=== PATIENT | female | born 1940 | race Caucasian/White ===

== ENCOUNTER → 2016-03-16 | Outpatient (CLI) | payer MEDICARE, OTHER ==
[~2016-03-16] MED LIST: /AMIO20TA OR; /METO25TAB PO; /WARF5TA OR; ACET-654 PO; ASCO500T PO; ASPI325T PO; ASPI81TA4 PO; CENTTAB PO; CORE25TA PO; CYAN1000 PO; FOLI1TAB86 PO; FURO40TA2 PO; HUMUINJ3 SC; INSUNSD SC; LEVO10VL IV; LEVO75TA3 PO; LISI2.5T PO; LOSA25TA8 PO; LOVA40TA PO; METF1000 PO; NORCOBULK PO; VITA100041 PO; [UNRECOGNIZED DRUG - OTHER] PO
--- NOTE | 2016-03-16 16:31 | REP ---
Chest x-ray: Two views: History: Chronic diastolic heart failure. Paroxysmal atrial fibrillation. Comparison study: 09/04/2015. Findings: The lungs are well inflated and clear. Heart is moderately enlarged. Bipolar pacemaker is seen in place. Vascular calcification is seen in the aorta. Prior sternotomy wires and mediastinal clips are seen. Pulmonary vasculature is slightly cephalized. Impression: Cardiomegaly with cephalization and pacemaker. No pleural effusion or pulmonary edema is seen. Signed by Luis Lynn MD 03/16/2016 04:35 P
[2016-03-16 21:37] LABS: ALBUMIN 2.9 GM/DL (3.2-5.2); ALBUMIN/GLOBULIN RATIO 0.83 (1.00-1.93); BILIRUBIN,TOTAL 0.7 MG/DL (0.2-1.0); CALCIUM LEVEL 9.2 MG/DL (8.8-10.2); CREATININE FOR GFR 2.52 MG/DL (0.55-1.02); GLOMERULAR FILTRATION RATE 19.9 (>39); MAGNESIUM LEVEL 2.1 MG/DL (1.8-2.4); POTASSIUM SERUM 4.1 MEQ/L (3.5-5.1); TOTAL PROTEIN 6.4 GM/DL (6.4-8.2)
== END ==
LOC: M LRY 14:41
PROVIDERS: ATTEND Physician Assistant
DX: I48.0 Paroxysmal atrial fibrillation (principal); I50.32 Chronic diastolic (congestive) heart failure; E78.00 Pure hypercholesterolemia, unspecified

== ENCOUNTER → 2016-03-19 | Outpatient (CLI) | payer MEDICARE, OTHER ==
[2016-03-19 19:48] LABS: INR 1.76
== END ==
LOC: M LRY 09:59
PROVIDERS: ATTEND Nurse Practitioner Family
DX: I48.0 Paroxysmal atrial fibrillation (principal)

== ENCOUNTER → 2016-04-02 | Outpatient (REF) | payer MEDICARE, OTHER | LOC: M SFHCLERA 10:10 | PROVIDERS: ATTEND Family Medicine | DX: E11.21 Type 2 diabetes mellitus with diabetic nephropathy (principal) ==

== ENCOUNTER → 2016-04-02 | Outpatient (CLI) | payer MEDICARE, OTHER ==
[2016-04-02 18:07] LABS: INR 1.74
== END ==
LOC: M LRY 10:06
PROVIDERS: ATTEND Nurse Practitioner Family
DX: I48.0 Paroxysmal atrial fibrillation (principal); Z51.81 Encounter for therapeutic drug level monitoring; Z79.01 Long term (current) use of anticoagulants; E11.21 Type 2 diabetes mellitus with diabetic nephropathy

== ENCOUNTER → 2016-04-08 | Outpatient (CLI) | payer MEDICARE, OTHER ==
--- NOTE | 2016-04-08 15:44 | REPMRS ---
Patient History The patient states she has not had a clinical breast exam in over a year. Patient is postmenopausal. Family history of prostate cancer in son at age 50. Digital Woman Screen Mammo: April 08, 2016 - Exam #: [id number] Bilateral CC and MLO view(s) were taken. Technologist: Coni Llamas, Technologist Prior study comparison: April 06, 2014, digital woman screen mammo performed at [facility] to [facility]. December 09, 2011, digital woman screen mammo performed at [facility] to [facility]. January 08, 2009, bilateral bilat screen digital mammo performed at [facility] to [facility]. FINDINGS: There are scattered fibroglandular densities. There has been no change in the appearance of the mammogram from the prior studies. There is a pacemaker power plant projecting over the left axilla on the MLO view.There is a mild amount of scattered fibroglandular density which is fairly symmetric. There is no interval development of dominant mass, architectural distortion, or clustered microcalcification suggestive of malignancy. ASSESSMENT: BI-RADS/ACR category 2 mammogram. Benign finding(s). Recommendation Routine screening mammogram in 1 year (for women over age 40). This mammogram was interpreted with the aid of an FDA-approved computer-aided dectection system. Electronically Signed By: Augustus Lynn MD 04/08/16 [id number]
--- NOTE | 2016-04-10 08:57 | DEXA ---
AP SPINE L1 - L4 1.434 1.9 3.4 LT FEMUR TOTAL 0.837 -1.4 0.2 RT FEMUR TOTAL 0.879 -1.0 0.5 TOTAL BODY TOTAL OTHER DUAL FEMUR FRAX* ASSESSMENT Risk factors: Insulin-dependent diabetic. 10 year probability of fracture Major osteoporotic fracture 10.6 % Hip fracture 2.0 % COMMENTS: Normal bone densitometry of the spine. There is low bone density of the hips. The density of the spine has decreased 5.2% since the initial exam on 2002. The spine density has decreased 9.2% since the most recent exam on 12/09/2011. The density of the left hip has decreased 31.8% since the initial exam on 2002. The density of the left hip has decreased 14.8% since the most recent exam on . The density of the right hip has decreased 25.5% since the initial exam on 05/31. The density of the right hip has decreased 9.9% since the most recent exam on . FOLLOW-UP: Recommendation for the next bone density exam: 2 years. HORTENCIAD
== END ==
LOC: M WHC 13:27
PROVIDERS: ATTEND Family Medicine
DX: Z13.820 Encounter for screening for osteoporosis (principal); Z12.31 Encounter for screening mammogram for malignant neoplasm of breast; Z78.0 Asymptomatic menopausal state; R92.8 Other abnormal and inconclusive findings on diagnostic imaging of breast
CPT/HCPCS: 77080; G0202

== ENCOUNTER → 2016-04-16 | Outpatient (CLI) | payer MEDICARE, OTHER ==
[2016-04-16 19:13] LABS: INR 1.95
== END ==
LOC: M LRY 10:07
PROVIDERS: ATTEND Nurse Practitioner Family
DX: Z79.899 Other long term (current) drug therapy (principal); Z79.01 Long term (current) use of anticoagulants; I48.0 Paroxysmal atrial fibrillation

== ENCOUNTER → 2016-05-04 | Outpatient (CLI) | payer MEDICARE, OTHER ==
[2016-05-04 16:53] LABS: INR 1.42
== END ==
LOC: M LRY 10:15
PROVIDERS: ATTEND Physician Assistant
DX: I48.0 Paroxysmal atrial fibrillation (principal)

== ENCOUNTER → 2016-05-18 | Outpatient (CLI) | payer MEDICARE, OTHER ==
[2016-05-18 17:40] LABS: INR 2.21
== END ==
LOC: M LRY 14:48
PROVIDERS: ATTEND Physician Assistant
DX: I48.0 Paroxysmal atrial fibrillation (principal)

== ENCOUNTER → 2016-05-26 | Outpatient (REF) | payer MEDICARE, OTHER | LOC: M LAB REF 12:54 | PROVIDERS: ATTEND Internal Medicine Nephrology | DX: D50.9 Iron deficiency anemia, unspecified (principal) ==

== ENCOUNTER 2016-06-03 10:13 | Outpatient (CLI) | payer MEDICARE ==
[~2016-06-03] VITALS: Ht 152.4 cm; Wt 72.7 kg
[2016-06-03] MEDS ORDERED: IRON SUCROSE 25 MG in NS 50 ML IV ONE (10:30)
[2016-06-03] MEDS ORDERED: IRON SUCROSE 475 MG in NS 250 ML IV ONE (11:30)
== END 2016-06-03 15:40 | disposition home or self-care (01) ==
LOC: M INFU 10:13
PROVIDERS: ATTEND Internal Medicine Nephrology
DX: D50.9 Iron deficiency anemia, unspecified (principal); Z79.899 Other long term (current) drug therapy; Z79.82 Long term (current) use of aspirin; Z79.01 Long term (current) use of anticoagulants; Z79.4 Long term (current) use of insulin; Z91.041 Radiographic dye allergy status; Z88.8 Allergy status to other drugs, medicaments and biological substances
CPT/HCPCS: 96365; 96366; J1756

== ENCOUNTER → 2016-06-16 | Outpatient (CLI) | payer MEDICARE ==
[2016-06-16 12:01] LABS: INR 2.7
== END ==
LOC: M LRY 09:27
PROVIDERS: ATTEND Physician Assistant
DX: I48.0 Paroxysmal atrial fibrillation (principal)

== ENCOUNTER → 2016-06-29 | Outpatient (CLI) | payer MEDICARE ==
[2016-06-29 12:45] LABS: INR 1.56
== END ==
LOC: M LRY 09:42
PROVIDERS: ATTEND Physician Assistant
DX: I48.0 Paroxysmal atrial fibrillation (principal)

== ENCOUNTER → 2016-07-01 | Outpatient (REF) | payer MEDICARE ==
[2016-07-01 21:13] LABS: PERCENT SATURATION 20.9 % (13.2-37.4)
== END ==
LOC: M LAB REF 16:53
PROVIDERS: ATTEND Internal Medicine Nephrology
DX: D50.9 Iron deficiency anemia, unspecified (principal)

== ENCOUNTER → 2016-07-07 | Outpatient (CLI) | payer MEDICARE ==
[2016-07-07 17:38] LABS: INR 2.42
== END ==
LOC: M LRY 08:54
PROVIDERS: ATTEND Physician Assistant
DX: I48.0 Paroxysmal atrial fibrillation (principal)

== ENCOUNTER → 2016-07-24 | Outpatient (REF) | payer MEDICARE, OTHER | LOC: M SFHCLERA 15:19 | PROVIDERS: ATTEND Family Medicine | DX: E11.21 Type 2 diabetes mellitus with diabetic nephropathy (principal) ==

== ENCOUNTER → 2016-08-10 | Outpatient (CLI) | payer MEDICARE, OTHER ==
[2016-08-10 12:15] LABS: INR 1.97
== END ==
LOC: M LRY 10:03
PROVIDERS: ATTEND Physician Assistant
DX: I48.0 Paroxysmal atrial fibrillation (principal); Z79.899 Other long term (current) drug therapy; E11.21 Type 2 diabetes mellitus with diabetic nephropathy

== ENCOUNTER → 2016-08-10 | Outpatient (REF) | payer MEDICARE, OTHER | LOC: M SFHCLERA 09:57 | PROVIDERS: ATTEND Family Medicine | DX: E11.21 Type 2 diabetes mellitus with diabetic nephropathy (principal) ==

== ENCOUNTER → 2016-08-31 | Outpatient (CLI) | payer MEDICARE, OTHER ==
[2016-08-31 11:49] LABS: INR 2.72
== END ==
LOC: M LRY 10:08
PROVIDERS: ATTEND Physician Assistant
DX: I48.0 Paroxysmal atrial fibrillation (principal)

== ENCOUNTER 2016-09-11 14:53 | Inpatient (IN) | payer MEDICARE ==
[~2016-09-11] VITALS: Ht 152.4 cm; Wt 78.0 kg
[~2016-09-11 14:53] MED LIST changes: +VITA-182 PO; -VITA100041 PO
[2016-09-11] MEDS ORDERED: calcitrol (15:16)
[2016-09-11] MEDS ORDERED: FERR325T3 PO (15:16)
[2016-09-11 16:18] LABS: BASO # 0.1 K/mm3 (0.0-0.2); BASO % 0.8 % (0.0-1.0); EOS # 0.3 K/mm3 (0.0-0.50); EOS % 4.2 % (0.0-3.0); LARGE UNSTAINED CELL # 0.1 K/mm3 (0.0-0.4); LARGE UNSTAINED CELL % 1.5 % (0.0-4.0); LYMPH # 1.7 K/mm3 (1.5-4.5); LYMPH % 21.9 % (24.0-44.0); MEAN CORPUSCULAR HEMOGLOBIN 27.6 pg (27.0-33.0); MEAN CORPUSCULAR HGB CONC 29.9 g/dl (32.0-36.5); MEAN CORPUSCULAR VOLUME 92.4 fl (80.0-96.0); MONO # 0.3 K/mm3 (0.0-0.8); MONO % 4.7 % (0.0-5.0); PLATELET COUNT, AUTOMATED 236 k/mm3 (150-450); RED CELL DISTRIBUTION WIDTH 16.8 % (11.5-14.5); WHITE BLOOD COUNT 7.4 K/mm3 (4.0-10.0)
[2016-09-11 16:20] LABS: INR 2.8
[2016-09-11 16:32] LABS: ALBUMIN 2.7 GM/DL (3.2-5.2); ALBUMIN/GLOBULIN RATIO 0.75 (1.00-1.93); ALKALINE PHOSPHATASE 124 U/L (45-117); ALT/SGPT 48 U/L (12-78); ANION GAP 9 MEQ/L (8-16); AST/SGOT 38 U/L (15-37); BILIRUBIN,DIRECT 0.4 MG/DL (0.0-0.2); BILIRUBIN,TOTAL 0.9 MG/DL (0.2-1.0); BLOOD UREA NITROGEN 79 MG/DL (7-18); CALCIUM LEVEL 8.5 MG/DL (8.8-10.2); CARBON DIOXIDE LEVEL 26 MEQ/L (21-32); CHLORIDE LEVEL 105 MEQ/L (98-107); CREATININE FOR GFR 2.82 MG/DL (0.55-1.02); GLOMERULAR FILTRATION RATE 17.4 (>39); GLUCOSE, FASTING 89 MG/DL (83-110); SODIUM LEVEL 140 MEQ/L (136-145); TOTAL PROTEIN 6.3 GM/DL (6.4-8.2)
--- NOTE | 2016-09-11 17:12 | REP ---
Clinical: Pain and swelling . Technique: Sagastume scale and color Doppler evaluation using linear high frequency transducer. Findings: Ultrasound examination of the right and left lower extremity deep venous structures from the common femoral vein to the popliteal vein demonstrates normal compressibility flow and wave patterns in response to respiration and augmentation. There is no evidence for deep venous thrombosis. Marked subcutaneous edema noted bilaterally. Impression: Edema. No evidence for deep venous thrombosis. Signed by Immanuel Staton MD 09/11/2016 05:04 P
--- NOTE | 2016-09-11 17:12 | REP ---
Clinical: Chest pain . Comparison: 03/16/2016 . Findings: The mediastinum and cardiac silhouette are stable and within normal limits for portable technique. Evidence of prior pacemaker, sternotomy and CABG. The lung mckenna suggest mild chronic pulmonary vascular congestion without acute consolidation, effusion, or pneumothorax. Skeletal structures are intact. Impression: Cannot exclude mild pulmonary vascular congestion. Signed by Immanuel Staton MD 09/11/2016 05:03 P
[2016-09-11] MEDS ORDERED: FUROSEMIDE 40 MG/4 ML VIAL (J1940) IV ONE (17:30)
[2016-09-11] MEDS ORDERED: VITA500T88 PO (17:46)
[2016-09-11] MEDS ORDERED: AMIO200T PO (17:46)
[2016-09-11] MEDS ORDERED: FLAX10005 PO (18:23)
[2016-09-11] MEDS ORDERED: CALC1CAP31 PO (18:23)
[2016-09-11] MEDS ORDERED: VITMTA PO (18:23)
[2016-09-11] MEDS ORDERED: CARV25TA PO (18:23)
[2016-09-11] MEDS ORDERED: LEVO112T25 PO (18:23)
[2016-09-11] MEDS ORDERED: VITA10002 PO (18:23)
[2016-09-11] MEDS ORDERED: ASPI81TA24 PO (18:23)
[2016-09-11] MEDS ORDERED: VITA100066 PO (18:23)
[2016-09-11] MEDS ORDERED: FERR1TAB8 PO (18:23)
[2016-09-11] MEDS ORDERED: INSUNSD SC ×2 (18:23)
[2016-09-11] MEDS ORDERED: LOVA40TA PO (18:23)
[2016-09-11] MEDS ORDERED: TORS20TA2 PO (18:23)
[2016-09-11] MEDS ORDERED: WARF-18 PO ×2 (18:23)
[2016-09-11] MEDS ORDERED: POTASSIUM CHLORIDE 10 MEQ SR TABLET PO ONE (18:45)
[2016-09-11] MEDS ORDERED: GLUCOSE 4 GM CHEW TABLET PO PRN (20:00)
[2016-09-11] MEDS ORDERED: DEXTROSE 50% 50 ML SYRINGE IV PRN (20:00)
[2016-09-11] MEDS ORDERED: GLUCAGON FOR INJ 1 MG VIAL (J1610) SC PRN (20:00)
[2016-09-11] MEDS ORDERED: IPRATROPIUM 0.5MG/ALBUTEROL 2.5MG INH SOL UD 3ML (DUONEB)(J7620) NEB PRN (20:00)
--- NOTE | 2016-09-11 20:20 | REPUSA ---
Clinical statement: pleural effusion. Findings: The lower chest was image bilaterally. Minimal pleural effusions are seen bilaterally, sli ghtly greater on the right than the left. There is no significant evidence of ascites. Impression: Small bilateral pleural effusions.
--- NOTE | 2016-09-11 20:51 | HPE ---
DATE OF ADMISSION: 09/11/2016 CHIEF COMPLAINT: A 76-year-old female sent by Dr. Martin' nurse practitioner due to history of shortness of breath with exertion and lower extremity swelling. HISTORY OF PRESENT ILLNESS: This is a pleasant 76-year-old female with significant past medical history of coronary artery disease who takes amiodarone, has a pacemaker, is on anticoagulation Coumadin therapy due to history of bypass and porcine aortic valve replacement, along with comorbidities of diabetes, chronic kidney disease stage IV, who recently had a fistula placed in June of this year, with hypothyroidism comorbidity who presents complaining of shortness of breath two nights ago, along with lower extremity swelling. The patient states that two nights ago, she had developed shortness of breath with exertion. Is able to usually sleep lying in bed flatly. The patient recently had her medication changed to torsemide by Dr. Martin' group, but has not fully started yet, but unfortunately the patient developed shortness of breath two nights ago with exertion. Therefore, along with lower extremity swelling, the nurse practitioner at Dr. Martin' office sent the patient to the emergency room for further evaluation. In the emergency room, the patient was evaluated, had a chest x-ray which showed multiple pulmonary vascular congestion which could not be excluded, but without any acute consolidation, effusion, or pneumothorax. The patient also had vasculature of the lower extremities, which was negative for deep venous thrombosis (DVT). The patient did have chronic kidney disease along with elevated brain natriuretic peptide (BNP); therefore, is being admitted for further evaluation and treatment for congestive heart failure (CHF). The patient denies any prodromal illness such as fever, chills, cough, sputum production, abdominal pain, diarrhea, dysuria, although the patient recently had a fistula placement in June of this year with preparation for possible hemodialysis with Dr. Singh. The patient denies any precipitating factors such as chest pain associated with this. The has allergies to INTRAVENOUS (IV) DYE. Therefore, she was premedicated prior to CT evaluation for fistula creation. Otherwise, the patient denies any symptoms other than those mentioned above. REVIEW OF SYSTEMS: 10-point review of systems negative other than those described in history of present illness (HPI). PAST MEDICAL HISTORY: Significant for coronary artery disease, congestive heart failure, chronic kidney disease stage IV, history of bypass, porcine aortic valve replacement on Coumadin, diabetes, hypothyroidism. SOCIAL HISTORY: Patient denies smoking, drinking or drug abuse. PAST SURGICAL HISTORY: Includes pacemaker placement, left arm fistula, bypass and porcine valve replacement. ALLERGIES: IV DYE and also BENZOCAINE or any JUANA which causes to have more itching. HOME MEDICATIONS: - amiodarone 200 mg by mouth daily - ascorbic acid 500 mg by mouth daily - aspirin 81 mg by mouth daily - calcitriol 0.25 mcg daily - carvedilol 25 mg by mouth twice a day - colecalciferol (vitamin D) 1000 units by mouth daily - vitamin B12 1000 mcg by mouth daily - ferrous sulfate 325 mg by mouth twice a day - flaxseed oil one capsule once a day - NPH 35 units subcutaneous every morning - NPH 15 units subcutaneous at bedtime - levothyroxine 112 mcg by mouth daily - lovastatin 40 mg by mouth at bedtime - multivitamin one tablet once a day - torsemide 20 mg pill but total of 60 mg by mouth twice a day - warfarin 2.5 mg on Wednesday, Wednesday and - warfarin 1.25 mg four times a week on Wednesday, Wednesday, Wednesday, and Wednesday PHYSICAL EXAMINATION: VITAL SIGNS: Temperature last known is 97, currently heart rate last known is 60 , respiratory rate of 20, blood pressure is 149/70, saturating 97% on room air. HEENT: Normocephalic. No trauma noted. Inspection of the eyes, nose and throat within normal. Pupils equal, round, and reactive to light and accommodation. Mucus is moist. NECK: Supple. No tracheal deviation. CARDIAC: S1, S2. Regular rate and rhythm. Pulses present. LUNGS: Equal air entry. I did not hear any significant wheezes, rales, rhonchi or crackle. ABDOMEN: Soft, nontender. Bowel sounds present. EXTREMITIES: Lower extremity pitting edema all the way up to the mid abdomen. Lower extremities +2 to 3. NEUROLOGIC: The patient is currently awake, alert, and oriented times three. Cranial nerves grossly intact. Motor and sensory are intact. Normal mood and affect for current situation, and family at the bedside. DIAGNOSTIC STUDIES: The patient had WBC and platelets that were normal. Hemoglobin and hematocrit are 9.1 and 30.3. Complete metabolic profile is within normal except for potassium at 3.0, albumin at 79, creatinine of 2.82, GFR of 17.4, glucose 89, calcium 8.5, direct bilirubin is 0.4, AST is 38, alkaline phosphatase 124. Total protein is 6.3, albumin is 2.7. Otherwise, complete metabolic profile is within normal. Cardiac enzymes within normal. BNP is 769. Coagulation studies: INR is therapeutic at 2.8 and PT of 30.7. The patient had chest x-ray again, as per radiology which could not exclude pulmonary vascular congestion, and lower extremity Doppler that was negative for DVT bilaterally. EKG showed heart rate of 60 electrically paced. ASSESSMENT AND PLAN: This is a 76-year-old female with significant past medical history of coronary artery disease who has a history of bypass along with porcine aortic valve replacement, utilizing Coumadin and amiodarone and follows Dr. Martin as outpatient, recently had medication change torsemide, with comorbidities of diabetes, hypothyroidism, coronary artery disease, chronic kidney disease, congestive heart failure (CHF), who is being admitted for shortness of breath with exertion and lower extremity swelling. 1. Congestive heart failure exacerbation with chronic kidney disease stage IV. The patient will be placed on telemetry. We will obtain serial cardiac enzymes, utilize IV Lasix, monitor intake and output, daily weights, fluid restriction, low salt diet. Respiratory treatment and oxygen as needed. Last known echocardiogram done was 2012. Therefore, we will repeat echocardiogram for further evaluation of ejection fraction. I have spoken with Dr. Zhou, who requested the patient to be treated with IV Lasix and discharged home with torsemide 20 mg twice a day. It seems the patient is already on 60 mg twice a day, this will need to be clarified again with Cardiology as patient likely will need a higher dose. Will defer touching base with Dr. Zhou to the oncoming team for discharge torsemide dosing, as the patient may need to go back on 60 instead of the 20 mg recommended. 2. Hypokalemia. We will replace and obtain magnesium level. 3. Coronary artery disease with history of bypass and porcine aortic valve and pacemaker. Resume amiodarone, aspirin, carvedilol, statin, and Coumadin and monitor international normalized ratio (INR). 4. Diabetes. Fingerstick monitoring. Resume NPH. 5. Hypothyroidism. Resume levothyroxine. 6. Resume vitamin B12, iron, calcitriol and vitamin D. 7. Deep venous thrombosis (DVT) prophylaxis with Coumadin and INR monitoring. MTDD
[2016-09-11] MEDS: HumaLOG INSULIN (NovoLOG) PER UNIT SC SCH (21:00)
--- NOTE | 2016-09-11 21:03 | ECGEPIP ---
Stationary ECG Study [facility] - ED Test Date: 2016-09-11 Pat Name: EVELYN LABOY Department: Room: - Gender: F Chute Loader: tk : 1940 Requested By: Indra Landa Order Number: [id number] Reading MD: Fannie Livingston Measurements Intervals [place] Rate: 60 P: 235 VA: 229 QRS: 267 QRSD: 195 T: 86 QT: 529 QTc: 529 Interpretive Statements ELECTRONIC ATRIAL PACEMAKER ELECTRONIC VENTRICULAR PACEMAKER ABNORMAL RHYTHM ECG Electronically Signed On 09-11-2016 21:02:49 EDT by Fannie Livingston
[2016-09-11] MEDS: IPRATROPIUM 0.5MG/ALBUTEROL 2.5MG INH SOL UD 3ML (DUONEB)(J7620) NEB SCH (21:11)
[2016-09-11 21:18] VITALS: BP 118/46
[2016-09-11] MEDS: WARFARIN SOD 2.5 MG TAB PO SCH (22:20)
[2016-09-11] MEDS: SIMVASTATIN 40 MG TAB PO SCH (22:25)
[2016-09-11] MEDS: CARVedilol 12.5 MG TAB PO SCH (22:25)
[2016-09-11] MEDS: FERROUS SULFATE 325MG TAB PO SCH (22:25)
[2016-09-11] MEDS: HumuLIN N INSULIN (NovoLIN N) PER UNIT SC SCH (22:28)
[2016-09-11] MEDS: FUROSEMIDE 40 MG/4 ML VIAL (J1940) IV SCH (22:32)
[2016-09-12] VITALS (7 sets, daily range): BP systolic 108–142; BP diastolic 46–65
[2016-09-12] MEDS: FUROSEMIDE 40 MG/4 ML VIAL (J1940) IV SCH ×6 (01:10→20:24)
[2016-09-12] MEDS: IPRATROPIUM 0.5MG/ALBUTEROL 2.5MG INH SOL UD 3ML (DUONEB)(J7620) NEB SCH (02:00)
[2016-09-12 03:01] LABS: MEAN CORPUSCULAR HEMOGLOBIN 28.2 pg (27.0-33.0); MEAN CORPUSCULAR HGB CONC 30.5 g/dl (32.0-36.5); MEAN CORPUSCULAR VOLUME 92.5 fl (80.0-96.0); RED CELL DISTRIBUTION WIDTH 16.9 % (11.5-14.5); WHITE BLOOD COUNT 8.3 K/mm3 (4.0-10.0)
[2016-09-12 03:28] LABS: CALCIUM LEVEL 8.5 MG/DL (8.8-10.2); CREATININE FOR GFR 2.73 MG/DL (0.55-1.02); GLOMERULAR FILTRATION RATE 18.1 (>39); POTASSIUM SERUM 3.4 MEQ/L (3.5-5.1)
[2016-09-12] MEDS: LEVOTHYROXINE 112MCG TABLET (0.112MG) PO SCH (06:27)
[2016-09-12] MEDS: HumaLOG INSULIN (NovoLOG) PER UNIT SC SCH ×4 (07:30→20:24)
[2016-09-12] MEDS: VITAMIN D 1,000 INTERNATIONAL UNITS TABLET PO SCH (08:09)
[2016-09-12] MEDS: MULTIVITAMINS/MINERALS THERAP 1 TAB PO SCH (08:09)
[2016-09-12] MEDS: CYANOCOBALAMIN 500 MCG TAB PO SCH (08:10)
[2016-09-12] MEDS: CARVedilol 12.5 MG TAB PO SCH ×2 (08:10→20:23)
[2016-09-12] MEDS: FERROUS SULFATE 325MG TAB PO SCH ×2 (08:10→20:21)
[2016-09-12] MEDS: AMIODARONE 200 MG TAB (PACERONE) PO SCH (08:10)
[2016-09-12] MEDS: ASPIRIN 81 MG ENTERIC TAB PO SCH (08:10)
[2016-09-12] MEDS: HumuLIN N INSULIN (NovoLIN N) PER UNIT SC SCH ×2 (09:01→21:00)
--- NOTE | 2016-09-12 14:29 | IPN ---
DATE: 09/12/2016 SUBJECTIVE: Patient seen and examined in the room today. Patient stated she does not have any difficulty breathing; however, does notice that she has worsening lower extremity swelling and has been worsening for the past few weeks. No overnight events reported. OBJECTIVE: VITAL SIGNS: Temperature is 97.3, pulse is 60, respirations 18, blood pressure is 140/65, pulse oximetry 96% in room air. GENERAL: No sign of acute distress, alert and oriented times three. HEENT: Normocephalic, atraumatic. Extraocular motor grossly intact. VITAL SIGNS: Positive S1, S2, regular rate. LUNGS: Clear to auscultation bilaterally. No wheezes or rhonchi. ABDOMEN: Soft, nontender, nondistended. Bowel sounds present. No rebound. No guarding. EXTREMITIES: Bilateral pitting edema. No sign of cyanosis. LABORATORY DATA: WBC 8.3, hemoglobin 8.9, hematocrit 29.2, platelet count is 222. Sodium is 143, potassium 3.4, chloride 107, carbon dioxide 25, BUN 75, creatinine 2.73, GFR is 18.1, fasting glucose 100, calcium is 8.5. ASSESSMENT AND PLAN: 1. Congestive heart failure exacerbation. Patient is currently receiving intravenous (IV) Lasix with holding parameters. Will continue to monitor patient's input and output. Patient does not have any events observed on telemetry. Patient will be downgraded to medical/surgical. 2. Hypokalemia. Patient will receive a potassium supplement. Will follow with magnesium level. 3. Coronary artery disease with a history of bypass and porcine aortic valve and pacemaker. Patient is on aspirin, carvedilol, amiodarone, and a statin. Patient is on Coumadin with a therapeutic INR. 4. Diabetes. Sliding scale. 5. Hypothyroidism, on Synthroid. 6. Deep vein thrombosis (DVT) prophylaxis. Patient has therapeutic INR. Patient is on Coumadin.
[2016-09-12 14:53] LABS: MAGNESIUM LEVEL 2.3 MG/DL (1.8-2.4)
[2016-09-12] MEDS ORDERED: POTASSIUM CHLORIDE 10 MEQ SR TABLET PO ONE (15:00)
[2016-09-12] MEDS: SIMVASTATIN 40 MG TAB PO SCH (20:21)
[2016-09-12] MEDS: CALCITRIOL 0.25 MCG CAP (S0169) PO SCH (20:21)
[2016-09-12] MEDS: WARFARIN SOD 2.5 MG TAB PO SCH (20:24)
[2016-09-13] MEDS: FUROSEMIDE 40 MG/4 ML VIAL (J1940) IV SCH ×6 (00:24→20:23)
[2016-09-13] MEDS: LEVOTHYROXINE 112MCG TABLET (0.112MG) PO SCH (05:25)
[2016-09-13 06:00] VITALS: BP_SYST 112; BP_SYST 125; BP_DIAS 56; BP_DIAS 57
[2016-09-13 06:46] LABS: MEAN CORPUSCULAR HEMOGLOBIN 27.7 pg (27.0-33.0); MEAN CORPUSCULAR HGB CONC 29.8 g/dl (32.0-36.5); MEAN CORPUSCULAR VOLUME 92.9 fl (80.0-96.0); RED CELL DISTRIBUTION WIDTH 17.1 % (11.5-14.5); WHITE BLOOD COUNT 8.1 K/mm3 (4.0-10.0)
[2016-09-13 07:01] LABS: CALCIUM LEVEL 8.5 MG/DL (8.8-10.2); CREATININE FOR GFR 2.64 MG/DL (0.55-1.02); GLOMERULAR FILTRATION RATE 18.8 (>39)
[2016-09-13] MEDS: HumaLOG INSULIN (NovoLOG) PER UNIT SC SCH ×4 (07:30→17:39)
[2016-09-13] MEDS: MULTIVITAMINS/MINERALS THERAP 1 TAB PO SCH (08:11)
[2016-09-13] MEDS: VITAMIN D 1,000 INTERNATIONAL UNITS TABLET PO SCH (08:11)
[2016-09-13] MEDS: FERROUS SULFATE 325MG TAB PO SCH ×2 (08:11→20:22)
[2016-09-13] MEDS: CARVedilol 12.5 MG TAB PO SCH ×2 (08:12→20:21)
[2016-09-13] MEDS: AMIODARONE 200 MG TAB (PACERONE) PO SCH (08:13)
[2016-09-13] MEDS: CYANOCOBALAMIN 500 MCG TAB PO SCH (08:13)
[2016-09-13] MEDS: ASPIRIN 81 MG ENTERIC TAB PO SCH (08:13)
[2016-09-13] MEDS: HumuLIN N INSULIN (NovoLIN N) PER UNIT SC SCH ×2 (08:14→20:23)
[2016-09-13] MEDS ORDERED: PREVNAR 13 VACCINE SYRINGE (CPT CODE:90670) IM ONE (09:00)
[2016-09-13 14:00] VITALS: BP 116/58
--- NOTE | 2016-09-13 16:27 | IPN ---
DATE: 09/13/2016 SUBJECTIVE: Patient seen and examined in the room today. Patient stated that her lower extremity swelling has been improving. The patient feels less discomfort. No overnight events reported. No difficulty breathing. OBJECTIVE: VITAL SIGNS: Temperature is 97.3, pulse is 58, respirations 18, blood pressure is 125/57, pulse oximetry is 93% in room air. GENERAL: No sign of acute distress, alert and oriented times three. HEENT: Normocephalic, atraumatic. Extraocular motor grossly intact. VITAL SIGNS: Positive S1, S2, regular rate. LUNGS: Clear to auscultation bilaterally. No wheezes or rhonchi. ABDOMEN: Soft, nontender, nondistended. Bowel sounds present. No rebound. No guarding. EXTREMITIES: There is still bilateral pitting edema. No sign of cyanosis. LABORATORY DATA: WBC 8.1, hemoglobin 8.5, hematocrit 28.5, platelet count is 220. Sodium is 139, potassium 4.0, chloride 106, carbon dioxide 26, BUN 78, creatinine 2.64, GFR is 18.8, fasting glucose 79, calcium is 8.5. ASSESSMENT AND PLAN: 1. Acute exacerbation of congestive heart failure. Patient is on intravenous (IV) Lasix diuresis. 2. Acute on chronic renal injury. In March 2016, the patient had a creatinine of 2.52. Since admission, the patient's renal function is improving. Continue Lasix diuresis. 3. History of coronary artery disease with a history of bypass and porcine aortic valve and pacemaker. Patient is on aspirin, carvedilol, amiodarone, and a statin. Patient is on Coumadin with a therapeutic INR. 4. Diabetes. On sliding scale. 5. Hypothyroidism, on Synthroid. 6. Deep vein thrombosis (DVT) prophylaxis. Patient in on Coumadin with a therapeutic INR.
[2016-09-13] MEDS: WARFARIN SOD 2.5 MG TAB PO SCH (20:21)
[2016-09-13] MEDS: SIMVASTATIN 40 MG TAB PO SCH (20:21)
[2016-09-13 22:00] VITALS: BP 112/55
[2016-09-14] MEDS: FUROSEMIDE 40 MG/4 ML VIAL (J1940) IV SCH ×4 (00:06→13:00)
[2016-09-14] MEDS: LEVOTHYROXINE 112MCG TABLET (0.112MG) PO SCH (05:46)
[2016-09-14 06:00] VITALS: BP 100/56
[2016-09-14 06:27] LABS: MEAN CORPUSCULAR HEMOGLOBIN 28.6 pg (27.0-33.0); MEAN CORPUSCULAR HGB CONC 30.6 g/dl (32.0-36.5); MEAN CORPUSCULAR VOLUME 93.6 fl (80.0-96.0); RED CELL DISTRIBUTION WIDTH 17.3 % (11.5-14.5)
[2016-09-14 06:49] LABS: CALCIUM LEVEL 9.1 MG/DL (8.8-10.2); CREATININE FOR GFR 2.69 MG/DL (0.55-1.02); GLOMERULAR FILTRATION RATE 18.4 (>39); POTASSIUM SERUM 3.8 MEQ/L (3.5-5.1)
[2016-09-14] MEDS: HumaLOG INSULIN (NovoLOG) PER UNIT SC SCH ×4 (07:30→21:00)
[2016-09-14 07:46] LABS: INR 2.94
[2016-09-14] MEDS: FERROUS SULFATE 325MG TAB PO SCH ×2 (08:41→21:14)
[2016-09-14] MEDS: MULTIVITAMINS/MINERALS THERAP 1 TAB PO SCH (08:41)
[2016-09-14] MEDS: AMIODARONE 200 MG TAB (PACERONE) PO SCH (08:41)
[2016-09-14] MEDS: ASPIRIN 81 MG ENTERIC TAB PO SCH (08:41)
[2016-09-14] MEDS: CYANOCOBALAMIN 500 MCG TAB PO SCH (08:42)
[2016-09-14] MEDS: VITAMIN D 1,000 INTERNATIONAL UNITS TABLET PO SCH (08:42)
[2016-09-14] MEDS: HumuLIN N INSULIN (NovoLIN N) PER UNIT SC SCH ×3 (08:43→21:15)
[2016-09-14] MEDS: CARVedilol 12.5 MG TAB PO SCH ×2 (08:43→21:15)
[2016-09-14 14:00] VITALS: BP 108/54
--- NOTE | 2016-09-14 16:20 | IPN ---
DATE: 09/14/2016 SUBJECTIVE: Patient is seen and examined in the room today. Patient stated her lower extremity edema has been improving, however she still has significant residual swelling causing her discomfort and patient does not feel comfortable and patient is unable to resume her daily activity function with current swelling. No overnight events reported. OBJECTIVE: VITAL SIGNS: Temperature 97.8, pulse 60, respirations 18, blood pressure 100/56, pulse oximetry 95% in room air. GENERAL: No sign of acute distress, alert and oriented times three. HEENT: Normocephalic, atraumatic. Extraocular motors grossly intact. CARDIOVASCULAR: Positive S1, S2, regular rate. LUNGS: Clear to auscultation bilaterally. No wheezing or rhonchi. ABDOMEN: Soft, nontender, nondistended. Bowel sounds present. No rebound. No guarding. EXTREMITIES: 2+ pitting edema bilaterally. No sign of cyanosis. Some discomfort found on palpation. ASSESSMENT AND PLAN: 1. Acute exacerbation of congestive heart failure. Patient still has significant lower extremity swelling. Patient had aggressive IV diuresis today. I contacted patient's cardiology provider, Kalee in Dr. Martin' office. Previously, patient was on Lasix 120 by mouth daily, however with that dosage patient had worsening lower extremity swelling. Patient was switched to torsemide 60 mg by mouth twice a day right before admission. Patient actually only took one dose of the new regimen. Patient is not sure whether the new regimen works for her. Will restart patient on oral regimen. Will see if patient can maintain a good intake and output. 2. Acute on chronic renal injury. In February, patient had a creatinine of 2.52. Patient is continued on the diuresis. Will continue to follow patient's renal function. 3. History of coronary artery disease with history of bypass and porcine aortic valve and pacemaker. On aspirin, carvedilol, amiodarone, and statin. Patient is on Coumadin with a therapeutic INR. 4. Diabetes. On sliding scale and consistent carbohydrate diet. 5. Hypothyroidism, on Synthroid. 6. Deep venous thrombosis (DVT) prophylaxis. Patient is on Coumadin with a therapeutic INR.
[2016-09-14] MEDS: TORSEMIDE 20 MG TAB PO SCH (17:44)
[2016-09-14 20:00] VITALS: BP 106/57
[2016-09-14] MEDS: CALCITRIOL 0.25 MCG CAP (S0169) PO SCH (21:14)
[2016-09-14] MEDS: SIMVASTATIN 40 MG TAB PO SCH (21:14)
[2016-09-14] MEDS: WARFARIN SOD 2.5 MG TAB PO SCH (21:15)
[2016-09-14 22:00] VITALS: BP 106/57
[2016-09-15 06:00] VITALS: BP 127/57
[2016-09-15] MEDS: LEVOTHYROXINE 112MCG TABLET (0.112MG) PO SCH (06:26)
[2016-09-15 07:12] LABS: MEAN CORPUSCULAR HEMOGLOBIN 28.9 pg (27.0-33.0); MEAN CORPUSCULAR HGB CONC 30.6 g/dl (32.0-36.5); MEAN CORPUSCULAR VOLUME 94.3 fl (80.0-96.0); RED CELL DISTRIBUTION WIDTH 17.3 % (11.5-14.5); WHITE BLOOD COUNT 8.2 K/mm3 (4.0-10.0)
[2016-09-15 07:19] LABS: INR 2.99
[2016-09-15 07:31] LABS: CREATININE FOR GFR 2.71 MG/DL (0.55-1.02); GLOMERULAR FILTRATION RATE 18.2 (>39); POTASSIUM SERUM 3.9 MEQ/L (3.5-5.1)
[2016-09-15] MEDS: TORSEMIDE 20 MG TAB PO SCH ×2 (08:38→17:59)
[2016-09-15] MEDS: CYANOCOBALAMIN 500 MCG TAB PO SCH (08:38)
[2016-09-15] MEDS: HumaLOG INSULIN (NovoLOG) PER UNIT SC SCH ×4 (08:39→21:00)
[2016-09-15] MEDS: AMIODARONE 200 MG TAB (PACERONE) PO SCH (08:39)
[2016-09-15] MEDS: MULTIVITAMINS/MINERALS THERAP 1 TAB PO SCH (08:39)
[2016-09-15] MEDS: ASPIRIN 81 MG ENTERIC TAB PO SCH (08:39)
[2016-09-15] MEDS: VITAMIN D 1,000 INTERNATIONAL UNITS TABLET PO SCH (08:39)
[2016-09-15] MEDS: CARVedilol 12.5 MG TAB PO SCH ×2 (08:39→20:49)
[2016-09-15] MEDS: FERROUS SULFATE 325MG TAB PO SCH ×2 (08:39→20:49)
[2016-09-15] MEDS: HumuLIN N INSULIN (NovoLIN N) PER UNIT SC SCH ×2 (08:40→20:50)
[2016-09-15 14:00] VITALS: BP 127/58
--- NOTE | 2016-09-15 16:36 | IPNPDOC ---
Subjective Date Seen The patient was seen on 09/15/16. Subjective Chief Complaint/HPI The patient is a 76-year-old female admitted with a reason for visit of Acute Exacerbation Of Chf. General: Denies: Chills, Night Sweats Constitutional: Denies: Chills, Fever Eyes: Denies: Pain, Vision change ENT: Denies: Head Aches, Ear Pain Skin: Denies: Rash, Lesions Pulmonary: Denies: Dyspnea, Cough Cardiovascular: Denies: Chest Pain, Palpitations Gastrointestinal: Denies: Nausea, Vomiting Genitourinary: Denies: Dysuria, Frequency Hematologic: Denies: Bruising, Bleeding Excessively Objective Physical Examination General Exam: Positive: Alert, Cooperative, No Acute Distress ENT Exam: Positive: Atraumatic, Mucous membr. moist/pink Neck Exam: Negative: JVD Chest Exam: Positive: Clear to auscultation Heart Exam: Positive: Rate Normal, Normal S1, Normal S2 Abdomen Exam: Positive: Soft, Negative: Tenderness Extremity Exam: Positive: Other (2+ pitting edema in the lower extremities bilaterally), Negative: Tenderness Psych Exam: Positive: Oriented x 3 Assessment /Plan Plan/VTE VTE Prophylaxis Ordered?: Yes Plan Acute decompensation of congestive heart failure Patient's volume status improved, however she does still have some edema in the lower extremities, particularly in the feet bilaterally Cont torsemide 60 mg by mouth twice a day Cont to monitor I/O's Daily weights We will cont to optimize the patient's volume status Chronic Kidney Disease Stage IV Serum Creatinine at baseline Follows with Dr. Singh as an outpatient History of coronary artery disease with history of bypass and porcine aortic valve and pacemaker. Cont aspirin, carvedilol, amiodarone, and statin. On Coumadin with a therapeutic INR. Diabetes Cont sliding scale and consistent carbohydrate diet. Hypothyroidism Cont Synthroid. Deep venous thrombosis (DVT) prophylaxis. Already on Coumadin with a therapeutic INR. Dispo--Anticipate D/C in the next 24 hrs pending clinical improvement. VS, I&O, 24H, Fishbone Vital Signs/I&O Vital Signs Date Time Temp Pulse Resp B/P (MAP) Pulse Ox O2 Delivery O2 Flow Rate FiO2 09/15/16 08:39 64 142/63 09/15/16 08:05 Room Air 09/15/16 06:00 99.2 18 92 I&O- Last 24 Hours up to 6 AM 09/15/16 06:00 Intake Total 840 ml Output Total 825 ml Balance 15 ml Laboratory Data 24H LABS Laboratory Tests 2 09/14/16 16:38: Bedside Glucose (Misc Panel) 128H 09/14/16 20:50: Bedside Glucose (Misc Panel) 131H 09/15/16 06:54: Prothrombin Time 32.4H, Prothromb Time International Ratio 2.99, Anion Gap 8, Glomerular Filtration Rate 18.2L, Blood Urea Nitrogen 73H, Creatinine 2.71H, Sodium Level 138, Potassium Level 3.9, Chloride Level 104, Carbon Dioxide Level 26, Calcium Level 9.0 CBC/BMP Laboratory Tests 09/15/16 06:54 Red Blood Count 2.99 L, Mean Corpuscular Volume 94.3, Mean Corpuscular Hemoglobin 28.9, Mean Corpuscular Hemoglobin Concent 30.6 L, Red Cell Distribution Width 17.3 H, Calcium Level 9.0 Microbiology Microbiology 09/12/16 Urine Culture - Final, Complete Escherichia Coli MILLI RYAN MD Sep 15, 2016 16:36
[2016-09-15] MEDS: SIMVASTATIN 40 MG TAB PO SCH (20:49)
[2016-09-15] MEDS: WARFARIN SOD 2.5 MG TAB PO SCH (20:50)
[2016-09-15 22:00] VITALS: BP 133/60
[2016-09-16 06:00] VITALS: BP 132/58
[2016-09-16] MEDS: LEVOTHYROXINE 112MCG TABLET (0.112MG) PO SCH (06:02)
[2016-09-16 06:52] LABS: MEAN CORPUSCULAR HGB CONC 29.4 g/dl (32.0-36.5); MEAN CORPUSCULAR VOLUME 95.1 fl (80.0-96.0); RED CELL DISTRIBUTION WIDTH 17.4 % (11.5-14.5); WHITE BLOOD COUNT 9.8 K/mm3 (4.0-10.0)
[2016-09-16 06:55] LABS: CALCIUM LEVEL 9.3 MG/DL (8.8-10.2); CREATININE FOR GFR 2.92 MG/DL (0.55-1.02); GLOMERULAR FILTRATION RATE 16.7 (>39); POTASSIUM SERUM 4.3 MEQ/L (3.5-5.1)
[2016-09-16 06:58] LABS: INR 3.07
[2016-09-16 08:24] VITALS: BP 132/58
[2016-09-16] MEDS: MULTIVITAMINS/MINERALS THERAP 1 TAB PO SCH (08:24)
[2016-09-16] MEDS: HumaLOG INSULIN (NovoLOG) PER UNIT SC SCH ×2 (08:24→13:17)
[2016-09-16] MEDS: FERROUS SULFATE 325MG TAB PO SCH (08:24)
[2016-09-16] MEDS: VITAMIN D 1,000 INTERNATIONAL UNITS TABLET PO SCH (08:24)
[2016-09-16] MEDS: CARVedilol 12.5 MG TAB PO SCH (08:24)
[2016-09-16] MEDS: ASPIRIN 81 MG ENTERIC TAB PO SCH (08:24)
[2016-09-16] MEDS: HumuLIN N INSULIN (NovoLIN N) PER UNIT SC SCH (08:25)
[2016-09-16] MEDS: AMIODARONE 200 MG TAB (PACERONE) PO SCH (08:25)
[2016-09-16] MEDS: CYANOCOBALAMIN 500 MCG TAB PO SCH (08:25)
[2016-09-16] MEDS: TORSEMIDE 20 MG TAB PO SCH (08:25)
--- NOTE | 2016-09-16 12:31 | DS.PDOC ---
Discharge Summary General Date of Admission Sep 14, 2016 at 16:01 Date of Discharge 09/16/16 Discharge Summary PROCEDURES PERFORMED DURING STAY: None. ADMITTING DIAGNOSES: 1. . Decompensated congestive heart failure 2. . Stage IV chronic kidney disease DISCHARGE DIAGNOSES: 1. . Decompensated congestive heart failure 2. . Stage IV chronic kidney disease COMPLICATIONS/CHIEF COMPLAINT: Acute Exacerbation Of Chf. HISTORY OF PRESENT ILLNESS: . 76-year-old female with past medical history of CAD, congestive heart failure, chronic kidney disease stage IV, history of CABG, porcine aortic valve replacement on Coumadin, DM, and Hypothyroidism presented to the ER with a chief complaint of increasing shortness of breath and lower extremity edema. Patient follows with Dr. Martin's office of cardiology. She states that normally she is able to sleep lying flat in bed. However, prior to her presentation to the ER she notes that she developed increasing shortness of breath while laying flat and she also noticed that she developed increased swelling in her lower extremities. She was seen in the cardiology office and her diuretic medication was changed to torsemide 60 mg by mouth twice a day recently. However, upon going home the patient states that she continued to feel short of breath with lower extreme edema so she presented to the ER for further evaluation. In the ER, the patient was noted to be in the decompensated congestive heart failure. She was started on IV diuretics and the hospitalist service was called for admission. During hospitalization, the patient was continued on IV diuretics and subsequently transitioned to by mouth torsemide as previously prescribed. During this time, the patient's lower extremity edema and dyspnea on exertion significantly improved. She has diuresed a net negative fluid balance of ~2 L during this time. At this time, the patient states that she is back to her baseline. The patient's serum creatinine has remained within her baseline limits of 2.5-2.9. She notes that she has an appointment scheduled with Dr. Singh's office within the next week. At this time, the patient states that she feels much better and she is eager to return home. The patient was seen by physical therapy and cleared to return home. At this time, I have advised patient to follow-up with her primary care physician within one as well as her solids control technician and concrete inspector. In addition, I have asked the patient to monitor her fluid intake, and take daily weights to monitor her fluid balance levels. She has been advised to return to the ER if her symptoms return or persist. DISCHARGE MEDICATIONS: Please see below. ALLERGIES: Please see below. PHYSICAL EXAMINATION ON DISCHARGE: General Exam: Positive: Alert, Cooperative, No Acute Distress ENT Exam: Positive: Atraumatic, Mucous membr. moist/pink Neck Exam: Negative: JVD Chest Exam: Positive: Clear to auscultation Heart Exam: Positive: Rate Normal, Normal S1, Normal S2 Abdomen Exam: Positive: Soft, Negative: Tenderness Extremity Exam: Positive: Other (1+ pitting edema in the lower extremities bilaterally),--significantly improved Negative: Tenderness Psych Exam: Positive: Oriented x 3 LABORATORY DATA: Please see below. IMAGING: Clinical: Chest pain . Comparison: 03/16/2016 . Findings: The mediastinum and cardiac silhouette are stable and within normal limits for portable technique. Evidence of prior pacemaker, sternotomy and CABG. The lung mckenna suggest mild chronic pulmonary vascular congestion without acute consolidation, effusion, or pneumothorax. Skeletal structures are intact. Impression: Cannot exclude mild pulmonary vascular congestion. PROGNOSIS: Medically stable at this time ACTIVITY: As tolerated. DIET: .2gm low sodium, fluid restricted diet DISCHARGE PLAN: DISPOSITION: .Home DISCHARGE INSTRUCTIONS: 1. . Follow-up with PCP, nephrology, and cardiology within 1-2 weeks 2. . Return to the ER if symptoms return or persist DISCHARGE CONDITION: Stable. TIME SPENT ON DISCHARGE: Greater than 30 minutes. Vital Signs/I&Os Vital Signs Date Time Temp Pulse Resp B/P (MAP) Pulse Ox O2 Delivery O2 Flow Rate FiO2 09/16/16 08:24 62 132/58 09/16/16 07:43 Room Air 09/16/16 06:00 97.4 18 92 I&O- Last 24 Hours up to 6 AM 09/16/16 05:59 Intake Total 840 ml Output Total 1150 ml Balance -310 ml Laboratory Data Labs 24H Laboratory Tests 2 09/16/16 06:32: Prothrombin Time 33.1H, Prothromb Time International Ratio 3.07, Anion Gap 8, Glomerular Filtration Rate 16.7L, Blood Urea Nitrogen 76H, Creatinine 2.92H, Sodium Level 135L, Potassium Level 4.3, Chloride Level 103, Carbon Dioxide Level 24, Calcium Level 9.3 CBC/BMP Laboratory Tests 09/16/16 06:32 Red Blood Count 3.03 L, Mean Corpuscular Volume 95.1, Mean Corpuscular Hemoglobin 28.0, Mean Corpuscular Hemoglobin Concent 29.4 L, Red Cell Distribution Width 17.4 H, Calcium Level 9.3 Microbiology Microbiology 09/12/16 Urine Culture - Final, Complete Escherichia Coli Discharge Medications Scheduled (Flaxseed Oil 1000 mg) 1 Cap Cap, 1 CAP PO DAILY, (Reported) Amiodarone HCl (Amiodarone HCl) 200 Mg Tab, 200 MG PO DAILY, (Reported) Ascorbic Acid (Vitamin C) 500 Mg Tab, 500 MG PO DAILY, (Reported) Aspirin (Aspirin EC) 81 Mg Tab, 81 MG PO DAILY, (Reported) Calcitriol (Calcitriol) 0.25 Mcg Cap, 0.25 MCG PO Q2D, (Reported) TAKES AT HS Carvedilol (Carvedilol) 25 Mg Tab, 25 MG PO BID, (Reported) Cholecalciferol (Vitamin D) 1,000 Unit Tab, 1,000 UNIT PO DAILY, (Reported) Cyanocobalamin (Vitamin B-12) 1,000 Mcg Tab, 1,000 MCG PO DAILY, (Reported) Ferrous Sulfate (Ferrous Sulfate) 325 Mg Tab, 325 MG PO BID, (Reported) Insulin Human NPH (Humulin N) 1 Units/0.01 Ml Susp, 35 UNITS SC QAM, (Reported) Insulin Human NPH (Humulin N) 1 Units/0.01 Ml Susp, 15 UNITS SC QHS, (Reported) Levothyroxine Sodium (Levoxyl) 112 Mcg Tab, 112 MCG PO DAILY, (Reported) Lovastatin (Lovastatin) 40 Mg Tab, 40 MG PO QHS, (Reported) Multivitamins *[place] STOCKED* (Thera M Plus *[place] STOCKED*) 1 Tab Tab, 1 TAB PO DAILY, (Reported) Torsemide (Torsemide) 20 Mg Tab, 60 MG PO BID, (Reported) Warfarin Sod (Warfarin Sodium) 2.5 Mg Tab, 2.5 MG PO 3XW, (Reported) QHS: SUN, MON, THURS Warfarin Sod (Warfarin Sodium) 2.5 Mg Tab, 1.25 MG PO 4XWK, (Reported) QHS: TUES, WED, FRI, SAT Allergies Coded Allergies: Contrast Media (Unverified Allergy, Severe, ANAPHALAXIS-THROAT CLOSES, 09/11) Benzocaine (Unverified Allergy, Intermediate, RASH, 09/11/16) MILLI RYAN MD Sep 16, 2016 12:31
== END 2016-09-16 13:55 | disposition home or self-care (01) | DRG 292 ==
LOC: M ED 14:53 → M ED INP 19:20 → M PCU 21:06 → M MS5PR 09-12 18:45 → OBSVTOIN 09-14 16:01
PROVIDERS: ADMIT Internal Medicine; ATTEND Internal Medicine
DX: I13.0 Hypertensive heart and chronic kidney disease with heart failure and stage 1 through stage 4 chronic kidney disease, or unspecified chronic kidney disease (principal); N18.4 Chronic kidney disease, stage 4 (severe); I50.9 Heart failure, unspecified; Z95.3 Presence of xenogenic heart valve; Z95.1 Presence of aortocoronary bypass graft; E11.9 Type 2 diabetes mellitus without complications; E03.9 Hypothyroidism, unspecified; Z79.01 Long term (current) use of anticoagulants; B96.20 Unspecified Escherichia coli [E. coli] as the cause of diseases classified elsewhere; Z79.82 Long term (current) use of aspirin; Z79.4 Long term (current) use of insulin; Z79.899 Other long term (current) drug therapy; Z88.8 Allergy status to other drugs, medicaments and biological substances; Z91.041 Radiographic dye allergy status; Z95.0 Presence of cardiac pacemaker; E87.6 Hypokalemia

== ENCOUNTER → 2016-09-17 | Outpatient (REF) | payer MEDICARE, OTHER ==
[~2016-09-17] MED LIST changes: +ACET650T3 PO; +AMIL25TA PO; +AMIL5TA PO; +AMIO200T PO; +ASCO25TA PO; +ASPI81TA24 PO; +CALC1CAP31 PO; +CARV25TA PO; +FERR1TAB8 PO; +FERR325T16 PO; +FERR325T3 PO; +FLAX10005 PO; +LEVO112T25 PO; +NITR4TASL SL; +TORS20TA2 PO; +VITA10002 PO; +VITA100066 PO; +VITA100T20 PO; +VITA500T88 PO; +VITMTA PO; +WARF-18 PO; +WARF4TAB52 PO; +calcitrol
[2016-09-18 20:23] LABS: PERCENT SATURATION 22.3 % (13.2-37.4)
== END ==
LOC: M LAB REF 18:17
PROVIDERS: ATTEND Internal Medicine Nephrology
DX: D50.9 Iron deficiency anemia, unspecified (principal)

== ENCOUNTER → 2016-09-21 | Outpatient (CLI) | payer MEDICARE, OTHER ==
--- NOTE | 2016-09-21 15:58 | REP ---
Chest two views HISTORY: Drug therapy Comparison: 09/11/2016 The lungs are clear. The heart is normal in size. The pulmonary vasculature is normal in appearance. The bony structure is intact. A cardiac pacemaker is present. IMPRESSION: No acute disease. Signed by Raciel Selby MD 09/21/2016 03:48 P
[2016-09-22 09:17] LABS: ALBUMIN 2.8 GM/DL (3.2-5.2); ALBUMIN/GLOBULIN RATIO 0.85 (1.00-1.93); CALCIUM LEVEL 9.1 MG/DL (8.8-10.2); CREATININE FOR GFR 2.91 MG/DL (0.55-1.02); GLOMERULAR FILTRATION RATE 16.8 (>39); MAGNESIUM LEVEL 2.7 MG/DL (1.8-2.4); TOTAL PROTEIN 6.1 GM/DL (6.4-8.2)
== END ==
LOC: M LRY 14:56
PROVIDERS: ATTEND Physician Assistant
DX: I50.32 Chronic diastolic (congestive) heart failure (principal); I48.0 Paroxysmal atrial fibrillation

== ENCOUNTER → 2016-09-28 | Outpatient (CLI) | payer MEDICARE ==
[2016-09-28 11:48] LABS: INR 2.3
== END ==
LOC: M LRY 10:00
PROVIDERS: ATTEND Physician Assistant
DX: I48.0 Paroxysmal atrial fibrillation (principal)

== ENCOUNTER → 2016-10-14 | Outpatient (CLI) | payer MEDICARE ==
[2016-10-14 19:40] LABS: ALBUMIN 3.1 GM/DL (3.2-5.2); CALCIUM LEVEL 9.2 MG/DL (8.8-10.2); CREATININE FOR GFR 4.4 MG/DL (0.55-1.02); FREE T4 1.75 NG/DL (0.76-1.46); GLOMERULAR FILTRATION RATE 10.4 (>39); PHOSPHORUS LEVEL 4.5 MG/DL (2.5-4.9)
[2016-10-14 19:41] LABS: POTASSIUM SERUM 5.7 MEQ/L (3.5-5.1)
== END ==
LOC: M LRY 15:14
PROVIDERS: ATTEND Physician Assistant
DX: I50.33 Acute on chronic diastolic (congestive) heart failure (principal); E03.2 Hypothyroidism due to medicaments and other exogenous substances

== ENCOUNTER → 2016-10-20 | Outpatient (REF) | payer MEDICARE | LOC: M LAB REF 13:08 | PROVIDERS: ATTEND Internal Medicine Nephrology | DX: N39.0 Urinary tract infection, site not specified (principal) ==

== ENCOUNTER → 2016-10-26 | Outpatient (REF) | payer OTHER ==
[2016-10-28 10:59] LABS: HEPATITIS B SURFACE ANTIBODY NEGATIVE (POSITIVE)
== END ==
LOC: M LAB REF 13:50
PROVIDERS: ATTEND Internal Medicine Nephrology
DX: N18.6 End stage renal disease (principal)

== ENCOUNTER → 2016-10-26 | Outpatient (CLI) | payer MEDICARE ==
[2016-10-26 11:16] LABS: INR 2.27
== END ==
LOC: M LRY 09:30
PROVIDERS: ATTEND Physician Assistant
DX: I48.0 Paroxysmal atrial fibrillation (principal)

== ENCOUNTER 2016-10-28 09:54 | Outpatient (CLI) | payer MEDICARE, OTHER ==
[~2016-10-28] VITALS: Ht 154.9 cm; Wt 64.1 kg
[~2016-10-28 09:54] MED LIST changes: -ACET650T3 PO; -AMIL25TA PO; -AMIL5TA PO; -ASCO25TA PO; -FERR325T16 PO; -NITR4TASL SL; -VITA100T20 PO; -WARF4TAB52 PO
[2016-10-28 10:15] VITALS: BP 121/57
[2016-10-28] MEDS ORDERED: AMIL5TA PO (10:45)
[2016-10-28] MEDS ORDERED: FUROSEMIDE 20 MG/2 ML VIAL (J1940) IV ONE (12:00)
[2016-10-28 18:25] VITALS: BP 149/63
== END 2016-10-28 18:30 | disposition home or self-care (01) ==
LOC: M OPCLIPED 09:54 → M PED 09:58 → M OPCLIPED 18:30
PROVIDERS: ATTEND Internal Medicine Nephrology
DX: D50.0 Iron deficiency anemia secondary to blood loss (chronic) (principal); Z79.899 Other long term (current) drug therapy; Z79.82 Long term (current) use of aspirin; Z91.041 Radiographic dye allergy status; Z88.8 Allergy status to other drugs, medicaments and biological substances
CPT/HCPCS: 36415; 36430; 86850; 86900; 86901; 86920; J1940; P9016

== ENCOUNTER → 2016-11-24 | Outpatient (CLI) | payer MEDICARE, OTHER ==
[~2016-11-24] MED LIST changes: +ACET650T3 PO; +AMIL25TA PO; +AMIL5TA PO; +ASCO25TA PO; +FERR325T16 PO; +NITR4TASL SL; +VITA100T20 PO; +WARF4TAB52 PO
[2016-11-24 11:55] LABS: INR 2.71
== END ==
LOC: M LRY 09:26
PROVIDERS: ATTEND Physician Assistant
DX: I48.0 Paroxysmal atrial fibrillation (principal)

== ENCOUNTER → 2016-12-16 | Outpatient (REF) | payer MEDICARE, OTHER | LOC: M SFHCLERA 14:19 | PROVIDERS: ATTEND Family Medicine | DX: E03.9 Hypothyroidism, unspecified (principal) ==

== ENCOUNTER 2017-01-12 13:53 | Inpatient (IN) | payer MEDICARE, OTHER ==
[~2017-01-12] VITALS: Ht 152.4 cm; Wt 73.6 kg
[~2017-01-12 13:53] MED LIST changes: -ACET650T3 PO; -AMIL25TA PO; -ASCO25TA PO; -FERR325T16 PO; -NITR4TASL SL; -VITA100T20 PO; -WARF4TAB52 PO
[2017-01-12] MEDS ORDERED: CARV25TA PO (14:30)
[2017-01-12] MEDS ORDERED: ASCO25TA PO (14:30)
[2017-01-12] MEDS ORDERED: NITR4TASL SL (14:30)
[2017-01-12] MEDS ORDERED: FUROSEMIDE 100 MG/10 ML VIAL (J1940) IV ONE (14:30)
[2017-01-12] MEDS ORDERED: VITA100T20 PO (14:30)
[2017-01-12] MEDS ORDERED: WARF4TAB52 PO (14:30)
[2017-01-12] MEDS ORDERED: ACET650T3 PO (14:30)
[2017-01-12 14:50] LABS: BASO % 0.3 % (0.0-1.0); IMMATURE GRANULOCYTE % 0.6 % (0-0); LYMPH # 2.3 10^3/uL (1.5-4.5); LYMPH % 17.4 % (24.0-44.0); MEAN CORPUSCULAR HEMOGLOBIN 28.6 pg (27.0-33.0); MEAN CORPUSCULAR HGB CONC 29.9 g/dl (32.0-36.5); MEAN CORPUSCULAR VOLUME 95.5 fl (80.0-96.0); MONO # 0.8 10^3/uL (0.0-0.8); NEUTROPHILS # 9.9 10^3/uL (1.8-7.7); NEUTROPHILS % 75.7 % (36.0-66.0); PLATELET COUNT, AUTOMATED 220 10^3/uL (150-450); WHITE BLOOD COUNT 13.1 10^3/uL (4.0-10.0)
--- NOTE | 2017-01-12 15:12 | REP ---
Chest one-view HISTORY: Shortness of breath Comparison: 09/21/2016 The lungs are clear. The heart is normal in size. The pulmonary vasculature is normal in appearance. A cardiac pacemaker is present. Impression: No acute disease. Signed by Raciel Selby MD 01/12/2017 03:02 P
[2017-01-12 15:14] LABS: ANION GAP 8 MEQ/L (8-16); BLOOD UREA NITROGEN 76 MG/DL (7-18); CARBON DIOXIDE LEVEL 22 MEQ/L (21-32); CHLORIDE LEVEL 105 MEQ/L (98-107); CREATININE FOR GFR 3.42 MG/DL (0.55-1.02); FREE T4 1.61 NG/DL (0.76-1.46); GLOMERULAR FILTRATION RATE 13.9 (>39); GLUCOSE, FASTING 121 MG/DL (83-110); SODIUM LEVEL 135 MEQ/L (136-145)
[2017-01-12 15:21] LABS: POTASSIUM SERUM 5.6 MEQ/L (3.5-5.1)
[2017-01-12] MEDS ORDERED: FERR325T16 PO (15:30)
[2017-01-12] MEDS ORDERED: WARF-18 PO (15:30)
[2017-01-12] MEDS ORDERED: AMIL25TA PO (15:30)
[2017-01-12] MEDS ORDERED: GLUCOSE 4 GM CHEW TABLET PO PRN (18:15)
[2017-01-12] MEDS ORDERED: GLUCAGON FOR INJ 1 MG VIAL (J1610) SC PRN (18:15)
[2017-01-12] MEDS ORDERED: DEXTROSE 50% 50 ML SYRINGE IV PRN (18:15)
[2017-01-12 18:58] LABS: INR 3.28
[2017-01-12 19:11] VITALS: BP 115/49
[2017-01-12 20:34] VITALS: BP 96/46
[2017-01-12] MEDS: SIMVASTATIN 40 MG TAB PO SCH (20:37)
[2017-01-12] MEDS ORDERED: WARFARIN SOD 2.5 MG TAB PO SCH (21:00)
[2017-01-12] MEDS ORDERED: CARVedilol 12.5 MG TAB PO SCH (21:00)
[2017-01-12] MEDS: HumaLOG INSULIN (NovoLOG) PER UNIT SC SCH (21:00)
--- NOTE | 2017-01-12 21:24 | HPE ---
DATE OF ADMISSION: 01/12/2017 ASSEMBLER FOR PULLER OVER MACHINE: Dr. Singh PHARMACY BENEFIT MANAGER: Dr. Zhou PRIMARY CARE PROVIDER: Hilda Harper MD CHIEF COMPLAINT: "My legs are swollen." SUMMARY OF PRESENTATION: This is a 76-year-old female who has had leg swelling since 12/18. She has been wearing compression stockings since that time, as early as 01/08 when she takes them off her legs are just as swollen as they were before wearing the stockings and it hurts to take them off. She has had a weight gain from 146 pounds at the beginning of December to 157 pounds today. She has had increasing shortness of breath, dyspnea on exertion . She is unable to walk from one room to the next in her trailer before getting short of breath. She has no fever. Occasional cough. She does not have orthopnea. Does not describe paroxysmal nocturnal dyspnea. Does wake up at night to use the bathroom though. There is no change in her urinary habits. No medication changes. PAST MEDICAL HISTORY: 1. Insulin-dependent diabetes. 2. Coronary arterial disease, status post bypass in 2015 and 2012. 3. Hypothyroidism. 4. Hypertension. 5. Hyperlipidemia. 6. Anemia. 7. Vitamin D deficiency. 8. Aortic valve replacement. 9. Atrial fibrillation. 10. Complete heart block with a pacer. 11. Diverticulosis. 12. Congestive heart failure (CHF), diastolic dysfunction. SURGICAL HISTORY: Notable for removal of her gallbladder, cardiac pacemaker, cardiac bypass, cardiac stents, cardiac valve replacement, attempted removal of blood clot in her left eye times two in 2013, fistula 07/01/2016. ALLERGIES: Listed to CONTRAST MEDIA and BENZOCAINE. FAMILY HISTORY: Notable for her father at age 83 with lung cancer, former smoker. Mother at age 64 years from acute myocardial infarction. SOCIAL HISTORY: She is a former smoker. She quit in March of 1979. REVIEW OF SYSTEMS: Notable for no headache, no visual changes, no runny nose, no sore throat, no neck pain. No orthopnea. No paroxysmal nocturnal dyspnea. No abdominal pain. No change in bowel or bladder habits. Otherwise, unremarkable. PHYSICAL EXAMINATION: Temperature 97.2, pulse 60, respiratory rate 16, blood pressure 132/57, 100% on room air. She is awake, appropriately interactive, pleasantly conversant, somewhat flattened affect. Sinuses are nontender. Pupils are equal, round and reactive, anicteric. She is somewhat pale appearing. Mucous membranes are moist. NECK: Supple. Thick. LUNGS: Breathing is symmetrical. I:E ratio is 1:3. No wheezes, rales or rhonchi. There is sacral edema. HEART: Irregular rate and rhythm with a rate of 60. He appears to be paced on the monitor. Radial pulses are 2+. Capillary refill is less than 2 seconds. ABDOMEN: Soft, doughy, hypoactive bowel sounds. Nontender. EXTREMITIES: There is tense bilateral lower extremity edema, looks quite woody. Extremities are cool. White cell count 13.1, hemoglobin 7.6, and platelets of 220. The rest of her basic metabolic panel is pending. ASSESSMENT: This is a 76-year-old with what is likely end stage renal disease requiring dialysis in the near future with decompensated diastolic heart failure. PLAN: 1. Renal. Discussed this case in person with Dr. Singh. Plan is to pursue diuresis and attempt to avoid dialysis. Her fistula is not yet to be ripe for use. We will defer to Dr. Singh's management. 2. The patient has insulin-dependent diabetes and will be placed on insulin sliding scale. 3. The patient has hypothyroidism. We will check a TSH. 4. The patient has hypertension. This is being monitored clinically and we will defer management of that to Dr. Singh. 5. The patient has coronary artery disease, status post heart block with a pacemaker. She will be monitored on telemetry. She is likely to develop electrolyte abnormalities. She has known atrial fibrillation. She is noted to have been on Coumadin and we will add coags to her daily laboratories. 6. Deep vein thrombosis (DVT) prophylaxis. Coumadin. The patient has a healthcare proxy. Does not have a Medical Orders for Life Sustaining Treatment (MOLST) form completed.
[2017-01-12] MEDS: ACETAMINOPHEN 650MG ER TAB (TYLENOL ARTHRITIS) PO PRN (23:49)
[2017-01-12] MEDS: FUROSEMIDE 100 MG/10 ML VIAL (J1940) IV SCH (23:56)
[2017-01-13] VITALS (7 sets, daily range): BP systolic 85–111; BP diastolic 51–60
--- NOTE | 2017-01-13 04:13 | CR ---
DATE OF CONSULTATION: 01/12/2017 NEPHROLOGY CONSULTATION FOR: Harvinder Staley MD. REASON FOR CONSULTATION: Acute renal failure, shortness of breath and severe anemia in this lady with advanced chronic kidney disease. HISTORY OF PRESENT ILLNESS: Mrs. Sullivan is a 76-year-old female with multiple chronic medical problems including stage V of chronic kidney disease, diabetes, hypertension, congestive heart failure and anemia. She already has a left forearm arteriovenous (AV) fistula created in preparation for dialysis. However, her fistula has not been matured. She was seen in my office about a month ago and at that time she was reasonably well-compensated. We have been monitoring her kidney function closely and she has not required dialysis so far. She called our office and reported worsening dyspnea and weakness. She was seen in the office today and found to be decompensated with severe anemia and worsening congestive heart failure. She was sent to the emergency room. I have seen her in the emergency room this afternoon. The patient is certainly quite decompensated and markedly anemic. She is probably also uremic. I recommended hospitalization for optimization of her condition and possible starting dialysis. PAST MEDICAL AND SURGICAL HISTORY: Significant for: 1. Longstanding history of diabetes. 2. Hypertension. 3. Hypothyroidism. 4. Stage V of chronic kidney disease. 5. Anemia. 6. History of aortic valve replacement on chronic anticoagulation. 7. History of coronary artery disease. 8. History of congestive heart failure. PAST SURGICAL HISTORY: Significant for AV fistula creation, aortic valve replacement and pacemaker placement. MEDICATIONS: Her home medications include: - amiodarone 200 mg daily - aspirin 81 mg daily - calcitriol 0.25 mcg daily - carvedilol 25 mg twice a day - vitamin D 1000 units daily - ferrous sulfate 325 mg twice a day - NPH insulin 35 units every morning and 15 units at bedtime - levothyroxine 112 mcg daily - lovastatin 40 mg daily - multivitamin one tablet daily - torsemide 60 mg twice a day - Coumadin 2.5 mg 3 days a week and 1.25 mg 4 days a week PERSONAL AND SOCIAL HISTORY: The patient has no history of smoking or alcohol use. Family history is negative for end-stage renal disease. REVIEW OF SYSTEMS: The patient denies any fever or chills. She does have significant weight gain over the last couple of weeks. Ears, nose and throat are unremarkable. She denies any nosebleeds or sore throat. Cardiovascular system is significant for worsening leg edema and shortness of breath. Respiratory system is negative for cough or hemoptysis. Gastrointestinal (GI) system is significant for decreased appetite. She denies any vomiting or diarrhea. Neurological system is negative for seizures or stroke. Hematological system is significant for chronic anticoagulation and worsening anemia. Neurological system is negative for seizures or stroke. Psychosocial system is negative for depression or anxiety. Skin is negative for rash or ulcers. Endocrine system is significant for hypothyroidism, secondary hyperparathyroidism and type 2 diabetes. PHYSICAL EXAMINATION: The patient is quite pale and chronically ill looking, but not in any acute distress at the time of my visit in the emergency room. She is lying in the stretcher with head end elevated at about 75 degrees. Temperature 97.8 degrees Fahrenheit, heart rate 60 per minute and respiratory rate 20 per minute. Blood pressure 108/60 mmHg and oxygen saturation about 90% on 2 liters oxygen. Head is atraumatic. She is pale looking. Neck veins are markedly distended and thyroid is moderately enlarged. There is no oral thrush or ulcers. Pupils are equal and reactive to light and sclerae are anicteric. Ears, nose and throat are unremarkable. Heart exam reveals a systolic murmur grade 1/6 and no pericardial friction rub. Lungs have bilateral rales. Abdomen is soft and nontender and bowel sounds are normal. Extremities have no cyanosis or clubbing. She has marked edema of her lower extremities. Skin has no rash or ulcers. Neurologically, she is awake, alert and oriented times three. Labs show WBC count 13.1, hemoglobin 7.6 and hematocrit 25.4. Platelets 220. Sodium 135, potassium 5.6. Chloride 105, CO2 of 22, BUN 76, and creatinine 3.42. Glucose 121 and calcium 9.0. Troponin is less than 0.02. A TSH level 5.21 and free T4 1.61. INR 3.28. PROBLEMS: 1. Decompensated congestive heart failure, acute on chronic. The patient is known to have aortic valve replacement with almost normal left ventricular systolic function by prior echocardiogram. Most likely has some diastolic dysfunction. At present, she is significantly volume overloaded, which is probably partly related to advanced chronic kidney disease. We will diurese her with intravenous Lasix and start with 100 mg every 8 hours. After getting her stabilized medically, we will consider to start dialysis during this admission. She will be placed on 1500 mL fluid restriction per day and low-sodium diet. 2. Renal failure, acute on chronic. The patient is known to have stage V of chronic kidney disease. Her kidney function has deteriorated over last few weeks. She already has arteriovenous (AV) fistula created in her left forearm. Her AV fistula is not quite mature at this point. We will consider to start dialysis in next 24-48 hours after stabilizing her condition. Will try to use her fistula and if it does not work well, then will get a Perm-Cath placed. 3. Hyperkalemia related to worsening kidney function. The patient is going to be diuresed with intravenous Lasix and we will not give her Kayexalate at this point. We anticipate improvement in her potassium level with aggressive diuresis. 4. Anemia. Her anemia is significantly worsened from her baseline. The patient is likely to require transfusions. However, I would like to diurese her prior to transfusing her. We will correct her volume status and then give her a couple of units of blood. 5. Diabetes. The patient is at risk for hypoglycemia due to decreased oral intake. I suggest to not give her long-acting insulin and just continue with coverage with NovoLog insulin. I thank you for involving me in the care of Mrs. Sullivan. I will follow her along with you.
[2017-01-13] MEDS ORDERED: LEVOTHYROXINE 112MCG TABLET (0.112MG) PO SCH (06:00)
[2017-01-13 06:03] LABS: MEAN CORPUSCULAR HEMOGLOBIN 27.9 pg (27.0-33.0); MEAN CORPUSCULAR HGB CONC 29.5 g/dl (32.0-36.5); MEAN CORPUSCULAR VOLUME 94.4 fl (80.0-96.0); PLATELET COUNT, AUTOMATED 203 10^3/uL (150-450); RED CELL DISTRIBUTION WIDTH 14.9 % (11.5-14.5); WHITE BLOOD COUNT 8.8 10^3/uL (4.0-10.0)
[2017-01-13 06:13] LABS: INR 3.8
[2017-01-13 06:17] LABS: CALCIUM LEVEL 8.5 MG/DL (8.8-10.2); CREATININE FOR GFR 3.52 MG/DL (0.55-1.02); GLOMERULAR FILTRATION RATE 13.5 (>39); MAGNESIUM LEVEL 2.4 MG/DL (1.8-2.4); PHOSPHORUS LEVEL 3.8 MG/DL (2.5-4.9); POTASSIUM SERUM 4.8 MEQ/L (3.5-5.1)
[2017-01-13] MEDS: FUROSEMIDE 100 MG/10 ML VIAL (J1940) IV SCH ×3 (07:59→23:00)
[2017-01-13] MEDS: CARVedilol 6.25 MG TAB PO SCH ×2 (09:00→21:00)
[2017-01-13] MEDS: HumaLOG INSULIN (NovoLOG) PER UNIT SC SCH ×4 (10:00→21:00)
[2017-01-13] MEDS: AMIODARONE 200 MG TAB (PACERONE) PO SCH (10:00)
[2017-01-13] MEDS: ASPIRIN 81 MG ENTERIC TAB PO SCH (10:00)
--- NOTE | 2017-01-13 17:45 | IPN ---
DATE: 01/13/2017 SUBJECTIVE: The patient is seen and examined in the room today. The patient was found to have significant hypotension in the morning. This morning, the patient was also found to have a significant acute worsening anemia. Blood consent was obtained by the night team and the patient agreed for a blood transfusion. OBJECTIVE: VITAL SIGNS: Temperature is 97.4, pulse is 60, respiratory rate 18, blood pressure is 89/60, pulse oximetry is 100% in room air. GENERAL: No sign of acute distress, pale, alert and oriented times three. HEENT: Normocephalic, atraumatic. Extraocular motor grossly intact. CARDIOVASCULAR: Irregularly irregular, positive S1, S2. Heart rate is around 60s. Paced rhythm on the monitor. LUNGS: No wheezes or rhonchi. ABDOMEN: Soft, nontender, nondistended. EXTREMITIES: Positive bilateral lower extremity edema. LABORATORY DATA: WBC 8.8, hemoglobin 6.5, hematocrit 22, platelet count is 203. Sodium is 138, potassium 4.8, chloride is 106, carbon dioxide 22, BUN 78, creatinine 3.52, GFR 13.5, fasting glucose is 146, calcium 8.5, phosphorus 8.8, magnesium 2.4, albumin is 2. ASSESSMENT AND PLAN: 1. Acute on chronic renal failure. At the baseline, the patient has stage V chronic kidney disease. The patient has an arteriovenous (AV) fistula of the left upper extremity. The patient is considered for hemodialysis on 01/14/2017. Nephrology has been assisting on the patient's care. 2. Acute on chronic anemia. This morning, the patient started to have acute decrease of hemoglobin and hematocrit. Hemoglobin was 6.5. Blood consent was obtained from the patient. The patient became hypotensive. Blood pressure medication and diuretics are on hold. The two packed red blood cell transfusion was ordered. Repeat hemoglobin showed improvement to 9.1. Continue to trend the hemoglobin and hematocrit. Blood pressures became more stable after the transfusion. 3. Acute on chronic systolic and diastolic congestive heart failure. Unfortunately, the patient has a very soft blood pressure. The patient may not tolerate the IV diuretic. The patient will have hemodialysis on 01/14/2017. Currently, the patient is maintaining satisfactory oxygen saturation in room air. However, the patient continued to have significant sign of overload, especially in the lower extremities and increased weight gain. 4. Insulin-dependent diabetes, on sliding scale. 5. Hypothyroidism. The patient had an elevated T4. We will decrease the Synthroid dosage. 6. Hypertension. Currently, the patient is hypotensive. Blood pressure medication is being adjusted with assistance from Dr. Singh. 7. Coronary artery disease, status post heart block and pacemaker. The patient is monitored on telemetry. The patient has a history of atrial fibrillation. Previously, the patient was on Coumadin. 8. Supratherapeutic international normalized ratio (INR). The patient's warfarin will be on hold. 9. Deep vein thrombosis (DVT) prophylaxis. The patient currently has a supratherapeutic INR. Continue to monitor the patient. [facility]
[2017-01-13] MEDS: SIMVASTATIN 40 MG TAB PO SCH (21:05)
[2017-01-13 21:17] LABS: MEAN CORPUSCULAR HEMOGLOBIN 28.1 pg (27.0-33.0); MEAN CORPUSCULAR HGB CONC 30.6 g/dl (32.0-36.5); MEAN CORPUSCULAR VOLUME 91.8 fl (80.0-96.0); PLATELET COUNT, AUTOMATED 208 10^3/uL (150-450); RED CELL DISTRIBUTION WIDTH 16.5 % (11.5-14.5); WHITE BLOOD COUNT 10.5 10^3/uL (4.0-10.0)
[2017-01-14] VITALS (9 sets, daily range): BP systolic 94–134; BP diastolic 40–62
[2017-01-14 06:08] LABS: MEAN CORPUSCULAR HEMOGLOBIN 27.9 pg (27.0-33.0); MEAN CORPUSCULAR HGB CONC 30.5 g/dl (32.0-36.5); MEAN CORPUSCULAR VOLUME 91.5 fl (80.0-96.0); PLATELET COUNT, AUTOMATED 207 10^3/uL (150-450); RED CELL DISTRIBUTION WIDTH 16.1 % (11.5-14.5); WHITE BLOOD COUNT 11.1 10^3/uL (4.0-10.0)
[2017-01-14 06:18] LABS: INR 3.53
[2017-01-14 06:25] LABS: ALBUMIN 2.1 GM/DL (3.2-5.2); CALCIUM LEVEL 8.5 MG/DL (8.8-10.2); CREATININE FOR GFR 3.38 MG/DL (0.55-1.02); GLOMERULAR FILTRATION RATE 14.1 (>39); MAGNESIUM LEVEL 2.4 MG/DL (1.8-2.4); PHOSPHORUS LEVEL 2.8 MG/DL (2.5-4.9); POTASSIUM SERUM 5.1 MEQ/L (3.5-5.1)
--- NOTE | 2017-01-14 06:35 | ECHO ---
DATE OF PROCEDURE: 01/13/2017 DATE OF : 1940 AGE: 76 GENDER: Female HEIGHT: 60 inches WEIGHT: 152 pounds BODY SURFACE AREA: 1.66 meters squared INPATIENT: Progressive Care Unit - Room 3220 REFERRING PHYSICIAN: Dr. Singh INDICATION: Heart failure (unspecified). MEASUREMENTS: 2-D measurements: RV: 4.4 cm LV: 4.8 cm Septum: 1.1 cm Posterior wall: 1.1 cm Aortic root: 3.0 cm LA: 4.3 cm LVEF: 40% Doppler Measurements: AV: 1.6 m/s LVOT: 0.7 m/s LVOT diameter: 1.8 cm MV - E: 119 A: 49 EA ratio: 2.4 Early mitral deceleration time: 180 ms E prime: 4.8 A prime: 4 E/E prime ratio: 24.9 PV: 0.8 m/s Pulmonary artery acceleration time: 77 ms RVSP: 56 mmHg IVC: 2.2 cm COMMENTS: Consistent AV sequentially paced rhythm with QRS complexes having an LVEDP configuration. Technically challenging study in light of the patient's body habitus, but diagnostically useful information was still obtained. Mildly dilated left atrium, but normal left ventricular size. Right heart chambers were at least mildly dilated. LV wall thickness was upper limits of normal. On real-time imaging from the parasternal and apical projections, the apex of the left ventricle appeared to be akinetic as did the distal septum. The lateral and inferior inman appeared to move normally. The proximal septum was hypokinetic. Moderate thickening of the mitral annulus and slight thickening of the leaflet edges, but adequate leaflet excursion. Bioprosthetic aortic valve with some visible cusp separation. Normal aortic root size. Pacing leads could be visualized traversing right heart structures, but no separate intracardiac mass or pericardial effusion. Color flow Doppler study taken from the parasternal and apical projection showed trace prosthetic aortic insufficiency with moderate to moderately severe eccentric mitral insufficiency and severe tricuspid insufficiency. Guided continuous wave Doppler of her aortic valve and pulsed Doppler study of her LV outflow tract taken from the apical long axis and five chamber projection showed a normal peak systolic velocity with mean gradient of only 5 mmHg and dimensionless index of 0.41 in keeping with appropriate bioprosthetic function. Pulsed and continuous wave Doppler of her LV inflow tract taken from the apical four-chamber projection showed normal diastolic filling velocities against mitral stenosis. There was a "pseudo normalized" filling pattern with color tissue Doppler of her mitral annulus with markedly elevated mean left atrial pressure of 29.7 mmHg. Pulsed and continuous wave Doppler of her pulmonary trunk showed a normal peak systolic velocity against RV outflow tract obstruction. Her pulmonary artery acceleration time was markedly abbreviated consistent with an elevated pulmonary vascular resistance. Guided continuous wave Doppler of her tricuspid valve allowed our estimation of her right ventricular systolic pressure (at least moderate to moderately severely increased). Her inferior vena cava was upper limits of normal with absent respiratory collapse consistent with an elevated central venous pressure/heart failure. CONCLUSIONS: Normal left ventricular size and wall thickness with septal and apical wall motion abnormality related to RV pacing with at least moderate impairment of global resting systolic function. Mildly dilated left atrium with Doppler evidence of an impairment of LV diastolic function and significantly elevated mean left atrial pressure. At least mildly dilated right heart chambers with Doppler evidence of moderately severe-severe pulmonary hypertension. IVC size upper limits of normal to mildly increased with absent respiratory collapse consistent with a significantly elevated central venous pressure/heart failure. Appropriate function of a bioprosthetic aortic valve. Moderate degenerative changes of her mitral valve without inflow tract obstruction, but at least moderate to moderately severe eccentric insufficiency. Severe tricuspid insufficiency in an otherwise normal-appearing valve.
[2017-01-14] MEDS: LEVOTHYROXINE 100MCG TABLET (0.1MG) PO SCH (06:43)
[2017-01-14] MEDS: FUROSEMIDE 100 MG/10 ML VIAL (J1940) IV SCH ×3 (06:44→23:00)
--- NOTE | 2017-01-14 07:06 | ECGEPIP ---
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
[2017-01-14] MEDS: HumaLOG INSULIN (NovoLOG) PER UNIT SC SCH ×4 (08:00→20:35)
[2017-01-14] MEDS: AMIODARONE 200 MG TAB (PACERONE) PO SCH (08:01)
[2017-01-14] MEDS: CARVedilol 6.25 MG TAB PO SCH ×2 (08:01→20:34)
[2017-01-14] MEDS: ASPIRIN 81 MG ENTERIC TAB PO SCH (08:01)
[2017-01-14] MEDS ORDERED: CALCITRIOL 0.25 MCG CAP (S0169) PO SCH (09:00)
[2017-01-14] MEDS ORDERED: LIDOCAINE 1% SDV 5 ML VIAL SQ ONE (11:00)
--- NOTE | 2017-01-14 12:19 | REP ---
Doppler vascular arterial venous ultrasound left upper extremity: History: Left forearm AV fistula. Please shabnam the tract with a marker. Findings: Sonographic imaging of the arteriovenous anastomosis and basilic and cephalic veins was provided. The arteriovenous anastomosis and tract were marked on the skin as requested. Signed by Luis Lynn MD 01/14/2017 05:21 P
--- NOTE | 2017-01-14 15:23 | IPN ---
DATE: 01/13/2017 Mrs. Sullivan is seen this morning on her bedside. She was admitted last evening with acute on chronic renal failure and acute on chronic congestive heart failure. She was also found to have severe anemia. She has been hypotensive, and her Lasix dose was held. She has not diuresed very well with intravenous Lasix. She has no fever or chills. The patient denies any nosebleed, rectal bleeding, black-colored stools, or any other blood loss. She denies any nausea or vomiting at present. She does have significant edema and dyspnea on any mild exertion. PHYSICAL EXAMINATION: She is awake and alert and without any acute distress. She is edematous and pale looking. Temperature 97.4 degrees Fahrenheit, heart rate 60 per minute, respiratory rate 18 per minute, blood pressure 90/60 mm of mercury, and oxygen saturation 100% on room air. Facial edema is noticed. There is no oral thrush or ulcers, and mucous membranes are healthy. Pupils are equal and reactive to light. and sclerae are anicteric. Nose and throat are unremarkable. Neck veins are moderately distended. There is no thyroid enlargement and neck is supple. Heart sounds are regular with systolic murmur, grade 1/6. There is no pericardial friction rub. Lungs with slightly diminished breath sounds at bases and few basilar rales. Abdomen soft and nontender, and bowel sounds are normal. There is no palpable organomegaly. Extremities have no cyanosis or clubbing. Musculoskeletal system has significant lower extremity edema. Her left forearm arteriovenous (AV) fistula is patent. Skin has no rash or ulcers. Neurologically she is awake, alert, and oriented times three. I have reviewed her medications and noticed that her Lasix dose was held. Other medications are appropriate. She is not on any nephrotoxic medications at present. Today's labs show WBC count 8.8, hemoglobin 6.5, and hematocrit 22.0. Sodium 138, potassium 4.8, BUN 78, creatinine 3.52, glucose 146, calcium 8.5, phosphorus 3.8, and magnesium 2.4. Albumin is 2.0. PROBLEMS: 1. Acute renal failure superimposed on chronic kidney disease. The patient does have worsening kidney function, but she does not have any overt uremic symptoms. At present there is no emergent indication for dialysis, and we will try to manage her medically for at least next 24 hours until she is hemodynamically more stable for consideration of dialysis. 2. Hyperkalemia. This has corrected with diuretic use. No intervention is indicated. 3. Severe anemia. The patient denies any acute blood loss. We will transfuse her 2 units of packed RBCs today with caution and monitor her CBC. We will also check her iron studies in the morning. 4. Acute on chronic congestive heart failure. The patient is quite volume overloaded. She is also hypotensive. I will get an echocardiogram and continue our efforts to diurese her. We will put hold parameters on Lasix and try to get her in negative fluid balance as much as she can tolerate. We are using Lasix 100 mg intravenously every 8 hours, and it remains to be seen how she tolerates. Unfortunately, she is not likely to tolerate dialysis well due to low blood pressure. 5. Hypotension. Etiology remains uncertain. She is volume overloaded and is not expected to be hypotensive. She does not have any acute coronary event and is completely asymptomatic. Her troponin is negative. I am cutting down her carvedilol dose to 6.25 mg twice a day with hold parameters of less than 110 mm of mercury. I will also hold Lasix dose for systolic blood pressure less than 110 mm of mercury. 6. Diabetes. Her diabetes has been well controlled. She will continue with insulin coverage. 7. Hypothyroidism. Her thyroid function tests are within normal range. She will continue with current dose of levothyroxine.
[2017-01-14] MEDS: ACETAMINOPHEN 650MG ER TAB (TYLENOL ARTHRITIS) PO PRN (16:22)
--- NOTE | 2017-01-14 16:50 | IPNPDOC ---
Text Note Date of Service The patient was seen on 01/14/17. NOTE SUBJECTIVE: The patient is seen and examined before dialysis today. Patient states she is feeling better in the last 24 hours. OBJECTIVE: GENERAL: No sign of acute distress, pale, alert and oriented times three. HEENT: Normocephalic, atraumatic. Extraocular motor grossly intact. CARDIOVASCULAR: Irregularly irregular, positive S1, S2. . Paced rhythm on the monitor. LUNGS: No wheezes or rhonchi. ABDOMEN: Soft, nontender, nondistended. EXTREMITIES: AV fistula at left upper extremity is palpated and marked with marker. Positive bilateral lower extremity edema. LABORATORY DATA: Listed below ASSESSMENT AND PLAN: 1. Acute on chronic renal failure. At the baseline, the patient has stage V chronic kidney disease. The patient has an arteriovenous (AV) fistula of the left upper extremity. Trial of hemodialysis on 01/14/2017. Nephrology has been assisting on the patient's care. 2. Acute on chronic anemia. Previously hemoglobin was 6.5. Blood consent was obtained from the patient. The patient became hypotensive. Blood pressure medication and diuretics are on hold. The two packed red blood cell transfusion was ordered. Clinically patient states her symptoms are improving. Continue to trend the hemoglobin and hematocrit. Blood pressures became more stable after the transfusion. 3. Acute on chronic systolic and diastolic congestive heart failure. Unfortunately, the patient has a very soft blood pressure. The patient may not tolerate the IV diuretic. hemodialysis on 01/14/2017. Currently, the patient is maintaining satisfactory oxygen saturation in room air. However, the patient continued to have significant sign of overload, especially in the lower extremities and increased weight gain. 4. Insulin-dependent diabetes, on sliding scale. 5. Hypothyroidism. The patient had an elevated T4. We will decrease the Synthroid dosage. 6. Hypertension. Currently, the patient is hypotensive. Blood pressure medication is being adjusted with assistance from Dr. Singh. 7. Coronary artery disease, status post heart block and pacemaker. The patient is monitored on telemetry. 8. History of atrial fibrillation. Due to supratherapeutic INR, Coumadin is on hold. 9. Supratherapeutic international normalized ratio (INR). The patient's warfarin will be on hold. 10. Deep vein thrombosis (DVT) prophylaxis. The patient currently has a supratherapeutic INR. Continue to monitor the patient. VS,Raul, I+O VS, Fishbone, I+O Laboratory Tests 01/13/17 21:00 Red Blood Count 3.17 L, Mean Corpuscular Volume 91.8, Mean Corpuscular Hemoglobin 28.1, Mean Corpuscular Hemoglobin Concent 30.6 L, Red Cell Distribution Width 16.5 H 01/14/17 05:34 Red Blood Count 3.05 L, Mean Corpuscular Volume 91.5, Mean Corpuscular Hemoglobin 27.9, Mean Corpuscular Hemoglobin Concent 30.5 L, Red Cell Distribution Width 16.1 H, Anion Gap 7 L Vital Signs Date Time Temp Pulse Resp B/P (MAP) Pulse Ox O2 Delivery O2 Flow Rate FiO2 01/14/17 15:52 98.1 66 16 132/62 (85) 100 Room Air 01/14/17 10:00 2.0 I&O- Last 24 Hours up to 6 AM 01/15/17 06:00 Intake Total 510 ml Output Total 1600 ml Balance -1090 ml CHRISTINA BEARD DO Jan 14, 2017 16:50
[2017-01-14] MEDS: SIMVASTATIN 40 MG TAB PO SCH (20:34)
[2017-01-15] VITALS (7 sets, daily range): BP systolic 101–145; BP diastolic 54–76
--- NOTE | 2017-01-15 05:09 | IPN ---
DATE OF SERVICE: 01/14/2017 Mrs. Sullivan is seen this morning on her bedside. I have seen her earlier in the room and then in dialysis room. We had decided to dialyze her for the first time today due to advanced chronic kidney disease and congestive heart failure. She did receive 2 units of packed red blood cells (RBCs) yesterday due to severe anemia and has not responded very well to intravenous Lasix. She denies any nausea or vomiting. She continues to have dyspnea on exertion and significant peripheral edema. PHYSICAL EXAMINATION: Temperature 98 degrees Fahrenheit, heart rate 62 per minute and respiratory rate 18 per minute. Blood pressure 132/62 mmHg and oxygen saturation 100% on 2 liters of oxygen. Facial edema is unchanged and head is atraumatic. Neck veins are at least moderately distended. She has no oral thrush or ulcers. Ears, nose and throat are unremarkable. Heart sounds are irregular in rhythm. Lungs with diminished breath sounds and basilar rales. Abdomen soft and nontender and without palpable organomegaly. Bowel sounds are normal. Extremities without cyanosis or clubbing. Left forearm arteriovenous (AV) fistula is patent. Musculoskeletal system is significant for bilateral lower extremity edema which is at least 3+. Neurologically, she is awake, alert and oriented times three. Skin has no rash or ulcers. Today's labs show WBC count 11.1, hemoglobin 8.5 and hematocrit 27.9. Sodium 136 and potassium 5.1. BUN 75 and creatinine 3.38. PROBLEMS: 1. Congestive heart failure. The patient remains decompensated and did not respond very well to high-dose diuretic. She is being dialyzed today and we are going to try to remove at least 1 liter of fluid with first hemodialysis. We will also continue intravenous Lasix 100 mg every 8 hours for now and see how she does. 2. Advanced renal failure with generalized weakness. The patient most likely has some uremic symptoms and dialysis is being initiated today. She has end-stage renal disease for all practical purposes. We have been waiting for her AV fistula to mature. 3. Anemia. Her anemia did improve with transfusion. She has been given 2 units of packed red blood cells (RBCs). We will continue to monitor and transfuse her another unit of packed RBCs if needed. 4. Hyperparathyroidism. The patient continues with calcitriol 0.25 mcg every other day. 5. Atrial fibrillation. Her rate is well controlled and carvedilol dose has been cut down to 6.25 mg twice a day. She is also on amiodarone 200 mg daily which will be continued. International normalized ratio (INR) today is 3.53 and Coumadin dose has been cut down by hospitalist service.
[2017-01-15 05:50] LABS: MEAN CORPUSCULAR HEMOGLOBIN 28.6 pg (27.0-33.0); MEAN CORPUSCULAR HGB CONC 30.4 g/dl (32.0-36.5); MEAN CORPUSCULAR VOLUME 94.2 fl (80.0-96.0); PLATELET COUNT, AUTOMATED 177 10^3/uL (150-450); RED CELL DISTRIBUTION WIDTH 15.9 % (11.5-14.5); WHITE BLOOD COUNT 12.2 10^3/uL (4.0-10.0)
[2017-01-15] MEDS: LEVOTHYROXINE 100MCG TABLET (0.1MG) PO SCH (06:00)
[2017-01-15 06:02] LABS: INR 2.71
[2017-01-15 06:07] LABS: ALBUMIN 1.9 GM/DL (3.2-5.2); CALCIUM LEVEL 8.6 MG/DL (8.8-10.2); CREATININE FOR GFR 2.73 MG/DL (0.55-1.02); GLOMERULAR FILTRATION RATE 18.1 (>39); PHOSPHORUS LEVEL 2.2 MG/DL (2.5-4.9); POTASSIUM SERUM 4.3 MEQ/L (3.5-5.1)
[2017-01-15] MEDS: FUROSEMIDE 100 MG/10 ML VIAL (J1940) IV SCH ×3 (06:19→23:56)
[2017-01-15] MEDS: AMIODARONE 200 MG TAB (PACERONE) PO SCH (08:18)
[2017-01-15] MEDS: ASPIRIN 81 MG ENTERIC TAB PO SCH (08:18)
[2017-01-15] MEDS: CARVedilol 6.25 MG TAB PO SCH ×2 (08:18→20:43)
[2017-01-15] MEDS: HumaLOG INSULIN (NovoLOG) PER UNIT SC SCH ×4 (08:19→20:43)
[2017-01-15 10:53] LABS: HEPATITIS B SURFACE ANTIBODY NEGATIVE (POSITIVE)
--- NOTE | 2017-01-15 15:42 | IPNPDOC ---
Text Note Date of Service The patient was seen on 01/15/17. NOTE SUBJECTIVE: The patient is seen and examined before dialysis today. Patient states she is feeling fine but she does experience fatigue. She tolerate her first dialysis well. OBJECTIVE: GENERAL: No sign of acute distress, pale, alert and oriented times three. HEENT: Normocephalic, atraumatic. Extraocular motor grossly intact. CARDIOVASCULAR: Irregularly irregular, positive S1, S2. . Paced rhythm on the monitor. LUNGS: No wheezes or rhonchi. ABDOMEN: Soft, nontender, nondistended. EXTREMITIES: AV fistula at left upper extremity. Positive bilateral lower extremity edema. LABORATORY DATA: Listed below ASSESSMENT AND PLAN: 1. Acute on chronic renal failure. At the baseline, the patient has stage V chronic kidney disease. The patient has an arteriovenous (AV) fistula of the left upper extremity. Trial of hemodialysis on 01/14/2017. Next dialysis is on 01/16. Nephrology has been assisting on the patient's care. 2. Acute on chronic anemia. Previously hemoglobin was 6.5. Blood consent was obtained from the patient. Patient had 2 PRBC transfusion. H/H is followed closely. Will order another PRBC transfusion today. 3. Acute on chronic systolic and diastolic congestive heart failure. On diuretic. Next hemodialysis on 01/16/2017. Currently, the patient is maintaining satisfactory oxygen saturation in room air. However, the patient continued to have significant sign of overload, especially in the lower extremities and increased weight gain. 4. Insulin-dependent diabetes, on sliding scale. 5. Hypothyroidism. The patient had an elevated T4. We will decrease the Synthroid dosage. 6. Hypertension. Currently, the patient is hypotensive. Blood pressure medication is being adjusted with assistance from Dr. Singh. 7. Coronary artery disease, status post heart block and pacemaker. The patient is monitored on telemetry. 8. History of atrial fibrillation. INR is therapeutic, Coumadin restarted. 9. Deep vein thrombosis (DVT) prophylaxis. therapeutic INR. Warfarin restarted. VS,Fishbone, I+O VS, Fishbone, I+O Laboratory Tests 01/15/17 05:18 Red Blood Count 2.76 L, Mean Corpuscular Volume 94.2, Mean Corpuscular Hemoglobin 28.6, Mean Corpuscular Hemoglobin Concent 30.4 L, Red Cell Distribution Width 15.9 H, Anion Gap 7 L Vital Signs Date Time Temp Pulse Resp B/P (MAP) Pulse Ox O2 Delivery O2 Flow Rate FiO2 01/15/17 12:00 97.7 60 18 145/63 (90) 98 Room Air 01/14/17 10:00 2.0 I&O- Last 24 Hours up to 6 AM 01/16/17 06:00 Intake Total 360 ml Output Total 250 ml Balance 110 ml CHRISTINA BEARD DO Jan 15, 2017 15:42
[2017-01-15] MEDS ORDERED: WARFARIN SOD 1 MG TAB PO SCH (17:00)
--- NOTE | 2017-01-15 18:17 | ECGEPIP ---
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
--- NOTE | 2017-01-15 20:12 | REP ---
BILATERAL LOWER EXTREMITY DUPLEX VEINS: HISTORY: Rule out DVT, right lower extremity. There are no filling defects in the deep venous system. The deep venous system is patent. IMPRESSION: There is no deep venous thrombosis. LEFT LOWER EXTREMITY: There are no filling defects in the deep venous system. The deep venous system is patent. IMPRESSION:There is no deep venous thrombosis. Signed by Raciel Selby MD 01/16/2017 07:48 A
[2017-01-15] MEDS: SIMVASTATIN 40 MG TAB PO SCH (20:42)
--- NOTE | 2017-01-16 00:52 | IPN ---
DATE OF SERVICE: 01/15/2017 Mrs. Sullivan is seen this morning on her bedside. Her dyspnea has improved. She has a complaint of pain in her right calf where she also has significant ecchymosis. She denies any nausea or vomiting. She underwent first hemodialysis yesterday which she tolerated well. PHYSICAL EXAMINATION: Temperature 98.2 degrees Fahrenheit, heart rate 60 per minute and respiratory rate 18 per minute. Blood pressure 121/57 mmHg and oxygen saturation 98% on room air. Head is atraumatic. Neck is supple and jugular venous distention (JVD) has improved significantly. She still looks pale, but not in any acute distress. Ears, nose and throat are unremarkable. Heart sounds are regular with systolic murmur grade 2/6. There is no pericardial friction rub. Lungs with few basilar rales and no wheezing. Abdomen: Soft and nontender and bowel sounds are normal. There is no palpable organomegaly. Extremities have no cyanosis or clubbing. She has ecchymosis on her right calf. The lower extremity edema has improved significantly. Neurologically, she is awake, alert and oriented times three. Today's labs show WBC count 12.2, hemoglobin 7.9 and hematocrit 26. Sodium 139 and potassium 4.3. BUN is down to 43 and creatinine 2.73. Calcium 8.6 and phosphorus 2.2. PROBLEMS: 1. End-stage renal disease. The patient underwent first hemodialysis yesterday which she tolerated well. We plan to dialyze her again tomorrow. Her left forearm arteriovenous (AV) fistula worked reasonably well. 2. Congestive heart failure. Volume status has improved significantly. She still remains on intravenous Lasix in view of transfusion and persistent hypervolemia. She will be dialyzed again tomorrow and then we will consider to stop her diuretic. 3. Anemia. Most likely she has some blood loss. Stool for occult blood is needed. The patient will be transfused at least one more unit of packed red blood cells (RBCs) today. We will consider to transfuse further during dialysis tomorrow. 4. Hypertension. Blood pressure is reasonably well controlled and she is currently not on any antihypertensive medications.
[2017-01-16 04:45] VITALS: BP 110/56
[2017-01-16 05:35] LABS: MEAN CORPUSCULAR HEMOGLOBIN 28.4 pg (27.0-33.0); MEAN CORPUSCULAR HGB CONC 30.4 g/dl (32.0-36.5); MEAN CORPUSCULAR VOLUME 93.5 fl (80.0-96.0); PLATELET COUNT, AUTOMATED 175 10^3/uL (150-450); RED CELL DISTRIBUTION WIDTH 15.7 % (11.5-14.5); WHITE BLOOD COUNT 13.4 10^3/uL (4.0-10.0)
[2017-01-16 05:49] LABS: INR 2.14
[2017-01-16 05:53] LABS: CALCIUM LEVEL 8.4 MG/DL (8.8-10.2); CREATININE FOR GFR 2.96 MG/DL (0.55-1.02); GLOMERULAR FILTRATION RATE 16.4 (>39); MAGNESIUM LEVEL 2.1 MG/DL (1.8-2.4); PHOSPHORUS LEVEL 2.1 MG/DL (2.5-4.9); POTASSIUM SERUM 4.1 MEQ/L (3.5-5.1)
[2017-01-16] MEDS: FUROSEMIDE 100 MG/10 ML VIAL (J1940) IV SCH (06:33)
[2017-01-16] MEDS: LEVOTHYROXINE 100MCG TABLET (0.1MG) PO SCH (06:33)
[2017-01-16 08:00] VITALS: BP 110/59
[2017-01-16] MEDS: AMIODARONE 200 MG TAB (PACERONE) PO SCH (08:10)
[2017-01-16] MEDS: ASPIRIN 81 MG ENTERIC TAB PO SCH (08:10)
[2017-01-16] MEDS: CARVedilol 6.25 MG TAB PO SCH ×2 (08:11→20:35)
[2017-01-16] MEDS: HumaLOG INSULIN (NovoLOG) PER UNIT SC SCH ×4 (08:11→20:34)
[2017-01-16 13:30] VITALS: BP 106/57
--- NOTE | 2017-01-16 13:44 | IPNPDOC ---
Text Note Date of Service The patient was seen on 01/16/17. NOTE SUBJECTIVE: The patient is seen and examined today. Patient has large bruise at right calf. She does not remember how or when she got it. She states it is tender to palpation. She has dark black stool. She had colonoscopy done in 2015. OBJECTIVE: GENERAL: No sign of acute distress, pale, alert and oriented times three. HEENT: Normocephalic, atraumatic. Extraocular motor grossly intact. CARDIOVASCULAR: Irregularly irregular, positive S1, S2. . Paced rhythm on the monitor. LUNGS: No wheezes or rhonchi. ABDOMEN: Soft, nontender, nondistended. EXTREMITIES: AV fistula at left upper extremity. Positive bilateral lower extremity edema. LABORATORY DATA: Listed below ASSESSMENT AND PLAN: 1. Acute on chronic renal failure. At the baseline, the patient has stage V chronic kidney disease. The patient has an arteriovenous (AV) fistula of the left upper extremity. Trial of hemodialysis on 01/14/2017. Next dialysis is on 01/16. Nephrology has been assisting on the patient's care. 2. Acute on chronic anemia. Previously hemoglobin was 6.5. Blood consent was obtained from the patient. Patient had 3 PRBC transfusion so far. H/H is followed closely. Colonoscopy was done in July 2015. Positive for internal hemorrhoid and diverticulosis. Stool occult is positive. ASA and warfarin on hold. Surgery service consulted. 3. Acute on chronic systolic and diastolic congestive heart failure. On diuretic. Next hemodialysis on 01/16/2017. Currently, the patient is maintaining satisfactory oxygen saturation in room air. However, the patient continued to have significant sign of overload, especially in the lower extremities and increased weight gain. 4. Insulin-dependent diabetes, on sliding scale. 5. Hypothyroidism. The patient had an elevated T4. We will decrease the Synthroid dosage. 6. Hypertension. Currently, the patient is hypotensive. Blood pressure medication is being adjusted with assistance from Dr. Singh. 7. Coronary artery disease, status post heart block and pacemaker. The patient is monitored on telemetry. 8. History of atrial fibrillation. Occult positive. warfarin will be on hold 9. Deep vein thrombosis (DVT) prophylaxis. therapeutic INR. Warfarin will be on hold due to GI bleed. VS,Fishbone, I+O VS, Fishbone, I+O Laboratory Tests 01/16/17 05:26 Red Blood Count 3.24 L, Mean Corpuscular Volume 93.5, Mean Corpuscular Hemoglobin 28.4, Mean Corpuscular Hemoglobin Concent 30.4 L, Red Cell Distribution Width 15.7 H, Anion Gap 7 L Vital Signs Date Time Temp Pulse Resp B/P (MAP) Pulse Ox O2 Delivery O2 Flow Rate FiO2 01/16/17 08:11 60 110/59 01/16/17 08:00 97.7 18 98 Room Air 01/14/17 10:00 2.0 CHRISTINA BEARD DO Jan 16, 2017 13:44
[2017-01-16 16:00] VITALS: BP 101/56
--- NOTE | 2017-01-16 17:42 | CR ---
DATE OF CONSULTATION: 01/16/2017 HISTORY OF PRESENT ILLNESS: The patient is a 76-year-old female with severe renal insufficiency, congestive heart failure who presents to the hospital with this progression of disease and was anemic on hospitalization. The patient had an abnormal CT scan, showing some inflammatory changes of the colon and possibly a mass effect in the rectum last year and was seen by Dr. Brambila, who proceeded with a colonoscopy and revealed no significant abnormality except for some diverticulosis. Since that time she has not had an upper endoscopy or an upper gastrointestinal (GI). Her major issues have been associated with her renal insufficiency. She is currently admitted for this renal insufficiency requiring dialysis. Has been started on dialysis and is becoming less short of breath over time. She does not complain of any bright red blood per rectum, although notices that she does have some hemorrhoids. The patient has not been on any proton pump inhibitors or H2 blockers or Carafate during this admission. Does not complain of any gastroesophageal (GE) reflux symptoms or epigastric pain. PAST MEDICAL HISTORY: Significant for: 1. History of renal insufficiency/acute renal failure. 2. History of congestive heart failure. 3. Diabetes mellitus. 4. Hypertension. 5. Hypothyroidism. 6. Anemia. 7. Aortic valve replacement, on chronic anticoagulation. 8. Coronary artery disease. 9. History of arteriovenous (AV) fistula creation. 10. Aortic valve replacement and pacemaker implant. PHYSICAL EXAMINATION: Reveals a frail-appearing elderly female who looks older than stated age. HEENT: Unremarkable. LUNGS: Diminished bilaterally. HEART: Regular with multiple irregular beats. ABDOMEN: Soft, nondistended, nontender. IMPRESSION AND PLAN: The patient has anemia, which is probably related to her renal insufficiency, probably related to her anticoagulation and medical comorbidities; however, she had a heme-positive stool without evidence of melena, without evidence of gastrointestinal (GI) bleeding, per se. I anticipate her most likely source of GI bleeding, given a negative colonoscopy last year, is an upper GI source, most likely gastritis and most likely associated with either a chemical gastritis or possibly even arterial venous (AV) malformations etc., but overwhelming likelihood is a gastritis, which would be appropriately treated with some proton pump inhibitors, possibly even some additional Carafate. Do not feel that this is an emergent intervention needed, i.e., endoscopy; however, if she is still here later on this week, we can add her to my schedule for endoscopy; however, if you would prefer to have this done earlier in the week, we can check to see if Dr. Brambila is doing endoscopies earlier on the week.
[2017-01-16] MEDS: SUCRALFATE SUSP 1GM/10ML UD PO SCH ×2 (17:51→20:34)
[2017-01-16 19:47] VITALS: BP 109/54
[2017-01-16] MEDS: SIMVASTATIN 40 MG TAB PO SCH (20:34)
[2017-01-16] MEDS: OMEPRAZOLE 20 MG CAP PO SCH (20:34)
[2017-01-16 23:48] VITALS: BP 104/51
[2017-01-17 04:40] VITALS: BP 94/52
[2017-01-17 05:10] LABS: MEAN CORPUSCULAR HEMOGLOBIN 28.5 pg (27.0-33.0); MEAN CORPUSCULAR HGB CONC 30.4 g/dl (32.0-36.5); MEAN CORPUSCULAR VOLUME 93.8 fl (80.0-96.0); PLATELET COUNT, AUTOMATED 155 10^3/uL (150-450); RED CELL DISTRIBUTION WIDTH 15.5 % (11.5-14.5)
[2017-01-17] MEDS: LEVOTHYROXINE 100MCG TABLET (0.1MG) PO SCH (05:23)
[2017-01-17 05:25] LABS: INR 1.9
[2017-01-17 05:26] LABS: ALBUMIN 1.9 GM/DL (3.2-5.2); CALCIUM LEVEL 8.6 MG/DL (8.8-10.2); CREATININE FOR GFR 2.28 MG/DL (0.55-1.02); GLOMERULAR FILTRATION RATE 22.2 (>39); MAGNESIUM LEVEL 1.8 MG/DL (1.8-2.4); PHOSPHORUS LEVEL 1.3 MG/DL (2.5-4.9); POTASSIUM SERUM 3.8 MEQ/L (3.5-5.1)
[2017-01-17] MEDS: CARVedilol 6.25 MG TAB PO SCH ×2 (07:55→20:34)
[2017-01-17] MEDS: AMIODARONE 200 MG TAB (PACERONE) PO SCH (07:55)
[2017-01-17] MEDS: SUCRALFATE SUSP 1GM/10ML UD PO SCH ×4 (07:55→20:34)
[2017-01-17] MEDS: OMEPRAZOLE 20 MG CAP PO SCH ×2 (07:55→20:34)
[2017-01-17] MEDS: HumaLOG INSULIN (NovoLOG) PER UNIT SC SCH ×4 (07:56→20:34)
[2017-01-17 08:00] VITALS: BP 134/63
[2017-01-17 12:00] VITALS: BP 115/55
[2017-01-17] MEDS ORDERED: DARBEPOETIN 100 MCG/0.5 ML *DIALYSIS* SYRINGE (J0882) IV SCH (14:15)
--- NOTE | 2017-01-17 14:31 | IPNPDOC ---
Text Note Date of Service The patient was seen on 01/17/17. NOTE SUBJECTIVE: The patient is seen and examined today. Patient has large bruise at right calf and it is benzol still operator. Patient continues having dark brown stool. OBJECTIVE: GENERAL: No sign of acute distress, pale, alert and oriented times three. HEENT: Normocephalic, atraumatic. Extraocular motor grossly intact. CARDIOVASCULAR: Irregularly irregular, positive S1, S2. . Paced rhythm on the monitor. LUNGS: No wheezes or rhonchi. ABDOMEN: Soft, nontender, nondistended. EXTREMITIES: AV fistula at left upper extremity. Positive bilateral lower extremity edema. LABORATORY DATA: Listed below ASSESSMENT AND PLAN: 1. Acute on chronic anemia. Previously hemoglobin was 6.5. Blood consent was obtained from the patient. Patient had 3 PRBC transfusion so far. H/H is followed closely. Colonoscopy was done in July 2015. Positive for internal hemorrhoid and diverticulosis. Stool occult is positive. ASA and warfarin on hold. Surgery service consulted. Started trial of PPI and Carafate. Continue to monitor HH. If patient continues having decrease of HH, she may benefit colonoscopy. 2. . Acute on chronic renal failure. At the baseline, the patient has stage V chronic kidney disease. The patient has an arteriovenous (AV) fistula of the left upper extremity. Trial of hemodialysis started on 01/14/2017. Last dialysis was on 01/16/17. Nephrology has been assisting on the patient's care. 3. Acute on chronic systolic and diastolic congestive heart failure. On diuretic. Next hemodialysis on 01/16/2017. Currently, the patient is maintaining satisfactory oxygen saturation in room air. However, the patient continued to have significant sign of overload, especially in the lower extremities and increased weight gain. 4. Insulin-dependent diabetes, on sliding scale. 5. Hypothyroidism. The patient had an elevated T4. We will decrease the Synthroid dosage. 6. Hypertension. Currently, the patient is hypotensive. Blood pressure medication is being adjusted with assistance from Dr. Singh. 7. Coronary artery disease, status post heart block and pacemaker. The patient is monitored on telemetry. 8. History of atrial fibrillation. Occult positive. warfarin will be on hold 9. Deep vein thrombosis (DVT) prophylaxis. therapeutic INR. Warfarin will be on hold due to GI bleed. VS,Fishbone, I+O VS, Fishbone, I+O Laboratory Tests 01/17/17 05:03 Red Blood Count 3.05 L, Mean Corpuscular Volume 93.8, Mean Corpuscular Hemoglobin 28.5, Mean Corpuscular Hemoglobin Concent 30.4 L, Red Cell Distribution Width 15.5 H, Anion Gap 6 L Vital Signs Date Time Temp Pulse Resp B/P (MAP) Pulse Ox O2 Delivery O2 Flow Rate FiO2 01/17/17 12:00 98.5 60 18 115/55 (75) 100 Room Air 01/14/17 10:00 2.0 I&O- Last 24 Hours up to 6 AM 01/18/17 06:00 Intake Total 840 ml Output Total 100 ml Balance 740 ml CHRISTINA BEARD DO Jan 17, 2017 14:31
--- NOTE | 2017-01-17 15:47 | IPN ---
DATE: 01/16/2017 SUBJECTIVE: The patient is seen this morning in hemodialysis. She is tolerating her treatment well with no acute issues. She complains of ongoing dark stool. Her stool for occult blood came back positive and her aspirin is held along with her Coumadin. She denies any shortness of breath at rest. VITAL SIGNS: Temperature 97.7, pulse 60, respiratory rate 18, blood pressure 110/59, saturating 98% on room air. INTAKE AND OUTPUT: Hemodialysis today removed 1 kg ultrafiltration and there are four recorded bowel movements. The patient is seen in hemodialysis tolerating her treatment with no issues, awake, alert, oriented times four. HEAD AND NECK: Extraocular muscles are intact. Conjunctivae are pale. Mucous membranes are moist. Neck is supple. CARDIOVASCULAR: Irregularly irregular, S1, S2, 2+ radial pulse. Pitting edema present in the lower extremities bilaterally to the hip. LUNGS: Bilateral symmetric air entry. Comfortable on room air and saturating well. EXTREMITIES: Left upper extremity fistula with thrill and bruit and accessed through two needles. Lower extremities positive for pitting edema. ABDOMEN: Soft, obese, nontender. Bowel sounds are present. NEUROLOGIC: No focal deficits. PSYCHIATRIC: Appropriate mood and affect. SKIN: Noticeable for pallor. LABORATORY DATA: White count 13.4, hemoglobin 9.2, platelets 175. Sodium 137, potassium 4.1, bicarbonate 26, BUN 54, phosphorus 2.1, magnesium 2.1. MICROBIOLOGY: Stool occult blood positive. INPATIENT MEDICATIONS: Reviewed by myself. The patient's aspirin and Coumadin were both discontinued. I have stopped her IV Lasix. She is started on omeprazole 40 mg by mouth twice a day and Carafate. Remainder of medications are unchanged from prior. ASSESSMENT AND PLAN: 1. End-stage renal disease, recently initiated hemodialysis. The patient had hemodialysis treatment today with ultrafiltration. Her next treatment is likely to be on Wednesday01/18/2017. I have stopped her IV Lasix at this time and we will continue with volume management via hemodialysis. 2. Anemia. The patient received three units packed red blood cells (PRBC) on this admission. Her stool occult blood was positive. She had a colonoscopy earlier this year, per the patient, which showed hemorrhoids and diverticulosis. Her stool occult is positive. Her aspirin and warfarin are on hold and the surgery service has been consulted. She should have an esophagogastroduodenoscopy (EGD) done and we will pursue that as an outpatient. 3. Diastolic congestive heart failure with decompensated volume status. Continue ultrafiltration via hemodialysis. Her IV Lasix is now discontinued. 4. Hypertension. The patient was having episodes of hypotension on this admission. She is currently on carvedilol with holding parameters and tolerating the same. 5. History of atrial fibrillation. Coumadin is on hold due to anemia and stool for occult blood positivity. She continues on carvedilol and amiodarone.
[2017-01-17 16:00] VITALS: BP 138/60
[2017-01-17 19:55] VITALS: BP 96/46
--- NOTE | 2017-01-17 19:59 | IPN ---
DATE: 01/17/2017 SUBJECTIVE: The patient is seen this morning at the bedside. She reports she feels well. No acute issues overnight. Tolerated hemodialysis well yesterday with 1000 mL ultrafiltration. She has a bruise at her right calf. She cannot recall exactly when she got it. Despite fluid removal on dialysis yesterday, her hemoglobin again down trended to 8.7. She was seen by Dr. Haynes yesterday, and I discussed with the patient regarding need for endoscopy. REVIEW OF SYSTEMS: Positive for improved edema and shortness of breath. Negative for chest pain, palpitations, nausea, vomiting, diarrhea, fevers, chills. Remainder of review of systems is negative. OBJECTIVE: VITAL SIGNS: Temperature 98.4, pulse 62, respiratory rate 18, blood pressure 134/63, saturating 100% on room air. INTAKE AND OUTPUT: Hemodialysis yesterday removed 1000 mL ultrafiltration. She had four recorded bowel movements. Weight in the bed scale today is 70.9 kg. PHYSICAL EXAMINATION: The patient appears pale. She is lying flat in bed in no acute distress. Extraocular muscles are intact. Oral mucosa is moist. Neck is supple. No significant jugular venous distention. CARDIOVASCULAR: Irregularly irregular. S1, S2. Two plus radial pulse. Peripheral edema is improved as compared to prior. LUNGS: Clear to auscultation bilaterally. ABDOMEN: Soft, nontender. EXTREMITIES: There is a fistula with thrill and bruit in the left upper extremity. SKIN: She has scattered ecchymoses present on the upper extremities and a large bruise on her right calf. NEUROLOGIC: No focal deficits. PSYCHIATRIC: Appropriate mood and affect. LABORATORY DATA: White count is 10, hemoglobin is 8.7, platelets 155. Sodium 138, potassium 3.8, bicarbonate 29, magnesium 1.8. INPATIENT MEDICATIONS: Her aspirin and her Coumadin are both on hold. She is on omeprazole and Carafate and I am starting her on Aranesp. ASSESSMENT AND PLAN: A 76-year-old female with: 1. End-stage renal disease status post two treatments of hemodialysis. The patient's fistula was cannulized well without issue. She is pending outpatient hemodialysis set up for chair and time. 2. Decompensated volume status, systolic CHF. Her edema has improved with two hemodialysis treatments. She will likely receive another hemodialysis session tomorrow, . I have discontinued her intravenous (IV) Lasix. 3. Anemia with fecal occult blood test (FOBT) positivity. The patient needs an esophagogastroduodenoscopy (EGD). Her aspirin and Coumadin are both held. She is on Protonix and Carafate. I have also started her on Aranesp. 4. History of atrial fibrillation. Coumadin is on hold. She continues on amiodarone and carvedilol. MTDD
[2017-01-17] MEDS: SIMVASTATIN 40 MG TAB PO SCH (20:34)
[2017-01-17 23:50] VITALS: BP 102/46
[2017-01-18 04:26] VITALS: BP 97/46
[2017-01-18] MEDS: LEVOTHYROXINE 100MCG TABLET (0.1MG) PO SCH (05:03)
[2017-01-18 05:28] LABS: MEAN CORPUSCULAR HGB CONC 29.6 g/dl (32.0-36.5); MEAN CORPUSCULAR VOLUME 94.5 fl (80.0-96.0); PLATELET COUNT, AUTOMATED 173 10^3/uL (150-450); RED CELL DISTRIBUTION WIDTH 15.2 % (11.5-14.5); WHITE BLOOD COUNT 10.1 10^3/uL (4.0-10.0)
[2017-01-18 05:37] LABS: INR 1.66
[2017-01-18 05:42] LABS: CALCIUM LEVEL 8.4 MG/DL (8.8-10.2); CREATININE FOR GFR 3.32 MG/DL (0.55-1.02); GLOMERULAR FILTRATION RATE 14.4 (>39); PHOSPHORUS LEVEL 1.1 MG/DL (2.5-4.9); POTASSIUM SERUM 3.8 MEQ/L (3.5-5.1)
[2017-01-18 08:00] VITALS: BP 118/56
[2017-01-18] MEDS: SUCRALFATE SUSP 1GM/10ML UD PO SCH ×4 (08:08→20:53)
[2017-01-18] MEDS: HumaLOG INSULIN (NovoLOG) PER UNIT SC SCH ×4 (08:09→20:12)
[2017-01-18] MEDS: OMEPRAZOLE 20 MG CAP PO SCH ×2 (08:09→20:53)
[2017-01-18] MEDS: AMIODARONE 200 MG TAB (PACERONE) PO SCH (08:09)
[2017-01-18] MEDS: CARVedilol 6.25 MG TAB PO SCH ×2 (08:10→20:53)
[2017-01-18 12:00] VITALS: BP 123/58
--- NOTE | 2017-01-18 13:54 | IPNPDOC ---
Text Note Date of Service The patient was seen on 01/18/17. NOTE SUBJECTIVE: The patient is seen and examined today. Patient states she is feeling better. Still has swelling of lower extremities but she feels the swelling has been going down. Denies chest pain or shortness of breath. OBJECTIVE: GENERAL: No sign of acute distress, pale, alert and oriented times three. HEENT: Normocephalic, atraumatic. Extraocular motor grossly intact. CARDIOVASCULAR: Irregularly irregular, positive S1, S2. . Paced rhythm on the monitor. LUNGS: No wheezes or rhonchi. ABDOMEN: Soft, nontender, nondistended. EXTREMITIES: AV fistula at left upper extremity. Positive bilateral lower extremity edema. LABORATORY DATA: Listed below ASSESSMENT AND PLAN: 1. Acute on chronic anemia. Previously hemoglobin was 6.5. Blood consent was obtained from the patient. Patient had 3 PRBC transfusion so far. H/H is followed closely. Colonoscopy was done in July 2015. Positive for internal hemorrhoid and diverticulosis. Stool occult is positive. ASA and warfarin on hold. Surgery service consulted. Started trial of PPI and Carafate. Continue to monitor HH. GI specialist consulted on 01/18/17. 2. . Acute on chronic renal failure. At the baseline, the patient has stage V chronic kidney disease. The patient has an arteriovenous (AV) fistula of the left upper extremity. Trial of hemodialysis started on 01/14/2017. Last dialysis was on 01/16/17. Nephrology has been assisting on the patient's care. 3. Acute on chronic systolic and diastolic congestive heart failure. On diuretic. Next hemodialysis on 01/16/2017. Currently, the patient is maintaining satisfactory oxygen saturation in room air. However, the patient continued to have significant sign of overload, especially in the lower extremities and increased weight gain. 4. Insulin-dependent diabetes, on sliding scale. 5. Hypothyroidism. The patient had an elevated T4. We will decrease the Synthroid dosage. 6. Hypertension. Currently, the patient is hypotensive. Blood pressure medication is being adjusted with assistance from Dr. Singh. 7. Coronary artery disease, status post heart block and pacemaker. The patient is monitored on telemetry. 8. History of atrial fibrillation. Occult positive. warfarin will be on hold 9. Deep vein thrombosis (DVT) prophylaxis. therapeutic INR. Warfarin will be on hold due to GI bleed. VS,Fishbone, I+O VS, Fishbone, I+O Laboratory Tests 01/18/17 05:08 Red Blood Count 3.11 L, Mean Corpuscular Volume 94.5, Mean Corpuscular Hemoglobin 28.0, Mean Corpuscular Hemoglobin Concent 29.6 L, Red Cell Distribution Width 15.2 H, Anion Gap 6 L Vital Signs Date Time Temp Pulse Resp B/P (MAP) Pulse Ox O2 Delivery O2 Flow Rate FiO2 01/18/17 12:10 Room Air 01/18/17 08:10 60 118/56 01/18/17 08:00 98.0 20 99 2.0 I&O- Last 24 Hours up to 6 AM 01/19/17 06:00 Intake Total 240 ml Output Total 25 ml Balance 215 ml CHRISTINA BEARD DO Jan 18, 2017 13:54
--- NOTE | 2017-01-18 15:32 | IPN ---
DATE: 01/18/2017 SUBJECTIVE: The patient is seen this morning at the bedside. She reports she is feeling well. No issues. Tolerating oral intake, has been ambulating to the bathroom, and has noticed that her breathing has gotten easier over the past several days. She denies any tarry black bowel movements. Her hemoglobin has been stable the past 24 hours. REVIEW OF SYSTEMS: Positive for improvement in shortness of breath and lower extremity edema and ongoing dark bowel movements. Review of systems is negative for chest pain, palpitations, nausea, vomiting, diarrhea, fevers, chills, headaches. Remainder of review of systems is negative. VITAL SIGNS: Temperature 98.0, pulse 60, respiratory rate 20, blood pressure 118/57, saturating 99% on two liters nasal cannula. INTAKE AND OUTPUT: Oral intake yesterday was 1080 mL. Urine output yesterday was 200 mL. Weight in the bed scale today is 71.7 kg. PHYSICAL EXAMINATION: The patient is seen lying down in bed, comfortable, in no acute distress. She appears pale. Extraocular muscles are intact. The mucous membranes are moist. The neck is supple. There is no significant jugular venous distention. CARDIOVASCULAR: Irregularly irregular, S1, S2, 2+ radial pulse. Peripheral edema present in the lower extremities but improving nicely. LUNGS: Clear to auscultation bilaterally. She is seen off of nasal cannula. ABDOMEN: Soft, nontender. There are bowel sounds present. EXTREMITIES: There is a fistula with thrill and bruit in the left upper extremity. SKIN: She has scattered ecchymoses present on the bilateral upper extremities and also a large bruise on the right calf. NEUROLOGIC: No focal deficits. PSYCHIATRIC: Appropriate mood and affect. LABORATORY DATA: White count 10.1, hemoglobin 8.7, platelets 173. Sodium 135, potassium 3.8, bicarbonate 29, BUN 50, creatinine 3.3, corrected calcium 10, phosphorus 1.1, magnesium 2. INPATIENT MEDICATIONS: Reviewed by myself and there are no significant changes in the last 24 hours. ASSESSMENT AND PLAN: 1. End-stage renal disease, status post two treatments of hemodialysis via left upper extremity fistula. The patient is pending outpatient hemodialysis set up for chair and time. Her volume status has improved with two treatment. She is off of IV diuretics. Her oxygen requirements are being weaned. She has a mild hyponatremia today with a sodium of 135 which will improve with dialysis tomorrow 01/19/2017. 2. Anemia with fecal occult blood test (FOBT) positivity. The patient's aspirin and Coumadin are both held. Her hemoglobin has been stable the past 24 hours. She has received three units of packed red blood cells (PRBCs) thus far on this admission. She is started on Aranesp with dialysis. She is pending esophagogastroduodenoscopy (EGD) and continue on Protonix and Carafate. 3. History of atrial fibrillation. The patient continues on amiodarone and carvedilol. Her anticoagulation is on hold. 4. Hypophosphatemia. Phosphorus is very low at 1.1 and decreased since admission. Encourage oral intake of high phosphorous foods, Hypophosphatemia is likely due to carafate use, MTDD
[2017-01-18 16:00] VITALS: BP 116/73
[2017-01-18] MEDS ORDERED: SLF 3 ML SYR IV PRN (17:45)
[2017-01-18 20:00] VITALS: BP 124/59
[2017-01-18] MEDS: SIMVASTATIN 40 MG TAB PO SCH (20:53)
[2017-01-18] MEDS: SLF 3 ML SYR IV SCH (22:00)
[2017-01-18 23:59] VITALS: BP 101/56
[2017-01-19 04:00] VITALS: BP 119/58
[2017-01-19 05:36] LABS: MEAN CORPUSCULAR HGB CONC 29.8 g/dl (32.0-36.5); PLATELET COUNT, AUTOMATED 181 10^3/uL (150-450); RED CELL DISTRIBUTION WIDTH 14.7 % (11.5-14.5); WHITE BLOOD COUNT 10.2 10^3/uL (4.0-10.0)
[2017-01-19 05:37] LABS: RETIC HEMOGLOBIN EQUIVALENT 29.4 pg (24-36); RETICULOCYTE % 4.4 % (0.5-1.5)
[2017-01-19 05:39] LABS: REASON FOR REVIEW COMPREHENSIVE REVIEW
[2017-01-19 05:47] LABS: INR 1.62
[2017-01-19] MEDS: SUCRALFATE SUSP 1GM/10ML UD PO SCH ×4 (05:48→20:53)
[2017-01-19] MEDS: AMIODARONE 200 MG TAB (PACERONE) PO SCH (05:48)
[2017-01-19] MEDS: CARVedilol 6.25 MG TAB PO SCH ×2 (05:48→20:54)
[2017-01-19] MEDS: OMEPRAZOLE 20 MG CAP PO SCH ×2 (05:48→20:53)
[2017-01-19] MEDS: LEVOTHYROXINE 100MCG TABLET (0.1MG) PO SCH (05:48)
[2017-01-19] MEDS: SLF 3 ML SYR IV SCH ×3 (05:51→20:54)
[2017-01-19 06:16] LABS: CALCIUM LEVEL 8.1 MG/DL (8.8-10.2); CREATININE FOR GFR 3.66 MG/DL (0.55-1.02); GLOMERULAR FILTRATION RATE 12.9 (>39); MAGNESIUM LEVEL 1.9 MG/DL (1.8-2.4); PERCENT SATURATION 22.6 % (13.2-45.0); PHOSPHORUS LEVEL 1.1 MG/DL (2.5-4.9); POTASSIUM SERUM 4.1 MEQ/L (3.5-5.1)
[2017-01-19] MEDS: HumaLOG INSULIN (NovoLOG) PER UNIT SC SCH ×4 (07:10→20:36)
[2017-01-19 08:00] VITALS: BP 145/65
[2017-01-19] MEDS ORDERED: IRON SUCROSE 100MG 5ML VIAL (J1756 PER 1MG) IV SCH (09:00)
[2017-01-19 09:13] LABS: FOLATE 11.2 NG/ML (>5.4)
--- NOTE | 2017-01-19 11:17 | IPNPDOC ---
Text Note Date of Service The patient was seen on 01/19/17. NOTE SUBJECTIVE: The patient is seen and examined today. Patient states she is feeling better. Still has swelling of lower extremities but she feels the swelling has been going down. Denies chest pain or shortness of breath. There is a bruising on the back of right leg since admission which she thiks she may have scraped her legs in the sons car and got the bruising. OBJECTIVE: GENERAL: No sign of acute distress, pale, alert and oriented times three. HEENT: Normocephalic, atraumatic. Extraocular motor grossly intact. CARDIOVASCULAR: Irregularly irregular, positive S1, S2. . Paced rhythm on the monitor. LUNGS: No wheezes or rhonchi. ABDOMEN: Soft, nontender, nondistended. EXTREMITIES: AV fistula at left upper extremity. Positive bilateral lower extremity edema. LABORATORY DATA: Listed below ASSESSMENT AND PLAN: 1. Acute on chronic anemia. Seems like anemia of chronic disease. However may have some upper GIB also. Patient was not getting any epogen as outpatient. Patient had 3 PRBC transfusion. Colonoscopy was done in July 2015. Positive for internal hemorrhoid and diverticulosis. Stool occult is positive. ASA and warfarin on hold. Started trial of PPI and Carafate. Continue to monitor HH. GI specialist consulted on 01/18/17. Possible EGD on 01/20/17 2.ESRD: Newly started on hemodialysis . will need outpatient HD slot set up prior to discharge. 3. Acute on chronic systolic and diastolic congestive heart failure: EF of 40% . started on hemodialysis this admission. Fluid status improving. 4. Diabetes, on sliding scale of insulin 5. Hypothyroidism. The patient had an elevated T4. decreased synthroid dosage. 6. Hypertension. Blood pressure normal now not needing any antihypertensive at this point. 7. Coronary artery disease, status post heart block and pacemaker. Telemetry no events since admission. will transfer to med surg. 8. History of atrial fibrillation. continue amiodarone and coreg. Occult positive so warfarin will be on hold 9. Severe pulmonary hypertension with right heart failure. Started on hemodialysis. 10. Deep vein thrombosis (DVT) prophylaxis. therapeutic INR. Warfarin will be on hold due to GI bleed. VS,Fishbone, I+O VS, Fishbone, I+O Laboratory Tests 01/19/17 05:22 Red Blood Count 3.00 L, Mean Corpuscular Volume 94.0, Mean Corpuscular Hemoglobin 28.0, Mean Corpuscular Hemoglobin Concent 29.8 L, Red Cell Distribution Width 14.7 H, Anion Gap 7 L Vital Signs Date Time Temp Pulse Resp B/P (MAP) Pulse Ox O2 Delivery O2 Flow Rate FiO2 01/19/17 08:00 96.6 60 18 145/65 (91) 98 Room Air 01/19/17 00:00 2.0 I&O- Last 24 Hours up to 6 AM 01/20/17 06:00 Intake Total 240 ml Balance 240 ml DARCI WILSON MD Jan 19, 2017 11:16
[2017-01-19 12:00] VITALS: BP 139/60
[2017-01-19] MEDS ORDERED: LIDOCAINE 1% SDV 5 ML VIAL SC ONE (12:15)
[2017-01-19] MEDS ORDERED: SODIUM PHOSPHATE INJ 30 MMOL in D5W 500 ML IV ONE (14:00)
[2017-01-19 16:45] VITALS: BP 111/52
--- NOTE | 2017-01-19 18:56 | IPN ---
DATE: 01/19/2017 SUBJECTIVE: The patient is seen this morning at the bedside. She reports that she is feeling well. She continues to ambulate. Her dyspnea on exertion has been improving. She does complain of ongoing lower extremity edema. She is for dialysis later this afternoon, and she is pending endoscopy tomorrow. VITAL SIGNS: Temperature 97.3, pulse 60, respiratory rate 18, blood pressure 139/60, saturating 100% on room air. INTAKE AND OUTPUT: Hemodialysis today removed 2000 mL ultrafiltration. PHYSICAL EXAMINATION: The patient is seen lying flat in bed, pale, comfortable, in no acute distress. Extraocular muscles are intact. Oral mucosa is moist. The neck is supple. There is no significant jugular venous distention (JVD). Cardiac: S1, S2. 2+ radial pulse. Pitting edema present in the bilateral lower extremities to the thigh. Abdomen: Soft, obese, nontender. Positive bowel sounds. Lungs: Bilateral air entry. Comfortable on room air. No wheeze or rhonchi. Extremities: There is a fistula with thrill and bruit at the left upper extremity and bilateral lower extremities have edema. Neurologic: No focal deficits. Psychiatric: Appropriate mood and affect. LABORATORY: White count 10.2, hemoglobin 8.4, platelets 181. Sodium 133, potassium 4.1. T. saturation 22%, iron 38, vitamin B12 1500, folate 11. INPATIENT MEDICATIONS: The patient continues on Aranesp and she received sodium phosphate 30 millimoles IV times one. PROBLEMS: 1. End-stage renal disease, on hemodialysis. The patient is pending outpatient hemodialysis setup. She is dialyzing well via her left upper extremity fistula. She continues with ultrafiltration for correction of her hypervolemia. 2. Congestive heart failure with volume overload. Fluid status is improving with hemodialysis. Continue with fluid restriction. 3. Hypophosphatemia, likely secondary to Carafate use, which is a phosphate (phos) binder. Okay to give phosphate supplement. The patient can alternatively also drink dark diet martínez, which have high amounts of phosphorous. 4. Anemia. The patient has been requiring packed red blood cell transfusions for correction. She was not receiving Procrit as an outpatient due to financial issues, and she has been requiring several units of packed red blood cell transfusions over the summer. Fecal occult blood test was positive. Recommend endoscopy to evaluate for any upper gastrointestinal (GI) bleed and continue with Aranesp and Venofer at this time. 5. History of atrial fibrillation. Continues on amiodarone and Coreg. Coumadin is on hold. If her esophagogastroduodenoscopy (EGD) is negative, we will resume her anticoagulant. MTDD
[2017-01-19 20:00] VITALS: BP 118/53
[2017-01-19] MEDS: SIMVASTATIN 40 MG TAB PO SCH (20:53)
[2017-01-19] MEDS: ACETAMINOPHEN 650MG ER TAB (TYLENOL ARTHRITIS) PO PRN (21:02)
[2017-01-20 04:00] VITALS: BP 103/51
[2017-01-20] MEDS: SLF 3 ML SYR IV SCH ×3 (05:16→21:05)
[2017-01-20] MEDS: LEVOTHYROXINE 100MCG TABLET (0.1MG) PO SCH (05:16)
[2017-01-20 06:00] LABS: MEAN CORPUSCULAR HEMOGLOBIN 28.2 pg (27.0-33.0); MEAN CORPUSCULAR HGB CONC 29.9 g/dl (32.0-36.5); MEAN CORPUSCULAR VOLUME 94.2 fl (80.0-96.0); PLATELET COUNT, AUTOMATED 190 10^3/uL (150-450); RED CELL DISTRIBUTION WIDTH 14.6 % (11.5-14.5); WHITE BLOOD COUNT 11.8 10^3/uL (4.0-10.0)
[2017-01-20 06:20] LABS: CALCIUM LEVEL 8.8 MG/DL (8.8-10.2); CREATININE FOR GFR 2.74 MG/DL (0.55-1.02); POTASSIUM SERUM 3.8 MEQ/L (3.5-5.1)
[2017-01-20 07:30] VITALS: BP 124/60
[2017-01-20] MEDS: HumaLOG INSULIN (NovoLOG) PER UNIT SC SCH ×4 (07:30→20:25)
[2017-01-20] MEDS: SUCRALFATE SUSP 1GM/10ML UD PO SCH ×4 (08:36→21:03)
[2017-01-20] MEDS: AMIODARONE 200 MG TAB (PACERONE) PO SCH (08:36)
[2017-01-20] MEDS: OMEPRAZOLE 20 MG CAP PO SCH ×2 (08:36→21:03)
[2017-01-20] MEDS: CARVedilol 6.25 MG TAB PO SCH ×2 (08:39→21:00)
--- NOTE | 2017-01-20 10:29 | IPNPDOC ---
Text Note Date of Service The patient was seen on 01/20/17. NOTE SUBJECTIVE: The patient is seen and examined today. Patient states she is feeling better. Still has swelling of lower extremities but she feels the swelling has been going down. Denies chest pain or shortness of breath. There is a bruising on the back of right leg since admission which she thiks she may have scraped her legs in the sons car and got the bruising. OBJECTIVE: GENERAL: No sign of acute distress, pale, alert and oriented times three. HEENT: Normocephalic, atraumatic. Extraocular motor grossly intact. CARDIOVASCULAR: Irregularly irregular, positive S1, S2. . Paced rhythm on the monitor. LUNGS: No wheezes or rhonchi. ABDOMEN: Soft, nontender, nondistended. EXTREMITIES: AV fistula at left upper extremity. Positive bilateral lower extremity edema. LABORATORY DATA: Listed below ASSESSMENT AND PLAN: 1. Acute on chronic anemia. Seems like anemia of chronic disease. However may have some upper GIB also. Patient was not getting any epogen as outpatient. Patient had 3 PRBC transfusion. Colonoscopy was done in July 2015. Positive for internal hemorrhoid and diverticulosis. Stool occult is positive. ASA and warfarin on hold. Started trial of PPI and Carafate. Continue to monitor HH. EGD on 01/20/17 2.ESRD: Newly started on hemodialysis . will need outpatient HD slot set up prior to discharge. 3. Acute on chronic systolic and diastolic congestive heart failure: EF of 40% . started on hemodialysis this admission. Fluid status improving. 4. Diabetes, on sliding scale of insulin 5. Hypothyroidism. The patient had an elevated T4. decreased synthroid dosage. 6. Hypertension. Blood pressure normal now not needing any antihypertensive at this point. 7. Coronary artery disease, status post heart block and pacemaker. 8. History of atrial fibrillation. continue amiodarone and coreg. Occult positive so warfarin will be on hold 9. Severe pulmonary hypertension with right heart failure. Started on hemodialysis. 10. Deep vein thrombosis (DVT) prophylaxis. therapeutic INR. Warfarin will be on hold due to GI bleed. VS,Fishbone, I+O VS, Fishbone, I+O Laboratory Tests 01/20/17 05:39 Red Blood Count 2.91 L, Mean Corpuscular Volume 94.2, Mean Corpuscular Hemoglobin 28.2, Mean Corpuscular Hemoglobin Concent 29.9 L, Red Cell Distribution Width 14.6 H, Calcium Level 8.8 Vital Signs Date Time Temp Pulse Resp B/P (MAP) Pulse Ox O2 Delivery O2 Flow Rate FiO2 01/20/17 08:39 60 105/58 01/20/17 07:30 98.2 16 95 Room Air 01/19/17 00:00 2.0 DARCI WILSON MD Jan 20, 2017 10:29
[2017-01-20] MEDS ORDERED: CARV6.25 PO (11:20)
[2017-01-20] MEDS ORDERED: SUCR10SS PO (11:20)
[2017-01-20] MEDS ORDERED: LEVO100T5 PO (11:20)
[2017-01-20] MEDS ORDERED: OMEP20CA3 PO (11:20)
[2017-01-20] MEDS ORDERED: HumaLOG INSULIN (NovoLOG) PER UNIT SC ONE (13:00)
[2017-01-20] MEDS ORDERED: D5W 1,000 ML IV SCH (15:30)
--- NOTE | 2017-01-20 16:20 | ROOR ---
Patient Name: Alejandra Sullivan Procedure Date: 01/20/2017 4:04 PM Date of : 1940 Age: 76 Room: [facility] Gender: Female Note Status: Finalized Procedure: Upper GI endoscopy Indications: Unexplained iron deficiency anemia Providers: Roberto Brambila MD Referring MD: 2. Inpatient 2. Inpatient Requesting Provider: Medicines: Monitored Anesthesia Care Complications: No immediate complications. Procedure: Pre-Anesthesia Assessment: - The heart rate, respiratory rate, oxygen saturations, blood pressure, adequacy of pulmonary ventilation, and response to care were monitored throughout the procedure. The Endoscope was introduced through the mouth, and advanced to the second part of duodenum. The upper GI endoscopy was accomplished without difficulty. The patient tolerated the procedure well. Findings: The Z-line was regular and was found 35 cm from the incisors. A small hiatal hernia was present. No other significant abnormalities were identified in a careful examination of the stomach. The exam of the duodenum was otherwise normal. Impression: - Z-line regular, 35 cm from the incisors. - Small hiatal hernia. - No specimens collected. - The examination was otherwise normal. Recommendation: - Patient has a contact number available for emergencies. The signs and symptoms of potential delayed complications were discussed with the patient. Return to normal activities tomorrow. Written discharge instructions were provided to the patient. - High fiber diet. - Continue present medications. - Return to referring physician. - Return patient to [facility] for ongoing care. - The findings and recommendations were discussed with the referring physician. Roberto Brambila MD Roberto Brambila MD 01/20/2017 4:19:55 PM This report has been signed electronically. Number of Addenda: 0 Note Initiated On: 01/20/2017 4:04 PM Estimated Blood Loss: Estimated blood loss: none.
--- NOTE | 2017-01-20 17:03 | IPN ---
DATE: 01/20/2017 SUBJECTIVE: The patient is seen this morning at the bedside. She is comfortable. Has no acute complaints. Is currently nothing by mouth for esophagogastroduodenoscopy (EGD) later today. She tolerated dialysis well yesterday without issue with 2000 mL ultrafiltration. Her was present at the bedside today. She is set up for hemodialysis as an outpatient on Wednesday, , Wednesday schedule. VITAL SIGNS: Temperature 98.2, pulse 60, respirations 16, blood pressure 124/60, saturating 94% on room air. Intake and output: Net negative 1.6 liters yesterday with a dialysis output of 2000 mL ultrafiltration. PHYSICAL EXAMINATION: The patient is out of bed to the chair, comfortable. Her is present at the bedside. The extraocular muscles are intact. Her oral mucosa is moist. There is no conjunctival pallor. The neck is supple. There is no significant jugular venous distention (JVD). CARDIAC: S1, S2. There is 2+ radial pulse present in the upper extremities. There is pitting edema present in the lower extremities to the hip and dependent area, but it is improved from prior. LUNGS: There is bilateral fair air entry. She is comfortable on room air. No wheeze or rhonchi. ABDOMEN: Soft, obese, nontender. There are positive bowel sounds. EXTREMITIES: There is a fistula with thrill and bruit at the left upper extremity, and bilateral lower extremities have edema, which is improving on exam. SKIN: There are scattered ecchymosis present on both of her arms and also a large bruise on her calf. NEUROLOGIC: There are no focal deficits. PSYCHIATRIC: Appropriate mood and affect. LABORATORY DATA: White count 11.8, hemoglobin 8.2, platelets 190. Sodium 136, potassium 3.8, bicarbonate 29, calcium 8.8. INPATIENT MEDICATIONS: The patient continues on Aranesp and Venofer with dialysis. Remainder of medications are unchanged from prior. PROBLEMS: 1. End-stage renal disease, on hemodialysis. The patient is set up for outpatient hemodialysis on a Wednesday, , Wednesday schedule. She is dialyzing well via her left upper extremity fistula. Her volume status is slowly improving. 2. Congestive heart failure with volume overload. Fluid status is improving with hemodialysis and ultrafiltration. Continue with fluid restriction and no need for further diuretics. 3. Hypophosphatemia, likely secondary to Carafate use, which is a phosphate binder. While the patient is on Carafate she can drink dark diet martínez, which have high amounts of phosphorous. Alternatively, she be given a phosphate supplement. 4. Anemia, likely secondary to advanced chronic kidney disease; however, possibility of upper gastrointestinal (GI) bleed as well. The patient is nothing by mouth for endoscopy this afternoon, and she continues on Venofer and Aranesp at this time. Hemoglobin is slowly drifting downward again. 5. History of atrial fibrillation. The patient continues on amiodarone and Coreg. Her Coumadin is on hold. If her endoscopy is negative, she will be resumed on her anticoagulant. 6. Deconditioning. Physical therapy evaluation is pending.
[2017-01-20 17:15] VITALS: BP 114/52
[2017-01-20] MEDS: NEUTRA-PHOS 1.25 GM PACKET PO SCH (21:00)
[2017-01-20] MEDS: SIMVASTATIN 40 MG TAB PO SCH (21:03)
[2017-01-20 22:00] VITALS: BP 113/52
[2017-01-21] MEDS: LEVOTHYROXINE 100MCG TABLET (0.1MG) PO SCH (05:30)
[2017-01-21] MEDS: OMEPRAZOLE 20 MG CAP PO SCH (05:30)
[2017-01-21] MEDS: NEUTRA-PHOS 1.25 GM PACKET PO SCH ×2 (05:30→22:07)
[2017-01-21] MEDS: SLF 3 ML SYR IV SCH ×3 (05:30→22:00)
[2017-01-21 06:00] VITALS: BP 112/50
[2017-01-21 06:35] LABS: MEAN CORPUSCULAR HEMOGLOBIN 28.1 pg (27.0-33.0); MEAN CORPUSCULAR HGB CONC 29.8 g/dl (32.0-36.5); MEAN CORPUSCULAR VOLUME 94.4 fl (80.0-96.0); PLATELET COUNT, AUTOMATED 204 10^3/uL (150-450); RED CELL DISTRIBUTION WIDTH 14.9 % (11.5-14.5); WHITE BLOOD COUNT 10.5 10^3/uL (4.0-10.0)
--- NOTE | 2017-01-21 06:55 | IPNPDOC ---
Text Note Date of Service The patient was seen on 01/21/17. NOTE SUBJECTIVE: Patient had egd yesterday , no issues overnight . She was to be discharged yesterday however could not be cleared by PT for safe discharge . She was found to have severe muscle deconditioning and difficulty in mobilization. Does not have any complaints . swelling of the legs improving . no chest pain or sob , no abdominal pain , nausea or vomiting or diarrhea. brouising on the calf of the right leg very prominent now and the calf is extremely painful more during weight bearing. She also complained of bilateral heel pain which is causing her trouble with walking. OBJECTIVE: GENERAL: No sign of acute distress, pale, alert and oriented times three. HEENT: Normocephalic, atraumatic. Extraocular motor grossly intact. CARDIOVASCULAR: Irregularly irregular, positive S1, S2. . Paced rhythm on the monitor. LUNGS: No wheezes or rhonchi. ABDOMEN: Soft, nontender, nondistended. EXTREMITIES: AV fistula at left upper extremity. Positive bilateral lower extremity edema. LABORATORY DATA: Listed below ASSESSMENT AND PLAN: 1. Acute on chronic anemia. Seems like anemia of chronic disease. However may have some upper GIB also. Patient was not getting any epogen as outpatient. Patient had 3 PRBC transfusion. Colonoscopy was done in July 2015. Positive for internal hemorrhoid and diverticulosis. Stool occult is positive. EGD on 01/20 showed small hiatal hernia otherwise normal , no etiology of GIB. Will dc omeprazole and sucralfate. could have been silent diverticular bleeding. will continue to hold coumadin for 2 weeks. will restart asa. 2.ESRD: Newly started on hemodialysis . will need outpatient HD slot set up prior to discharge. 3. Acute on chronic systolic and diastolic congestive heart failure: EF of 40% . started on hemodialysis this admission. Fluid status improving. 4. Diabetes, on sliding scale of insulin 5. Hypothyroidism. The patient had an elevated T4. decreased synthroid dosage. 6. Hypertension. Blood pressure normal now not needing any antihypertensive at this point. 7. Coronary artery disease, status post heart block and pacemaker. 8. History of atrial fibrillation. continue amiodarone and coreg. will continue to hold coumadin. 9. Severe pulmonary hypertension with right heart failure. Started on hemodialysis. 10. Deep vein thrombosis (DVT) prophylaxis. therapeutic INR. Warfarin will be on hold due to GI bleed. VS,Fishbone, I+O VS, Fishbone, I+O Laboratory Tests 01/21/17 06:24 Red Blood Count 3.02 L, Mean Corpuscular Volume 94.4, Mean Corpuscular Hemoglobin 28.1, Mean Corpuscular Hemoglobin Concent 29.8 L, Red Cell Distribution Width 14.9 H Vital Signs Date Time Temp Pulse Resp B/P (MAP) Pulse Ox O2 Delivery O2 Flow Rate FiO2 01/21/17 06:00 97.5 61 14 112/50 (70) 97 Room Air 01/19/17 00:00 2.0 DARCI WILSON MD Jan 21, 2017 06:55
[2017-01-21 06:56] LABS: CALCIUM LEVEL 8.5 MG/DL (8.8-10.2); CREATININE FOR GFR 3.35 MG/DL (0.55-1.02); GLOMERULAR FILTRATION RATE 14.3 (>39); POTASSIUM SERUM 4.2 MEQ/L (3.5-5.1)
[2017-01-21] MEDS: ACETAMINOPHEN 650MG ER TAB (TYLENOL ARTHRITIS) PO PRN (08:06)
[2017-01-21] MEDS: HumaLOG INSULIN (NovoLOG) PER UNIT SC SCH ×4 (08:06→21:00)
[2017-01-21] MEDS: CARVedilol 6.25 MG TAB PO SCH ×2 (08:07→22:07)
[2017-01-21] MEDS: AMIODARONE 200 MG TAB (PACERONE) PO SCH (08:07)
[2017-01-21 08:10] VITALS: BP 114/55
[2017-01-21] MEDS ORDERED: LIDOCAINE 1% SDV 5 ML VIAL SC ONE (12:00)
[2017-01-21] MEDS ORDERED: ACETAMINOPHEN 500 MG TAB PO PRN (12:15)
[2017-01-21] MEDS: traMADol 50 MG TAB PO SCH ×2 (15:19→22:08)
--- NOTE | 2017-01-21 21:35 | IPN ---
DATE: 01/21/2017 The patient is seen this morning at the bedside and also later in the afternoon on hemodialysis. She is comfortable, in no acute distress. Had an EGD done yesterday which showed hiatal hernia. She failed physical therapy evaluation and is pending placement for rehabilitation. She was dialyzed today with 1500 mL ultrafiltration removed. She complains of difficulty with ambulation. REVIEW OF SYSTEMS: Positive for improving peripheral edema. Positive for difficulty with ambulation and positive for improvement in dyspnea. Remainder of review of systems is negative for fevers, chills, chest pains, palpitations, nausea, vomiting, diarrhea. VITAL SIGNS: Temperature 97.5, pulse 61, respiratory rate 14, blood pressure 112/50, saturating 97% on room air. Intake and output: Hemodialysis today removed 1.5 liters. PHYSICAL EXAMINATION: The patient is seen on hemodialysis, comfortable, alert, in no acute distress, dialysis nurse at bedside. Extraocular muscles are intact. Oral mucosa is moist. There is no conjunctival pallor. The neck is supple, there is no significant jugular venous distention (JVD). CARDIAC: S1, S2. There is a 2+ radial pulse present in the upper extremities. There is pitting edema present in the lower extremities to the hip in dependent area. LUNGS: There is bilateral fair symmetric air entry. She is comfortable on room air. No accessory muscle use. The abdomen is soft, obese, nontender. There are positive bowel sounds. EXTREMITIES: There is a fistula with thrill and bruit in the left upper extremity. The bilateral lower extremities have edema. SKIN: There are scattered ecchymoses present on both of her arms and a large bruise on her calf. NEUROLOGIC: There are no focal deficits. PSYCHIATRIC: Appropriate mood and affect. LABORATORY DATA: White count 10.5, hemoglobin 8.5, platelets 204. Sodium 132, potassium 4.2, bicarbonate 26, calcium 8.5. INPATIENT MEDICATIONS: I started the patient yesterday on Neutra-Phos one packet by mouth twice a day. Her omeprazole and Carafate are both discontinued. Remainder of medications are unchanged from prior. PROBLEMS: 1. End-stage renal disease on hemodialysis. The patient is set up for outpatient hemodialysis on a Wednesday, , Wednesday schedule. She is dialyzed today for her third treatment as an inpatient via the left upper extremity fistula. She is tolerating dialysis well without issue and her volume status is slowly improving. 2. Congestive heart failure (CHF) with volume overload. The patient does remain with peripheral edema. Continue with dialysis with ultrafiltration for volume correction. Continue fluid restriction and 2 gram sodium diet. 3. Hypophosphatemia, likely secondary to Carafate use. Carafate has been discontinued. I expect her phosphorous should improve. At present, she is on a Neutra-Phos supplement which can likely be discontinued in 1-2 days. At this time, I will continue on phosphorous supplement as she is significantly hypophosphatemic and deconditioned. 4. Anemia secondary to chronic kidney disease. Continue with erythropoietin stimulating agent and Venofer at this time. EGD showed hiatal hernia. Carafate and proton pump inhibitor are discontinued. 5. Deconditioning. The patient is pending placement for rehabilitation. 6. History of atrial fibrillation. The patient continues on amiodarone and Coreg. Her Coumadin is going to be held for 2 weeks in total. 7. Mild hyponatremia. Will improve with dialysis and ultrafiltration.
[2017-01-21 22:00] VITALS: BP 114/56
[2017-01-21] MEDS: SIMVASTATIN 40 MG TAB PO SCH (22:07)
[2017-01-22] MEDS: SLF 3 ML SYR IV SCH ×3 (05:52→21:36)
[2017-01-22] MEDS: LEVOTHYROXINE 100MCG TABLET (0.1MG) PO SCH (05:52)
[2017-01-22 06:00] VITALS: BP 101/54
[2017-01-22 06:25] LABS: MEAN CORPUSCULAR HEMOGLOBIN 28.7 pg (27.0-33.0); MEAN CORPUSCULAR HGB CONC 30.1 g/dl (32.0-36.5); MEAN CORPUSCULAR VOLUME 95.2 fl (80.0-96.0); PLATELET COUNT, AUTOMATED 218 10^3/uL (150-450); RED CELL DISTRIBUTION WIDTH 15.1 % (11.5-14.5); WHITE BLOOD COUNT 9.8 10^3/uL (4.0-10.0)
[2017-01-22 06:46] LABS: CALCIUM LEVEL 8.5 MG/DL (8.8-10.2); CREATININE FOR GFR 2.76 MG/DL (0.55-1.02); GLOMERULAR FILTRATION RATE 17.8 (>39); POTASSIUM SERUM 4.1 MEQ/L (3.5-5.1)
[2017-01-22] MEDS: CARVedilol 6.25 MG TAB PO SCH ×2 (08:49→08:50)
[2017-01-22] MEDS: NEUTRA-PHOS 1.25 GM PACKET PO SCH ×2 (08:49→21:35)
[2017-01-22] MEDS: HumaLOG INSULIN (NovoLOG) PER UNIT SC SCH ×4 (08:49→21:00)
[2017-01-22] MEDS: traMADol 50 MG TAB PO SCH (08:50)
[2017-01-22] MEDS: AMIODARONE 200 MG TAB (PACERONE) PO SCH (08:50)
--- NOTE | 2017-01-22 10:31 | IPNPDOC ---
Text Note Date of Service The patient was seen on 01/22/17. NOTE SUBJECTIVE: no new issues overnight . She has severe muscle deconditioning and difficulty in mobilization. bruising on the calf of the right leg very prominent now and the calf is extremely painful more during weight bearing. She also complained of bilateral heel pain which is causing her trouble with walking. She is noted to be limping on the right . Is walking better with a walker. was started on tramadol which she says is not controlling the pain. OBJECTIVE: GENERAL: No sign of acute distress, pale, alert and oriented times three. HEENT: Normocephalic, atraumatic. Extraocular motor grossly intact. CARDIOVASCULAR: Irregularly irregular, positive S1, S2. . Paced rhythm on the monitor. LUNGS: No wheezes or rhonchi. ABDOMEN: Soft, nontender, nondistended. EXTREMITIES: AV fistula at left upper extremity. Positive bilateral lower extremity edema. LABORATORY DATA: Listed below ASSESSMENT AND PLAN: 1. Acute on chronic anemia. Seems like anemia of chronic disease. However may have some upper GIB also. Patient was not getting any epogen as outpatient. Patient had 3 PRBC transfusion. Colonoscopy was done in July 2015. Positive for internal hemorrhoid and diverticulosis. Stool occult is positive. EGD on 01/20 showed small hiatal hernia otherwise normal , no etiology of GIB. Will dc omeprazole and sucralfate. could have been silent diverticular bleeding. will continue to hold coumadin for 2 weeks after discharge. will restart asa. 2.ESRD: Newly started on hemodialysis . will need outpatient HD slot set up prior to discharge. 3. Acute on chronic systolic and diastolic congestive heart failure: EF of 40% . started on hemodialysis this admission. Fluid status improving. 4. Diabetes, on sliding scale of insulin 5. Hypothyroidism. The patient had an elevated T4. decreased synthroid dosage. 6. Hypertension. Blood pressure normal now not needing any antihypertensive at this point. 7. Coronary artery disease, status post heart block and pacemaker. 8. History of atrial fibrillation. continue amiodarone and coreg. will continue to hold coumadin. 9. Severe pulmonary hypertension with right heart failure. Started on hemodialysis. 10. Deep vein thrombosis (DVT) prophylaxis. therapeutic INR. Warfarin will be on hold due to GI bleed. 11. Right calf hematoma: this happened when she sustained a trauma when getting into her sons car more than a week ago . It remains extremely tender and tense causing her to limp during walking. will give her oxycodone and tylenol. Continue with Pt. VS,Raul, I+O VS, Raul, I+O Laboratory Tests 01/22/17 06:07 Red Blood Count 2.93 L, Mean Corpuscular Volume 95.2, Mean Corpuscular Hemoglobin 28.7, Mean Corpuscular Hemoglobin Concent 30.1 L, Red Cell Distribution Width 15.1 H 01/22/17 06:08 Calcium Level 8.5 L Vital Signs Date Time Temp Pulse Resp B/P (MAP) Pulse Ox O2 Delivery O2 Flow Rate FiO2 01/22/17 08:50 18 01/22/17 08:50 60 101/54 01/22/17 06:00 97.6 99 Nasal Cannula 2.0 DARCI WILSON MD Jan 22, 2017 10:31
[2017-01-22] MEDS: oxyCODONE 5MG TAB PO PRN ×2 (10:41→21:35)
[2017-01-22 14:00] VITALS: BP 112/57
--- NOTE | 2017-01-22 15:24 | IPN ---
DATE: 01/22/2017 SUBJECTIVE: The patient is seen this morning at the bedside. She was discharge pending and cleared by physical therapy. However, she states she does not feel ready to go home, thinks she will have difficulty navigating the four steps at her house and complains of pain in the right calf where she has a significant bruise. Tramadol is not helping the pain. VITAL SIGNS: Temperature 97.6, pulse 60, respiratory rate 18, blood pressure 101/54, saturating 99% on 2 liters nasal cannula. Intake and output: Hemodialysis yesterday removed 1500 mL. There is no weight recorded in the bed scale today. PHYSICAL EXAMINATION: The patient is seen sitting out of bed to the chair, comfortable, in no acute distress. HEAD and NECK: Extraocular muscles are intact. Oral mucosa is moist. Neck is supple, no significant jugular venous distention (JVD). CARDIAC: S1, S2, irregularly irregular. 2+ radial pulse. Pitting edema is present in the bilateral lower extremities up to the thigh and hip. LUNGS: Have symmetric air entry that is diminished at the bases. ABDOMEN: Soft, nontender. Positive bowel sounds. EXTREMITIES: There is a fistula in the left upper extremity with thrill and bruit. SKIN: There is scattered ecchymoses on both of her upper extremities and a prominent bruise on her right posterior calf. PSYCHIATRIC: Appropriate mood and affect. NEUROLOGIC: No focal deficits. LABORATORY DATA: White count 9.8, hemoglobin 8.4, platelets 218, sodium 135, potassium 4.1, bicarbonate 30, BUN 31, calcium 8.5. INPATIENT MEDICATIONS: Reviewed by myself. The patient continues on Aranesp and Venofer. She is started on oxycodone per the primary team and her tramadol is discontinued. There are no other significant changes. PROBLEMS: 1. End-stage renal disease. Recently started on hemodialysis. The patient is set up for Wednesday, , Wednesday schedule as an outpatient with a chair time of 2:15 p.m. If she remains inpatient, she will be dialyzed tomorrow, 01/23/2017. Continue volume management with ultrafiltration on hemodialysis. The patient continues on fluid restriction. Her edema remains present but is improving on serial exam. 2. Congestive heart failure (CHF) with volume overload. Continue volume regulation through dialysis. Goal ultrafiltration (UF) tomorrow 2 kg as tolerated by hemodynamics. 3. Acute on chronic anemia. The patient now continues on Aranesp and Venofer. Appreciate EGD done on this admission by Dr. Brambila. The patient is off Carafate and omeprazole. Will resume coumadin. 4. History of atrial fibrillation. The patient continues on amiodarone and Coreg; will resume coumadin. Her heart rate is mostly in the low 60s and systolic has ranged from 100-110. She continues on Coreg 6.25 mg by mouth twice a day. 5. Hypophosphatemia, likely secondary to Carafate use. At present, patient continues on a phosphorous supplement due to being deconditioned and hypophosphatemic. Will repeat phosphorous now that she is off Carafate and discontinue supplement if level greater than 3. MTDD
[2017-01-22] MEDS ORDERED: WARFARIN 1.25 MG PER 1/2 TABLET PO SCH (17:00)
[2017-01-22] MEDS: SIMVASTATIN 40 MG TAB PO SCH (21:35)
[2017-01-22] MEDS: CARVedilol 3.125 MG TAB PO SCH (21:35)
[2017-01-22 22:00] VITALS: BP 107/53
[2017-01-23] MEDS: LEVOTHYROXINE 100MCG TABLET (0.1MG) PO SCH (05:55)
[2017-01-23] MEDS: AMIODARONE 200 MG TAB (PACERONE) PO SCH (05:59)
[2017-01-23 06:00] VITALS: BP 109/53
[2017-01-23] MEDS: CARVedilol 3.125 MG TAB PO SCH ×2 (06:00→20:45)
[2017-01-23] MEDS: NEUTRA-PHOS 1.25 GM PACKET PO SCH ×2 (06:00→20:46)
[2017-01-23] MEDS: SLF 3 ML SYR IV SCH ×3 (06:02→20:46)
[2017-01-23 06:10] LABS: MEAN CORPUSCULAR HEMOGLOBIN 28.6 pg (27.0-33.0); MEAN CORPUSCULAR HGB CONC 29.7 g/dl (32.0-36.5); MEAN CORPUSCULAR VOLUME 96.5 fl (80.0-96.0); PLATELET COUNT, AUTOMATED 241 10^3/uL (150-450); RED CELL DISTRIBUTION WIDTH 15.3 % (11.5-14.5); WHITE BLOOD COUNT 11.7 10^3/uL (4.0-10.0)
[2017-01-23 06:37] LABS: CALCIUM LEVEL 8.6 MG/DL (8.8-10.2); CREATININE FOR GFR 3.32 MG/DL (0.55-1.02); GLOMERULAR FILTRATION RATE 14.4 (>39); POTASSIUM SERUM 4.3 MEQ/L (3.5-5.1)
[2017-01-23] MEDS: HumaLOG INSULIN (NovoLOG) PER UNIT SC SCH ×4 (08:06→20:46)
[2017-01-23] MEDS: ASPIRIN 81 MG ENTERIC TAB PO SCH (08:10)
[2017-01-23 08:37] LABS: INR 1.37
[2017-01-23] MEDS ORDERED: LIDOCAINE 1% SDV 5 ML VIAL SQ ONE (10:15)
--- NOTE | 2017-01-23 10:50 | IPNPDOC ---
Text Note Date of Service The patient was seen on 01/23/17. NOTE SUBJECTIVE: no new issues overnight . She has severe muscle deconditioning and difficulty in mobilization. bruising on the calf of the right leg very prominent now and the calf is extremely painful more during weight bearing. She also complained of bilateral heel pain which is causing her trouble with walking. She is noted to be limping on the right . Is walking better with a walker.oxycodone seems to be helping. OBJECTIVE: GENERAL: No sign of acute distress, pale, alert and oriented times three. HEENT: Normocephalic, atraumatic. Extraocular motor grossly intact. CARDIOVASCULAR: Irregularly irregular, positive S1, S2. . Paced rhythm on the monitor. LUNGS: No wheezes or rhonchi. ABDOMEN: Soft, nontender, nondistended. EXTREMITIES: AV fistula at left upper extremity. Positive bilateral lower extremity edema. LABORATORY DATA: Listed below ASSESSMENT AND PLAN: 1. Acute on chronic anemia. Seems like anemia of chronic disease. However may have some upper GIB also. Patient was not getting any epogen as outpatient. Patient had 3 PRBC transfusion. Colonoscopy was done in July 2015. Positive for internal hemorrhoid and diverticulosis. Stool occult is positive. EGD on 01/20 showed small hiatal hernia otherwise normal , no etiology of GIB. Will dc omeprazole and sucralfate. could have been silent diverticular bleeding. will continue to hold coumadin for 1 weeks after discharge. will restart asa. 2.ESRD: Newly started on hemodialysis . will need outpatient HD slot set up prior to discharge. 3. Acute on chronic systolic and diastolic congestive heart failure: EF of 40% . started on hemodialysis this admission. Fluid status improving. 4. Diabetes, on sliding scale of insulin 5. Hypothyroidism. The patient had an elevated T4. decreased synthroid dosage. 6. Hypertension. Blood pressure normal now not needing any antihypertensive at this point. 7. Coronary artery disease, status post heart block and pacemaker. 8. History of atrial fibrillation. continue amiodarone and coreg. will continue to hold coumadin. Has pacemaker in place. 9. Severe pulmonary hypertension with right heart failure. Started on hemodialysis. 10. Deep vein thrombosis (DVT) prophylaxis. therapeutic INR. Warfarin will be on hold due to GI bleed. 11. Right calf hematoma: this happened when she sustained a trauma when getting into her sons car more than a week ago . It remains extremely tender and tense causing her to limp during walking. will give her oxycodone and Tylenol. Continue with Pt. 12. S/p AVR with bioprosthetic aortic valve in 2012. no issues at this time. VS,Fishbone, I+O VS, Fishbone, I+O Laboratory Tests 01/23/17 05:46 Red Blood Count 2.83 L, Mean Corpuscular Volume 96.5 H, Mean Corpuscular Hemoglobin 28.6, Mean Corpuscular Hemoglobin Concent 29.7 L, Red Cell Distribution Width 15.3 H, Calcium Level 8.6 L Vital Signs Date Time Temp Pulse Resp B/P (MAP) Pulse Ox O2 Delivery O2 Flow Rate FiO2 01/23/17 08:16 Room Air 01/23/17 06:00 97.5 61 18 109/53 (71) 97 01/22/17 06:00 2.0 DARCI WILSON MD Jan 23, 2017 10:50
[2017-01-23] MEDS: oxyCODONE 5MG TAB PO PRN ×2 (13:16→21:34)
[2017-01-23 14:00] VITALS: BP 147/77
--- NOTE | 2017-01-23 15:26 | IPN ---
DATE: 01/23/2017 SUBJECTIVE: The patient was seen and examined at the bedside today morning during hemodialysis procedure. The patient was tolerating the hemodialysis procedure well. REVIEW OF SYSTEMS: The patient denies any fevers, chills, rigors, headaches, nausea, vomiting, chest pain, shortness of breath, pain abdomen, constipation. Rest of review of systems is negative. OBJECTIVE: VITAL SIGNS: Temperature is 97.5 degrees Fahrenheit, blood pressure is 109/53, pulse is 61, respiratory rate of 18, saturating 97% on room air. INTAKE AND OUTPUT: Urine output recorded as only 250 mL yesterday. Weight in the bed scale recorded at 73.8 kg. PHYSICAL EXAMINATION: GENERAL: The patient is awake, alert, and oriented times three lying in bed getting hemodialysis done. No apparent distress. HEAD/NECK: Extraocular muscles intact. Pupils equal, round, and reactive to light. Mucous membranes are moist. Neck is supple. There is no jugular venous distention (JVD). CARDIOVASCULAR: S1, S2. Irregularly irregular heart rate. No murmur, rub, or gallop. RESPIRATORY: Chest is clear to auscultation bilaterally. Bilateral equal air entry. No rales or rhonchi. ABDOMEN: Soft, obese. Positive bowel sounds. Nontender. No ascites. No organomegaly. MUSCULOSKELETAL: The patient has 2+ edema of the bilateral lower extremities. No clubbing or cyanosis. Pulses are 2+. ARTERIOVENOUS (AV) ACCESS: The patient has a left forearm AV fistula which is being used for hemodialysis at this time. CENTRAL NERVOUS SYSTEM (MAINTENANCE OF WAY SUPERINTENDENT): No focal neurological deficit. Power is 5/5 in all extremities. PLAN: Normal mood and affect. LABORATORY DATA: CBC showed a WBC 11.7, hemoglobin 8.1, platelets 241. INR 1.3. BMP showed sodium 131, potassium 4.3, chloride 95, bicarbonate 27, BUN 40, creatinine 3.3, calcium 8.6, magnesium two. CURRENT INPATIENT MEDICATIONS: The patient's medications were all reviewed by me. Her Coreg dose has been decreased to 3.125 mg by mouth twice a day because of borderline low blood pressures and further removal with hemodialysis. I have increased her Aranesp to 200 mcg intravenous (IV) with hemodialysis. There is no other change in the medications today as compared with yesterday. ASSESSMENT: A 76-year-old female with end-stage renal disease, congestive heart failure, and anemia secondary to end-stage renal disease. PLAN: 1. End-stage renal disease: The patient was started on hemodialysis during this admission. She is currently on Wednesday, , Wednesday schedule. She is being dialyzed according to her regular schedule. We shall try to do an ultrafiltration of about 2.5 liters as tolerated by her blood pressure. 2. Decompensated congestive heart failure with fluid overload: Continue ultrafiltration with hemodialysis. The patient makes a minimum amount of urine. Volume status is being optimized slowly with hemodialysis. The patient still has lower extremity edema. 3. Anemia secondary to end-stage renal disease: The patient's hemoglobin is still 8.1 which is suboptimal. Continue Venofer 100 mcg IV with hemodialysis sessions. I have increased the Aranesp dose to 200 mcg. No need of blood transfusion at this time. 4. History of atrial fibrillation: Continue current dose of amiodarone. Coreg was decreased because of low blood pressures. Coumadin has been restarted. INR is subtherapeutic at this time. 5. Hypophosphatemia. Phosphorus level is still low. Continue current dose of Nutra Phos one packet by mouth twice a day.
[2017-01-23] MEDS: SIMVASTATIN 40 MG TAB PO SCH (20:46)
[2017-01-23 22:00] VITALS: BP 117/56
--- NOTE | 2017-01-23 23:02 | CR ---
DATE OF CONSULTATION: 01/19/2017 REASON FOR CONSULTATION: This is a 76-year-old white female who has seen in consultation for evaluation of anemia. The patient was admitted to the hospital on 01/12/2017. She has multiple medical problems including diabetes, coronary artery disease, hypothyroidism, hypertension and hyperlipidemia, chronic anemia, vitamin D deficiency, aortic valve replacement, atrial fibrillation, complete heart block with a pacer, diverticulosis and diastolic disfunction, congestive heart failure (CHF). The patient is being seen by gastroenterology (GI) for further evaluation of her anemia. She was admitted for fluid overload. Past surgical history is positive for cholecystectomy, pacemaker cardiac bypass and stents, cardiac valve replacement, fistula created on 07/01/2016 for dialysis. ALLERGIES: The patient is allergic to CONTRAST MEDIA and BENZOCAINE. FAMILY HISTORY: Noncontributory to the above problem. SOCIAL HISTORY : The patient is a former smoker. REVIEW OF SYSTEMS: Noncontributory to the indication that we are seeing the patient for. PHYSICAL EXAMINATION: GENERAL: This is a white female who appears older than stated age. CHEST: Clear. CARDIOVASCULAR: Exam showed an irregular rhythm. A 2/6 systolic ejection murmur at left lower sternal border. ABDOMEN: Soft, nontender. No masses, guarding, rebound or hepatosplenomegaly. Bowel sounds positive. EXTREMITIES: No cyanosis, clubbing or edema. LABORATORY DATA: On admission showed a hemoglobin of 6.5, hematocrit 22, platelets of 200,000. During the hospital course, the patient has been given three units of packed cells. The patient has had a previous evaluation by GI and has had a colonoscopy which revealed some diverticulosis but no other major pathology. She has had the chronic iron-deficiency anemia for many years. On July 2015, she had her colonoscopy which was performed due to questionable abnormality on the CT in the rectum. She had internal hemorrhoids and diverticulosis of the rectosigmoid colon and descending colon, but the exam was otherwise normal and no obvious major abnormalities were seen. To ANALYSIS: 1. Anemia of unknown etiology at this time. Plan will be to do an upper endoscopy to evaluate for any possible source for her anemia but the most likely possibility is that the patient has arteriovenous malformations (AVMs) throughout the gastrointestinal (GI) tract which are chronically bleeding. The plan will be set the patient up for upper endoscopy.
[2017-01-24] MEDS: LEVOTHYROXINE 100MCG TABLET (0.1MG) PO SCH (05:41)
[2017-01-24] MEDS: oxyCODONE 5MG TAB PO PRN (05:42)
[2017-01-24] MEDS: SLF 3 ML SYR IV SCH (05:56)
[2017-01-24 06:00] VITALS: BP 105/52
[2017-01-24] MEDS: HumaLOG INSULIN (NovoLOG) PER UNIT SC SCH (07:30)
[2017-01-24 09:00] VITALS: BP 105/52
[2017-01-24] MEDS: AMIODARONE 200 MG TAB (PACERONE) PO SCH (09:00)
[2017-01-24] MEDS: NEUTRA-PHOS 1.25 GM PACKET PO SCH (09:00)
[2017-01-24] MEDS: CARVedilol 3.125 MG TAB PO SCH (09:00)
[2017-01-24] MEDS: ASPIRIN 81 MG ENTERIC TAB PO SCH (09:00)
[2017-01-24] MEDS ORDERED: OXYC-517 PO (12:51)
--- NOTE | 2017-01-24 20:46 | IPN ---
DATE: 01/24/2017 SUBJECTIVE: Patient was seen and examined at the bedside today morning. Patient reports that she is getting ready to be discharged today. She tolerated the hemodialysis procedure well. REVIEW OF SYSTEMS: Patient denies any fever, chills, rigors, headache, nausea, vomiting, chest pain, shortness of breath. She does report lower extremity edema is getting better. Rest of review of systems is negative. OBJECTIVE: VITAL SIGNS: Temperature is 97.6 degrees Fahrenheit, blood pressure is 105/72, pulse is 60, respiratory rate of 16, saturating 100% on room air. INTAKE AND OUTPUT: Urine output recorded is 325 mL overnight. Ultrafiltration with hemodialysis was 2 liters yesterday. Weight in the bed scale is 73.6 kg. PHYSICAL EXAMINATION: GENERAL: The patient is awake, alert, and oriented times three, sitting in the sofa in no apparent distress. HEAD and NECK EXAM: Extraocular muscles intact. Pupils equally round and reactive to light. Mucous membranes are moist. Neck is supple, there is no jugular venous distention (JVD). CARDIOVASCULAR: S1, S2. Irregular heart rate. No murmur, rub, or gallop. RESPIRATORY: Chest is clear to auscultation bilaterally. Bilateral equal air entry. No rales or rhonchi. ABDOMEN: Soft, obese. Positive bowel sounds. Nontender. No ascites. No organomegaly. MUSCULOSKELETAL: The patient has 1+ edema of the bilateral lower extremities. No clubbing or cyanosis. ARTERIOVENOUS (AV) ACCESS: The patient has a left forearm AV fistula. CENTRAL NERVOUS SYSTEM (HISTOLOGY TECHNICIAN): No focal neurological deficit. Power is 5/5 in all extremities. PLAN: Normal mood and affect. LABORATORY DATA: CBC showed a WBC 11.7, hemoglobin 8.1, platelets 241. BMP showed sodium 131, potassium 4.3, chloride 95, bicarbonate 27, BUN 40, creatinine 3.3, phosphorous is 2. CURRENT INPATIENT MEDICATIONS: The patient's medications were all reviewed by me. There is no change in the medications today as compared with yesterday. ASSESSMENT: 76-year-old female with end-stage renal disease, congestive heart failure, and anemia secondary to end-stage renal disease. She was started on hemodialysis during this admission. PLAN: 1. End-stage renal disease. Patient was dialyzed yesterday. Her regular schedule is Wednesday, , Wednesday. Patient will be dialyzed as outpatient after discharge. 2. Congestive heart failure with volume overload. Patient got back to back hemodialysis and ultrafiltration sessions. Volume status is optimized at this time. Further volume management will be done as outpatient during hemodialysis. 3. Anemia secondary to end-stage renal disease. Patient was getting IV Venofer and Aranesp injections. Hemoglobin is still suboptimal. Rest of the anemia management will be done as outpatient according to anemia protocol. 4. History of atrial fibrillation. Continue current dose of amiodarone and Coreg. Coumadin was restarted. 5. Hypophosphatemia. Continue current dose of Nutra Phos. DISPOSITION: It is okay to discharge the patient from a nephrology standpoint.
[2017-01-25] MEDS ORDERED: DARBEPOETIN 100 MCG/0.5 ML *DIALYSIS* SYRINGE (J0882) IV SCH (08:00)
--- NOTE | 2017-01-25 12:22 | DSES ---
DATE OF ADMISSION: 01/12/2017 DATE OF DISCHARGE: 01/24/2017 DISCHARGE DIAGNOSES: 1. Acute on chronic systolic and diastolic congestive heart failure (CHF), with ejection fraction of 40%. 2. Chronic kidney disease, stage V, progressed to end stage renal disease and newly started on hemodialysis this admission. 3. Acute on chronic anemia thought to be due to anemia of chronic disease. Status post 2 units of transfusion. Colonoscopy done before showed diverticulosis and internal hemorrhoids. EGD done this admission showed small hiatal hernia, otherwise normal. 4. Diabetes. 5. Hypothyroid. 6. Hypertension. 7. Atrial fibrillation, rate controlled. Coumadin is on hold. 8. History of tachybrady syndrome, has a pacemaker in place. 9. Severe pulmonary hypertension with right heart failure. 10. Aortic valve replacement with bioprosthetic valve in 2012. 11. Right calf hematoma following trauma, improving. DISCHARGE MEDICATIONS: - Coreg 6.25 mg by mouth twice a day - Synthroid 100 mcg by mouth daily - oxycodone 5 mg by mouth every 8 hours as needed for pain - Tylenol 650 mg by mouth every 8 hours as needed for pain - amiodarone 200 mg by mouth daily - aspirin 81 mg by mouth daily - calcitriol 0.25 mcg by mouth every 2 days - colecalciferol 1000 units by mouth daily - cyanocobalamin 1000 mcg by mouth daily - flaxseed oil one capsule by mouth daily - NPH insulin 35 units in the morning and 15 units at bedtime - lovastatin 40 mg at bedtime - multivitamin one tablet by mouth daily - nitroglycerin 0.4 mg sublingual as needed chest pain HOSPITAL COURSE: This is a 76-year-old female who presented to the hospital with hugely swollen bilateral lower extremities going on for about a month, also about 11 pounds weight gain over the past month with increasing shortness of breath and dyspnea on exertion. Patient was found to have acute on chronic systolic and diastolic congestive heart failure (CHF) exacerbation with fluid overload in the background of chronic kidney disease stage V. Patient was initiated on hemodialysis during this admission with fluid removal with improvement in her fluid status as well as her respiratory status. The patient had sustained a trauma on the calf of her right leg while getting into her son's car, and she was noted to have a big hematoma in that area. The pain from that hematoma was significant causing her difficulty in ambulation, said initially she was limping on the right leg. The patient's pain medications were increased and was changed from tramadol to oxycodone and also with decreasing swelling of the leg there was significant improvement in the leg pain. Patient initially failed to past physical therapy because of her pain and limping; however, with better pain control the patient was cleared by physical therapy for discharge home. On admission, patient was also noted to have acute on chronic anemia and there was a concern whether she was having a gastrointestinal (GI) bleed or not as her stool occult blood was positive, so patient underwent EGD which did not show any acute signs of bleeding. The patient prior in this year had already had a colonoscopy done which showed diverticulosis and internal hemorrhoids. The reason for her acute on chronic anemia was felt to be due to chronic kidney disease and the patient was not on Aranesp or iron at home. Patient received 3 units of PRBCs during this admission, after which the patient's hemoglobin and hematocrit remained stable. The patient's Coumadin was held since admission because of her acute anemia, concern for GI bleed and right leg hematoma. At this point, her Coumadin has been hold for 10 days and would recommend holding Coumadin for another week before restarting. On the day of discharge, the patient's pain was reasonably well controlled. Vitals were stable. She was functioning close to her baseline. She did not have any complaints and is going to be discharged home. PHYSICAL EXAMINATION: VITAL SIGNS: Temperature 97.6, pulse 60, respiratory rate 16, blood pressure 105/52, pulse oximetry 100% in room air. GENERAL: Patient awake, alert and oriented times three, sitting up in bed in no acute distress. HEENT: Normocephalic, atraumatic. Moist mucous membranes. Anicteric eyes. CHEST: Clear to auscultation. CARDIOVASCULAR: S1 and S2, irregular. No rub, murmur or gallop. ABDOMEN: Obese, soft, nontender. Bowel sounds present. EXTREMITIES: 2+ pedal edema, but with wrinkling of skin and signs of improvement. There is also a resolving right calf hematoma. LABORATORY DATA: WBC 11.7, hemoglobin 8.1, platelets 241, sodium 131, potassium 4.3, chloride 95, bicarb 27, BUN 40, creatinine 3.3, calcium 8.6, phosphorous 2. DISPOSITION: Patient is discharged home in a stable condition. DISCHARGE INSTRUCTIONS: 1. Patient to followup with her outpatient hemodialysis appointment, which has been set up for Wednesday, Wednesday, and Wednesday from 01/25/2017. 2. Diet carbohydrate consistent diet. 3. Activity as tolerated.
[2017-01-25] MEDS ORDERED: CARV6.25 PO (13:08)
[2017-01-25] MEDS ORDERED: SYNT100T PO (15:28)
[2017-01-25] MEDS ORDERED: OXYC-517 PO (15:28)
[2017-01-25] MEDS ORDERED: SUCR1SS PO (15:29)
[2017-01-25] MEDS ORDERED: OMEP40CA2 PO (15:29)
== END 2017-01-24 14:16 | disposition home health service (06) | DRG 291 ==
LOC: M ED 13:53 → M ED INP 14:35 → M PCU 18:30 → M MS5PR 01-20 17:01
PROVIDERS: ADMIT Internal Medicine; ATTEND Internal Medicine Nephrology
PROC: 30233N1 Transfusion of Nonautologous Red Blood Cells into Peripheral Vein, Percutaneous Approach (ICD-10-PCS; principal; 2017-01-13)
PROC: 5A1D70Z Performance of Urinary Filtration, Intermittent, Less than 6 Hours Per Day (ICD-10-PCS; 2017-01-14)
PROC: 0DJ08ZZ Inspection of Upper Intestinal Tract, Via Natural or Artificial Opening Endoscopic (ICD-10-PCS; 2017-01-20)
DX: I13.2 Hypertensive heart and chronic kidney disease with heart failure and with stage 5 chronic kidney disease, or end stage renal disease (principal); I50.43 Acute on chronic combined systolic (congestive) and diastolic (congestive) heart failure; N18.6 End stage renal disease; N17.9 Acute kidney failure, unspecified; N25.81 Secondary hyperparathyroidism of renal origin; E11.9 Type 2 diabetes mellitus without complications; E03.9 Hypothyroidism, unspecified; Z95.2 Presence of prosthetic heart valve; I48.91 Unspecified atrial fibrillation; Z79.01 Long term (current) use of anticoagulants; K57.30 Diverticulosis of large intestine without perforation or abscess without bleeding; K44.9 Diaphragmatic hernia without obstruction or gangrene; D63.1 Anemia in chronic kidney disease; Z95.0 Presence of cardiac pacemaker; Z79.899 Other long term (current) drug therapy; Z79.82 Long term (current) use of aspirin; I27.20 Pulmonary hypertension, unspecified; S80.11XA Contusion of right lower leg, initial encounter; K64.8 Other hemorrhoids; E55.9 Vitamin D deficiency, unspecified; Z88.8 Allergy status to other drugs, medicaments and biological substances; Z91.041 Radiographic dye allergy status; E87.5 Hyperkalemia; E83.39 Other disorders of phosphorus metabolism; Z87.891 Personal history of nicotine dependence; W22.09XA Striking against other stationary object, initial encounter; Y92.009 Unspecified place in unspecified non-institutional (private) residence as the place of occurrence of the external cause

== ENCOUNTER 2017-01-25 11:39 | Inpatient (IN) | payer MEDICARE ==
[~2017-01-25] VITALS: Ht 152.4 cm; Wt 64.3 kg
[~2017-01-25 11:39] MED LIST changes: +ACET650T3 PO; +AMIL25TA PO; +ASCO25TA PO; +CARV6.25 PO; +FERR325T16 PO; +LEVO100T5 PO; +NITR4TASL SL; +OMEP20CA3 PO; +OXYC-517 PO; +SUCR10SS PO; +VITA100T20 PO; +WARF4TAB52 PO
[2017-01-25] MEDS ORDERED: CARV6.25 PO (13:08)
[2017-01-25 13:33] LABS: BASO # 0.1 10^3/uL (0.0-0.2); BASO % 0.4 % (0.0-1.0); IMMATURE GRANULOCYTE % 2.6 % (0-0); LYMPH # 2.1 10^3/uL (1.5-4.5); LYMPH % 15.6 % (24.0-44.0); MEAN CORPUSCULAR HEMOGLOBIN 28.9 pg (27.0-33.0); MEAN CORPUSCULAR HGB CONC 29.7 g/dl (32.0-36.5); MEAN CORPUSCULAR VOLUME 97.3 fl (80.0-96.0); MONO # 0.7 10^3/uL (0.0-0.8); NEUTROPHILS # 10.2 10^3/uL (1.8-7.7); NEUTROPHILS % 76.4 % (36.0-66.0); PLATELET COUNT, AUTOMATED 274 10^3/uL (150-450); RED CELL DISTRIBUTION WIDTH 15.9 % (11.5-14.5); WHITE BLOOD COUNT 13.3 10^3/uL (4.0-10.0)
[2017-01-25 13:51] LABS: CALCIUM LEVEL 8.6 MG/DL (8.8-10.2); CREATININE FOR GFR 3.65 MG/DL (0.55-1.02); GLOMERULAR FILTRATION RATE 12.9 (>39)
[2017-01-25 13:53] LABS: POTASSIUM SERUM 5.2 MEQ/L (3.5-5.1)
[2017-01-25] MEDS ORDERED: LIDOCAINE 1% SDV 5 ML VIAL SQ SCH (14:15)
--- NOTE | 2017-01-25 14:57 | HPEPDOC ---
General Date of Admission 01/25/2017 Primary Care Physician: JAZMÍN NEAL MD Chief Complaint The patient is a 76-year-old female admitted with a reason for visit of Leg Swelling. Source: Patient Timing/Duration: Day(s) (past day) Associated Symptoms: Weakness History of Present Illness Ms. Sullivan is a 76-year-old female with past medical history of aortic valve replacement in 2012, coronary artery disease status post bypass in 2012 and 2015 , hypertension, hyperlipidemia, systolic and diastolic heart failure with last echocardiogram noting ejection fraction of 40%, chronic kidney disease stage V progress to end-stage renal disease status post hemodialysis for the past 2 weeks, acute on chronic anemia secondary to chronic kidney disease, diabetes type 2 insulin-dependent, hypothyroidism, paroxysmal atrial fibrillation currently off of her Coumadin, tachybradycardia syndrome status post pacemaker placement, pulmonary hypertension with right heart failure who presents with b/ l leg swelling, weakness and fatigue. The patient was recently admitted to our facility from 01/12/2017 to 01/24/2017 for shortness of breath and fatigue secondary to heart failure and end-stage renal disease, she began receiving hemodialysis while she was inpatient with improvement in symptoms. The patient was discharged one day ago with instructions to follow up with nephrology today for dialysis, the patient states that last night she was going up the stairs to her trailer when she acutely became weak and fatigued in the legs, the patient states her daughter and son-in-law holding her on both sides and she collapsed into the arms due to the weakness. Patient denies preceding chest pain, heart palpitations, shortness of breath, diaphoresis, nausea or vomiting, dizziness, change in vision, headache. Since discharge one day ago she has not traveled and has not had any recent sick contacts, she denies any fevers, muscle aches, chills. She does make scan urine and denies any pain with urination, blood in urine or increased frequency, denies any change in bowel movements, or blood in stool nor pain with defecation. On last admission the patient's Coumadin was held for suspicion of GI bleed since patient's Hemoccult was positive however she did receive an EGD that did not reveal source of bleeding, she has now been off of her Coumadin for about 20 days. Her son is at bedside and states that the main reason that they came to the hospital was because his mother is not able to climb the stairs at her trailer and they need some sort of home health services/assistance to be granted. Apparently she cannot make her doctor's appointments because of this. She states currently her legs feel so weak that she cannot lift them out of the bed and certainly cannot ambulate on them, she also mentions her abdomen seems more distended than usual, noted over the past few hours. Home Medications Scheduled (Flaxseed Oil 1000 mg) 1 Cap Cap, 1 CAP PO DAILY, (Reported) Amiodarone HCl (Amiodarone HCl) 200 Mg Tab, 200 MG PO DAILY, (Reported) Aspirin (Aspirin EC) 81 Mg Tab, 81 MG PO DAILY, (Reported) Calcitriol (Calcitriol) 0.25 Mcg Cap, 0.25 MCG PO Q2D, (Reported) TAKES AT HS Carvedilol (Carvedilol) 6.25 Mg Tab, 6.25 MG PO BID, (Reported) Cholecalciferol (Vitamin D) 1,000 Unit Tab, 1,000 UNIT PO DAILY, (Reported) Cyanocobalamin (Vitamin B-12) 1,000 Mcg Tab, 1,000 MCG PO DAILY, (Reported) Insulin Human NPH (Humulin N) 1 Units/0.01 Ml Susp, 35 UNITS SC QAM, (Reported) Insulin Human NPH (Humulin N) 1 Units/0.01 Ml Susp, 15 UNITS SC QHS, (Reported) Levothyroxine Sodium (Synthroid) 100 Mcg Tab, 100 MCG PO DAILY, (Reported) Lovastatin (Lovastatin) 40 Mg Tab, 40 MG PO QHS, (Reported) Multivitamins *[facility] STOCKED* (Thera M Plus *[facility] STOCKED*) 1 Tab Tab, 1 TAB PO DAILY, (Reported) Omeprazole (Omeprazole) 40 Mg Cap, 40 MG PO BID, (Reported) Sucralfate (Carafate) 1 Gm/10 Ml Kika, 10 ML PO ACHS, (Reported) 4 times per day on an empty stomach 1 hour before meals and at bedtime Warfarin Sod (Warfarin Sodium) 2.5 Mg Tab, 1.25 MG PO QHS, (Reported) ON HOLD FOR 5 MORE DAYS STARTING 01/24 Scheduled PRN Acetaminophen (Acetaminophen ER) 650 Mg Tab, 650 MG PO for PAIN OR FEVER, ( Reported) Nitroglycerin (Nitrostat) 0.4 Mg Subl, 0.4 MG SL NITRO PRN for CHEST PAIN, ( Reported) Oxycodone HCl (Oxycodone HCl) 5 Mg Tab, 5 MG PO Q8H PRN for PAIN, (Reported) Allergies Coded Allergies: Contrast Media (Unverified Allergy, Severe, ANAPHALAXIS-THROAT CLOSES, 09/11) Benzocaine (Unverified Allergy, Intermediate, RASH, 09/11/16) Past Medical History Medical History as per hpi Surgical History cholecystectomy, cardiac pacemaker, cardiac bypass, cardiac stent placement, cardiac valve replacement, attempt to remove a blood clot in her left eye 2 in 2013 and fistula June 2016 Family History mother from [place] father passed from lung cancer, was a smoker Social History * Smoker: former Smoker (quit in 1979) Alcohol: Denies Drugs: denies Recent Travel/Sick Contacts: Denies: Recent travel Psychosocial History: No pertinent psych hx lives in a trailer with stairs to her front door, by herself, has family nearby which includes a daughter and son Review of Symptoms Constitutional: Reports: Malaise, Weakness, Fatigue, Denies: Chills, Fever, Night Sweats, Weight Loss Eyes: Denies: Pain ENT: Denies: Head Aches Skin: Reports: Bruising (b/l UE from coumidin therapy), Denies: Rash Pulmonary: Denies: Dyspnea, Cough Cardiovascular: Reports: Edema (b/l LE), Denies: Chest Pain, Palpitations, Orthopnea, Paroxysmal Noc. Dyspnea, Lt Headedness Gastrointestinal: Denies: Nausea, Vomiting, Abdominal Pain, Diarrhea, Constipation Genitourinary: Denies: Dysuria, Frequency Hematologic: Reports: Bruising Neurological: Reports: Weakness, Denies: Numbness, Incoordination, Change in speech, Confusion Psych: Reports: Mood Normal Physical Examination General Exam: Positive: Alert, Cooperative, No Acute Distress Eye Exam: Positive: Conjunctiva & lids normal, EOMI, Negative: Sclera icteric, Ptosis ENT Exam: Positive: Atraumatic, Mucous membr. moist/pink, Pharynx Normal, Tongue Midline, Nares Patent, Negative: Pharyngeal Edema Heart Exam: Positive: Rate Normal, Normal S1, Normal S2, Murmurs (systolic), Negative: Gallops, Rubs Telemetry: Positive: No significant arrhythmia Abdomen Exam: Positive: Normal bowel sounds, Soft, Negative: Tenderness, Hepatospenomegaly, Mass, Hernia Extremity Exam: Positive: Edema (+2 b/l LE), Tenderness (right calf, red, not hot to the touch), Swelling (b/l LE), Negative: Clubbing, Cyanosis Skin Exam: Negative: Rash, Breakdown, Lesion Neuro Exam: Positive: Normal Speech, Sensation Intact Psych Exam: Positive: Mental status NL Vital Signs Vital Signs Date Time Temp Pulse Resp B/P (MAP) Pulse Ox O2 Delivery O2 Flow Rate FiO2 01/25/17 12:35 01/25/17 11:52 97.0 56 18 98 Room Air Laboratory Data Labs 24H Laboratory Tests 2 01/25/17 12:59: Bedside Glucose (Misc Panel) 239H 01/25/17 13:00: Immature Granulocyte % (Auto) 2.6H, White Blood Count 13.3H, Red Blood Count 2.91L, Hemoglobin 8.4L, Hematocrit 28.3L, Mean Corpuscular Volume 97.3H, Mean Corpuscular Hemoglobin 28.9, Mean Corpuscular Hemoglobin Concent 29.7L, Red Cell Distribution Width 15.9H, Platelet Count 274, Neutrophils (%) (Auto) 76.4H , Lymphocytes (%) (Auto) 15.6L, Monocytes (%) (Auto) 5.0, Eosinophils (%) (Auto ) 0.0, Basophils (%) (Auto) 0.4, Neutrophils # (Auto) 10.2H, Lymphocytes # (Auto ) 2.1, Monocytes # (Auto) 0.7, Eosinophils # (Auto) 0.0, Basophils # (Auto) 0.1 , Immature Granulocyte # (Auto) 0.4H, Nucleated Red Blood Cells % (auto) 0.2H, Anion Gap 7L, Glomerular Filtration Rate 12.9L, Blood Urea Nitrogen 41H, Creatinine 3.65H, Sodium Level 130L, Potassium Level 5.2H, Chloride Level 94L, Carbon Dioxide Level 29, Calcium Level 8.6L CBC/BMP Laboratory Tests 01/25/17 13:00 Red Blood Count 2.91 L, Mean Corpuscular Volume 97.3 H, Mean Corpuscular Hemoglobin 28.9, Mean Corpuscular Hemoglobin Concent 29.7 L, Red Cell Distribution Width 15.9 H, Neutrophils (%) (Auto) 76.4 H, Lymphocytes (%) (Auto ) 15.6 L, Monocytes (%) (Auto) 5.0, Eosinophils (%) (Auto) 0.0, Basophils (%) ( Auto) 0.4, Neutrophils # (Auto) 10.2 H, Lymphocytes # (Auto) 2.1, Monocytes # ( Auto) 0.7, Eosinophils # (Auto) 0.0, Basophils # (Auto) 0.1, Calcium Level 8.6 L Assessment/Plan This is a 76-year-old female with multiple comorbidities presenting for bilateral leg weakness and fatigue with associated swelling. 1. Leg weakness and fatigue This is likely secondary to fluid overload from component of heart failure and end-stage renal disease Nephrology is on consult, appreciate their recommendations, patient will be dialyzed inpatient as per her normal schedule. PT/OT will be consult did for conditioning PFS also be consult did to inquire about possible placement or home with health services 2. Diabetes patient takes NPH insulin 35 in the morning and 40 at night, will change to 20 5 in the morning and 10 at night. Constant carb diet and sliding scale coverage 3. Coronary artery disease, Stable Patient will continue aspirin daily 4. Hypothyroidism Continue with home medications 5. Paroxysmal atrial fibrillation, we'll continue to hold patient's Coumadin at this time . Lipidemia Will continue patient's home lovastatin 6. Hypertension Stable currently 114/59, will continue patient's home Coreg 7. Chronic bilateral leg pain, will continue patient on home oxycodone 8. Heart failure Suspect that this will improve after patient is dialyzed 9. Hyperkalemia Again suspect this will improve after patient is dialyzed, potassium and emergency room 5.2 Plan / VTE VTE Prophylaxis Ordered?: Yes GME ATTESTATION GME ATTESTATION My faculty preceptor for this patient encounter was physically present during the encounter and was fully available. All aspects of the patient interview, examination, medical decision making process, and medical care plan development were reviewed and approved by the faculty preceptor. The faculty preceptor is aware and concurs with the plan as stated in the body of this note and will attest to such by his/her cosignature. ATTENDING NOTE I, Carol Saldivar, have both independently examined this patient as well as reviewed the documentation. I have discussed in detail with the resident the findings and plan of treatment as documented in the residents documentation. I will continue to follow the patient and offer further guidance to the patients care as necessary during this hospital stay. SUNDAY LEE DO Jan 25, 2017 14:57 CAROL SALDIVAR MD Jan 29, 2017 15:45
[2017-01-25] MEDS ORDERED: DEXTROSE 50% 50 ML SYRINGE IV PRN (15:15)
[2017-01-25] MEDS ORDERED: GLUCOSE 4 GM CHEW TABLET PO PRN (15:15)
[2017-01-25] MEDS ORDERED: GLUCAGON FOR INJ 1 MG VIAL (J1610) SC PRN (15:15)
[2017-01-25] MEDS ORDERED: SYNT100T PO (15:28)
[2017-01-25] MEDS ORDERED: OXYC-517 PO (15:28)
[2017-01-25] MEDS ORDERED: OMEP40CA2 PO (15:29)
[2017-01-25] MEDS ORDERED: SUCR1SS PO (15:29)
[2017-01-25] MEDS: HumaLOG INSULIN (NovoLOG) PER UNIT SC SCH ×2 (17:30→21:00)
[2017-01-25] MEDS ORDERED: SUCRALFATE SUSP 1GM/10ML UD PO SCH (17:30)
[2017-01-25 20:23] VITALS: BP 78/48
[2017-01-25] MEDS ORDERED: IRON SUCROSE 100MG 5ML VIAL (J1756 PER 1MG) IV SCH (20:30)
[2017-01-25] MEDS ORDERED: SLF 3 ML SYR IV PRN (20:30)
[2017-01-25 20:40] VITALS: BP 80/30
[2017-01-25] MEDS ORDERED: CARVedilol 6.25 MG TAB PO SCH (21:00)
[2017-01-25] MEDS ORDERED: OMEPRAZOLE 20 MG CAP PO SCH (21:00)
[2017-01-25 21:46] VITALS: BP 88/44
--- NOTE | 2017-01-25 22:17 | CR ---
DATE OF CONSULTATION: 01/25/2017 REQUESTING PHYSICIAN: Dr. Carol Saldivar CONSULTING PHYSICIAN: Dr. Torres REASON FOR CONSULTATION: Management of end-stage renal disease, hemodialysis and fluid overload. CHIEF COMPLAINT: The patient presented to the emergency room today with weakness, inability to walk because of leg swelling, and she was unable to go for hemodialysis today as an outpatient. HISTORY OF THE PRESENT ILLNESS: Alejandra Sullivan is a 76-year-old female who recently progressed to end-stage renal disease. She was started on hemodialysis during a recent hospitalization this month at this hospital. She has multiple other comorbidities as mentioned below. She was discharged from the hospital yesterday , and she was supposed to get her outpatient hemodialysis today. However, the patient reports that when she went home yesterday from the hospital, she was so weak she was unable to climb stairs to her trailer home. She was being helped by two family members. Finally, when she was at her home, she was unable to ambulate and today the patient was unable to come down stairs to go for hemodialysis, so 911 was called. The patient was brought to the emergency room. She otherwise denies any fever or chills, rigors. She does report lower extremity edema and weakness of the legs. The patient and family members are requesting home health services and assistance. PAST MEDICAL HISTORY: Patient has a past medical history of end-stage renal disease, on hemodialysis. Chronic systolic and diastolic congestive heart failure. Anemia in end-stage renal disease. Coronary artery disease. Hypertension. Hyperlipidemia. History of paroxysmal atrial fibrillation. Insulin-dependent diabetes mellitus. Hypothyroidism. Lower extremity edema. PAST SURGICAL HISTORY: Patient is status post cholecystectomy. Status post cardiac pacemaker. Status post coronary artery bypass grafting. Status post aortic valve replacement in 2012. Status post arteriovenous (AV) fistula placement in the left forearm in June 2016. ALLERGIES: The patient is allergic to BENZOCAINE and IV CONTRAST MEDIA. FAMILY HISTORY: No significant family history of end-stage renal disease requiring hemodialysis. Her mother of myocardial infarction ([place]) and father had lung cancer secondary to smoking. SOCIAL HISTORY: Patient denies any smoking at this time; she quit in . She denies any illicit drug abuse or alcohol abuse. The patient lives in a trailer home, which has about 3-4 stairs on the front. REVIEW OF SYSTEMS: CONSTITUTIONAL: The patient reports feeling weak and tired and inability to walk. EYES: She denies any blurry vision or double vision. ENT: She denies any dysphagia, odynophagia or ear discharge. CARDIOVASCULAR: She denies any chest pain or palpitations. She does report lower extremity edema. RESPIRATORY: She denies any cough, wheezing or shortness of breath. GASTROINTESTINAL: She denies any nausea, vomiting or abdominal pain. GENITOURINARY: She denies any dysuria, hematuria. MUSCULOSKELETAL: She reports extreme weakness of the lower extremities. CENTRAL NERVOUS SYSTEM: She denies any strokes or seizures. PSYCHIATRIC: She denies any depression or anxiety. ENDOCRINE: The patient is known diabetic. HEMATOLOGICAL/ONCOLOGICAL: The patient has anemia secondary to end-stage renal disease. All other review of systems is negative. PHYSICAL EXAMINATION: GENERAL: The patient is awake, alert, oriented times three, laying in bed, no apparent distress. VITAL SIGNS: Temperature is 97 degrees Fahrenheit, blood pressure is 114/59, pulse is 56, respiratory rate of 18, saturating 98% on room air. HEAD AND NECK EXAM: Extraocular muscles intact. Pupils equally round and reactive to light. Mucous membranes are moist. Neck is supple. There is no jugular venous distention (JVD). CARDIOVASCULAR: S1, S2, mechanical aortic valve sounds with grade 2/6 systolic murmur. RESPIRATORY: Chest is clear to auscultation bilaterally. Bilateral equal air entry. No rales or rhonchi. ABDOMEN: Soft. Positive bowel sounds. Nontender, no ascites, no organomegaly. MUSCULOSKELETAL: No clubbing or cyanosis. Pulses are 2+. She has 2+ edema of the bilateral lower extremities up to thighs. The patient has a resolving hematoma on the right calf. CENTRAL NERVOUS SYSTEM: No focal neurological deficit at this time, but she does have weakness of the bilateral lower extremities. Power is 4/5 in the bilateral lower extremities. PSYCHIATRIC: Normal mood and affect. LYMPH NODES: No significant cervical, axillary or inguinal lymphadenopathy. LAB REVIEW: CBC showed a WBC of 13.3, hemoglobin 8.4, platelets are 274. BMP showed 130, potassium 5.2, chloride 94, bicarbonate 29, BUN is 41, creatinine is 3.6. CURRENT INPATIENT MEDICATIONS: Patient's medications were all reviewed by me. She is on Tylenol, amiodarone 200 mg daily, aspirin 81 mg daily, calcitriol 0.25 mcg by mouth daily, Coreg 6.25 mg by mouth twice a day, insulin sliding scale, insulin NPH 25 units in the morning, 10 units in the evening, levothyroxine 100 mcg by mouth daily, by mouth daily multivitamin, omeprazole 40 mg by mouth twice a day, oxycodone 5 mg every 8 hours as needed for pain, simvastatin 40 mg nightly, Carafate 1 gram by mouth with meals, vitamin D 1000 units by mouth daily. ASSESSMENT: A 76-year-old female with end-stage renal disease, on hemodialysis, diabetes mellitus type 2, hypertension, chronic systolic and diastolic congestive heart failure, admitted at this time because of lower extremity edema, weakness and inability to walk. PLAN: 1. End-stage renal disease, on hemodialysis. Today is the patient's regular dialysis day. She was supposed to go to outpatient hemodialysis center. She has missed her dialysis. Inpatient dialysis will be arranged today. The patient will be dialyzed today in the evening. 2. Lower extremity edema and leg weakness. The patient is getting hemodialysis and ultrafiltration to help with lower extremity edema. During previous hospitalization, she also got [id number] hemodialysis sessions for improvement of the edema. The patient also needs physical therapy, and she also needs social science professor for placement because she lives in a trailer home and she is unable to go up stairs. 3. Insulin-dependent diabetes. Continue current dose of insulin NPH and insulin sliding scale. The rest of the management is as per the primary team. 4. Paroxysmal atrial fibrillation. Continue current dose of amiodarone. Patient' s Coumadin was held during previous hospitalization because of possibility of gastrointestinal (GI) bleed. However, GI bleed was ruled out, Coumadin is still on hold. 5. Hypertension. Blood pressure is acceptable at this time. Continue current dose of Coreg 6.25 mg by mouth twice a day. 6. Secondary hyperparathyroidism. Continue current dose of calcitriol 0.25 mg by mouth every other day. 7. Anemia secondary to end-stage renal disease. I am going to start the patient on intravenous (IV) Venofer and Aranesp with hemodialysis session. Thank you for involving us in the care of this patient. We shall be happy to follow the patient along with you tomorrow morning. [facility]
[2017-01-25] MEDS: SIMVASTATIN 40 MG TAB PO SCH (22:34)
[2017-01-25] MEDS: SLF 3 ML SYR IV SCH (22:35)
[2017-01-25] MEDS: HumuLIN N INSULIN (NovoLIN N) PER UNIT SC SCH (22:35)
[2017-01-25 23:59] VITALS: BP 110/54
[2017-01-26 04:45] VITALS: BP 92/48
[2017-01-26] MEDS: LEVOTHYROXINE 100MCG TABLET (0.1MG) PO SCH (05:18)
[2017-01-26] MEDS: SLF 3 ML SYR IV SCH ×3 (05:18→21:32)
--- NOTE | 2017-01-26 05:44 | ECGEPIP ---
Stationary ECG Study [facility] - ED Test Date: 2017-01-25 Pat Name: EVELYN LABOY Department: Room: - Gender: F Metrology Engineer: [email or web address] : [id number] Requested By: Indra Landa Order Number: [id number] Reading MD: Indra Paris Measurements Intervals [place] Rate: 60 P: 202 TX: 200 QRS: -78 QRSD: 212 T: 63 QT: 573 QTc: 573 Interpretive Statements ELECTRONIC ATRIAL PACEMAKER ELECTRONIC VENTRICULAR PACEMAKER SIMILAR TO 01/13/17 Electronically Signed On 01-26-2017 5:44:05 EST by Indra Paris
[2017-01-26 06:16] LABS: BASO % 0.3 % (0.0-1.0); IMMATURE GRANULOCYTE % 1.8 % (0-0); LYMPH % 16.4 % (24.0-44.0); MEAN CORPUSCULAR HEMOGLOBIN 28.7 pg (27.0-33.0); MEAN CORPUSCULAR VOLUME 95.6 fl (80.0-96.0); MONO # 0.8 10^3/uL (0.0-0.8); MONO % 6.5 % (0.0-5.0); NEUTROPHILS # 9.3 10^3/uL (1.8-7.7); PLATELET COUNT, AUTOMATED 247 10^3/uL (150-450); RED CELL DISTRIBUTION WIDTH 16.1 % (11.5-14.5); WHITE BLOOD COUNT 12.4 10^3/uL (4.0-10.0)
[2017-01-26 06:23] LABS: ALBUMIN 1.8 GM/DL (3.2-5.2); CALCIUM LEVEL 8.3 MG/DL (8.8-10.2); CREATININE FOR GFR 2.78 MG/DL (0.55-1.02); GLOMERULAR FILTRATION RATE 17.7 (>39); MAGNESIUM LEVEL 1.8 MG/DL (1.8-2.4)
[2017-01-26] MEDS: HumaLOG INSULIN (NovoLOG) PER UNIT SC SCH ×4 (09:38→21:00)
[2017-01-26] MEDS: ASPIRIN 81 MG ENTERIC TAB PO SCH (09:39)
[2017-01-26] MEDS: CARVedilol 3.125 MG TAB PO SCH ×2 (09:39→21:00)
[2017-01-26] MEDS: AMIODARONE 200 MG TAB (PACERONE) PO SCH (09:39)
[2017-01-26] MEDS: OMEPRAZOLE 20 MG CAP PO SCH (09:39)
[2017-01-26] MEDS: MULTIVITAMINS/MINERALS THERAP 1 TAB PO SCH (09:39)
[2017-01-26] MEDS: VITAMIN D 1,000 INTERNATIONAL UNITS TABLET PO SCH (09:39)
[2017-01-26] MEDS: CYANOCOBALAMIN 500 MCG TAB PO SCH (09:39)
[2017-01-26] MEDS: HumuLIN N INSULIN (NovoLIN N) PER UNIT SC SCH ×2 (09:46→21:31)
[2017-01-26] MEDS: ACETAMINOPHEN 650MG ER TAB (TYLENOL ARTHRITIS) PO PRN (11:15)
[2017-01-26 11:29] VITALS: BP 90/40
--- NOTE | 2017-01-26 13:33 | IPNPDOC ---
Text Note Date of Service The patient was seen on 01/26/17. NOTE Subjective: Patient is a 76 year old female with a PMHx of AVR (2012), CAD s/p CABG (2012, 2015), HTN, DLP, Systolic / Diastolic CHF (EF: 40%), Paroxysmal atrial fibrillation (on ASA), Tachybrady syndrome s/p PM, IDDM2, Anemia, Pulmonary HTN, Hypothyroidism, ESRD on recently started HD who presented to the ER after she missed her scheduled HD for today because of fatigue. She was found to have lower extremity swelling and fatigue. Patient was recently admitted from 01/12 to 01/24 for heart failure and ESRD and recently started on HD with outpatient followup. Patient received urgent HD on 01/25 for fluid overload. Patient was seen and examined at the bedside. She denies any dizziness, light- headedness of palpitations. She does report fatigue and muscle soreness of her upper extremities. Objective: Vitals (See below) General: Lying in bed, no acute distress, comfortable, AAOx3 HEENT: NC, AT CVS: RRR, +S1S2 Lungs: Fair air entry b/l, -w/r/r Abdomen: Soft, ND, NT Extremities: 2+ Pitting edema b/l, - Calf tenderness Assessment and plan: Leg weakness and fatigue - likely 2/2 decompensated state with worsening lower extremity edema 2/2 missed hemodialysis - Clinically has mild improvement in her lower extremity edema - Physical with 2+ pitting edema bilaterally - Continue with physical therapy; will likely need placement ESRD on recently started HD - Receives hemodialysis Wednesday, Wednesday and Wednesday - s/p urgent hemodialysis on Wednesday, 01/25 - Dr. Torres (Nephrology) has been consulted; appreciate their input Acute on chronic anemia - likely 2/2 renal disease and iron deficiency anemia - Hemoglobin this morning appears to be 1 g lower than baseline - Will transfuse 1 unit PRBC - Will check post transfusion CBC - c/w iron supplementation Leukocytosis - likely 2/2 reactive etiology, less likely secondary to infected etiology - Review of systems negative for infection - Remains afebrile - Will order chest x-ray - Continue to hold off on antibiotics HTN - Hypotensive this morning and after hemodialysis yesterday - However, remains completely asymptomatic - Continue with carvedilol at a reduced dose Paroxysmal atrial fibrillation - Continue with amiodarone and carvedilol for rate control; dose has been reduced given low blood pressure post dialysis - c/w ASA s/p hyperkalemia AVR (2012) CAD s/p CABG (2012, 2015) Systolic / Diastolic CHF (EF: 40%) Tachybrady syndrome s/p PM DLP - c/w simvastatin IDDM2 - c/w insulin sliding scale Pulmonary HTN Hypothyroidism - c/w levothyroxine GERD - c/w omeprazole DVT prophylaxis - Continue with sleeve compression devices Disposition: - Continue with physical therapy. Disposition depending on their recommendations. Will likely need placement to subacute rehabilitation center. VS,Fishbone, I+O VS, Fishbone, I+O Laboratory Tests 01/26/17 05:36 Red Blood Count 2.72 L, Mean Corpuscular Volume 95.6, Mean Corpuscular Hemoglobin 28.7, Mean Corpuscular Hemoglobin Concent 30.0 L, Red Cell Distribution Width 16.1 H, Neutrophils (%) (Auto) 75.0 H, Lymphocytes (%) (Auto ) 16.4 L, Monocytes (%) (Auto) 6.5 H, Eosinophils (%) (Auto) 0.0, Basophils (%) (Auto) 0.3, Neutrophils # (Auto) 9.3 H, Lymphocytes # (Auto) 2.0, Monocytes # ( Auto) 0.8, Eosinophils # (Auto) 0.0, Basophils # (Auto) 0.0, Anion Gap 9 Vital Signs Date Time Temp Pulse Resp B/P (MAP) Pulse Ox O2 Delivery O2 Flow Rate FiO2 01/26/17 11:29 64 90/40 (57) 01/26/17 08:00 97.7 16 97 01/26/17 08:00 Room Air TEJAL DORADO MD Jan 26, 2017 13:33
[2017-01-26 16:43] LABS: MEAN CORPUSCULAR HEMOGLOBIN 28.1 pg (27.0-33.0); MEAN CORPUSCULAR HGB CONC 29.5 g/dl (32.0-36.5); MEAN CORPUSCULAR VOLUME 95.5 fl (80.0-96.0); PLATELET COUNT, AUTOMATED 238 10^3/uL (150-450); WHITE BLOOD COUNT 14.3 10^3/uL (4.0-10.0)
[2017-01-26 17:00] VITALS: BP 82/35
--- NOTE | 2017-01-26 19:39 | REP ---
Portable chest x-ray: Single view. History: Evaluate for fluid overload or infiltrate. Comparison chest x-ray January 12, 2017. Findings: EKG monitoring electrodes overlie the chest. A bipolar pacemaker is seen in the right heart via the left side. Mild cardiomegaly is again observed unchanged. The lungs are symmetrically aerated and free of infiltrate. Pleural angles are sharp. There is no evidence of pleural effusion or pulmonary edema. Median sternotomy wires are noted. Impression: Cardiomegaly with pacemaker again noted. Otherwise no acute disease. Signed by Luis Lynn MD 01/26/2017 07:49 P
[2017-01-26 20:00] VITALS: BP 68/38
[2017-01-26] MEDS ORDERED: SODIUM CHLORIDE 0.9% 1000 ML IV ONE (21:15)
[2017-01-26] MEDS: SIMVASTATIN 40 MG TAB PO SCH (21:32)
[2017-01-26] MEDS: CALCITRIOL 0.25 MCG CAP (S0169) PO SCH (21:32)
[2017-01-27] VITALS (8 sets, daily range): BP systolic 82–112; BP diastolic 32–42
[2017-01-27 05:57] LABS: BASO # 0.1 10^3/uL (0.0-0.2); BASO % 0.4 % (0.0-1.0); IMMATURE GRANULOCYTE % 1.5 % (0-0); LYMPH # 2.8 10^3/uL (1.5-4.5); LYMPH % 20.5 % (24.0-44.0); MEAN CORPUSCULAR HEMOGLOBIN 28.3 pg (27.0-33.0); MEAN CORPUSCULAR HGB CONC 29.7 g/dl (32.0-36.5); MEAN CORPUSCULAR VOLUME 95.3 fl (80.0-96.0); MONO # 1.1 10^3/uL (0.0-0.8); MONO % 7.8 % (0.0-5.0); NEUTROPHILS # 9.7 10^3/uL (1.8-7.7); NEUTROPHILS % 69.8 % (36.0-66.0); PLATELET COUNT, AUTOMATED 231 10^3/uL (150-450); RED CELL DISTRIBUTION WIDTH 17.1 % (11.5-14.5); WHITE BLOOD COUNT 13.9 10^3/uL (4.0-10.0)
[2017-01-27 06:09] LABS: CALCIUM LEVEL 8.6 MG/DL (8.8-10.2); CREATININE FOR GFR 3.54 MG/DL (0.55-1.02); GLOMERULAR FILTRATION RATE 13.4 (>39); POTASSIUM SERUM 4.2 MEQ/L (3.5-5.1)
[2017-01-27] MEDS: LEVOTHYROXINE 100MCG TABLET (0.1MG) PO SCH (06:39)
[2017-01-27] MEDS: SLF 3 ML SYR IV SCH ×3 (06:40→22:03)
--- NOTE | 2017-01-27 07:35 | IPN ---
DATE: 01/26/2017 SUBJECTIVE: The patient was seen and examined at the bedside this morning. The patient reports that she is still feeling weak and tired. She was dialyzed yesterday. She tolerated the hemodialysis procedure well. REVIEW OF SYSTEMS: The patient denies any fevers, chills or rigors. She reports weakness, inability to walk. She denies any chest pain, palpitations or shortness of breath. She does report lower extremity edema, swelling of the legs. The rest of the review of system is negative. OBJECTIVE: VITAL SIGNS: Temperature this morning was 97.7 degrees Fahrenheit, blood pressure 92/48, pulse 60, respiratory rate of 16, saturating 97% on room air. Intake and output: Ultrafiltration with hemodialysis yesterday was 2.5 liters. Weight on the bed scale was 73.6 kg. GENERAL: The patient is awake, alert, oriented times three laying in bed. No apparent distress. HEAD/NECK: Extraocular muscles intact. Pupils equal, round, and reactive to light. Mucous membranes are moist. Neck is supple. There is no jugular venous distention. CARDIOVASCULAR: S1, S2, mechanical aortic valve sounds with grade 2/6 systolic murmur. The patient has a 2+ edema of the bilateral lower extremities. RESPIRATORY: Chest is clear to auscultation bilaterally. Bilaterally, clear air entry. No rales or rhonchi. ABDOMEN: Soft, positive bowel sounds. Nontender. No ascites. No organomegaly. MUSCULOSKELETAL: No clubbing or cyanosis. Pulses are 2+. 2+ edema of the bilateral lower extremities up to the thighs. There is a resolving hematoma in the right calf. PROJECT ASST: No focal neurological deficit at this time. The patient stated that she is not able to walk. Power is 4/5 in the bilateral lower extremities. PSYCH: Normal mood and affect. LAB REVIEW: CBC showed a WBC of 14.3, hemoglobin 9.4, platelets are 238. BMP showed sodium 135, potassium 4, chloride 99, bicarbonate 27, BUN 24, creatinine 2.7, calcium 8.3, phosphorus 2, magnesium 1.8, albumin is 1.8. CURRENT INPATIENT MEDICATIONS: The patient's medications are all reviewed by me. Because of hypotension, her Coreg dose has been decreased to 3.125 mg by mouth twice a day. There are no other changes in the medications today as compared with yesterday. ASSESSMENT: 76-year-old female with history of endstage renal disease and hemodialysis, diabetes mellitus type 2, hypertension, chronic systolic and diastolic congestive heart failure admitted this time because of lower extremity edema, weakness and inability to walk. PLAN: 1. Endstage renal disease on hemodialysis: The patient was dialyzed yesterday. She has significant edema. She will be taken to dialysis again for ultrafiltration as tolerated by her blood pressure. 2. Weakness and lower extremity edema: Continue the fluid restriction. Continue hemodialysis and ultrafiltration as tolerated by her blood pressure. Low salt diet. Continue physical therapy. 3. Anemia secondary to endstage renal disease. The patient will be given two units of packed red blood cells (PRBC) transfusion during hemodialysis today. 4. Paroxysmal atrial fibrillation: Continue the amiodarone. Coreg dose was decreased to 3.125 by mouth twice a day anticoagulation was stopped during a previous hospitalization.
[2017-01-27] MEDS: HumaLOG INSULIN (NovoLOG) PER UNIT SC SCH ×4 (08:34→21:00)
[2017-01-27] MEDS: CARVedilol 3.125 MG TAB PO SCH (08:39)
[2017-01-27 09:44] LABS: PHOSPHORUS LEVEL 1.7 MG/DL (2.5-4.9)
[2017-01-27] MEDS: MULTIVITAMINS/MINERALS THERAP 1 TAB PO SCH (11:33)
[2017-01-27] MEDS: AMIODARONE 200 MG TAB (PACERONE) PO SCH (11:33)
[2017-01-27] MEDS: OMEPRAZOLE 20 MG CAP PO SCH (11:33)
[2017-01-27] MEDS: CYANOCOBALAMIN 500 MCG TAB PO SCH (11:33)
[2017-01-27] MEDS: ASPIRIN 81 MG ENTERIC TAB PO SCH (11:33)
[2017-01-27] MEDS: VITAMIN D 1,000 INTERNATIONAL UNITS TABLET PO SCH (11:33)
[2017-01-27] MEDS: ACETAMINOPHEN 650MG ER TAB (TYLENOL ARTHRITIS) PO PRN (11:34)
[2017-01-27] MEDS: HumuLIN N INSULIN (NovoLIN N) PER UNIT SC SCH ×2 (11:47→21:00)
[2017-01-27 12:01] LABS: MEAN CORPUSCULAR HEMOGLOBIN 28.8 pg (27.0-33.0); MEAN CORPUSCULAR HGB CONC 29.6 g/dl (32.0-36.5); MEAN CORPUSCULAR VOLUME 97.3 fl (80.0-96.0); PLATELET COUNT, AUTOMATED 217 10^3/uL (150-450); RED CELL DISTRIBUTION WIDTH 17.3 % (11.5-14.5)
[2017-01-27 12:06] LABS: ADD MANUAL DIFFER YES; DIFF SLIDE NUMBER 139; LEFT SHIFT POS FLAG; POSITIVE MORPH POS FLAG
[2017-01-27 12:17] LABS: ANISOCYTOSIS 1+; BANDS 4 % (< 11); EOSINOPHILS 2 % (0-5); POLYCHROMASIA 1+
[2017-01-27 12:18] LABS: OVALOCYTES 1+
[2017-01-27 12:19] LABS: DOHLE BODIES 1+
[2017-01-27] MEDS ORDERED: NS 250 ML IV ONE (12:30)
--- NOTE | 2017-01-27 14:44 | IPNPDOC ---
Text Note Date of Service The patient was seen on 01/27/17. NOTE Subjective: Patient is a 76 year old female with a PMHx of AVR (2012), CAD s/p CABG (2012, 2015), HTN, DLP, Systolic / Diastolic CHF (EF: 40%), Paroxysmal atrial fibrillation (on ASA), Tachybrady syndrome s/p PM, IDDM2, Anemia, Pulmonary HTN, Hypothyroidism, ESRD on recently started HD who presented to the ER after she missed her scheduled HD for today because of fatigue. She was found to have lower extremity swelling and fatigue. Patient was recently admitted from 01/12 to 01/24 for heart failure and ESRD and recently started on HD with outpatient followup. Patient received urgent HD on 01/25 for fluid overload. Patient was seen and examined at the bedside. Patient notes that she feels extremely fatigued and complains of upper shoulder achiness. She denies any lightheadedness, shortness of breath, palpitations or chest pain. Patient denies any cough or any discomfort with urination. She does however appear to have odors of urinary incontinence. Objective: Vitals (See below) General: Lying in bed, no acute distress, comfortable, AAOx3 HEENT: NC, AT CVS: RRR, +S1S2 Lungs: Fair air entry b/l, -w/r/r Abdomen: Soft, ND, NT Extremities: 2+ Pitting edema b/l, - Calf tenderness Assessment and plan: Leg weakness and fatigue - likely 2/2 decompensated state with worsening lower extremity edema 2/2 missed hemodialysis, possibly 2/2 infection - possibly 2/2 UTI -Patient notes that her lower extremity edema persists - Physical with 2+ pitting edema bilaterally - c/w physical therapy; will likely need placement - See below Hypotension / Leukocytosis - possibly 2/2 infection - Review of systems has been negative - Patient remains afebrile - Physical is unrevealing; however, patient remains hypotensive but asymptomatic - CXR 01/26: Cardiomegaly with pacemaker again noted, otherwise no acute disease - Urine analysis has been ordered - Blood cultures and urine cultures have been ordered - Will start the patient on ceftriaxone - S/p 250 mL normal saline bolus 01/26, evening - Will give additional 250 mL normal saline bolus today and continue with albumin infusion ESRD on recently started HD - Receives hemodialysis Wednesday, Wednesday and Wednesday - s/p urgent hemodialysis on Wednesday, 01/25 - Dr. Torres (Nephrology) has been consulted; appreciate their input Acute on chronic anemia - likely 2/2 renal disease and iron deficiency anemia - Hemoglobin this morning appears to be 1 g lower than baseline - Will transfuse 1 unit PRBC - Will check post transfusion CBC - c/w iron supplementation Leukocytosis - likely 2/2 reactive etiology, less likely secondary to infected etiology - Review of systems negative for infection - Remains afebrile - Will order chest x-ray - Continue to hold off on antibiotics HTN - Hypotensive since HD - However, remains completely asymptomatic - Carvedilol dose has been reduced Paroxysmal atrial fibrillation - Continue with amiodarone and carvedilol for rate control; dose has been reduced given low blood pressure post dialysis - c/w ASA s/p hyperkalemia AVR (2012) CAD s/p CABG (2012, 2015) Systolic / Diastolic CHF (EF: 40%) Tachybrady syndrome s/p PM DLP - c/w simvastatin IDDM2 - c/w insulin sliding scale Pulmonary HTN Hypothyroidism - c/w levothyroxine GERD - c/w omeprazole DVT prophylaxis - Continue with sleeve compression devices Disposition: - We will evaluate for any signs of infection, likely urinary tract in etiology - If no clear infectious source is delineated, patient may require Midodrine - c/w PT; awaiting disposition recommendations VS,Fishbone, I+O VS, Fishbone, I+O Laboratory Tests 01/26/17 16:36 Red Blood Count 3.34 L, Mean Corpuscular Volume 95.5, Mean Corpuscular Hemoglobin 28.1, Mean Corpuscular Hemoglobin Concent 29.5 L, Red Cell Distribution Width 17.0 H 01/27/17 05:40 Red Blood Count 3.00 L, Mean Corpuscular Volume 95.3, Mean Corpuscular Hemoglobin 28.3, Mean Corpuscular Hemoglobin Concent 29.7 L, Red Cell Distribution Width 17.1 H, Neutrophils (%) (Auto) 69.8 H, Lymphocytes (%) (Auto ) 20.5 L, Monocytes (%) (Auto) 7.8 H, Eosinophils (%) (Auto) 0.0, Basophils (%) (Auto) 0.4, Neutrophils # (Auto) 9.7 H, Lymphocytes # (Auto) 2.8, Monocytes # ( Auto) 1.1 H, Eosinophils # (Auto) 0.0, Basophils # (Auto) 0.1, Calcium Level 8.6 L 01/27/17 11:52 Red Blood Count 2.99 L, Mean Corpuscular Volume 97.3 H, Mean Corpuscular Hemoglobin 28.8, Mean Corpuscular Hemoglobin Concent 29.6 L, Red Cell Distribution Width 17.3 H Vital Signs Date Time Temp Pulse Resp B/P (MAP) Pulse Ox O2 Delivery O2 Flow Rate FiO2 01/27/17 12:25 97.8 60 16 90/38 (55) 96 Room Air 01/27/17 08:23 2.0 TEJAL DORADO MD Jan 27, 2017 14:44
[2017-01-27] MEDS: CEFTRIAXONE SOD 1 GM in APPROPRIATE DILUENT 1 EA IV SCH (15:27)
[2017-01-27 20:02] LABS: MICROSCOPIC INDICATED? MAN YES (NO)
[2017-01-27 20:14] LABS: BACTERIA, URINE LARGE AMOUNT; WBC, URINE TNTC /hpf (0-3)
[2017-01-27 20:16] LABS: HYALINE CAST, URINE NONE SEEN /lpf (0-1); SQUAMOUS EPITHELIAL CELL URINE NONE SEEN /hpf (SMALL AMT)
[2017-01-27 20:18] LABS: MICROSCOPIC EXAM PERFORMED
[2017-01-27] MEDS: SIMVASTATIN 40 MG TAB PO SCH (22:02)
[2017-01-28] VITALS: BP_SYST 90
[2017-01-28] MEDS ORDERED: SODIUM PHOSPHATE INJ 20 MMOL in D5W 250 ML IV ONE (01:00)
[2017-01-28 04:00] VITALS: BP_SYST 88; BP_SYST 90; BP_DIAS 30; BP_DIAS 53
[2017-01-28 06:11] LABS: MEAN CORPUSCULAR HEMOGLOBIN 28.7 pg (27.0-33.0); MEAN CORPUSCULAR HGB CONC 29.5 g/dl (32.0-36.5); MEAN CORPUSCULAR VOLUME 97.1 fl (80.0-96.0); PLATELET COUNT, AUTOMATED 193 10^3/uL (150-450); RED CELL DISTRIBUTION WIDTH 17.1 % (11.5-14.5)
[2017-01-28 06:24] LABS: CALCIUM LEVEL 8.5 MG/DL (8.8-10.2); CREATININE FOR GFR 4.11 MG/DL (0.55-1.02); GLOMERULAR FILTRATION RATE 11.3 (>39); POTASSIUM SERUM 4.5 MEQ/L (3.5-5.1)
[2017-01-28 06:26] LABS: ADD MANUAL DIFFER YES; DIFF SLIDE NUMBER 30; LEFT SHIFT POS FLAG; POSITIVE MORPH POS FLAG
[2017-01-28] MEDS: LEVOTHYROXINE 100MCG TABLET (0.1MG) PO SCH (06:40)
[2017-01-28] MEDS: SLF 3 ML SYR IV SCH ×3 (06:40→21:19)
[2017-01-28 07:08] LABS: BASOPHILS 1 % (0-4); EOSINOPHILS 1 % (0-5)
[2017-01-28 07:09] LABS: ANISOCYTOSIS 1+; HYPOCHROMASIA 2+; POLYCHROMASIA 2+
[2017-01-28 08:00] VITALS: BP 102/34
[2017-01-28] MEDS: HumuLIN N INSULIN (NovoLIN N) PER UNIT SC SCH ×2 (09:46→21:00)
[2017-01-28] MEDS: ACETAMINOPHEN 650MG ER TAB (TYLENOL ARTHRITIS) PO PRN (09:46)
[2017-01-28] MEDS: HumaLOG INSULIN (NovoLOG) PER UNIT SC SCH ×4 (09:46→21:00)
[2017-01-28] MEDS: MULTIVITAMINS/MINERALS THERAP 1 TAB PO SCH (09:46)
[2017-01-28] MEDS: VITAMIN D 1,000 INTERNATIONAL UNITS TABLET PO SCH (09:47)
[2017-01-28] MEDS: AMIODARONE 200 MG TAB (PACERONE) PO SCH (09:47)
[2017-01-28] MEDS: OMEPRAZOLE 20 MG CAP PO SCH (09:47)
[2017-01-28] MEDS: ASPIRIN 81 MG ENTERIC TAB PO SCH (09:47)
[2017-01-28] MEDS: CYANOCOBALAMIN 500 MCG TAB PO SCH (09:47)
[2017-01-28] MEDS: MIDODRINE 5 MG TAB PO SCH ×2 (11:34→16:06)
[2017-01-28 12:00] VITALS: BP 96/42
[2017-01-28] MEDS: CEFTRIAXONE SOD 1 GM in APPROPRIATE DILUENT 1 EA IV SCH (12:23)
--- NOTE | 2017-01-28 14:11 | IPN ---
DATE: 01/27/2017 SUBJECTIVE: The patient was seen and examined at the bedside today, morning. The patient reports that she is not feeling well. She is still feeling very weak and tired. She was dialyzed yesterday, 1.5 liters of fluid was removed but after dialysis, she was very hypotensive. She required IV albumin infusion. The patient has leukocytosis as well. REVIEW OF SYSTEMS: The patient reports feeling very weak, tired, fatigued, unable to walk with lack of energy. She denies any chest pain, shortness of breath. She does report lower extremity edema. She denies any pain in the abdomen or constipation. She does report decreased appetite. The rest of the review of systems is negative. OBJECTIVE: VITAL SIGNS: Temperature is 97.8 degrees Fahrenheit, blood pressure is 90/38, pulse is 60, respiratory rate of 16, saturating 96% on room air. INTAKE/OUTPUT: Ultrafiltration with hemodialysis was 1.5 liters yesterday. Weight on the bed scale is 67.9 kg. PHYSICAL EXAMINATION: GENERAL: The patient is awake, alert, oriented times three, laying in bed but there is a foul urinary smell coming from the patient. She is not in any apparent distress at this time. HEAD AND NECK EXAM: Extraocular muscles intact. The patient has pallor. Mucous membranes are moist. Neck is supple. There is no jugular venous distention (JVD). CARDIOVASCULAR: S1, S2, regular rate. Mechanical aortic valve sounds. Grade 2/6 systolic murmur and patient has 1+ edema of the bilateral lower extremities. RESPIRATORY: Chest is clear to auscultation bilaterally. Bilateral equal air entry. No rales or rhonchi. ABDOMEN: Abdomen is soft. Positive bowel sounds. Nontender. No ascites. No organomegaly. MUSCULOSKELETAL: No clubbing or cyanosis. Pulses are 2+, 1+ pitting edema of the bilateral lower extremities up to thighs. Resolving right calf hematoma. CENTRAL NERVOUS SYSTEM: No focal deficit. At this time, the patient follows commands, but she is very weak. Power is 5/5 in bilateral lower extremities. PSYCHIATRIC: The patient has a depressed mood. LAB REVIEW: CBC showed a WBC of 14, hemoglobin is 8.6, platelets are 217. Urinalysis done today showed it was turbid with 3+ protein, positive blood. Leukocyte esterase was positive. Too numerous to count WBCs. Large amount of bacteria. BMP showed sodium 136, potassium 4.2, chloride 100, bicarbonate 28, BUN 34, creatinine is 3.5, lactic acid was 2.3, calcium 8.6, phosphorus was 1.7. Microbiology: Stool occult blood is negative. Blood cultures are urine cultures are pending. CURRENT INPATIENT MEDICATIONS: The patient's medications were all reviewed by me. She has been started on empiric Rocephin 1 gram IV every 24 hours. She was also given normal saline 250 mL bolus today, morning. I am also going to hold her Coreg at this time. There is no other change in the medications today as compared with yesterday. ASSESSMENT: A 76-year-old female with a past medical history of end-stage renal disease, on hemodialysis, diabetes mellitus, type 2, hypertension, chronic systolic and diastolic congestive heart failure, admitted at this time because of lower extremity edema, weakness and inability to walk. PLAN: 1. End-stage renal disease, on hemodialysis. The patient was dialyzed yesterday; 1.5 liters of fluid was removed for edema, but the patient became hypotensive after the procedure. The patient required albumin infusion. No need of hemodialysis at this time. The patient will be evaluated tomorrow morning for any need to do hemodialysis. 2. Leukocytosis and possible urinary tract infection (UTI). The patient has a large amount of bacteria and leukocyte esterase on urinalysis. She has leukocytosis as well. Lactate was high. The patient was given intravenous fluid bolus. She has been empirically started on IV Rocephin. Follow the blood cultures and urine cultures and taper antibiotics as needed. 3. Anemia secondary to end-stage renal disease. The patients hemoglobin was 8.5 yesterday. She was given one unit of packed red blood cell transfusion yesterday during hemodialysis procedure. 4. Paroxysmal atrial fibrillation. The patient continues to be on amiodarone. She was also on Coreg; dose was initially decreased but now I have stopped the Coreg dose because of persistent hypotension and weakness. 5. Hypophosphatemia. It is secondary to decreased oral intake and hemodialysis session yesterday. I am going to give the patient one dose of sodium phosphate 20 mmol IV.
--- NOTE | 2017-01-28 15:49 | IPNPDOC ---
Text Note Date of Service The patient was seen on 01/28/17. NOTE Subjective: Patient is a 76 year old female with a PMHx of AVR (2012), CAD s/p CABG (2012, 2015), HTN, DLP, Systolic / Diastolic CHF (EF: 40%), Paroxysmal atrial fibrillation (on ASA), Tachybrady syndrome s/p PM, IDDM2, Anemia, Pulmonary HTN, Hypothyroidism, ESRD on recently started HD who presented to the ER after she missed her scheduled HD for today because of fatigue. She was found to have lower extremity swelling and fatigue. Patient was recently admitted from 01/12 to 01/24 for heart failure and ESRD and recently started on HD with outpatient followup. Patient received urgent HD on 01/25 for fluid overload. Patient was seen and examined at the bedside. Patient denies any new symptoms or events overnight. Denies any chest pain, cough, dysuria, or diarrhea. Patient 's blood pressure still noted to be low. However, she denies any lightheadedness , dizziness or episodes of loss of consciousness. Objective: Vitals (See below) General: Lying in bed, no acute distress, comfortable, AAOx3 HEENT: NC, AT CVS: RRR, +S1S2 Lungs: Fair air entry b/l, -w/r/r Abdomen: Soft, ND, NT Extremities: 2+ Pitting edema b/l, - Calf tenderness Assessment and plan: Leg weakness and fatigue - likely 2/2 decompensated state with worsening lower extremity edema 2/2 missed hemodialysis, possibly 2/2 infection - possibly 2/2 UTI - Patient notes that her lower extremity edema persists - Lower extremity still have persistent pitting edema bilaterally - Nephrology has ordered 100 mg IV furosemide - Will evaluate urine output - c/w physical therapy; will look into placement options if patient does not improve with physical therapy - See below Hypotension / Leukocytosis - possibly 2/2 infection - Review of systems has been negative - Patient remains afebrile - Physical is unrevealing; however, patient remains hypotensive but asymptomatic - CXR 01/26: Cardiomegaly with pacemaker again noted, otherwise no acute disease - Urinalysis shows signs of infection - Blood cultures 01/27: no growth at 24 hours; Urine cultures 01/27: Remain pending - c/w ceftriaxone (Day #2) - Will continue with albumin infusion q8h, the patient has been started on Midodrine 5mg TID by nephrology ESRD on recently started HD - Receives hemodialysis Wednesday, Wednesday and Wednesday - s/p urgent hemodialysis on Wednesday, 01/25 - Dr. Torres (Nephrology) has been consulted; appreciate their input Acute on chronic anemia - likely 2/2 renal disease and iron deficiency anemia - Hemoglobin this morning appears to be 1 g lower than baseline - s/p 1 unit PRBC - Hemoglobin appears to be slightly below baseline; will continue to monitor - c/w iron supplementation HTN - Hypotensive since HD - However, remains completely asymptomatic - Carvedilol dose has been reduced Paroxysmal atrial fibrillation - Continue with amiodarone and reduced dose of carvedilol for rate control - c/w ASA s/p hyperkalemia AVR (2012) CAD s/p CABG (2012, 2015) Systolic / Diastolic CHF (EF: 40%) Tachybrady syndrome s/p PM DLP - c/w simvastatin IDDM2 - c/w insulin sliding scale Pulmonary HTN Hypothyroidism - c/w levothyroxine GERD - c/w omeprazole DVT prophylaxis - Continue with sleeve compression devices Disposition: - Awaiting results of urine culture - Awaiting patient's volume status to become euvolemic - Continue with Midodrine and antibiotics - c/w PT; awaiting disposition recommendations VSRaul, I+O VSRaul, I+O Laboratory Tests 01/28/17 05:53 Red Blood Count 2.79 L, Mean Corpuscular Volume 97.1 H, Mean Corpuscular Hemoglobin 28.7, Mean Corpuscular Hemoglobin Concent 29.5 L, Red Cell Distribution Width 17.1 H, Calcium Level 8.5 L Vital Signs Date Time Temp Pulse Resp B/P (MAP) Pulse Ox O2 Delivery O2 Flow Rate FiO2 01/28/17 12:00 97.7 60 18 96/42 (60) 94 Room Air 01/28/17 04:00 2.0 I&O- Last 24 Hours up to 6 AM 01/29/17 06:00 Intake Total 240 ml Balance 240 ml TEJAL DORADO MD Jan 28, 2017 15:49
[2017-01-28 16:00] VITALS: BP 118/48
[2017-01-28] MEDS ORDERED: FUROSEMIDE 100 MG/10 ML VIAL (J1940) IV ONE (18:00)
[2017-01-28 20:30] VITALS: BP_SYST 120
[2017-01-28] MEDS: CALCITRIOL 0.25 MCG CAP (S0169) PO SCH (21:17)
[2017-01-28] MEDS: SIMVASTATIN 40 MG TAB PO SCH (21:18)
[2017-01-29] VITALS (8 sets, daily range): BP systolic 90–143; BP diastolic 40–65
[2017-01-29] MEDS: LEVOTHYROXINE 100MCG TABLET (0.1MG) PO SCH (05:16)
[2017-01-29] MEDS: SLF 3 ML SYR IV SCH ×3 (05:16→20:51)
[2017-01-29 05:25] LABS: BASO # 0.1 10^3/uL (0.0-0.2); BASO % 0.4 % (0.0-1.0); IMMATURE GRANULOCYTE % 1.4 % (0-0); LYMPH # 2.5 10^3/uL (1.5-4.5); LYMPH % 18.8 % (24.0-44.0); MEAN CORPUSCULAR HEMOGLOBIN 28.2 pg (27.0-33.0); MEAN CORPUSCULAR HGB CONC 29.5 g/dl (32.0-36.5); MEAN CORPUSCULAR VOLUME 95.3 fl (80.0-96.0); MONO % 7.4 % (0.0-5.0); NEUTROPHILS # 9.5 10^3/uL (1.8-7.7); PLATELET COUNT, AUTOMATED 197 10^3/uL (150-450); RED CELL DISTRIBUTION WIDTH 17.2 % (11.5-14.5); WHITE BLOOD COUNT 13.2 10^3/uL (4.0-10.0)
[2017-01-29 05:38] LABS: CALCIUM LEVEL 8.7 MG/DL (8.8-10.2); CREATININE FOR GFR 4.68 MG/DL (0.55-1.02); GLOMERULAR FILTRATION RATE 9.7 (>39); POTASSIUM SERUM 4.6 MEQ/L (3.5-5.1)
[2017-01-29] MEDS: AMIODARONE 200 MG TAB (PACERONE) PO SCH (06:00)
[2017-01-29] MEDS: CYANOCOBALAMIN 500 MCG TAB PO SCH (06:00)
[2017-01-29] MEDS: VITAMIN D 1,000 INTERNATIONAL UNITS TABLET PO SCH (06:00)
[2017-01-29] MEDS: MIDODRINE 5 MG TAB PO SCH ×3 (06:00→17:08)
[2017-01-29] MEDS: ASPIRIN 81 MG ENTERIC TAB PO SCH (06:00)
[2017-01-29] MEDS: MULTIVITAMINS/MINERALS THERAP 1 TAB PO SCH (06:00)
[2017-01-29] MEDS: OMEPRAZOLE 20 MG CAP PO SCH (06:01)
[2017-01-29] MEDS: HumaLOG INSULIN (NovoLOG) PER UNIT SC SCH ×4 (07:30→20:51)
[2017-01-29] MEDS: HumuLIN N INSULIN (NovoLIN N) PER UNIT SC SCH ×2 (08:11→20:48)
--- NOTE | 2017-01-29 09:10 | IPN ---
DATE: 01/28/2017 Mrs. Sullivan is seen this morning on her bedside. She is sitting at the edge of her bed and just finished eating her breakfast. She remains very weak and has difficulty even getting up from the bed. She denies any nausea or vomiting. She does have shortness of breath, particularly when she exerts. She denies any chest pain, palpitation, fever or chills. PHYSICAL EXAMINATION Temperature 97.4 degrees Fahrenheit, heart rate 60 per minute and respiratory rate 18 per minute. Blood pressure 102/34 mmHg and oxygen saturation 96%. Intake and output records from yesterday showed total intake 1520 mL and output only 75 mL. She weighed 71.3 kg today. Her head is atraumatic. Neck is supple and jugular venous distention (JVD) is elevated at about 9-10 cm above sternal angle. Pupils are equal and reactive to light and sclera is anicteric. Ears, nose and throat are unremarkable. Heart exam reveals irregular rhythm with prosthetic valve sounds. Lungs have diminished breath sounds at bases with bibasilar rales. There is no wheezing. Abdomen is soft and nontender and without palpable organomegaly. Bowel sounds are normal. Extremities have no cyanosis or clubbing. She has 1+ edema on lower legs. Her AV fistula is patent. Skin has no rash or ulcers. Neurologically, she is awake, alert and oriented times three. She has generalized weakness but strength in her upper and lower extremities is 5/5. Medications are reviewed and noticed that she has been on Aranesp 200 mcg once a week, ceftriaxone 1 gram every 24 hours, calcitriol 0.25 mcg every 2 days, Humulin insulin 25 units in the morning, amiodarone 200 mg daily, aspirin 81 mg daily, vitamin D 1000 units daily, vitamin B12 1000 mcg daily, multivitamin 1 tablet daily, Prilosec 40 mg daily, levothyroxine 100 mcg daily and Humulin insulin per sliding scale. She is also getting Zocor 40 mg daily and Venofer 100 mg with each dialysis. For pain, she is receiving oxycodone 5 mg every 8 hours as needed. Today's labs show WBC count 14.0, hemoglobin 8.0 and hematocrit 27.1. Sodium 134 and potassium 4.5. BUN 43 and creatinine 4.11. Glucose 132 and calcium 8.5. Urinalysis done last evening showed too numerous to count WBCs and large amount of bacteria. A urine culture is still pending. PROBLEMS: 1. Shortness of breath with diastolic congestive heart failure. The patient remains decompensated and has been unable to tolerate aggressive fluid removal with dialysis. Today there is no dialysis due to and we will plan to dialyze her tomorrow morning. I will give her Lasix 100 mg intravenously and see how she responds. 2. End-stage renal disease. The patient has been dialysis dependent and recently initiated dialysis. We will plan to dialyze her tomorrow morning. Today there is no emergent indication for dialysis as she is oxygenating well and electrolytes are within normal range. 3. Anemia. This is a chronic issue and she is currently receiving intravenous iron and Aranesp during dialysis. She has received multiple transfusions during her recent hospitalization. We will continue to monitor closely and transfuse her as needed. 4. Urinary tract infection. This is newly diagnosed by urinalysis. A urine culture is still pending. The patient has been started on ceftriaxone empirically and we will adjust the antibiotics depending upon her urine culture results. 5. Hypothyroidism. She has been on a levothyroxine with well-controlled hypothyroidism and we will continue with the same dose. 6. Hypotension. This is a chronic issue and may be somewhat worse now due to urinary tract infections and congestive heart failure. I am starting her on midodrine 5 mg every 6 hours. We will monitor her blood pressure closely. She is currently not on any antihypertensive medications. 7. Atrial fibrillation. The patient remains on amiodarone 200 mg daily. Her anticoagulation has been stopped due to ongoing GI bleed. 8. Diabetes. Diabetes has been very well controlled on insulin therapy and we will continue with the same. 9. Protein calorie malnutrition. This is again a chronic issue and related to her multiple medical problems. The patient is being encouraged to increase her protein intake. We will also added Nepro one can daily to improve her nutritional status.
--- NOTE | 2017-01-29 11:14 | IPNPDOC ---
Text Note Date of Service The patient was seen on 01/29/17. NOTE Subjective: Patient is a 76 year old female with a PMHx of AVR (2012), CAD s/p CABG (2012, 2015), HTN, DLP, Systolic / Diastolic CHF (EF: 40%), Paroxysmal atrial fibrillation (on ASA), Tachybrady syndrome s/p PM, IDDM2, Anemia, Pulmonary HTN, Hypothyroidism, ESRD on recently started HD who presented to the ER after she missed her scheduled HD for today because of fatigue. She was found to have lower extremity swelling and fatigue. Patient was recently admitted from 01/12 to 01/24 for heart failure and ESRD and recently started on HD with outpatient followup. Patient received urgent HD on 01/25 for fluid overload. Patient was seen and examined at the bedside. Patient reports that she is feeling well. Denies any dizziness, lightheadedness, chest pain or palpitations. Objective: Vitals (See below) General: Lying in bed, no acute distress, comfortable, AAOx3 HEENT: NC, AT CVS: RRR, +S1S2 Lungs: Fair air entry b/l, -w/r/r Abdomen: Soft, ND, NT Extremities: 2+ Pitting edema b/l persists, - Calf tenderness Assessment and plan: Leg weakness and fatigue - likely 2/2 decompensated state with worsening lower extremity edema 2/2 missed hemodialysis, possibly 2/2 infection - possibly 2/2 UTI - Still has signs of fluid overload - Despite furosemide IV 100 mg patient's has not made much urine - c/w physical therapy; will look into placement options if patient does not improve with physical therapy - See below Hypotension / Leukocytosis - possibly 2/2 infection 2/2 UTI - Remains afebrile - CXR 01/26: Cardiomegaly with pacemaker again noted, otherwise no acute disease - Blood cultures 01/27: no growth at 24 hours; Urine cultures 01/27: Escherichia coli - c/w ceftriaxone (Day #3) - c/w Midodrine 5mg TID by nephrology ESRD on recently started HD - Receives hemodialysis Wednesday, Wednesday and Wednesday - s/p urgent hemodialysis on Wednesday, 01/25 - Dialysis has been held over the last few days because of hypotension - Plan for dialysis today, 01/29 - Dr. Torres (Nephrology) has been consulted; appreciate their input Acute on chronic anemia - likely 2/2 renal disease and iron deficiency anemia - s/p 1 unit PRBC - Hemoglobin has been trending down again; we will transfused 2 units PRBC with dialysis - c/w iron supplementation HTN - Hypotensive since HD - However, remains completely asymptomatic - Carvedilol dose has been reduced Paroxysmal atrial fibrillation - Continue with amiodarone and reduced dose of carvedilol for rate control - c/w ASA s/p hyperkalemia AVR (2012) CAD s/p CABG (2012, 2015) Systolic / Diastolic CHF (EF: 40%) Tachybrady syndrome s/p PM DLP - c/w simvastatin IDDM2 - c/w insulin sliding scale Pulmonary HTN Hypothyroidism - c/w levothyroxine GERD - c/w omeprazole DVT prophylaxis - Continue with sleeve compression devices Disposition: - Continue with Ceftriaxone and Midodrine - Will restart dialysis today with 2 units PRBC transfusion - c/w PT; awaiting disposition recommendations VS,Viviane, I+O VS, Fishbone, I+O Laboratory Tests 01/28/17 16:12 01/29/17 04:30 Red Blood Count 2.77 L, Mean Corpuscular Volume 95.3, Mean Corpuscular Hemoglobin 28.2, Mean Corpuscular Hemoglobin Concent 29.5 L, Red Cell Distribution Width 17.2 H, Neutrophils (%) (Auto) 72.0 H, Lymphocytes (%) (Auto ) 18.8 L, Monocytes (%) (Auto) 7.4 H, Eosinophils (%) (Auto) 0.0, Basophils (%) (Auto) 0.4, Neutrophils # (Auto) 9.5 H, Lymphocytes # (Auto) 2.5, Monocytes # ( Auto) 1.0 H, Eosinophils # (Auto) 0.0, Basophils # (Auto) 0.1, Calcium Level 8.7 L Vital Signs Date Time Temp Pulse Resp B/P (MAP) Pulse Ox O2 Delivery O2 Flow Rate FiO2 01/29/17 08:33 98.0 01/29/17 08:08 61 20 117/58 (77) 99 Room Air 01/28/17 04:00 2.0 TEJAL DORADO MD Jan 29, 2017 11:14
[2017-01-29] MEDS ORDERED: LIDOCAINE 1% SDV 5 ML VIAL SQ ONE (11:30)
[2017-01-29] MEDS: CEFTRIAXONE SOD 1 GM in APPROPRIATE DILUENT 1 EA IV SCH (13:22)
[2017-01-29] MEDS: SIMVASTATIN 40 MG TAB PO SCH (20:48)
[2017-01-30] VITALS (7 sets, daily range): BP systolic 98–148; BP diastolic 40–64
[2017-01-30 05:25] LABS: MEAN CORPUSCULAR HEMOGLOBIN 28.9 pg (27.0-33.0); MEAN CORPUSCULAR HGB CONC 30.7 g/dl (32.0-36.5); PLATELET COUNT, AUTOMATED 200 10^3/uL (150-450); RED CELL DISTRIBUTION WIDTH 18.1 % (11.5-14.5); WHITE BLOOD COUNT 15.6 10^3/uL (4.0-10.0)
[2017-01-30 05:34] LABS: LEFT SHIFT POS FLAG; POSITIVE MORPH POS FLAG
[2017-01-30 05:35] LABS: ADD MANUAL DIFFER YES; DIFF SLIDE NUMBER 18
[2017-01-30 05:41] LABS: CALCIUM LEVEL 8.9 MG/DL (8.8-10.2); CREATININE FOR GFR 3.12 MG/DL (0.55-1.02); GLOMERULAR FILTRATION RATE 15.5 (>39); POTASSIUM SERUM 3.6 MEQ/L (3.5-5.1)
[2017-01-30] MEDS: LEVOTHYROXINE 100MCG TABLET (0.1MG) PO SCH (05:50)
[2017-01-30] MEDS: SLF 3 ML SYR IV SCH ×3 (05:50→21:42)
[2017-01-30 06:11] LABS: ANISOCYTOSIS 2+; BASOPHILS 1 % (0-4); EOSINOPHILS 1 % (0-5); PLATELET CLUMPS SMALL AMT
[2017-01-30 06:12] LABS: POIKILOCYTOSIS 2+
[2017-01-30] MEDS ORDERED: DARBEPOETIN 100 MCG/0.5 ML *DIALYSIS* SYRINGE (J0882) IV SCH (08:00)
[2017-01-30] MEDS: MULTIVITAMINS/MINERALS THERAP 1 TAB PO SCH (08:32)
[2017-01-30] MEDS: MIDODRINE 2.5 MG TAB PO SCH ×3 (08:32→17:49)
[2017-01-30] MEDS: OMEPRAZOLE 20 MG CAP PO SCH (08:32)
[2017-01-30] MEDS: VITAMIN D 1,000 INTERNATIONAL UNITS TABLET PO SCH (08:32)
[2017-01-30] MEDS: CYANOCOBALAMIN 500 MCG TAB PO SCH (08:32)
[2017-01-30] MEDS: AMIODARONE 200 MG TAB (PACERONE) PO SCH (08:32)
[2017-01-30] MEDS: ASPIRIN 81 MG ENTERIC TAB PO SCH (08:32)
[2017-01-30] MEDS: HumaLOG INSULIN (NovoLOG) PER UNIT SC SCH ×4 (08:33→20:36)
[2017-01-30] MEDS: HumuLIN N INSULIN (NovoLIN N) PER UNIT SC SCH ×2 (08:33→20:36)
--- NOTE | 2017-01-30 10:13 | IPNPDOC ---
Text Note Date of Service The patient was seen on 01/30/17. NOTE Subjective: Patient is a 76 year old female with a PMHx of AVR (2012), CAD s/p CABG (2012, 2015), HTN, DLP, Systolic / Diastolic CHF (EF: 40%), Paroxysmal atrial fibrillation (on ASA), Tachybrady syndrome s/p PM, IDDM2, Anemia, Pulmonary HTN, Hypothyroidism, ESRD on recently started HD who presented to the ER after she missed her scheduled HD for today because of fatigue. She was found to have lower extremity swelling and fatigue. Patient was recently admitted from 01/12 to 01/24 for heart failure and ESRD and recently started on HD with outpatient followup. Patient received urgent HD on 01/25 for fluid overload. Patient was seen and examined at the bedside. She notes that she is feeling better than yesterday. Denies any lightheadedness, palpitations, chest pain or dizziness. Gent. Denies any dysuria or frequency. Objective: Vitals (See below) General: Lying in bed, no acute distress, comfortable, AAOx3 HEENT: NC, AT CVS: RRR, +S1S2 Lungs: Fair air entry b/l, -w/r/r Abdomen: Soft, ND, NT Extremities: 2+ Pitting edema b/l persists, - Calf tenderness Assessment and plan: Leg weakness and fatigue - likely 2/2 decompensated state with worsening lower extremity edema 2/2 missed hemodialysis, possibly 2/2 infection - possibly 2/2 UTI -Physical still reveal signs of fluid overload, however, has shown improvement compared to yesterday - s/p Furosemide 100 mg IV - c/w physical therapy; will look into placement options if patient does not improve with physical therapy - See below Hypotension / Leukocytosis - possibly 2/2 infection 2/2 UTI - Remains afebrile - CXR 01/26: Cardiomegaly with pacemaker again noted, otherwise no acute disease - Blood cultures 01/27: no growth at 24 hours; Urine cultures 01/27: Escherichia coli - c/w Ceftriaxone (Day #4) - c/w Midodrine 5mg TID by nephrology; will reduce dose to 2.5 mg TID has blood pressure has been hypertensive ESRD on recently started HD - Receives hemodialysis Wednesday, Wednesday and Wednesday - Restarted Dialysis after patient's blood pressure has normalized - Dr. Torres / Dr. Singh (Nephrology) has been consulted; appreciate their input Acute on chronic anemia - likely 2/2 renal disease and iron deficiency anemia - s/p 3 unit PRBC - Stool for occult blood: Remains pending - c/w iron supplementation HTN - s/p Hypotension - Carvedilol dose has been reduced; Midodrine dose has been adjusted Paroxysmal atrial fibrillation - Continue with amiodarone and reduced dose of carvedilol for rate control - c/w ASA s/p hyperkalemia AVR (2012) CAD s/p CABG (2012, 2015) Systolic / Diastolic CHF (EF: 40%) Tachybrady syndrome s/p PM DLP - c/w simvastatin IDDM2 - c/w insulin sliding scale Pulmonary HTN Hypothyroidism - c/w levothyroxine GERD - c/w omeprazole DVT prophylaxis - Continue with sleeve compression devices Disposition: - Continue with Ceftriaxone and Midodrine - c/w PT; awaiting disposition recommendations VS,Raul, I+O VS, Viviane, I+O Laboratory Tests 01/30/17 04:30 Red Blood Count 3.50 L, Mean Corpuscular Volume 94.0, Mean Corpuscular Hemoglobin 28.9, Mean Corpuscular Hemoglobin Concent 30.7 L, Red Cell Distribution Width 18.1 H, Calcium Level 8.9 Vital Signs Date Time Temp Pulse Resp B/P (MAP) Pulse Ox O2 Delivery O2 Flow Rate FiO2 01/30/17 08:00 96.7 60 18 103/53 (70) 94 Room Air 01/30/17 04:00 2.0 I&O- Last 24 Hours up to 6 AM 01/31/17 06:00 Intake Total 300 ml Output Total 200 ml Balance 100 ml TEJAL DORADO MD Jan 30, 2017 10:13
[2017-01-30] MEDS ORDERED: SODIUM CHLORIDE 0.9% 1000 ML IV ONE (10:15)
[2017-01-30] MEDS: CEFTRIAXONE SOD 1 GM in APPROPRIATE DILUENT 1 EA IV SCH (12:35)
--- NOTE | 2017-01-30 15:31 | IPN ---
DATE: 01/29/2017 Mrs. Sullivan is seen this morning during hemodialysis on her bedside. She remains weak and short of breath. She denies any nausea or vomiting. She has no fever or chills. She still unable to get up from the bed by herself and needs assistance. PHYSICAL EXAMINATION: Temperature 98 degrees Fahrenheit, heart rate 60 per minute, respiratory rate 20 per minute, blood pressure 117/58 mm of mercury, and oxygen saturation 99% on room air. Head is atraumatic. Pupils are equal and reactive to light, and sclerae are anicteric. Neck is supple, and jugular venous distention (JVD) is elevated about 8-9 cm above sternal angle. She has no oral thrush or ulcers. Heart sounds are regular and lungs with diminished breath sounds bilaterally at lower one-third. With bibasilar rales. Abdomen is soft and nontender and without a palpable organomegaly. Bowel sounds are normal. Extremities have no cyanosis or clubbing. Neurologically she is awake, alert, and oriented times three. Skin has no rash or ulcers. Today's labs show WBC count 13.2, hemoglobin 7.8, and hematocrit 26.4. Sodium 133, potassium 4.6, BUN is 54, and creatinine 4.68. PROBLEMS: 1. Congestive heart failure, acute on chronic. The patient remains decompensated. We will try to remove about 2.5 liters today with hemodialysis and see how she tolerates. 2. Anemia. Her anemia has worsened once again. She has required multiple transfusions and did have a positive stool for occult blood. We will transfuse two more units of packed red blood cells (RBC) today and continue to monitor her complete blood count (CBC) on a daily basis. 3. Hypotension. This is a chronic issue, and currently she is not on any antihypertensive medications other than amiodarone. We have already started midodrine 5 mg three times a day, and we will continue with the same. 4. Urinary tract infection (UTI). The patient currently remains on ceftriaxone 1 gram every 24 hours. 5. Hyponatremia. It is mild and stable and likely to improve with hemodialysis. No intervention is indicated at this point.
--- NOTE | 2017-01-30 19:04 | IPN ---
DATE: 01/30/2017 SUBJECTIVE: Ms. Sullivan is seen this morning on her bedside. She underwent hemodialysis yesterday and also received two units of packed red blood cells (RBCs). We removed about 2.5 liters of fluid. She feels better today and reports that she is slightly stronger and able to get up by herself. She is still not able to walk. She remains short of breath on any exertion but denies any chest pain. She has no fever or chills. She denies any nausea or vomiting and has been eating well. PHYSICAL EXAMINATION: Temperature 96.7 degrees Fahrenheit, heart rate 60 per minute and respiratory rate 18 per minute. Blood pressure 104/48 mmHg and oxygen saturation 97% on room air. Head is atraumatic. Pupils equal and reactive to light and sclerae are anicteric. Neck is supple and jugular venous distention (JVD) is elevated at least about 10 cm above sternal angle. Lungs have diminished breath sounds and bilateral rales. Heart sounds are regular and without a pericardial friction rub. Abdomen is soft and nontender and bowel sounds are normal. There is no palpable organomegaly. Extremities have no cyanosis or clubbing. Musculoskeletal system shows leg edema which is about 2+ bilaterally. Skin has no rash or ulcers. Neurologically she is awake, alert and oriented times three. LABORATORY DATA: Today's labs show WBC count 15.6, hemoglobin 10.1 and hematocrit 32.9. Sodium 136 and potassium 3.6. BUN is 38 and creatinine 3.12. PROBLEMS: 1. Congestive heart failure, acute on chronic diastolic. She remains decompensated with significant volume overload. We plan to perform an extra ultrafiltration today and will try to remove about 2.5 to three liters of fluid with hemodialysis. She does not respond well to diuretics due to end-stage renal disease. 2. Anemia. Her anemia has improved following transfusion of two units of packed RBCs. No further transfusion is indicated today. 3. End-stage renal disease. The patient was dialyzed yesterday and her next dialysis will be scheduled for Wednesday. Her electrolytes are stable. Her volume status remains decompensated; however, it is likely to improve with ultrafiltration today. 4. Hyponatremia. Sodium level has corrected with hemodialysis yesterday. We will try to maintain her volume status with aggressive fluid removal. 5. Generalized weakness and deconditioning. She remains quite weak and will require physical rehabilitation. We will continue to optimize her medical condition so that her weakness can improve.
[2017-01-30] MEDS: SIMVASTATIN 40 MG TAB PO SCH (20:36)
[2017-01-30] MEDS: CALCITRIOL 0.25 MCG CAP (S0169) PO SCH (20:36)
[2017-01-31 05:01] VITALS: BP 104/44
[2017-01-31] MEDS: SLF 3 ML SYR IV SCH ×3 (05:26→20:56)
[2017-01-31] MEDS: LEVOTHYROXINE 100MCG TABLET (0.1MG) PO SCH (05:26)
[2017-01-31 05:42] LABS: BASO # 0.1 10^3/uL (0.0-0.2); BASO % 0.5 % (0.0-1.0); IMMATURE GRANULOCYTE % 2.2 % (0-0); LYMPH # 3.1 10^3/uL (1.5-4.5); LYMPH % 19.1 % (24.0-44.0); MEAN CORPUSCULAR HEMOGLOBIN 28.6 pg (27.0-33.0); MEAN CORPUSCULAR HGB CONC 30.7 g/dl (32.0-36.5); MEAN CORPUSCULAR VOLUME 93.2 fl (80.0-96.0); MONO # 1.2 10^3/uL (0.0-0.8); MONO % 7.6 % (0.0-5.0); NEUTROPHILS # 11.4 10^3/uL (1.8-7.7); NEUTROPHILS % 70.6 % (36.0-66.0); PLATELET COUNT, AUTOMATED 209 10^3/uL (150-450); RED CELL DISTRIBUTION WIDTH 17.6 % (11.5-14.5); WHITE BLOOD COUNT 16.1 10^3/uL (4.0-10.0)
[2017-01-31 05:56] LABS: CALCIUM LEVEL 8.9 MG/DL (8.8-10.2); CREATININE FOR GFR 3.98 MG/DL (0.55-1.02); GLOMERULAR FILTRATION RATE 11.7 (>39); POTASSIUM SERUM 3.6 MEQ/L (3.5-5.1)
[2017-01-31] MEDS: ASPIRIN 81 MG ENTERIC TAB PO SCH (07:47)
[2017-01-31] MEDS: OMEPRAZOLE 20 MG CAP PO SCH (07:47)
[2017-01-31] MEDS: CYANOCOBALAMIN 500 MCG TAB PO SCH (07:47)
[2017-01-31] MEDS: AMIODARONE 200 MG TAB (PACERONE) PO SCH (07:48)
[2017-01-31] MEDS: MIDODRINE 2.5 MG TAB PO SCH ×2 (07:48→12:12)
[2017-01-31] MEDS: VITAMIN D 1,000 INTERNATIONAL UNITS TABLET PO SCH (07:48)
[2017-01-31] MEDS: MULTIVITAMINS/MINERALS THERAP 1 TAB PO SCH (07:48)
[2017-01-31] MEDS: HumuLIN N INSULIN (NovoLIN N) PER UNIT SC SCH ×2 (07:48→20:50)
[2017-01-31] MEDS: HumaLOG INSULIN (NovoLOG) PER UNIT SC SCH ×4 (07:49→20:48)
[2017-01-31 08:00] VITALS: BP 110/46
[2017-01-31 12:00] VITALS: BP 102/44
[2017-01-31] MEDS: CEFTRIAXONE SOD 1 GM in APPROPRIATE DILUENT 1 EA IV SCH (12:12)
--- NOTE | 2017-01-31 15:34 | IPN ---
DATE: 01/31/2017 Ms. Sullivan is seen this morning on her bedside. She is feeling much better and reports slightly improved strength and inability to get up by herself. Her dyspnea on exertion still persists. She denies any chest pain. She has no nausea or vomiting. The patient has no fever or chills and review of system is otherwise unremarkable. PHYSICAL EXAMINATION: On physical examination, temperature 97 degrees Fahrenheit, heart rate 60 per minute and respiratory rate 18 per minute. Blood pressure 110/46 mmHg and oxygen saturation 100% on room air. Head is atraumatic. Pupils are equal and reactive to light and sclera is anicteric. Ears, nose and throat are unremarkable. Neck is supple and jugular venous distention (JVD) is elevated at least about 9-10 cm above the sternal angle. Heart sounds are regular and without a pericardial friction rub. Lungs with diminished breath sounds and bibasilar rales. Abdomen is soft and nontender and without a palpable organomegaly. Bowel sounds are normal. Extremities have no cyanosis or clubbing. Musculoskeletal system showed 2+ leg edema bilaterally. Skin has no rash or ulcers. Neurologically, she is awake, alert and oriented times three. LABORATORY DATA: Today's laboratories show WBC count 16.1, hemoglobin 10.1 and hematocrit 32.9. Sodium 135 and potassium 3.6. BUN is 50 and creatinine 3.98. PROBLEMS: 1. Acute on chronic diastolic congestive heart failure. Her volume status remains decompensated though slightly improved. The patient underwent ultrafiltration yesterday and three liters of fluid was removed. We plan to dialyze her again tomorrow with further 2-3 liters of fluid removal as tolerated. 2. End-stage renal disease. The patient has been dialysis-dependent and will be dialyzed again tomorrow. Electrolytes are stable and she has no uremic symptoms. 3. Hypotension. This has been a chronic issue. She has been on midodrine and dose has been cut down by the hospitalist service. I will increase her dose back to 5 mg three times a day as she becomes frequently hypotensive during dialysis whenever we try to remove fluid. 4. Anemia. She has received transfusions and anemia is stable at present. She also receives Aranesp 200 mcg once a week. 5. Urinary tract infection (UTI). She remains on ceftriaxone 1 gram every 24 hours. She has developed mild leukocytosis without any fever and we will continue to watch it. 6. Diabetes. Her diabetes has been reasonably well-controlled and we will continue with current management. 7. Hypothyroidism. The patient remains on levothyroxine 100 mcg daily.
--- NOTE | 2017-01-31 15:58 | IPNPDOC ---
Text Note Date of Service The patient was seen on 01/31/17. NOTE Subjective: Patient is a 76 year old female with a PMHx of AVR (2012), CAD s/p CABG (2012, 2015), HTN, DLP, Systolic / Diastolic CHF (EF: 40%), Paroxysmal atrial fibrillation (on ASA), Tachybrady syndrome s/p PM, IDDM2, Anemia, Pulmonary HTN, Hypothyroidism, ESRD on recently started HD who presented to the ER after she missed her scheduled HD for today because of fatigue. She was found to have lower extremity swelling and fatigue. Patient was recently admitted from 01/12 to 01/24 for heart failure and ESRD and recently started on HD with outpatient followup. Patient received urgent HD on 01/25 for fluid overload. Patient was seen and examined at the bedside. Denies any events overnight. Notes that she is feeling better and more energetic today. Objective: Vitals (See below) General: Lying in bed, no acute distress, comfortable, AAOx3 HEENT: NC, AT CVS: RRR, +S1S2 Lungs: Fair air entry b/l, -w/r/r Abdomen: Soft, ND, NT Extremities: 2+ Pitting edema b/l persists, - Calf tenderness Assessment and plan: Leg weakness and fatigue - likely 2/2 decompensated state with worsening lower extremity edema 2/2 missed hemodialysis, possibly 2/2 infection - possibly 2/2 UTI - Physical reveals LE edema still - s/p Furosemide 100 mg IV - c/w physical therapy; will look into placement options if patient does not improve with physical therapy - See below Hypotension / Leukocytosis - possibly 2/2 infection 2/2 UTI - Leukocytosis has increased - Remains afebrile - CXR 01/26: Cardiomegaly with pacemaker again noted, otherwise no acute disease - Blood cultures 01/27: no growth at 24 hours; Urine cultures 01/27: Escherichia coli - c/w Ceftriaxone (Day #5) - c/w Midodrine ESRD on recently started HD (MWF) - Restarted Dialysis after patient's blood pressure has normalized - Will continue dialysis to optimize volume status - Dr. Torres / Dr. Singh (Nephrology) has been consulted; appreciate their input Acute on chronic anemia - likely 2/2 renal disease and iron deficiency anemia - s/p 3 unit PRBC - Stool for occult blood: Remains pending - c/w iron supplementation HTN - s/p Hypotension - c/w Midodrine (for dialysis associated hypotension) and adjusted dose of carvedilol Paroxysmal atrial fibrillation - Continue with amiodarone and reduced dose of carvedilol for rate control - c/w ASA s/p hyperkalemia AVR (2012) CAD s/p CABG (2012, 2015) Systolic / Diastolic CHF (EF: 40%) Tachybrady syndrome s/p PM DLP - c/w simvastatin IDDM2 - c/w insulin sliding scale Pulmonary HTN Hypothyroidism - c/w levothyroxine GERD - c/w omeprazole DVT prophylaxis - Continue with sleeve compression devices Disposition: - Continue with Ceftriaxone and Midodrine - c/w PT; awaiting disposition recommendations Raul MCGRAW, I+O VSRaul I+O Laboratory Tests 01/31/17 04:38 Red Blood Count 3.53 L, Mean Corpuscular Volume 93.2, Mean Corpuscular Hemoglobin 28.6, Mean Corpuscular Hemoglobin Concent 30.7 L, Red Cell Distribution Width 17.6 H, Neutrophils (%) (Auto) 70.6 H, Lymphocytes (%) (Auto ) 19.1 L, Monocytes (%) (Auto) 7.6 H, Eosinophils (%) (Auto) 0.0, Basophils (%) (Auto) 0.5, Neutrophils # (Auto) 11.4 H, Lymphocytes # (Auto) 3.1, Monocytes # ( Auto) 1.2 H, Eosinophils # (Auto) 0.0, Basophils # (Auto) 0.1, Calcium Level 8.9 Vital Signs Date Time Temp Pulse Resp B/P (MAP) Pulse Ox O2 Delivery O2 Flow Rate FiO2 01/31/17 12:00 97.8 64 18 102/44 (63) 100 Room Air 01/31/17 05:01 2.0 I&O- Last 24 Hours up to 6 AM 02/01/17 06:00 Intake Total 720 ml Balance 720 ml TEJAL DORADO MD Jan 31, 2017 15:58
[2017-01-31 16:00] VITALS: BP 98/42
[2017-01-31] MEDS: MIDODRINE 5 MG TAB PO SCH (16:57)
[2017-01-31 20:00] VITALS: BP 144/63
[2017-01-31] MEDS: SIMVASTATIN 40 MG TAB PO SCH (20:50)
[2017-01-31 23:59] VITALS: BP 151/66
[2017-02-01 04:00] VITALS: BP 143/62
[2017-02-01 05:33] LABS: BASO # 0.1 10^3/uL (0.0-0.2); BASO % 0.4 % (0.0-1.0); LYMPH # 3.6 10^3/uL (1.5-4.5); LYMPH % 25.1 % (24.0-44.0); MEAN CORPUSCULAR HEMOGLOBIN 28.2 pg (27.0-33.0); MEAN CORPUSCULAR HGB CONC 30.2 g/dl (32.0-36.5); MEAN CORPUSCULAR VOLUME 93.7 fl (80.0-96.0); MONO # 1.1 10^3/uL (0.0-0.8); MONO % 7.6 % (0.0-5.0); NEUTROPHILS # 9.3 10^3/uL (1.8-7.7); NEUTROPHILS % 64.9 % (36.0-66.0); PLATELET COUNT, AUTOMATED 218 10^3/uL (150-450); RED CELL DISTRIBUTION WIDTH 17.7 % (11.5-14.5); WHITE BLOOD COUNT 14.4 10^3/uL (4.0-10.0)
[2017-02-01 05:56] LABS: CALCIUM LEVEL 8.8 MG/DL (8.8-10.2); CREATININE FOR GFR 4.46 MG/DL (0.55-1.02); GLOMERULAR FILTRATION RATE 10.2 (>39)
[2017-02-01] MEDS: SLF 3 ML SYR IV SCH ×3 (06:00→21:11)
[2017-02-01] MEDS: MIDODRINE 5 MG TAB PO SCH ×3 (06:10→17:27)
[2017-02-01] MEDS: LEVOTHYROXINE 100MCG TABLET (0.1MG) PO SCH (06:10)
[2017-02-01] MEDS: AMIODARONE 200 MG TAB (PACERONE) PO SCH (06:11)
[2017-02-01] MEDS: ASPIRIN 81 MG ENTERIC TAB PO SCH (06:11)
[2017-02-01] MEDS: OMEPRAZOLE 20 MG CAP PO SCH (06:11)
[2017-02-01] MEDS: MULTIVITAMINS/MINERALS THERAP 1 TAB PO SCH (06:11)
[2017-02-01] MEDS: VITAMIN D 1,000 INTERNATIONAL UNITS TABLET PO SCH (06:12)
[2017-02-01] MEDS: CYANOCOBALAMIN 500 MCG TAB PO SCH (06:12)
[2017-02-01] MEDS: HumaLOG INSULIN (NovoLOG) PER UNIT SC SCH ×4 (07:30→21:00)
[2017-02-01 08:00] VITALS: BP 122/58
[2017-02-01] MEDS: HumuLIN N INSULIN (NovoLIN N) PER UNIT SC SCH ×2 (08:27→21:11)
[2017-02-01] MEDS ORDERED: LIDOCAINE 1% SDV 5 ML VIAL SQ ONE (11:15)
[2017-02-01 13:56] VITALS: BP 122/60
[2017-02-01] MEDS: CEFTRIAXONE SOD 1 GM in APPROPRIATE DILUENT 1 EA IV SCH (13:56)
--- NOTE | 2017-02-01 15:58 | IPNPDOC ---
Text Note Date of Service The patient was seen on 02/01/17. NOTE Subjective: Patient is a 76 year old female with a PMHx of AVR (2012), CAD s/p CABG (2012, 2015), HTN, DLP, Systolic / Diastolic CHF (EF: 40%), Paroxysmal atrial fibrillation (on ASA), Tachybrady syndrome s/p PM, IDDM2, Anemia, Pulmonary HTN, Hypothyroidism, ESRD on recently started HD who presented to the ER after she missed her scheduled HD for today because of fatigue. She was found to have lower extremity swelling and fatigue. Patient was recently admitted from 01/12 to 01/24 for heart failure and ESRD and recently started on HD with outpatient followup. Patient received urgent HD on 01/25 for fluid overload. Patient was seen and examined at the bedside. She notes that there is improvement in the way that she feels. Denies any lightheadedness, dizziness, chest pain or palpitations. Has been able to ambulate around the medical yung. Objective: Vitals (See below) General: Lying in bed, no acute distress, comfortable, AAOx3 HEENT: NC, AT CVS: RRR, +S1S2 Lungs: Fair air entry b/l, -w/r/r Abdomen: Soft, ND, NT Extremities: 2+ Pitting edema b/l persists, - Calf tenderness Assessment and plan: Leg weakness and fatigue - likely 2/2 decompensated state with worsening lower extremity edema 2/2 missed hemodialysis, possibly 2/2 infection - possibly 2/2 UTI - Physical with some lower extremity pitting edema still noted - s/p Furosemide 100 mg IV - Will continue with physical therapy, is able to make progress - See below Hypotension / Leukocytosis - possibly 2/2 infection 2/2 UTI - Leukocytosis has begun to decrease today - Remains afebrile - CXR 01/26: Cardiomegaly with pacemaker again noted, otherwise no acute disease - Blood cultures 01/27: no growth at 24 hours; Urine cultures 01/27: Escherichia coli - c/w Ceftriaxone (Day #6 of 7) - c/w Midodrine ESRD on recently started HD (MWF) - c/w Dialysis until patient is euvolemic - Dr. Torres / Dr. Singh (Nephrology) has been consulted; appreciate their input Acute on chronic anemia - likely 2/2 renal disease and iron deficiency anemia - s/p 3 unit PRBC - Stool for occult blood: Remains pending - c/w iron supplementation HTN - s/p Hypotension - c/w Midodrine (for dialysis associated hypotension) and adjusted dose of carvedilol Paroxysmal atrial fibrillation - Continue with amiodarone and reduced dose of carvedilol for rate control - c/w ASA s/p hyperkalemia AVR (2012) CAD s/p CABG (2012, 2015) Systolic / Diastolic CHF (EF: 40%) Tachybrady syndrome s/p PM DLP - c/w simvastatin IDDM2 - c/w insulin sliding scale Pulmonary HTN Hypothyroidism - c/w levothyroxine GERD - c/w omeprazole DVT prophylaxis - Continue with sleeve compression devices Disposition: - Continue with Ceftriaxone (Day 6 of 7) and Midodrine - c/w PT; awaiting disposition recommendations VS,Fishbone, I+O VS, Fishbone, I+O Laboratory Tests 02/01/17 04:46 Red Blood Count 3.47 L, Mean Corpuscular Volume 93.7, Mean Corpuscular Hemoglobin 28.2, Mean Corpuscular Hemoglobin Concent 30.2 L, Red Cell Distribution Width 17.7 H, Neutrophils (%) (Auto) 64.9, Lymphocytes (%) (Auto) 25.1, Monocytes (%) (Auto) 7.6 H, Eosinophils (%) (Auto) 0.0, Basophils (%) ( Auto) 0.4, Neutrophils # (Auto) 9.3 H, Lymphocytes # (Auto) 3.6, Monocytes # ( Auto) 1.1 H, Eosinophils # (Auto) 0.0, Basophils # (Auto) 0.1, Calcium Level 8.8 Vital Signs Date Time Temp Pulse Resp B/P (MAP) Pulse Ox O2 Delivery O2 Flow Rate FiO2 02/01/17 13:56 97.0 61 17 122/60 (80) 98 Room Air 01/31/17 05:01 2.0 I&O- Last 24 Hours up to 6 AM 02/02/17 06:00 Intake Total 480 ml Output Total 3000 ml Balance -2520 ml TEJAL DORADO MD Feb 01, 2017 15:58
[2017-02-01] MEDS: ACETAMINOPHEN 650MG ER TAB (TYLENOL ARTHRITIS) PO PRN (17:52)
--- NOTE | 2017-02-01 19:25 | IPN ---
DATE: 02/01/2017 Ms. Sullivan is seen during hemodialysis this morning on her bedside. She is feeling better since her last dialysis and ultrafiltration on Wednesday. She denies any nausea or vomiting. She does have some dyspnea on exertion. Her leg weakness and swelling has improved since we removed fluid with dialysis treatments. PHYSICAL EXAMINATION: On physical examination, temperature 96.8 degrees Fahrenheit, heart rate 60 per minute and respiratory rate 18 per minute. Blood pressure 122/58 mmHg and oxygen saturation 98% on room air. Head is atraumatic. Neck is supple and jugular venous distention (JVD) is about 7 cm above the sternal angle. She has no oral thrush or ulcers. Pupils are equal and reactive to light and sclera is anicteric. Heart sounds regular with systolic murmur grade 2/6. There is no pericardial rub. Lungs with diminished breath sounds at the bases and few basilar rales. Abdomen is soft and nontender. Bowel sounds are normal. Extremities have no cyanosis or clubbing. She has a significant area of skin tear on her left forearm just next to her arteriovenous (AV) fistula. There is no active bleeding but she has a raw area without any signs of infection. Lower extremity edema has improved and it is now about 1+ bilaterally. Neurologically, she is awake, alert and oriented times three. LABORATORY DATA: Today's laboratories show WBC count 14.4, hemoglobin 9.8 and hematocrit 32.5. Sodium 134 and potassium 4.0. BUN 64 and creatinine 4.46. PROBLEMS: 1. Acute on chronic diastolic congestive heart failure. Volume status is improving with aggressive fluid removal with dialysis. We plan to remove three liters of fluid today with hemodialysis. She is tolerating it well so far. 2. End-stage renal disease. The patient remains dialysis dependent and is being dialyzed today for her regular dialysis treatment. 3. Hyponatremia. Sodium level is mildly low and stable. It is likely to improve with dialysis and correction of volume status. No other intervention is indicated. 4. Anemia. Her anemia has been stable since she was transfused a few days ago. No active bleeding noticed and we will continue to monitor closely. 5. Generalized weakness and deconditioning. The patient is improving as her volume status and congestive heart failure are improving. She will continue with physical therapy and rehabilitation.
[2017-02-01] MEDS: CALCITRIOL 0.25 MCG CAP (S0169) PO SCH (21:10)
[2017-02-01] MEDS: SIMVASTATIN 40 MG TAB PO SCH (21:10)
[2017-02-01 23:59] VITALS: BP 109/53
[2017-02-02 04:00] VITALS: BP 124/59
[2017-02-02] MEDS: LEVOTHYROXINE 100MCG TABLET (0.1MG) PO SCH (06:15)
[2017-02-02] MEDS: SLF 3 ML SYR IV SCH ×3 (06:15→21:29)
[2017-02-02] MEDS: HumaLOG INSULIN (NovoLOG) PER UNIT SC SCH ×4 (07:30→21:00)
[2017-02-02 07:49] VITALS: BP 124/57
[2017-02-02 08:08] LABS: MEAN CORPUSCULAR HEMOGLOBIN 28.7 pg (27.0-33.0); MEAN CORPUSCULAR HGB CONC 29.4 g/dl (32.0-36.5); MEAN CORPUSCULAR VOLUME 97.4 fl (80.0-96.0); PLATELET COUNT, AUTOMATED 217 10^3/uL (150-450); RED CELL DISTRIBUTION WIDTH 18.9 % (11.5-14.5); WHITE BLOOD COUNT 14.6 10^3/uL (4.0-10.0)
[2017-02-02 08:30] LABS: CREATININE FOR GFR 3.11 MG/DL (0.55-1.02); GLOMERULAR FILTRATION RATE 15.5 (>39); POTASSIUM SERUM 4.2 MEQ/L (3.5-5.1)
[2017-02-02] MEDS: CYANOCOBALAMIN 500 MCG TAB PO SCH (08:52)
[2017-02-02] MEDS: MULTIVITAMINS/MINERALS THERAP 1 TAB PO SCH (08:52)
[2017-02-02] MEDS: OMEPRAZOLE 20 MG CAP PO SCH (08:52)
[2017-02-02] MEDS: MIDODRINE 5 MG TAB PO SCH ×3 (08:53→17:24)
[2017-02-02] MEDS: VITAMIN D 1,000 INTERNATIONAL UNITS TABLET PO SCH (08:53)
[2017-02-02] MEDS: HumuLIN N INSULIN (NovoLIN N) PER UNIT SC SCH ×2 (08:53→21:28)
[2017-02-02] MEDS: ASPIRIN 81 MG ENTERIC TAB PO SCH (08:53)
[2017-02-02] MEDS: AMIODARONE 200 MG TAB (PACERONE) PO SCH (08:53)
--- NOTE | 2017-02-02 11:32 | IPN ---
DATE: 02/02/2017 Mrs. Sullivan is seen this morning on her bedside. She is sitting at the edge of bed eating her breakfast. She reports feeling better and stronger. She is now able to get up from the bed by herself. She reports that she was able to walk to the bathroom with the help of walker. Her dyspnea and leg edema has improved significantly though has not completely resolved. She is still weak and is working with physical therapy. She reports walking 80 feet yesterday. She has no fever or chills. She denies any nausea or vomiting. She does not feel dizzy or lightheaded when she stands up. Her blood pressure has been reasonable with midodrine 5 mg three times a day. PHYSICAL EXAMINATION Temperature 96.2 degrees Fahrenheit, heart rate 60 per minute and respiratory rate 18 per minute. Blood pressure 124/57 mmHg and oxygen saturation 96% on room air. Head is atraumatic. Pupils equal and reactive to light and sclera is anicteric. Ears, nose and throat are unremarkable. Neck is supple and jugular venous distention (JVD) is only minimally elevated now sitting upright. Lungs with diminished breath sounds and few basilar rales. Heart sounds are regular with systolic murmur grade 2/6. There is no pericardial friction rub. Abdomen is soft and nontender and without a palpable organomegaly. Bowel sounds are normal. Extremities have no cyanosis or clubbing. Left forearm skin laceration area is dry and she is keeping it uncovered. There is no bleeding at present. She has about 1+ leg edema bilaterally. Neurologically, she is awake, alert and oriented times three. Today's labs show WBC count 14.6, hemoglobin 10.0 and hematocrit 34.0. Platelets 217. Sodium 140 and potassium 4.2. BUN 36 and creatinine 3.11. PROBLEMS: 1. Shortness of breath with decompensated congestive heart failure. Her volume status continues to improve with ongoing hemodialysis. Unfortunately today we will not be able to dialyze her due to too many patients on the schedule. Her regular dialysis will be performed tomorrow and we will try to remove another 3 liters of fluid. 2. End-stage renal disease. The patient has been dialysis dependent and tolerating her dialysis well. Next dialysis will be tomorrow. 3. Hyponatremia. Sodium level has corrected, and she will remain on 1500 mL fluid restriction. 4. Anemia. Her anemia has been stable since she was transfused earlier. No changes are indicated at this point. She receives Aranesp 200 mcg once a week during dialysis. 5. Hypotension. Blood pressure improved with midodrine 5 mg three times a day, and we will continue with the same. 6. Urinary tract infection (UTI). She has been on ceftriaxone 1 gram every 24 hours. 7. Diabetes. Her diabetes has been well controlled with insulin. Continue with current regimen. 8. History of paroxysmal atrial fibrillation. She is currently on amiodarone 200 mg daily and rate is very well controlled. She is not suitable for a beta marie due to persistent hypotension. 9. Hyperparathyroidism. The patient remains on calcitriol 0.25 mcg three times a week.
[2017-02-02 12:00] VITALS: BP 125/60
[2017-02-02] MEDS: ACETAMINOPHEN 650MG ER TAB (TYLENOL ARTHRITIS) PO PRN (12:13)
[2017-02-02] MEDS: CEFTRIAXONE SOD 1 GM in APPROPRIATE DILUENT 1 EA IV SCH (13:28)
[2017-02-02 16:00] VITALS: BP 135/61
--- NOTE | 2017-02-02 16:54 | IPN ---
DATE: 02/02/2017 SUBJECTIVE: The patient tells me that she is feeling quite well today. She tells me that she was able to get up and walk almost 80 feet. She denies fevers or chills. She tells me that her shortness of breath is improving. She denies nausea, vomiting, or diarrhea. OBJECTIVE: VITAL SIGNS: Temperature 96.2, pulse 60, respiratory rate 17, blood pressure 124/57, oxygen saturation 96% on room air. GENERAL: She is morbidly obese, elderly, female sitting on the edge of her bed. She does not appear to be in any acute distress. NEUROLOGIC: Cranial nerves II-XII are grossly intact. NECK: She does have some elevation in her central venous pressure. She has scattered bibasilar rales. CARDIOVASCULAR EXAMINATION: S1, S2, regular. ABDOMINAL EXAMINATION: Grossly obese. EXTREMITIES: There is 1 to 2+ edema bilaterally. LABORATORY STUDIES: WBC 14.6, hemoglobin 10.0, platelet count 217. Chemistry panel: Sodium 140, potassium 4.2, chloride 102, bicarbonate 30, BUN 36, creatinine 3.1. MICROBIOLOGY: She had a urine culture which is positive for Escherichia coli on 01/27/2017. No new imaging. ASSESSMENT AND PLAN: This is a 76-year-old female with decompensated congestive heart failure. PROBLEMS: 1. Decompensated congestive heart failure, likely related to renal disease. She is on hemodialysis. She does not have an emergent need for hemodialysis today. She does appear to be significantly improved but still has significant fluid remaining. Dr. Singh has informed me that the plan is for hemodialysis tomorrow with an additional three liters of fluid removal which seems appropriate. His help is greatly appreciated. 2. Secondary hyperparathyroidism. She is on calcitriol. 3. Anemia, likely related end-stage renal disease. She is on Aranesp. Nephrology's help is appreciated. 4. Hypotension. Her blood pressure has improved with midodrine 5 mg three times a day. We will continue with this regimen as she is tolerating dialysis better and we can more adequately remove fluid. 5. Urinary tract infection. She is on ceftriaxone. Today is day six. I suspect she could likely complete a seven-day course tomorrow and have her antibiotics discontinued. 6. Weakness, likely related to her fluid overload status. She is to continue to work with physical therapy. She needs to climb four steps safely before she can return home. 7. Diabetes. She is continued on insulin and her fingersticks are controlled. 8. Paroxysmal atrial fibrillation. She is rate controlled with amiodarone 200 mg daily. She has persistent hypotension and cannot tolerate a beta marie. She is on a baby aspirin but curiously no anticoagulation for reasons unknown to me. 9. Vitamin D deficiency and vitamin B12 deficiency. Continue with supplementation with multivitamin. 10. Gastroesophageal reflux disease. Continue with omeprazole. 11. Hypothyroidism. Continue with Synthroid. 12. Dyslipidemia. Continue with statin. 13. Deep vein thrombosis (DVT) prophylaxis. Continue with sequentials and thromboembolic-deterrent stockings (TEDS).
[2017-02-02 20:23] VITALS: BP 122/77
[2017-02-02] MEDS: SIMVASTATIN 40 MG TAB PO SCH (21:29)
[2017-02-03 00:31] VITALS: BP 123/57
[2017-02-03 04:55] VITALS: BP 117/57
[2017-02-03] MEDS: LEVOTHYROXINE 100MCG TABLET (0.1MG) PO SCH (06:13)
[2017-02-03] MEDS: SLF 3 ML SYR IV SCH ×3 (06:13→21:07)
[2017-02-03 06:56] LABS: CREATININE FOR GFR 3.51 MG/DL (0.55-1.02); GLOMERULAR FILTRATION RATE 13.5 (>39); POTASSIUM SERUM 4.7 MEQ/L (3.5-5.1)
[2017-02-03 07:18] LABS: MEAN CORPUSCULAR HEMOGLOBIN 28.7 pg (27.0-33.0); MEAN CORPUSCULAR HGB CONC 29.6 g/dl (32.0-36.5); MEAN CORPUSCULAR VOLUME 96.8 fl (80.0-96.0); PLATELET COUNT, AUTOMATED 243 10^3/uL (150-450); RED CELL DISTRIBUTION WIDTH 18.9 % (11.5-14.5); WHITE BLOOD COUNT 16.7 10^3/uL (4.0-10.0)
[2017-02-03] MEDS: HumaLOG INSULIN (NovoLOG) PER UNIT SC SCH ×4 (07:29→20:34)
[2017-02-03] MEDS: VITAMIN D 1,000 INTERNATIONAL UNITS TABLET PO SCH (07:30)
[2017-02-03] MEDS: OMEPRAZOLE 20 MG CAP PO SCH (07:30)
[2017-02-03] MEDS: MIDODRINE 5 MG TAB PO SCH ×3 (07:30→17:44)
[2017-02-03] MEDS: CYANOCOBALAMIN 500 MCG TAB PO SCH (07:30)
[2017-02-03] MEDS: AMIODARONE 200 MG TAB (PACERONE) PO SCH (07:30)
[2017-02-03] MEDS: MULTIVITAMINS/MINERALS THERAP 1 TAB PO SCH (07:30)
[2017-02-03] MEDS: ASPIRIN 81 MG ENTERIC TAB PO SCH (07:30)
[2017-02-03] MEDS: ACETAMINOPHEN 650MG ER TAB (TYLENOL ARTHRITIS) PO PRN (07:32)
[2017-02-03 08:00] VITALS: BP 145/64
[2017-02-03] MEDS: HumuLIN N INSULIN (NovoLIN N) PER UNIT SC SCH ×2 (08:47→20:34)
[2017-02-03] MEDS ORDERED: HumuLIN N INSULIN (NovoLIN N) PER UNIT SC ONE (09:00)
[2017-02-03] MEDS ORDERED: LIDOCAINE 1% SDV 5 ML VIAL SQ ONE (11:00)
[2017-02-03 13:59] VITALS: BP 124/58
[2017-02-03] MEDS: CEFTRIAXONE SOD 1 GM in APPROPRIATE DILUENT 1 EA IV SCH (14:24)
--- NOTE | 2017-02-03 15:55 | IPN ---
DATE: 02/03/2017 SUBJECTIVE: The patient tells me that she is feeling quite well. She has no complaints of shortness of breath. She tells me that she tolerated dialysis today quite well and feels good. OBJECTIVE: VITAL SIGNS: Temperature 96.7, pulse 64, respiratory rate 17, blood pressure 145/64, oxygen saturation 97% on room air. GENERAL: She is a pleasant, elderly, morbidly obese, female sitting up in a chair. She is watching television. She does not appear to be in any acute distress. HEENT: Cranial nerves II-XII are grossly intact. She has moist mucous membranes. There is elevation in her central venous pressure. CARDIOVASCULAR EXAM: S1, S2, regular. RESPIRATORY EXAM: She has bibasilar rales. ABDOMINAL EXAM: Grossly obese. EXTREMITIES: There is 2+ edema bilaterally. LABORATORY STUDIES: WBC 16.7, hemoglobin 9.8, platelet 243. Chemistry panel: Sodium 134, potassium 4.7, chloride 98, bicarbonate 29, BUN 50, creatinine 3.5. No new microbiology or imaging. ASSESSMENT AND PLAN: This is a 76-year-old female with shortness of breath secondary to decompensated congestive heart failure. 1. Decompensated congestive heart failure. She did undergo hemodialysis today with fluid removal and still has a significant amount of fluid remaining. She appears to be tolerating dialysis well with midodrine. Her fluid status is optimized via hemodialysis. 2. End-stage renal disease. Dr. Singh's help, once again, is greatly appreciated. 3. Secondary hyperparathyroidism. She is on calcitriol. 4. Anemia, related to end-stage renal disease. She was transfused earlier in her stay. She is currently receiving Aranesp. 5. Urinary tract infection. Today is day #7. We can discontinue this tomorrow morning if she is asymptomatic. She does not appear to be septic whatsoever. 6. Weakness and deconditioning. She is unable to clear physical therapy at this time and is not able to complete stairs. I suspect that with continued fluid removal and weight loss, her mobility will improve as well. 7. Diabetes. She is on sliding scale insulin and her fingersticks are controlled. 8. Paroxysmal atrial fibrillation. She is on amiodarone 200 mg daily. She is intolerant to a beta marie, but she is adequately rate controlled. She is on baby aspirin, but no further anticoagulation. 9. Vitamin D deficiency. She is on supplementation. 10. Gastroesophageal reflux disease. She is on omeprazole. 11. Hypothyroidism. She is on Synthroid. 12. Dyslipidemia. She is on a statin. 13. Deep vein thrombosis (DVT) prophylaxis. Sequentials and thromboembolic deterrents (TEDs). DISPOSITION: Pending improvement in her volume status and clearance by physical therapy.
[2017-02-03 16:00] VITALS: BP 159/63
[2017-02-03] MEDS: oxyCODONE 5MG TAB PO PRN (17:45)
--- NOTE | 2017-02-03 19:45 | IPN ---
DATE: 02/03/2017 Mrs. Sullivan seen during hemodialysis this morning on her bedside. She is feeling better and has improved dyspnea and weakness. She denies any nausea or vomiting and reports a good appetite. She has no fever or chills. She reports that she started to ambulate with the assistance of walker and physical therapist. PHYSICAL EXAMINATION: Temperature 96.7 degrees Fahrenheit, heart rate 64 per minute and respiratory rate 18 per minute. Blood pressure 124/58 mmHg and oxygen saturation 99% on room air. Head: Is atraumatic. Pupils equal and reactive to light and sclera is anicteric. Nose and throat are unremarkable. Neck is supple and JVD is now about 5 cm above sternal angle. Heart: Sounds are regular and lungs with slightly diminished breath sounds and few basilar rales. Abdomen: Soft and nontender. Bowel sounds are normal. Extremities have no cyanosis or clubbing. Left forearm skin laceration is healing nicely without any infection. Lower extremity edema has improved significantly. Neurologically she is awake, alert and oriented times three. Today's labs show WBC count 16.7, hemoglobin 9.8 and hematocrit 33.1. Platelets 243. Sodium 134 and potassium 4.7. BUN 50 and creatinine 3.51. PROBLEMS: 1. End-stage renal disease. The patient is being dialyzed today and she is tolerating dialysis treatment well. 2. Congestive heart failure. Volume status has improved significantly. We are trying to remove about 3 liters of fluid today as tolerated. 3. Anemia. Her anemia is stable at present and no intervention is indicated. She did have transfusions earlier shortly after admission. Over last 5 days, there is no change in her hematocrit. 4. UTI. She remains on ceftriaxone 1 gram every 24 hours. I would recommend to consider stopping the antibiotics now. 5. Hypotension. Blood pressure remains improved with midodrine 5 mg three times a day. 6. Atrial fibrillation, ventricular rate is very well controlled on amiodarone 200 mg daily. 7. Generalized weakness and deconditioning. The patient is improving as her congestive heart failure and other medical conditions are being optimized. DISPOSITION: From a renal standpoint, the patient can be transferred out of progressive care unit to regular medical floor. She is likely to be ready for discharge over next couple of days. We will wait for physical therapist to give a clearance.
[2017-02-03] MEDS: CALCITRIOL 0.25 MCG CAP (S0169) PO SCH (20:34)
[2017-02-03] MEDS: SIMVASTATIN 40 MG TAB PO SCH (20:34)
[2017-02-03 20:50] VITALS: BP 139/63
[2017-02-04] MEDS: SLF 3 ML SYR IV SCH ×3 (05:51→20:43)
[2017-02-04] MEDS: LEVOTHYROXINE 100MCG TABLET (0.1MG) PO SCH (05:51)
[2017-02-04 06:00] VITALS: BP 126/60
[2017-02-04 06:57] LABS: MEAN CORPUSCULAR HEMOGLOBIN 28.4 pg (27.0-33.0); MEAN CORPUSCULAR VOLUME 97.9 fl (80.0-96.0); PLATELET COUNT, AUTOMATED 222 10^3/uL (150-450); RED CELL DISTRIBUTION WIDTH 19.2 % (11.5-14.5); WHITE BLOOD COUNT 14.8 10^3/uL (4.0-10.0)
[2017-02-04 07:14] LABS: CALCIUM LEVEL 8.8 MG/DL (8.8-10.2); CREATININE FOR GFR 2.86 MG/DL (0.55-1.02); GLOMERULAR FILTRATION RATE 17.1 (>39); POTASSIUM SERUM 3.9 MEQ/L (3.5-5.1)
[2017-02-04] MEDS: HumaLOG INSULIN (NovoLOG) PER UNIT SC SCH ×4 (07:23→20:39)
[2017-02-04 08:45] VITALS: BP 126/58
[2017-02-04] MEDS: MIDODRINE 5 MG TAB PO SCH ×3 (09:58→17:09)
[2017-02-04] MEDS: VITAMIN D 1,000 INTERNATIONAL UNITS TABLET PO SCH (09:58)
[2017-02-04] MEDS: OMEPRAZOLE 20 MG CAP PO SCH (09:58)
[2017-02-04] MEDS: ASPIRIN 81 MG ENTERIC TAB PO SCH (09:59)
[2017-02-04] MEDS: AMIODARONE 200 MG TAB (PACERONE) PO SCH (09:59)
[2017-02-04] MEDS: MULTIVITAMINS/MINERALS THERAP 1 TAB PO SCH (09:59)
[2017-02-04] MEDS: CYANOCOBALAMIN 500 MCG TAB PO SCH (09:59)
[2017-02-04] MEDS: HumuLIN N INSULIN (NovoLIN N) PER UNIT SC SCH ×2 (10:10→20:42)
[2017-02-04] MEDS ORDERED: FUROSEMIDE 100 MG/10 ML VIAL (J1940) IV ONE (10:30)
--- NOTE | 2017-02-04 10:40 | IPN ---
DATE: 02/04/2017 Mrs. Sullivan is seen this morning on her bedside. She has a complaint of difficulty walking due to swollen feet. Her dyspnea has improved. She denies any nausea or vomiting. She has no fever or chills. She underwent hemodialysis yesterday and 3 liters of fluid was removed which she tolerated well. On physical examination, temperature 97.4 degrees Fahrenheit, heart rate 60 per minute and respiratory rate 20 per minute. Blood pressure 126/58 mmHg and oxygen saturation 97% on room air. Head is atraumatic. Pupils equal and reactive to light and sclera is anicteric. Ears, nose and throat are unremarkable. Neck is supple and jugular venous distention (JVD) is still elevated at least about 7-8 cm above sternal angle. Heart sounds are regular with a systolic murmur which is unchanged. Lungs have only a few basilar rales. Abdomen: Soft and nontender and without a palpable organomegaly. Bowel sounds are normal. Extremities have no cyanosis or clubbing. Left forearm AV fistula is patent. Musculoskeletal system shows edema on the lower extremities which is about 2+. Skin has an ulcer on the left forearm from a skin tear which is now healing nicely. She also has mild ecchymosis on her upper extremities. Neurologically, she is awake, alert and oriented times three. Today's labs show WBC count 14.8, hemoglobin 9.3 and hematocrit 32. Platelets 222. Sodium 136 and potassium 3.9. BUN 37 and creatinine 2.86. PROBLEMS: 1. Acute on chronic diastolic congestive heart failure. She has improved significantly since admission; however, she still has some leg edema. We will try to remove fluid more aggressively as she has been tolerating at least 3 liters of fluid removal with each dialysis. She did not respond well to diuretics. I will give her another trial of Lasix 100 mg today and see how she responds. 2. End-stage renal disease. The patient is dialysis dependent. She was dialyzed yesterday and next dialysis will be scheduled for tomorrow. We will try to get an extra ultrafiltration on Wednesday if we could to improve her volume status. 3. Hypotension. Blood pressure has not improved with midodrine. We will continue with 5 mg three times a day. 4. Anemia. Her anemia is slightly worse than yesterday. She has no active bleeding. We have already started her on Aranesp 200 mcg once a week. CBC will be checked again tomorrow morning. 5. Atrial fibrillation. Her ventricular rate has been well controlled with amiodarone. She is not currently on any anticoagulation. 6. Diabetes. Her diabetes has been well controlled and will continue with current insulin regimen. 7. Secondary hyperparathyroidism. The patient is doing very well on calcitriol 0.25 mcg every 2 days. 8. Generalized weakness and deconditioning. Continue with physical therapy as the patient has started to ambulate.
[2017-02-04] MEDS: ACETAMINOPHEN 650MG ER TAB (TYLENOL ARTHRITIS) PO PRN (11:32)
[2017-02-04 13:53] VITALS: BP 142/64
--- NOTE | 2017-02-04 14:30 | IPN ---
DATE: 02/04/2017 SUBJECTIVE: The patient tells me that she is feeling well. She tells me that she has a little bit of knee pain when she is up and moving and otherwise she is feeling better every day. She feels better with fluid removal after dialysis. She denies lightheadedness, dizziness, chest pain, shortness of breath, fever, chills, nausea, vomiting, or diarrhea. OBJECTIVE: VITAL SIGNS: Temperature 97.4, pulse 60, respiratory rate 20, blood pressure 126/58, oxygen saturation 97% on room air. GENERAL: She is a morbidly obese, elderly, female laying in bed at a 45 degree angle. She does not appear to be in any acute distress whatsoever. HEENT: Cranial nerves II-XII are grossly intact. She does have mild persistent elevation in her central venous pressure. CARDIOVASCULAR EXAM: S1, S2, regular. RESPIRATORY EXAM: Clear. ABDOMINAL EXAM: Grossly obese. Bowel sounds present. Abdomen is soft. EXTREMITIES: There is still 1-2+ edema bilaterally. LABORATORY STUDIES: WBC 14.8 down from 16.7, hemoglobin 9.3 and platelet count 222. Chemistry panel with sodium 136, potassium 3.9, chloride 98, bicarbonate 32, BUN 37, creatinine 2.8. No new microbiology or imaging. ASSESSMENT AND PLAN: This is a 76-year-old female with decompensated congestive heart failure. PROBLEMS: 1. Decompensated congestive heart failure. I did speak with Dr. Singh. He plans for further hemodialysis tomorrow and potentially in addition with ultrafiltration treatment on Wednesday. She is tolerating dialysis quite well and management of her fluid status has been optimized via hemodialysis. 2. End stage renal disease on hemodialysis. Dr. Singh's help is greatly appreciated. She is on calcitriol. 3. Anemia of end stage renal disease. Her hemoglobin appears to be relatively stable. Will continue to monitor daily. She is receiving Aranesp. 4. Urinary tract infection. She completed a course of antibiotics and is asymptomatic. 5. Weakness and deconditioning likely related to fluid overload status. I suspect her mobility will improve with continued weight loss with fluid removal. She will continue to work with physical therapy and needs to clear stairs prior to any disposition. 6. Type 2 diabetes. She is on sliding scale insulin. Her finger sticks are controlled. 7. Paroxysmal atrial fibrillation. She is rate controlled with amiodarone. She is intolerant of beta marie. She is on a baby aspirin, but no further anticoagulation. 8. Vitamin D deficiency. She is on supplementation. 9. Gastroesophageal reflux disease. She is on omeprazole. 10. Hypothyroidism. She is on Synthroid. 11. Dyslipidemia. She is on statin. 12. Deep vein thrombosis (DVT) prophylaxis. She is on sequentials and thromboembolic deterrent stockings (TEDS). DISPOSITION: Pending physical therapy (PT) clearance.
[2017-02-04] MEDS: oxyCODONE 5MG TAB PO PRN (14:38)
[2017-02-04] MEDS: SIMVASTATIN 40 MG TAB PO SCH (20:42)
[2017-02-04 22:00] VITALS: BP 148/65
[2017-02-05 05:57] LABS: MEAN CORPUSCULAR HEMOGLOBIN 29.1 pg (27.0-33.0); MEAN CORPUSCULAR HGB CONC 29.8 g/dl (32.0-36.5); MEAN CORPUSCULAR VOLUME 97.4 fl (80.0-96.0); PLATELET COUNT, AUTOMATED 226 10^3/uL (150-450); WHITE BLOOD COUNT 12.3 10^3/uL (4.0-10.0)
[2017-02-05 06:00] VITALS: BP 136/60
[2017-02-05] MEDS: AMIODARONE 200 MG TAB (PACERONE) PO SCH (06:19)
[2017-02-05] MEDS: LEVOTHYROXINE 100MCG TABLET (0.1MG) PO SCH (06:19)
[2017-02-05] MEDS: ASPIRIN 81 MG ENTERIC TAB PO SCH (06:19)
[2017-02-05] MEDS: MULTIVITAMINS/MINERALS THERAP 1 TAB PO SCH (06:19)
[2017-02-05] MEDS: VITAMIN D 1,000 INTERNATIONAL UNITS TABLET PO SCH (06:19)
[2017-02-05] MEDS: CYANOCOBALAMIN 500 MCG TAB PO SCH (06:20)
[2017-02-05] MEDS: OMEPRAZOLE 20 MG CAP PO SCH (06:20)
[2017-02-05] MEDS: SLF 3 ML SYR IV SCH ×3 (06:21→22:00)
[2017-02-05 06:27] LABS: CALCIUM LEVEL 8.8 MG/DL (8.8-10.2); CREATININE FOR GFR 3.2 MG/DL (0.55-1.02); POTASSIUM SERUM 4.4 MEQ/L (3.5-5.1)
[2017-02-05] MEDS: HumaLOG INSULIN (NovoLOG) PER UNIT SC SCH ×4 (07:30→21:32)
[2017-02-05] MEDS: MIDODRINE 5 MG TAB PO SCH ×3 (07:50→19:02)
[2017-02-05] MEDS: HumuLIN N INSULIN (NovoLIN N) PER UNIT SC SCH ×2 (07:50→21:32)
[2017-02-05] MEDS ORDERED: LIDOCAINE 1% SDV 5 ML VIAL SQ ONE (09:45)
--- NOTE | 2017-02-05 12:05 | IPN ---
DATE: 02/05/2017 Mrs. Sullivan is seen this morning on her bedside. She is currently being dialyzed. The patient still feels weak, however, has been walking up to 250 feet with the help of a physical therapist. Her legs and feet are still swollen, but dyspnea has improved significantly. She denies any fever or chills. She has no nausea or vomiting and reports a good appetite. On physical examination, temperature 97 degrees Fahrenheit, heart rate 60 per minute and respiratory rate 18 per minute. Blood pressure 136/60 mmHg and oxygen saturation 98% on room air. Head is atraumatic. Pupils equal and reactive to light and sclera is anicteric. Ears, nose and throat are unremarkable. Neck is supple and jugular venous distention (JVD) is still moderately elevated. Heart: Sounds are regular with a systolic murmur grade 2/6. Lungs with a few basilar rales bilaterally. Abdomen: Soft and nontender. Extremities: Without cyanosis or clubbing. Left forearm AV fistula is patent. Skin has a small area of laceration on left forearm which is healing nicely without any signs of infection. Mild ecchymosis on her upper extremities is unchanged. Lower extremity edema is about 2+. Neurologically, she is awake, alert and oriented times three. Today's labs show a WBC count 12.3, hemoglobin 9.1 and hematocrit 30.5. Sodium 136 and potassium 4.4. BUN 53 and creatinine 3.2. Calcium level is 8.8. PROBLEMS: 1. End-stage renal disease. The patient is being dialyzed today and she is tolerating her dialysis treatment very well. Her AV fistula is working. 2. Acute on chronic congestive heart failure. Her volume status has improved significantly since admission, but still not optimal. We are trying to remove about 3.5 liters of fluid today. She is tolerating it well so far. 3. Anemia. Her anemia is stable and she receives Aranesp 200 mcg once a week. 4. Hypotension. Blood pressure has remained stable since she is on midodrine. 5. Generalized weakness and deconditioning. The patient is receiving physical therapy. She needs to climb four stairs to get in the house where she failed after last discharge. I have advised the nursing staff to get the physical therapist to work with her on her stairs today. If she gets cleared by the physical therapist, she can probably be discharged to home tomorrow and go to the outpatient dialysis clinic for her next dialysis. 6. Diabetes. Her diabetes has been well controlled and she will continue with current insulin regimen as long as she is here in the hospital. She will be discharged on her home medications. 7. Secondary hyperparathyroidism. The patient continues with calcitriol and no changes are being made today.
[2017-02-05] MEDS: oxyCODONE 5MG TAB PO PRN ×2 (12:45→21:33)
--- NOTE | 2017-02-05 13:29 | IPN ---
DATE: 02/05/2017 SUBJECTIVE: The patient tells me she feels all right. She tells me that her knee is hurting her from locking it straight during dialysis, but otherwise has no specific complaints. OBJECTIVE: VITAL SIGNS: Temperature 97.1, pulse 60, respiratory rate 17, blood pressure 136/60, oxygen saturation 98% on room air. GENERAL: She is an obese elderly female laying in bed at a 45 degree angle. She does not appear to be in any acute distress. HEENT: Cranial nerves II-XII are grossly intact. She has moist mucous membranes. Possibly some elevation in her central venous pressure. CARDIOVASCULAR EXAM: S1, S2, regular. RESPIRATORY EXAM: Clear with diminished breath sounds at the bases. ABDOMINAL EXAM: Grossly obese. EXTREMITIES: There is still 1-2+ edema bilaterally. LABORATORY STUDIES: WBC 12.3, hemoglobin 9.1 and platelet count 226. Chemistry panel sodium 136, potassium 4.4, chloride 100, bicarbonate 33, BUN 3.2. No new microbiology or imaging. ASSESSMENT AND PLAN: This is a 76-year-old female with acute on chronic congestive heart failure. PROBLEMS: 1. Acute on chronic congestive heart failure. Fluid status is being optimized via hemodialysis. Dr. Singh's help is greatly appreciated. She still has significant fluid for removal. She is tolerating dialysis. Now on midodrine. She is maintained on calcitriol. 2. Anemia of end stage renal disease. Her hemoglobin remains stable. Monitor daily. She is on Aranesp. 3. Urinary tract infection. She completed a course of antibiotics and is asymptomatic. 4. Weakness and deconditioning related to fluid overload. Will continue to work with physical therapy, awaiting there clearance, prior to any dispositioning. 5. Type 2 diabetes. She is on sliding scale insulin. 6. Paroxysmal atrial fibrillation. She is rate controlled with amiodarone. She is intolerant of beta marie. She is on a baby aspirin. 7. Vitamin D deficiency. She is on supplementation. 8. Gastroesophageal reflux disease. She is on omeprazole. 9. Hypothyroidism. She is on Synthroid. 10. Dyslipidemia. She is on statin. 11. Deep vein thrombosis (DVT) prophylaxis. She is on sequentials and thromboembolic deterrent stockings (TEDS). Pending PT clearance. DISPOSITION: Pending physical therapy (PT) clearance. [facility]
[2017-02-05 14:00] VITALS: BP 141/61
[2017-02-05] MEDS: SIMVASTATIN 40 MG TAB PO SCH (21:31)
[2017-02-05] MEDS: CALCITRIOL 0.25 MCG CAP (S0169) PO SCH (21:31)
[2017-02-05 22:00] VITALS: BP 153/69
[2017-02-06 05:53] LABS: MEAN CORPUSCULAR HEMOGLOBIN 29.1 pg (27.0-33.0); MEAN CORPUSCULAR HGB CONC 29.1 g/dl (32.0-36.5); PLATELET COUNT, AUTOMATED 235 10^3/uL (150-450); RED CELL DISTRIBUTION WIDTH 19.3 % (11.5-14.5); WHITE BLOOD COUNT 15.2 10^3/uL (4.0-10.0)
[2017-02-06 06:00] VITALS: BP 110/55
[2017-02-06] MEDS: ASPIRIN 81 MG ENTERIC TAB PO SCH (06:03)
[2017-02-06] MEDS: LEVOTHYROXINE 100MCG TABLET (0.1MG) PO SCH (06:03)
[2017-02-06] MEDS: OMEPRAZOLE 20 MG CAP PO SCH (06:03)
[2017-02-06] MEDS: MULTIVITAMINS/MINERALS THERAP 1 TAB PO SCH (06:04)
[2017-02-06] MEDS: VITAMIN D 1,000 INTERNATIONAL UNITS TABLET PO SCH (06:04)
[2017-02-06] MEDS: CYANOCOBALAMIN 500 MCG TAB PO SCH (06:04)
[2017-02-06] MEDS: MIDODRINE 5 MG TAB PO SCH ×3 (06:05→16:17)
[2017-02-06] MEDS: AMIODARONE 200 MG TAB (PACERONE) PO SCH (06:05)
[2017-02-06 06:07] LABS: CALCIUM LEVEL 8.8 MG/DL (8.8-10.2); CREATININE FOR GFR 2.87 MG/DL (0.55-1.02); POTASSIUM SERUM 4.3 MEQ/L (3.5-5.1)
[2017-02-06] MEDS: SLF 3 ML SYR IV SCH ×3 (06:09→22:00)
[2017-02-06] MEDS: HumaLOG INSULIN (NovoLOG) PER UNIT SC SCH ×4 (07:30→21:00)
[2017-02-06] MEDS: HumuLIN N INSULIN (NovoLIN N) PER UNIT SC SCH ×2 (09:00→21:55)
[2017-02-06] MEDS: ACETAMINOPHEN 650MG ER TAB (TYLENOL ARTHRITIS) PO PRN ×2 (09:05→21:55)
[2017-02-06 14:00] VITALS: BP 112/56
--- NOTE | 2017-02-06 14:41 | IPN ---
DATE OF EXAMINATION: 02/06/2017 SUBJECTIVE: The patient tells me that she is feeling well today. There is no complaints. She tells me that she was unable to even walk up a single step yesterday with physical therapy and is slightly discouraged, but is otherwise is feeling well. OBJECTIVE: VITAL SIGNS: Temperature 97.7. Pulse 60. Respiratory rate 18. Blood pressure 110/55. Oxygen saturation 96% on room air. GENERAL: She is very pleasant, elderly female, sitting in a recliner. She does not appear to be in acute distress. HEENT: Cranial nerves II-XII are grossly intact. She has moist mucous membranes. CARDIOVASCULAR EXAM: S1, S2, regular. RESPIRATORY EXAM: Diminished breath sounds at the bases. ABDOMINAL EXAM: Is obese. EXTREMITIES: There is 1-2+ edema bilaterally. LABORATORY STUDIES: WBC 15.2, hemoglobin 8.8, platelet count 235. Chemistry panel: Sodium 137, potassium 4.3, chloride 101, bicarbonate 30, BUN 32, creatinine 2.8. No new microbiology or imaging. ASSESSMENT AND PLAN: This is a 76-year-old female with acute on chronic congestive heart failure. PROBLEMS: 1. Acute on chest congestive heart failure. Fluid status is being optimized via hemodialysis. Nephrology's help is greatly appreciated. She still has significant fluid. Will continue with hemodialysis while she is in hospital. She is currently on midodrine, tolerating dialysis well. She is also on calcitriol. 2. Anemia. her hemoglobin remains stable. We will continue to monitor daily. She is on Aranesp. 3. Urinary tract infection. She has completed a course of antibiotics and is asymptomatic. 4. Weakness. Continue related to fluid overload and acute medical illness. She continues to work with physical therapy. I suspect as more fluid is removed and she has less leg edema, she will be more mobile. Otherwise , she is currently awaiting physical therapy (PT) clearance. 5. Type 2 diabetes. She is on sliding scale insulin. 6. Paroxysmal atrial fibrillation. Rate controlled with amiodarone. She has been tolerating the beta-blockers. She is on a baby aspirin. 7. Vitamin D deficiency. She is on supplementation. 8. Gastroesophageal reflux disease. She is on omeprazole. 9. Hypothyroidism. She is on Synthroid. 10. Dyslipidemia. She is on a statin. 11. Deep vein thrombosis (DVT) prophylaxis. She is on sequential and thromboembolic deterrents (TEDS). DISPOSITION: Pending PT placement. [facility] [place] [facility]
[2017-02-06] MEDS: FERROUS SULFATE 325MG TAB PO SCH (14:45)
--- NOTE | 2017-02-06 15:43 | IPN ---
DATE: 02/06/2017 SUBJECTIVE: The patient is seen this morning at the bedside. She failed physical therapy and remains inpatient at present. She feels well. Reports she is ambulating. Denies any shortness of breath. REVIEW OF SYSTEMS: Negative for headache, dizziness, chest pain, palpitations, shortness of breath at rest, dyspnea on exertion, nausea, vomiting, diarrhea. Review of systems positive for difficulty climbing stairs and lower extremity edema. OBJECTIVE: VITAL SIGNS: Temperature 97.7, pulse 60, respiratory rate 18, blood pressure 110/55, saturating 96% on room air. INTAKE AND OUTPUT: Dialysis yesterday removed 3500 mL. She is in net-negative fluid balance. Weight in the bed scale today was 68.9 kg. PHYSICAL EXAMINATION: GENERAL: The patient is seen in bed, comfortable in no acute distress. Awake, alert, and oriented times four. HEAD/NECK: Extraocular muscles are intact. The neck is supple. Jugular veins are prominent. CARDIAC: S1, S2, systolic murmur. 2+ radial pulse. Peripheral edema present in the extremities. LUNGS: Comfortable on room air. Symmetric air entry bilaterally. ABDOMEN: Soft, obese, nontender. Positive bowel sounds. EXTREMITIES: Left upper extremity fistula with thrill and bruit. Lower extremities with pitting edema. SKIN: Scattered ecchymoses on bilateral upper extremities. NEUROLOGIC: Awake, alert, and oriented times three. No focal deficits. LABORATORY DATA: White count 15.2, hemoglobin 8.8, platelets 235. Sodium 137, potassium 4.3, bicarbonate 30, BUN 32, glucose 131, calcium 8.8. INPATIENT MEDICATIONS: Reviewed by myself. There is no significant change from prior. ASSESSMENT AND PLAN: 1. End-stage renal disease on hemodialysis. The patient's next treatment will be either Wednesday or Wednesday, 02/08 or 02/09. She continues via dialysis from left upper extremity arteriovenous (AV) fistula. Her volume status has serially improved over the course of her admission. 2. Congestive heart failure (CHF). Volume is regulated through hemodialysis. The patient's continues on fluid restriction. Since starting midodrine, she has tolerated ultrafiltration on hemodialysis better. 3. Anemia. The patient's hemoglobin remains suboptimal, and she continues on Aranesp once weekly. 4. Hypotension. Blood pressures are improved with midodrine 5 mg three times a day.
[2017-02-06] MEDS: SIMVASTATIN 40 MG TAB PO SCH (21:54)
[2017-02-06 22:00] VITALS: BP 148/70
[2017-02-07] MEDS: SLF 3 ML SYR IV SCH (05:38)
[2017-02-07] MEDS: LEVOTHYROXINE 100MCG TABLET (0.1MG) PO SCH (05:38)
[2017-02-07 06:00] VITALS: BP 139/63
[2017-02-07 06:14] LABS: MEAN CORPUSCULAR HEMOGLOBIN 28.5 pg (27.0-33.0); MEAN CORPUSCULAR HGB CONC 28.9 g/dl (32.0-36.5); MEAN CORPUSCULAR VOLUME 98.7 fl (80.0-96.0); PLATELET COUNT, AUTOMATED 255 10^3/uL (150-450); WHITE BLOOD COUNT 15.3 10^3/uL (4.0-10.0)
[2017-02-07 06:26] LABS: CALCIUM LEVEL 8.6 MG/DL (8.8-10.2); CREATININE FOR GFR 3.51 MG/DL (0.55-1.02); GLOMERULAR FILTRATION RATE 13.5 (>39); PHOSPHORUS LEVEL 2.5 MG/DL (2.5-4.9); POTASSIUM SERUM 4.8 MEQ/L (3.5-5.1)
[2017-02-07] MEDS: HumaLOG INSULIN (NovoLOG) PER UNIT SC SCH ×4 (07:12→21:00)
[2017-02-07] MEDS: HumuLIN N INSULIN (NovoLIN N) PER UNIT SC SCH ×2 (08:03→21:06)
[2017-02-07] MEDS: ASPIRIN 81 MG ENTERIC TAB PO SCH (08:19)
[2017-02-07] MEDS: VITAMIN D 1,000 INTERNATIONAL UNITS TABLET PO SCH (08:19)
[2017-02-07] MEDS: MULTIVITAMINS/MINERALS THERAP 1 TAB PO SCH (08:19)
[2017-02-07] MEDS: OMEPRAZOLE 20 MG CAP PO SCH (08:19)
[2017-02-07] MEDS: CYANOCOBALAMIN 500 MCG TAB PO SCH (08:19)
[2017-02-07] MEDS: FERROUS SULFATE 325MG TAB PO SCH (08:19)
[2017-02-07] MEDS: AMIODARONE 200 MG TAB (PACERONE) PO SCH (08:20)
[2017-02-07] MEDS: MIDODRINE 5 MG TAB PO SCH ×3 (08:20→15:48)
[2017-02-07] MEDS ORDERED: HumuLIN N INSULIN (NovoLIN N) PER UNIT SC ONE (09:00)
[2017-02-07] MEDS: oxyCODONE 5MG TAB PO PRN (10:25)
[2017-02-07 14:00] VITALS: BP 127/60
[2017-02-07] MEDS: HEPARIN SOD (PORCINE) 5000 UNITS/ML VIAL SQ SCH (17:17)
[2017-02-07] MEDS: ACETAMINOPHEN 650MG ER TAB (TYLENOL ARTHRITIS) PO PRN (18:02)
--- NOTE | 2017-02-07 19:58 | IPN ---
DATE: 02/07/2017 SUBJECTIVE: The patient is seen this morning at the bedside. She reports she feels well. She continues to ambulate around the unit without any issues. No shortness of breath or dyspnea on exertion is reported. Her oral intake is good. OBJECTIVE: VITAL SIGNS: Temperature 97.5, pulse 60, respiratory rate 17, blood pressure 139/63, saturating 99% on room air. INTAKE AND OUTPUT: Intake yesterday 1300 mL oral intake. Weight in the bed scale today is 70.3 kg. PHYSICAL EXAMINATION: GENERAL: The patient is seen in bed comfortable in no acute distress. HEENT: Extraocular muscles are intact. Ears, nose and throat are unremarkable. The oral mucosa is moist. CARDIOVASCULAR: S1, S2. Regular. 2+ radial pulse. There is peripheral edema present in the lower extremities, pitting about 2+. LUNGS: Clear to auscultation superiorly with diminish breath sounds at the bases. ABDOMEN: Soft, obese, nontender. There are positive bowel sounds. EXTREMITIES: She has a left upper extremity fistula with thrill and bruit, and the lower extremities are significant for pitting edema. SKIN: There is some scattered ecchymosis on her bilateral upper extremities. NEUROLOGIC: There are no focal deficits. She is oriented times four and at baseline mentation. PSYCHIATRIC: Appropriate mood and affect. LABORATORY DATA: White count 15.3, hemoglobin 8.7, platelets 255. Sodium 135, potassium 4.8, bicarbonate 29, glucose 83, phosphorus 2.5. INPATIENT MEDICATIONS: Reviewed by myself. She was started on heparin 5000 units subcutaneous every 12 per the primary team, and I started her on an iron supplement. Her insulin was also adjusted per the primary team. There are no other significant changes in her medication. PROBLEMS: 1. End-stage renal disease on hemodialysis: Depending on the patient's discharge plans, her next treatment with either on Wednesday or Wednesday, 02/08 or 02/09. She continues on dialysis via left upper extremity arteriovenous (AV) fistula. She remains hypervolemic although her volume status has improved over the course of her admission with dialysis. She continues on fluid restriction. 2. Acute on chronic congestive heart failure: Volume management is via dialysis. She continues on midodrine and is tolerating ultrafiltration well. 3. Anemia of chronic kidney disease: The patient continues on Aranesp and oral iron supplement. 4. Type two diabetes: The patient is on insulin and adjusted per the primary team. 5. Paroxysmal atrial fibrillation: The patient continues on amiodarone. Her prior beta marie Coreg was discontinued due to hypotension. Her anticoagulation was stopped during her last hospitalization, but as there is no active bleed, I do believe that her anticoagulation can be resumed at this point. 6. Weakness, debilitation: The patient continues to work with physical therapy. She has four steps that she climbs at home and states she is having difficulty with stair climbing at present. She is awaiting physical therapy (PT) clearance prior to discharge.
[2017-02-07] MEDS: CALCITRIOL 0.25 MCG CAP (S0169) PO SCH (21:05)
[2017-02-07] MEDS: SIMVASTATIN 40 MG TAB PO SCH (21:05)
[2017-02-07 22:00] VITALS: BP 131/57
[2017-02-08 05:51] LABS: MEAN CORPUSCULAR HGB CONC 29.2 g/dl (32.0-36.5); MEAN CORPUSCULAR VOLUME 99.3 fl (80.0-96.0); PLATELET COUNT, AUTOMATED 263 10^3/uL (150-450); WHITE BLOOD COUNT 13.2 10^3/uL (4.0-10.0)
[2017-02-08 06:00] VITALS: BP 139/63
[2017-02-08 06:13] LABS: CALCIUM LEVEL 9.1 MG/DL (8.8-10.2); CREATININE FOR GFR 4.01 MG/DL (0.55-1.02); GLOMERULAR FILTRATION RATE 11.6 (>39)
[2017-02-08] MEDS: LEVOTHYROXINE 100MCG TABLET (0.1MG) PO SCH (06:24)
[2017-02-08] MEDS: FERROUS SULFATE 325MG TAB PO SCH (06:24)
[2017-02-08] MEDS: CYANOCOBALAMIN 500 MCG TAB PO SCH (06:25)
[2017-02-08] MEDS: ASPIRIN 81 MG ENTERIC TAB PO SCH (06:25)
[2017-02-08] MEDS: VITAMIN D 1,000 INTERNATIONAL UNITS TABLET PO SCH (06:25)
[2017-02-08] MEDS: HEPARIN SOD (PORCINE) 5000 UNITS/ML VIAL SQ SCH (06:25)
[2017-02-08] MEDS: MULTIVITAMINS/MINERALS THERAP 1 TAB PO SCH (06:25)
[2017-02-08] MEDS: OMEPRAZOLE 20 MG CAP PO SCH (06:26)
[2017-02-08] MEDS: MIDODRINE 5 MG TAB PO SCH ×3 (06:26→16:42)
[2017-02-08] MEDS: AMIODARONE 200 MG TAB (PACERONE) PO SCH (06:26)
[2017-02-08] MEDS: HumaLOG INSULIN (NovoLOG) PER UNIT SC SCH ×4 (06:41→22:06)
[2017-02-08] MEDS: HumuLIN N INSULIN (NovoLIN N) PER UNIT SC SCH ×2 (08:18→22:05)
--- NOTE | 2017-02-08 12:03 | IPN ---
DATE OF SERVICE: 02/08/2017 SUBJECTIVE: The patient is seen this morning on hemodialysis. Tolerating her treatment well without any acute issues. She reports she had physical therapy and is ambulating. VITAL SIGNS: Temperature 97.1, pulse 60, respiratory rate 18, blood pressure 139/63, saturating 99% on room air. INTAKE AND OUTPUT: Oral intake yesterday is incompletely recorded 550 mL. Ultrafiltration goal for dialysis today is approximately 3 kg ultrafiltration (UF). PHYSICAL EXAMINATION: The patient is seen on hemodialysis, comfortable. Oriented at baseline mentation, in no respiratory distress. Extraocular muscles are intact. Oral mucosa is moist. The neck is supple. CARDIAC: S1, S2. 2+ radial pulse. LUNGS: Bilateral symmetric air entery. Comfortable on room air. ABDOMEN: Soft, obese, nontender. Positive bowel sounds. The lower extremities are significant for 2+ pitting edema bilaterally. There is a left upper extremity fistula with thrill and bruit. SKIN: There is scattered ecchymosis present on the bilateral upper extremities, as well as a healing superficial laceration close to the fistula site. NEUROLOGIC: She is oriented times four, at baseline mentation. PSYCHIATRIC: Appropriate mood and affect. LABORATORIES: White count 13.2, hemoglobin 8.8, platelet 263. Sodium 135, potassium 5.0, bicarbonate 30, calcium 9.1, glucose 89. INPATIENT MEDICATIONS: The patient is started on Eliquis 5 mg by mouth twice a day. She continues on Aranesp and oral iron supplement. I am discontinuing her heparin subcutaneous. Her remainder medications are unchanged from prior. PROBLEMS: 1. End-stage renal disease, on hemodialysis. The patient is dialyzed today. She continues to have serial improvement in her volume status, and she is tolerating ultrafiltration well without issue. She continues on fluid restriction. She is set up for outpatient hemodialysis on Wednesday, , Wednesday maintenance schedule. 2. Acute on chronic congestive heart failure. Volume regulation is via dialysis. She continues with ultrafiltration goal of approximately 3 liters. Since starting midodrine, she has been able to tolerate ultrafiltration. 3. Atrial fibrillation. The patient continues on amiodarone. She is started on Eliquis 5 mg by mouth twice a day today, which I think is reasonable. Previously, the patient was on Coumadin and was discontinued on a prior admission for concern of gastrointestinal (GI) bleed. Subsequent endoscopy and colonoscopy did not reveal any active bleed. 4. Anemia. The patient's hemoglobin remains below goal. She continues on oral iron supplements and Aranesp. There is no need for transfusion at this time. She had a GI workup on her prior admission without acute finding. 5. Weakness, debilitation. The patient continues with physical therapy. She has four steps that she climbs at home and states she has difficulty with stair climbing at present. She is awaiting physical therapy (PT) clearance prior to discharge. 6. Deep venous thrombosis (DVT) prophylaxis. As the patient has been started on Eliquis, I have stopped her heparin subcutaneous. The plan of care is discussed with Dr. Parkinson.
[2017-02-08] MEDS: APIXABAN 5 MG TAB (ELIQUIS) PO SCH ×2 (13:54→22:04)
[2017-02-08 14:00] VITALS: BP 120/65
--- NOTE | 2017-02-08 17:36 | IPN ---
DATE: 02/08/2017 SUBJECTIVE: The patient tells me that she feels well and has no complaints. OBJECTIVE: VITAL SIGNS: Temperature 97.1, pulse 60, respiratory rate 18, blood pressure 139/63, oxygen saturation 99% on room air. GENERAL: She is a disheveled, elderly, obese, female examined during hemodialysis, in no distress. HEENT: Moist mucous membranes. No elevation of central venous pressure (CVP) CARDIOVASCULAR EXAMINATION: S1, S2, regular. RESPIRATORY EXAMINATION: Clear. ABDOMINAL EXAMINATION: Obese. EXTREMITIES: No clubbing or cyanosis. She has 1+ edema bilaterally. LABORATORY STUDIES: WBC 13.2, hemoglobin 8.8, platelet count 263. Chemistry panel: Sodium 135, potassium 5.0, chloride 98, bicarbonate 30, BUN 65, creatinine 4.0. No new microbiology or imaging. ASSESSMENT AND PLAN: This is a 76-year-old female with acute on chronic congestive heart failure. PROBLEMS: 1. Acute on chronic congestive heart failure. Her fluid status is being optimized via hemodialysis. Nephrology's help is greatly appreciated. She continues with volume removal and ultrafiltration. She is tolerating this better now that she is on midodrine. She is normally on a Wednesday, , Wednesday schedule. 2. Anemia. Hemoglobin is suboptimal. She is on iron and Aranesp and nephrology's help is appreciated. No indication for transfusion. 3. Atrial fibrillation. She is rate controlled with amiodarone. She has been intolerant to a beta marie. I discuss with nephrology and we are restarting her anticoagulation. She was previously on Coumadin. We are starting her on Eliquis renally dosed at 5 mg twice a day. We will monitor her hemoglobin while this is being initiated. It was discontinued for consideration of a gastrointestinal (GI) bleed in the past. Upper and lower endoscopy did not reveal a bleed. 4. Debility related to her acute medical illness and fluid overload status. She continues to work with physical therapy (PT). She needs to clear four stairs prior to her being discharged home. It is taking a significant time and she is not progressing significantly. I suggest that we consider placement for subacute rehabilitation versus fci. 5. Type 2 diabetes. She is on sliding scale insulin. Her fingersticks are controlled. 6. Urinary tract infection. She has completed a course of antibiotics and is asymptomatic. 7. Gastroesophageal reflux disease. She is on omeprazole. 8. Vitamin D deficiency. She is on supplementation. 9. Hypothyroidism. She is on Synthroid. 10. Dyslipidemia. She is on a statin. 11. Deep vein thrombosis (DVT) prophylaxis. She is on sequentials, thromboembolic-deterrent stockings (TEDS), and being started on Eliquis. DISPOSITION: Pending physical therapy (PT).
[2017-02-08 22:00] VITALS: BP 131/56
[2017-02-08] MEDS: SIMVASTATIN 40 MG TAB PO SCH (22:04)
[2017-02-09 06:00] VITALS: BP 121/59
[2017-02-09] MEDS: LEVOTHYROXINE 100MCG TABLET (0.1MG) PO SCH (06:04)
[2017-02-09 06:24] LABS: MEAN CORPUSCULAR HEMOGLOBIN 28.3 pg (27.0-33.0); MEAN CORPUSCULAR HGB CONC 28.7 g/dl (32.0-36.5); MEAN CORPUSCULAR VOLUME 98.7 fl (80.0-96.0); PLATELET COUNT, AUTOMATED 270 10^3/uL (150-450); RED CELL DISTRIBUTION WIDTH 19.4 % (11.5-14.5); WHITE BLOOD COUNT 13.3 10^3/uL (4.0-10.0)
[2017-02-09 06:43] LABS: CALCIUM LEVEL 9.2 MG/DL (8.8-10.2); CREATININE FOR GFR 3.07 MG/DL (0.55-1.02); GLOMERULAR FILTRATION RATE 15.8 (>39); POTASSIUM SERUM 4.4 MEQ/L (3.5-5.1)
[2017-02-09] MEDS: HumaLOG INSULIN (NovoLOG) PER UNIT SC SCH ×4 (07:30→21:00)
[2017-02-09] MEDS: HumuLIN N INSULIN (NovoLIN N) PER UNIT SC SCH ×2 (08:56→21:00)
[2017-02-09] MEDS: MIDODRINE 5 MG TAB PO SCH ×3 (08:57→16:20)
[2017-02-09] MEDS: SENOKOT S TAB PO SCH ×2 (09:00→21:23)
[2017-02-09] MEDS: ACETAMINOPHEN 650MG ER TAB (TYLENOL ARTHRITIS) PO PRN (09:07)
[2017-02-09] MEDS: VITAMIN D 1,000 INTERNATIONAL UNITS TABLET PO SCH (10:22)
[2017-02-09] MEDS: FERROUS SULFATE 325MG TAB PO SCH (10:22)
[2017-02-09] MEDS: CYANOCOBALAMIN 500 MCG TAB PO SCH (10:22)
[2017-02-09] MEDS: APIXABAN 5 MG TAB (ELIQUIS) PO SCH ×2 (10:22→21:23)
[2017-02-09] MEDS: MULTIVITAMINS/MINERALS THERAP 1 TAB PO SCH (10:22)
[2017-02-09] MEDS: AMIODARONE 200 MG TAB (PACERONE) PO SCH (10:22)
[2017-02-09] MEDS: ASPIRIN 81 MG ENTERIC TAB PO SCH (10:22)
[2017-02-09] MEDS: OMEPRAZOLE 20 MG CAP PO SCH (10:22)
[2017-02-09 14:00] VITALS: BP 152/68
--- NOTE | 2017-02-09 14:18 | IPN ---
DATE OF EXAMINATION: 02/07/2017 SUBJECTIVE: The patient tells me she is feeling well. She did not get dialysis yesterday but tells me she is anticipating more dialysis on Wednesday. She denies fevers, chills, chest pain, shortness of breath, nausea, vomiting, or diarrhea. She tells me that she still has difficulty with ambulation, but she did walk around yesterday. OBJECTIVE: VITAL SIGNS: Temperature 97.5. Pulse 60. Respiratory rate 17. Blood pressure 139/63. Oxygen saturation 99% on room air. GENERAL: She is an elderly, obese female, laying in bed comfortably, in no distress. HEENT: Cranial nerves II-XII are grossly intact. She has moist mucous membranes. CARDIOVASCULAR EXAM: S1, S2, regular. RESPIRATORY EXAM: Is clear. Diminished at the bases. ABDOMINAL EXAM: Obese. Bowel sounds present. The abdomen is soft. EXTREMITIES: 1+ edema bilaterally. LABORATORY STUDIES: WBC 15.3, hemoglobin 8.7, platelet count 255. Chemistry panel: Sodium 135, potassium 4.8, chloride 100, bicarbonate 29, BUN 52, creatinine 3.5. No new microbiology or imaging. ASSESSMENT AND PLAN: This is a 76-year-old female with acute on chronic congestive heart failure. PROBLEMS: 1. Acute on chronic congestive heart failure. Her fluid status is being optimized with hemodialysis. Nephrology's help is greatly appreciated. She was unable to obtain an extra session of hemodialysis tomorrow and will schedule for her regular dialysis on Wednesday. She is currently on midodrine and tolerating dialysis well. She is also on calcitriol. 2. Anemia. Her hemoglobin remains stable, suboptimal. She is on Aranesp. We will continue to monitor daily. 3. Urinary tract infection. She has completed a course of antibiotics. 4. Weakness related to her fluid overload status and acute medical illness. She continues to work with physical therapy. I suspect as more fluid is removed and she has less leg edema, she will become more mobile. Otherwise, she is awaiting physical therapy clearance. 5. Type 2 diabetes. She is on sliding scale insulin. 6. Paroxysmal atrial fibrillation. Rate controlled with amiodarone. She is intolerant to beta-blockers. She is on a baby aspirin. 7. Vitamin D deficiency. She is on supplementation. 8. Gastroesophageal reflux disease. She is on omeprazole. 9. Hypothyroidism. She is on Synthroid. 10. Dyslipidemia. She is on a statin. 11. Deep venous thrombosis (DVT) prophylaxis. She is on sequentials and thromboembolism deterrents (TEDs). DISPOSITION: Pending physical therapy (PT) clearance.
[2017-02-09] MEDS: oxyCODONE 5MG TAB PO PRN (16:21)
--- NOTE | 2017-02-09 16:28 | IPN ---
DATE: 02/09/2017 SUBJECTIVE: The patient is seen this morning at bedside. She is sitting out of the bed to the chair. She reports that she was able to climb two steps with physical therapy (PT) today. Denies any shortness of breath or dyspnea on exertion with ambulating, but reports that she had a lot of knee discomfort with stair climbing. She tolerated hemodialysis well yesterday with 3500 mL ultrafiltration. VITAL SIGNS: Temperature 97.8, pulse 60, respiratory rate 18, blood pressure 121/59, saturating 95 to 98% on room air. INTAKE AND OUTPUT: Oral intake yesterday 1200 mL, urine output 150, hemodialysis 3500 ultrafiltration, net negative 2450. Weight on the bed scale today is 66.8 kg, which is decreased from prior. PHYSICAL EXAMINATION: GENERAL: The patient is seen sitting out of bed to the chair comfortable. In no acute distress. Extraocular muscles are intact. Oral mucosa is moist. The neck is supple. CARDIAC: S1, S2. Regular rate and rhythm. 2+ radial pulse. LUNGS: Clear to auscultation bilaterally. ABDOMEN: Soft, nontender. Positive bowel sounds. EXTREMITIES: 2+ pitting edema in the lower extremities. Left upper extremity has a fistula with thrill and bruit. SKIN: There is scattered ecchymosis on the upper extremities, as well as a small healing laceration on the left upper extremity around the fistula site. No active bleed. NEUROLOGIC: She is oriented at baseline mentation. Appropriately interactive and conversational. PSYCHIATRIC: Appropriate mood and affect. LABORATORIES: White count 13.3, hemoglobin 8.5, platelet 270. Sodium 136, potassium 4.4, bicarbonate 31, glucose 108, calcium 9.2. INPATIENT MEDICATIONS: The patient is started on Eliquis 5 mg by mouth twice a day. Remainder of medications are unchanged from prior. PROBLEMS: 1. End-stage renal disease, on hemodialysis. The patient's next dialysis will be 02/10/2017. She is also set up for outpatient hemodialysis on a Wednesday, , Wednesday maintenance schedule. She is tolerating ultrafiltration well without issue. She remains hypervolemic on examination. 2. Acute on chronic congestive heart failure (CHF). Volume regulation is via dialysis. The patient tolerates ultrafiltration of about 3500 mL with each treatment since starting Midodrine. She remains with peripheral edema at this time. 3. Paroxysmal atrial fibrillation. The patient continues on amiodarone. She was previously on beta marie but was discontinued due to recurrent hypotension. She was previously anticoagulated with Coumadin, which was held on a prior admission for concern of gastrointestinal bleed. Subsequently, endoscopy did not reveal acute bleed. She is now switched over to Eliquis. 4. Anemia. Hemoglobin remains below goal. The patient continues on iron and Aranesp. No indication for transfusion at this point. 5. Debility and weakness. The patient continues to work physical therapy. She has four stairs at home. She is currently able to climb up to steps today. She may require rehabilitation. At present, she is pending physical therapy (PT) clearance and continues with PT.
--- NOTE | 2017-02-09 17:07 | IPNPDOC ---
Text Note Date of Service The patient was seen on 02/09/17. NOTE no acute events overnight. working with PT, able to do 2 steps. reported right knee pain that is chronic. She denies fevers, chills, chest pain, shortness of breath, nausea, vomiting, or diarrhea. . GENERAL: She is an elderly, obese female, laying in bed comfortably, in no distress. HEENT: Cranial nerves II-XII are grossly intact. She has moist mucous membranes. CARDIOVASCULAR EXAM: S1, S2, regular. RESPIRATORY EXAM: Is clear. Diminished at the bases. ABDOMINAL EXAM: Obese. Bowel sounds present. The abdomen is soft. EXTREMITIES: 1+ edema bilaterally. ASSESSMENT AND PLAN: past medical history of aortic valve replacement in 2012, coronary artery disease status post bypass in 2012 and 2015, hypertension, hyperlipidemia, systolic and diastolic heart failure with last echocardiogram noting ejection fraction of 40%, chronic kidney disease stage V progress to end- stage renal disease status post hemodialysis for the past 2 weeks, acute on chronic anemia secondary to chronic kidney disease, diabetes type 2 insulin- dependent, hypothyroidism, paroxysmal atrial fibrillation currently off of her Coumadin, tachybradycardia syndrome status post pacemaker placement, pulmonary hypertension with right heart failure who presents with b/l leg swelling, weakness and fatigue 2/2 acute on chronic congestive heart failure. PROBLEMS: 1. Acute on chronic congestive heart failure. Her fluid status is being optimized with hemodialysis. Nephrology's help is greatly appreciated. She is currently on midodrine and tolerating dialysis well. She is also on calcitriol. 2. Anemia. Her hemoglobin remains stable, suboptimal. She is on Aranesp. We will continue to monitor daily. 3. Urinary tract infection. She has completed a course of antibiotics. 4. Weakness related to her fluid overload status and acute medical illness. She continues to work with physical therapy. I suspect as more fluid is removed and she has less leg edema, she will become more mobile. Otherwise, she is awaiting physical therapy clearance. 5. Type 2 diabetes. She is on sliding scale insulin. 6. Paroxysmal atrial fibrillation. Rate controlled with amiodarone. She is intolerant to beta-blockers. She is on a baby aspirin. and Eliquis 7. Vitamin D deficiency. She is on supplementation. 8. Gastroesophageal reflux disease. She is on omeprazole. 9. Hypothyroidism. She is on Synthroid. 10. Dyslipidemia. She is on a statin. 11. Deep venous thrombosis (DVT) prophylaxis. She is on sequentials and thromboembolism deterrents (TEDs).on Eliquis DISPOSITION: Pending physical therapy (PT) clearance. VS,Brandonbone, I+O VS, Fishbone, I+O Laboratory Tests 02/09/17 05:30 Red Blood Count 3.00 L, Mean Corpuscular Volume 98.7 H, Mean Corpuscular Hemoglobin 28.3, Mean Corpuscular Hemoglobin Concent 28.7 L, Red Cell Distribution Width 19.4 H, Calcium Level 9.2 Vital Signs Date Time Temp Pulse Resp B/P (MAP) Pulse Ox O2 Delivery O2 Flow Rate FiO2 02/09/17 16:21 16 02/09/17 14:00 97.2 60 152/68 (96) 98 Room Air 02/09/17 10:00 2.0 I&O- Last 24 Hours up to 6 AM 02/10/17 06:00 Intake Total 660 ml Output Total 100 ml Balance 560 ml GAMA STEWART MD Feb 09, 2017 17:07
[2017-02-09] MEDS ORDERED: ELIQ5TAB PO (17:08)
[2017-02-09] MEDS: CALCITRIOL 0.25 MCG CAP (S0169) PO SCH (21:23)
[2017-02-09] MEDS: SIMVASTATIN 40 MG TAB PO SCH (21:23)
[2017-02-09 22:00] VITALS: BP 137/65
[2017-02-10 06:00] VITALS: BP 141/65
[2017-02-10 06:00] LABS: MEAN CORPUSCULAR HEMOGLOBIN 28.5 pg (27.0-33.0); MEAN CORPUSCULAR HGB CONC 28.6 g/dl (32.0-36.5); MEAN CORPUSCULAR VOLUME 99.7 fl (80.0-96.0); PLATELET COUNT, AUTOMATED 332 10^3/uL (150-450); RED CELL DISTRIBUTION WIDTH 19.4 % (11.5-14.5); WHITE BLOOD COUNT 17.8 10^3/uL (4.0-10.0)
[2017-02-10] MEDS: LEVOTHYROXINE 100MCG TABLET (0.1MG) PO SCH (06:09)
[2017-02-10 06:24] LABS: CALCIUM LEVEL 9.3 MG/DL (8.8-10.2); CREATININE FOR GFR 4.09 MG/DL (0.55-1.02); GLOMERULAR FILTRATION RATE 11.3 (>39); POTASSIUM SERUM 4.6 MEQ/L (3.5-5.1)
[2017-02-10] MEDS: MULTIVITAMINS/MINERALS THERAP 1 TAB PO SCH (06:34)
[2017-02-10] MEDS: ACETAMINOPHEN 650MG ER TAB (TYLENOL ARTHRITIS) PO PRN (06:34)
[2017-02-10] MEDS: FERROUS SULFATE 325MG TAB PO SCH (06:35)
[2017-02-10] MEDS: SENOKOT S TAB PO SCH ×2 (06:35→21:58)
[2017-02-10] MEDS: APIXABAN 5 MG TAB (ELIQUIS) PO SCH ×2 (06:35→21:58)
[2017-02-10] MEDS: OMEPRAZOLE 20 MG CAP PO SCH (06:35)
[2017-02-10] MEDS: ASPIRIN 81 MG ENTERIC TAB PO SCH (06:35)
[2017-02-10] MEDS: VITAMIN D 1,000 INTERNATIONAL UNITS TABLET PO SCH (06:36)
[2017-02-10] MEDS: CYANOCOBALAMIN 500 MCG TAB PO SCH (06:36)
[2017-02-10] MEDS: AMIODARONE 200 MG TAB (PACERONE) PO SCH (06:36)
[2017-02-10] MEDS: MIDODRINE 5 MG TAB PO SCH ×3 (06:37→16:01)
[2017-02-10] MEDS: HumaLOG INSULIN (NovoLOG) PER UNIT SC SCH ×4 (07:30→21:00)
[2017-02-10] MEDS: HumuLIN N INSULIN (NovoLIN N) PER UNIT SC SCH ×2 (09:00→21:00)
[2017-02-10 14:00] VITALS: BP 152/64
--- NOTE | 2017-02-10 14:55 | IPNPDOC ---
Text Note Date of Service The patient was seen on 02/10/17. NOTE Patient hypoglycemic overnight. patient asymptomatic. see in HD unit. Able to do 2 steps with PT. She denies fevers, chills, chest pain, shortness of breath, nausea, vomiting, or diarrhea. GENERAL: She is an elderly, obese female, laying in bed comfortably, in no distress. HEENT: Cranial nerves II-XII are grossly intact. She has moist mucous membranes. CARDIOVASCULAR EXAM: S1, S2, regular. RESPIRATORY EXAM: Is clear. Diminished at the bases. ABDOMINAL EXAM: Obese. Bowel sounds present. The abdomen is soft. EXTREMITIES: 1+ edema bilaterally. ASSESSMENT AND PLAN: 76 y/o female past medical history of aortic valve replacement in 2012, coronary artery disease status post bypass in 2012 and 2015 , hypertension, hyperlipidemia, systolic and diastolic heart failure with last echocardiogram noting ejection fraction of 40%, chronic kidney disease stage V progress to end-stage renal disease status post hemodialysis for the past 2 weeks, acute on chronic anemia secondary to chronic kidney disease, diabetes type 2 insulin-dependent, hypothyroidism, paroxysmal atrial fibrillation currently off of her Coumadin, tachybradycardia syndrome status post pacemaker placement, pulmonary hypertension with right heart failure who presents with b/ l leg swelling, weakness and fatigue 2/2 acute on chronic congestive heart failure. PROBLEMS: 1. Acute on chronic congestive heart failure. Her fluid status is being optimized with hemodialysis. Nephrology's help is greatly appreciated. She is currently on midodrine and tolerating dialysis well. She is also on calcitriol. 2. Anemia. Her hemoglobin remains stable. She is on Aranesp. We will continue to monitor daily. 3. Urinary tract infection. She has completed a course of antibiotics. 4. Leukocytosis- patient asymptomatic. bcx. monitor. 5. Weakness related to her fluid overload status and acute medical illness. She continues to work with physical therapy. I suspect as more fluid is removed and she has less leg edema, she will become more mobile. Otherwise, she is awaiting physical therapy clearance. 5. Type 2 diabetes. basal bolus insulin, hypoglycemia, insulin adjusted. f/u fs 6. Paroxysmal atrial fibrillation. Rate controlled with amiodarone. She is intolerant to beta-blockers. She is on a baby aspirin. and Eliquis 7. Vitamin D deficiency. She is on supplementation. 8. Gastroesophageal reflux disease. She is on omeprazole. 9. Hypothyroidism. She is on Synthroid. 10. Dyslipidemia. She is on a statin. 11. Deep venous thrombosis (DVT) prophylaxis. She is on sequentials and thromboembolism deterrents (TEDs).on Eliquis DISPOSITION: Pending physical therapy (PT) clearance. VS,Fishbone, I+O VS, Fishbone, I+O Laboratory Tests 02/10/17 05:32 Red Blood Count 3.16 L, Mean Corpuscular Volume 99.7 H, Mean Corpuscular Hemoglobin 28.5, Mean Corpuscular Hemoglobin Concent 28.6 L, Red Cell Distribution Width 19.4 H, Calcium Level 9.3 Vital Signs Date Time Temp Pulse Resp B/P (MAP) Pulse Ox O2 Delivery O2 Flow Rate FiO2 02/10/17 07:41 Room Air 02/10/17 06:00 96.7 91 16 141/65 (90) 95 02/09/17 21:00 2.0 I&O- Last 24 Hours up to 6 AM 02/11/17 06:00 Output Total 3500 ml Balance -3500 ml GAMA STEWART MD Feb 10, 2017 14:55
--- NOTE | 2017-02-10 16:39 | IPN ---
DATE: 02/10/2017 SUBJECTIVE: The patient is seen this morning on hemodialysis, comfortable, in no acute distress. Reports hypoglycemia this morning, glucose of 42. VITAL SIGNS: Temperature 96.7, pulse 91, respiratory rate 16, blood pressure 141/65, saturating 95 to 99% on room air. INTAKE AND OUTPUT: Oral intake yesterday 1290 mL, urine output yesterday was 450 mL, net positive 840 mL yesterday. Hemodialysis today removed 3500 mL. Weight on the bed scale today was 68.7 pre dialysis. PHYSICAL EXAMINATION: GENERAL: The patient is seen on hemodialysis, comfortable. In no acute distress. HEENT: Extraocular muscles are intact. Oral mucosa is moist. Neck is supple. CARDIAC: S1, S2. Regular. 2+ radial pulse. 1+ edema present in the lower extremities. LUNGS: Superiorly clear with diminished breath sounds at the base. ABDOMEN: Soft, obese, nontender. EXTREMITIES: 1+ edema in the lower extremities. There is a left upper extremity fistula with thrill and bruit. NEUROLOGIC: She is at baseline mentation. PSYCHIATRIC: Appropriate mood and affect. LABORATORIES: White count 17.8, hemoglobin 9.0, platelets 332. Sodium 135, potassium 4.6, bicarbonate 30, glucose 42, calcium 9.3. Microbiology: Repeat blood cultures 02/10/2017 drawn and pending. INPATIENT MEDICATIONS: The patient's insulin was adjusted per the primary team. Remainder of medications are unchanged from prior. PROBLEMS: 1. End-stage renal disease, on hemodialysis. The patient continues to tolerate her sessions well. She remains on midodrine, ultrafiltration today is 3500 mL. She is set up for outpatient dialysis on Wednesday, , Wednesday maintenance schedule. She has a mild hyponatremia that should improve with dialysis. 2. Acute on chronic congestive heart failure (CHF). Volume regulation is via dialysis. The patient continues on fluid restriction. She has residual renal function as well, noted to make 450 mL of urine yesterday. She is not on diuretics at this time. Volume status has overall improved. 3. Paroxysmal atrial fibrillation. The patient is discontinued off of beta marie due to prior hypotension. She continues on amiodarone. She is now anticoagulated with Eliquis. 4. Anemia. Hemoglobin remains below goal. The patient continues on iron and Aranesp 200 mcg weekly. Her hemoglobins have been stable, today 9.0. 5. Leukocytosis. White count increased to 17. Repeat cultures were drawn and pending. 6. Type 2 diabetes. Insulin was adjusted per the primary team. The patient had an episode of hypoglycemia this morning. 5. Debility and weakness. The patient continues to work physical therapy. She has four stairs to climb at home. Currently able to do two. Plan of care is discussed with Dr. Meseret Irwin. YESENIA
[2017-02-10] MEDS: oxyCODONE 5MG TAB PO PRN (17:42)
[2017-02-10] MEDS: SIMVASTATIN 40 MG TAB PO SCH (21:58)
[2017-02-10 22:00] VITALS: BP 153/66
[2017-02-11] MEDS: LEVOTHYROXINE 100MCG TABLET (0.1MG) PO SCH (05:54)
[2017-02-11 06:00] VITALS: BP 124/60
[2017-02-11 06:33] LABS: MEAN CORPUSCULAR HEMOGLOBIN 28.9 pg (27.0-33.0); MEAN CORPUSCULAR HGB CONC 28.8 g/dl (32.0-36.5); MEAN CORPUSCULAR VOLUME 100.3 fl (80.0-96.0); PLATELET COUNT, AUTOMATED 266 10^3/uL (150-450); RED CELL DISTRIBUTION WIDTH 19.1 % (11.5-14.5); WHITE BLOOD COUNT 13.9 10^3/uL (4.0-10.0)
[2017-02-11 06:57] LABS: CALCIUM LEVEL 8.5 MG/DL (8.8-10.2); CREATININE FOR GFR 3.24 MG/DL (0.55-1.02); GLOMERULAR FILTRATION RATE 14.8 (>39); POTASSIUM SERUM 4.3 MEQ/L (3.5-5.1)
[2017-02-11] MEDS: HumaLOG INSULIN (NovoLOG) PER UNIT SC SCH ×4 (07:44→20:24)
[2017-02-11] MEDS: MIDODRINE 5 MG TAB PO SCH ×3 (07:44→15:32)
[2017-02-11 08:43] VITALS: BP 122/58
[2017-02-11] MEDS: MULTIVITAMINS/MINERALS THERAP 1 TAB PO SCH (09:10)
[2017-02-11] MEDS: OMEPRAZOLE 20 MG CAP PO SCH (09:11)
[2017-02-11] MEDS: VITAMIN D 1,000 INTERNATIONAL UNITS TABLET PO SCH (09:11)
[2017-02-11] MEDS: ASPIRIN 81 MG ENTERIC TAB PO SCH (09:12)
[2017-02-11] MEDS: SENOKOT S TAB PO SCH ×2 (09:12→20:49)
[2017-02-11] MEDS: CYANOCOBALAMIN 500 MCG TAB PO SCH (09:12)
[2017-02-11] MEDS: FERROUS SULFATE 325MG TAB PO SCH (09:12)
[2017-02-11] MEDS: APIXABAN 5 MG TAB (ELIQUIS) PO SCH ×2 (09:12→20:49)
[2017-02-11] MEDS: AMIODARONE 200 MG TAB (PACERONE) PO SCH (09:13)
[2017-02-11] MEDS: HumuLIN N INSULIN (NovoLIN N) PER UNIT SC SCH ×2 (09:15→20:50)
[2017-02-11] MEDS: ACETAMINOPHEN 650MG ER TAB (TYLENOL ARTHRITIS) PO PRN (10:21)
--- NOTE | 2017-02-11 13:19 | IPN ---
DATE: 02/11/2017 SUBJECTIVE: The patient is seen this morning at the bedside. She reports that she continues to work with physical therapy. Denies any complaints. States her son and his friend are working on building a ramp so that she is more at ease getting into her home rather than climbing steps. Reports no issues with dialysis yesterday. VITAL SIGNS: Temperature 99.4, pulse 72, respiratory rate 16, blood pressure 122/58, saturating 97% on room air. INTAKE AND OUTPUT: Oral intake yesterday 1300 mL. Hemodialysis removed 3500 mL. Net negative 2200. Weight on the bed scale today was 67.5 kg. GENERAL: The patient is seen lying in bed, comfortable, in no acute distress. Extraocular muscles are intact. Moist tongue. CARDIAC: S1, S2 regular rate. 2+ radial pulse. There is 1+ edema in the left lower extremity and trace edema in the right lower extremity. LUNGS: The lungs are fairly clear to auscultation. Comfortable on room air. ABDOMEN: Soft, obese, nontender. Positive bowel sounds. EXTREMITIES: There is a left upper extremity fistula with thrill and bruit. There is trace edema in the right lower extremity and 1+ edema of the left lower extremity. NEUROLOGIC: She is at her baseline mentation. PSYCHIATRIC: Appropriate mood and affect. SKIN: Scattered ecchymosis and superficial skin tears. LABORATORIES: White count 13.9, hemoglobin 8.6, platelets 266. Sodium 134, potassium 4.3, bicarbonate 29. INPATIENT MEDICATIONS: Her insulin was adjusted per the primary team. There are otherwise no significant changes. PROBLEMS: 1. End-stage renal disease, on hemodialysis. The patient's next dialysis will be February 12. She is setup for outpatient dialysis on Wednesday, , Wednesday maintenance schedule. She is tolerating dialysis and ultrafiltration without issue on midodrine. 2. Acute on chronic congestive heart failure (CHF). Patient's weights have down trended from around 73 kg on admission down to about 67.6 kg today and overall her volume status has serially improved. She still has some pitting edema in the lower extremities. No need for diuretic use at this time. Will continue with ultrafiltration on dialysis. 3. Paroxysmal atrial fibrillation. The patient continues on amiodarone. Her beta-marie was previously discontinued due to hypotension. Her blood pressures have subsequently improved on midodrine. Hypotension had previously complicated dialysis and volume removal. That has now improved. She is anticoagulated with Eliquis. 4. Anemia. Hemoglobin remains below goal and the patient continues on Aranesp 200 mcg weekly along with iron supplementation. 5. Leukocytosis. White count down trended with no intervention. Repeat cultures were drawn and pending. 6. Debility and weakness. The patient continues to work physical therapy. He son is trying to build her a ramp at home so she will not have to climb four stairs. Plan of care is discussed with Dr. Meseret Irwin.
[2017-02-11 14:00] VITALS: BP 120/57
--- NOTE | 2017-02-11 15:43 | IPNPDOC ---
Text Note Date of Service The patient was seen on 02/11/17. NOTE No acute events overnight. no new complaints. She denies fevers, chills, chest pain, shortness of breath, nausea, vomiting, or diarrhea. GENERAL: She is an elderly, obese female, laying in bed comfortably, in no distress. HEENT: Cranial nerves II-XII are grossly intact. She has moist mucous membranes. CARDIOVASCULAR EXAM: S1, S2, regular. RESPIRATORY EXAM: Is clear. Diminished at the bases. ABDOMINAL EXAM: Obese. Bowel sounds present. The abdomen is soft. EXTREMITIES: 1+ edema bilaterally. ASSESSMENT AND PLAN: 76 y/o female past medical history of aortic valve replacement in 2013, coronary artery disease status post bypass in 2012 and 2015 , hypertension, hyperlipidemia, systolic and diastolic heart failure with last echocardiogram noting ejection fraction of 40%, chronic kidney disease stage V progress to end-stage renal disease status post hemodialysis for the past 2 weeks, acute on chronic anemia secondary to chronic kidney disease, diabetes type 2 insulin-dependent, hypothyroidism, paroxysmal atrial fibrillation currently off of her Coumadin, tachybradycardia syndrome status post pacemaker placement, pulmonary hypertension with right heart failure who presents with b/ l leg swelling, weakness and fatigue 2/2 acute on chronic congestive heart failure. PROBLEMS: 1. Acute on chronic congestive heart failure. Her fluid status is being optimized with hemodialysis. Nephrology's help is greatly appreciated. She is currently on midodrine and tolerating dialysis well. She is also on calcitriol. 2. Anemia. Her hemoglobin remains stable. She is on Aranesp. We will continue to monitor daily. 3. Urinary tract infection. She has completed a course of antibiotics. 4. Leukocytosis- patient asymptomatic. improved, f/u bcx. monitor. 5. Weakness related to her fluid overload status and acute medical illness. She continues to work with physical therapy. I suspect as more fluid is removed and she has less leg edema, she will become more mobile. Otherwise, she is awaiting physical therapy clearance. potential, need a ramp at home 5. Type 2 diabetes. basal bolus insulin, hypoglycemia, insulin adjusted. f/u fs 6. Paroxysmal atrial fibrillation. Rate controlled with amiodarone. She is intolerant to beta-blockers. She is on a baby aspirin. and Eliquis 7. Vitamin D deficiency. She is on supplementation. 8. Gastroesophageal reflux disease. She is on omeprazole. 9. Hypothyroidism. She is on Synthroid. 10. Dyslipidemia. She is on a statin. 11. Deep venous thrombosis (DVT) prophylaxis. She is on sequentials and thromboembolism deterrents (TEDs).on Eliquis DISPOSITION: Pending physical therapy (PT) clearance. VS,Fishbone, I+O VS, Fishbone, I+O Laboratory Tests 02/11/17 06:10 Red Blood Count 2.98 L, Mean Corpuscular Volume 100.3 H, Mean Corpuscular Hemoglobin 28.9, Mean Corpuscular Hemoglobin Concent 28.8 L, Red Cell Distribution Width 19.1 H, Calcium Level 8.5 L Vital Signs Date Time Temp Pulse Resp B/P (MAP) Pulse Ox O2 Delivery O2 Flow Rate FiO2 02/11/17 10:59 Room Air 02/11/17 08:43 99.4 72 16 122/58 (79) 97 02/10/17 21:00 2.0 I&O- Last 24 Hours up to 6 AM 02/12/17 06:00 Intake Total 540 ml Output Total 0 ml Balance 540 ml GAMA STEWART MD Feb 11, 2017 15:43
[2017-02-11 20:13] VITALS: BP 146/67
[2017-02-11] MEDS: CALCITRIOL 0.25 MCG CAP (S0169) PO SCH (20:49)
[2017-02-11] MEDS: SIMVASTATIN 40 MG TAB PO SCH (20:49)
[2017-02-12 04:50] VITALS: BP 132/61
[2017-02-12] MEDS: ACETAMINOPHEN 650MG ER TAB (TYLENOL ARTHRITIS) PO PRN ×2 (06:59→13:44)
[2017-02-12] MEDS: VITAMIN D 1,000 INTERNATIONAL UNITS TABLET PO SCH (07:00)
[2017-02-12] MEDS: LEVOTHYROXINE 100MCG TABLET (0.1MG) PO SCH (07:00)
[2017-02-12] MEDS: MULTIVITAMINS/MINERALS THERAP 1 TAB PO SCH (07:00)
[2017-02-12] MEDS: CYANOCOBALAMIN 500 MCG TAB PO SCH (07:00)
[2017-02-12] MEDS: AMIODARONE 200 MG TAB (PACERONE) PO SCH (07:00)
[2017-02-12] MEDS: ASPIRIN 81 MG ENTERIC TAB PO SCH (07:00)
[2017-02-12] MEDS: OMEPRAZOLE 20 MG CAP PO SCH ×2 (07:00→21:03)
[2017-02-12] MEDS: APIXABAN 5 MG TAB (ELIQUIS) PO SCH ×2 (07:00→21:04)
[2017-02-12] MEDS: SENOKOT S TAB PO SCH ×2 (07:00→21:04)
[2017-02-12] MEDS: MIDODRINE 5 MG TAB PO SCH ×3 (07:00→17:32)
[2017-02-12] MEDS: FERROUS SULFATE 325MG TAB PO SCH (07:01)
[2017-02-12] MEDS: HumaLOG INSULIN (NovoLOG) PER UNIT SC SCH ×4 (07:30→21:00)
[2017-02-12 08:43] LABS: MEAN CORPUSCULAR HEMOGLOBIN 28.9 pg (27.0-33.0); MEAN CORPUSCULAR HGB CONC 29.5 g/dl (32.0-36.5); MEAN CORPUSCULAR VOLUME 97.9 fl (80.0-96.0); PLATELET COUNT, AUTOMATED 288 10^3/uL (150-450); RED CELL DISTRIBUTION WIDTH 18.6 % (11.5-14.5); WHITE BLOOD COUNT 12.2 10^3/uL (4.0-10.0)
[2017-02-12] MEDS: HumuLIN N INSULIN (NovoLIN N) PER UNIT SC SCH ×2 (09:00→21:00)
[2017-02-12 09:06] LABS: CALCIUM LEVEL 8.9 MG/DL (8.8-10.2); CREATININE FOR GFR 4.13 MG/DL (0.55-1.02); GLOMERULAR FILTRATION RATE 11.2 (>39); POTASSIUM SERUM 4.8 MEQ/L (3.5-5.1)
[2017-02-12] MEDS ORDERED: LIDOCAINE 1% SDV 5 ML VIAL SQ ONE (12:00)
[2017-02-12 14:00] VITALS: BP 114/53
--- NOTE | 2017-02-12 16:10 | IPN ---
DATE: 02/12/2017 SUBJECTIVE: The patient is seen this morning on hemodialysis comfortable. Reports no acute complaints. States that she was able to climb three steps yesterday with physical therapy. Reports good oral intake. No shortness of breath or dyspnea on exertion. VITAL SIGNS: Temperature 98.0, pulse 75, respiratory rate 18, blood pressure 132/61, saturating 97% on room air. Intake and output: Oral intake yesterday 1100 mL. Dialysis today removed 3500 mL. Weight in the bed scale today is 58.2 kg. GENERAL: The patient is seen on hemodialysis, awake, alert, comfortable, interactive in no acute distress. Extraocular muscles are intact. The oral mucosa is moist. NECK: Supple. CARDIAC: S1, S2, regular rate. Radial pulse 2+. Decreased edema in the peripheries with trace in the right lower extremity and 1+ in the left lower extremity. There is a left upper extremity fistula currently in use. NEUROLOGIC: She is at her baseline mentation. PSYCHIATRIC: Appropriate mood and affect. SKIN: Scattered ecchymosis and superficial skin tears. LABORATORY DATA: White count 12.2, hemoglobin 8.4, platelets 288. Sodium 132 predialysis, bicarbonate 27, potassium 4.8, calcium 8.9. Microbiology: Stool occult February 11 positive. Blood cultures February 10: No growth for 24 hours times two sets. Gastrointestinal (GI) panel February 11 negative. INPATIENT MEDICATIONS: Insulin was adjusted per the primary team, and she is on Prilosec 40 mg by mouth twice a day now. There is no other change in her medications. PROBLEMS: 1. End-stage renal disease, on hemodialysis. The patient continues with uneventful dialysis sessions. She is setup for an outpatient on Wednesday, , Wednesday maintenance scheduled. She is tolerating dialysis via left upper extremity fistula and has no issues with ultrafiltration on chronic midodrine. 2. Acute on chronic congestive heart failure. Patient's overall volume status has serially improved. She still has some pitting edema in the lower extremities. She continues on oral fluid restriction and chronically has about 3.5 liters removed per dialysis session. 3. Paroxysmal atrial fibrillation. The patient continues on amiodarone. She was intolerant of beta marie due to her current hypotension. She is now on chronic midodrine, and she is anticoagulated with Eliquis. 4. Anemia. The patient has been anemic for several months now. Was previously receiving PRBC transfusions predialysis. Due to finances, she was not receiving Procrit predialysis. She currently continues on Aranesp and iron supplementation. She has a history of recurrent fecal occult blood test (FOBT) positivity, and she had an esophagogastroduodenoscopy (EGD) on her last admission and had a colonoscopy at some point in the past 6 months. Her EGD on January 20 demonstrated a small hiatal hernia but no other acute findings or active bleed. 5. Weakness and debilitation. The patient continues to work with physical therapy. Reports she is now able to climb three steps, and she has four steps to climb at home. 6. Leukocytosis. The patient's white count continues to down-trend, and she remains afebrile. Blood cultures drawn on February 10 have thus far been negative. MTDD
--- NOTE | 2017-02-12 18:08 | IPNPDOC ---
Text Note Date of Service The patient was seen on 02/12/17. NOTE No acute events overnight. no new complaints. She denies fevers, chills, chest pain, shortness of breath, nausea, vomiting, or diarrhea. GENERAL: She is an elderly, obese female, laying in bed comfortably, in no distress. HEENT: Cranial nerves II-XII are grossly intact. She has moist mucous membranes. CARDIOVASCULAR EXAM: S1, S2, regular. RESPIRATORY EXAM: Is clear. Diminished at the bases. ABDOMINAL EXAM: Obese. Bowel sounds present. The abdomen is soft. EXTREMITIES: 1+ edema bilaterally. ASSESSMENT AND PLAN: 76 y/o female past medical history of aortic valve replacement in 2013, coronary artery disease status post bypass in 2012 and 2015 , hypertension, hyperlipidemia, systolic and diastolic heart failure with last echocardiogram noting ejection fraction of 40%, chronic kidney disease stage V progress to end-stage renal disease status post hemodialysis for the past 2 weeks, acute on chronic anemia secondary to chronic kidney disease, diabetes type 2 insulin-dependent, hypothyroidism, paroxysmal atrial fibrillation currently off of her Coumadin, tachybradycardia syndrome status post pacemaker placement, pulmonary hypertension with right heart failure who presents with b/ l leg swelling, weakness and fatigue 2/2 acute on chronic congestive heart failure. PROBLEMS: 1. Acute on chronic congestive heart failure. Her fluid status is being optimized with hemodialysis. Nephrology's help is greatly appreciated. She is currently on midodrine and tolerating dialysis well. She is also on calcitriol. 2. Anemia. Her hemoglobin remains stable. She is on Aranesp. We will continue to monitor daily. 3. Urinary tract infection. She has completed a course of antibiotics. 4. Leukocytosis- patient asymptomatic. improved, f/u bcx. monitor. 5. Weakness related to her fluid overload status and acute medical illness. She continues to work with physical therapy. I suspect as more fluid is removed and she has less leg edema, she will become more mobile. Otherwise, she is awaiting physical therapy clearance. potential, need a ramp at home 5. Type 2 diabetes. basal bolus insulin, hypoglycemia, insulin adjusted. f/u fs 6. Paroxysmal atrial fibrillation. Rate controlled with amiodarone. She is intolerant to beta-blockers. She is on a baby aspirin. and Eliquis 7. Vitamin D deficiency. She is on supplementation. 8. Gastroesophageal reflux disease. She is on omeprazole. 9. Hypothyroidism. She is on Synthroid. 10. Dyslipidemia. She is on a statin. 11. FOBT + HH stable, scope by Dr Brambila January, ppi, f/u Dr Brambila as outpatient 11. Deep venous thrombosis (DVT) prophylaxis. She is on sequentials and thromboembolism deterrents (TEDs).on Eliquis DISPOSITION: Pending physical therapy (PT) clearance. VS,Fishbone, I+O VS, Fishbone, I+O Laboratory Tests 02/12/17 08:22 Red Blood Count 2.91 L, Mean Corpuscular Volume 97.9 H, Mean Corpuscular Hemoglobin 28.9, Mean Corpuscular Hemoglobin Concent 29.5 L, Red Cell Distribution Width 18.6 H, Calcium Level 8.9 Vital Signs Date Time Temp Pulse Resp B/P (MAP) Pulse Ox O2 Delivery O2 Flow Rate FiO2 02/12/17 04:50 98.0 75 18 132/61 (84) 97 Room Air 02/11/17 21:00 2.0 I&O- Last 24 Hours up to 6 AM 02/13/17 06:00 Output Total 3500 ml Balance -3500 ml GAMA STEWART MD Feb 12, 2017 18:08
[2017-02-12] MEDS: SIMVASTATIN 40 MG TAB PO SCH (21:04)
[2017-02-12 22:00] VITALS: BP 134/59
[2017-02-13 06:00] VITALS: BP_SYST 117; BP_SYST 143; BP_DIAS 56; BP_DIAS 63
[2017-02-13] MEDS: LEVOTHYROXINE 100MCG TABLET (0.1MG) PO SCH (06:14)
[2017-02-13 06:25] LABS: MEAN CORPUSCULAR HEMOGLOBIN 28.3 pg (27.0-33.0); MEAN CORPUSCULAR VOLUME 97.7 fl (80.0-96.0); PLATELET COUNT, AUTOMATED 304 10^3/uL (150-450); RED CELL DISTRIBUTION WIDTH 18.4 % (11.5-14.5); WHITE BLOOD COUNT 14.1 10^3/uL (4.0-10.0)
[2017-02-13 06:43] LABS: CREATININE FOR GFR 2.94 MG/DL (0.55-1.02); GLOMERULAR FILTRATION RATE 16.6 (>39)
[2017-02-13] MEDS: HumaLOG INSULIN (NovoLOG) PER UNIT SC SCH ×4 (07:30→21:00)
[2017-02-13] MEDS: HumuLIN N INSULIN (NovoLIN N) PER UNIT SC SCH ×2 (09:00→21:50)
[2017-02-13] MEDS: SENOKOT S TAB PO SCH ×2 (09:00→22:13)
[2017-02-13] MEDS: MIDODRINE 5 MG TAB PO SCH ×3 (09:26→16:00)
[2017-02-13] MEDS: APIXABAN 5 MG TAB (ELIQUIS) PO SCH ×2 (09:26→22:13)
[2017-02-13] MEDS: OMEPRAZOLE 20 MG CAP PO SCH ×2 (09:27→22:13)
[2017-02-13] MEDS: AMIODARONE 200 MG TAB (PACERONE) PO SCH (09:27)
[2017-02-13] MEDS: MULTIVITAMINS/MINERALS THERAP 1 TAB PO SCH (09:27)
[2017-02-13] MEDS: CYANOCOBALAMIN 500 MCG TAB PO SCH (09:27)
[2017-02-13] MEDS: ASPIRIN 81 MG ENTERIC TAB PO SCH (09:27)
[2017-02-13] MEDS: VITAMIN D 1,000 INTERNATIONAL UNITS TABLET PO SCH (09:27)
[2017-02-13] MEDS: FERROUS SULFATE 325MG TAB PO SCH (09:27)
[2017-02-13 09:36] LABS: PERCENT SATURATION 13.3 % (13.2-45.0)
[2017-02-13 14:00] VITALS: BP 138/80
--- NOTE | 2017-02-13 18:40 | IPNPDOC ---
Text Note Date of Service The patient was seen on 02/13/17. NOTE No acute events overnight. no new complaints. She denies fevers, chills, chest pain, shortness of breath, nausea, vomiting, or diarrhea. GENERAL: She is an elderly, obese female, laying in bed comfortably, in no distress. HEENT: Cranial nerves II-XII are grossly intact. She has moist mucous membranes. CARDIOVASCULAR EXAM: S1, S2, regular. RESPIRATORY EXAM: Is clear. Diminished at the bases. ABDOMINAL EXAM: Obese. Bowel sounds present. The abdomen is soft. EXTREMITIES: 1+ edema bilaterally. ASSESSMENT AND PLAN: 76 y/o female past medical history of aortic valve replacement in 2013, coronary artery disease status post bypass in 2012 and 2015 , hypertension, hyperlipidemia, systolic and diastolic heart failure with last echocardiogram noting ejection fraction of 40%, chronic kidney disease stage V progress to end-stage renal disease status post hemodialysis for the past 2 weeks, acute on chronic anemia secondary to chronic kidney disease, diabetes type 2 insulin-dependent, hypothyroidism, paroxysmal atrial fibrillation currently off of her Coumadin, tachybradycardia syndrome status post pacemaker placement, pulmonary hypertension with right heart failure who presents with b/ l leg swelling, weakness and fatigue 2/2 acute on chronic congestive heart failure. PROBLEMS: 1. Acute on chronic congestive heart failure. Her fluid status is being optimized with hemodialysis. Nephrology's help is greatly appreciated. She is currently on midodrine and tolerating dialysis well. She is also on calcitriol. 2. Anemia. iron deficiency ,Her hemoglobin remains stable. She is on Aranesp. We will continue to monitor daily. FOBT + recent egd colonoscopy January Iron 3. Urinary tract infection. She has completed a course of antibiotics. 4. Leukocytosis- patient asymptomatic. improved, f/u bcx. monitor. 5. Weakness related to her fluid overload status and acute medical illness. She continues to work with physical therapy. I suspect as more fluid is removed and she has less leg edema, she will become more mobile. Otherwise, she is awaiting physical therapy clearance. potential, need a ramp at home 5. Type 2 diabetes. basal bolus insulin, hypoglycemia, insulin adjusted. f/u fs 6. Paroxysmal atrial fibrillation. Rate controlled with amiodarone. She is intolerant to beta-blockers. She is on a baby aspirin. and Eliquis 7. Vitamin D deficiency. She is on supplementation. 8. Gastroesophageal reflux disease. She is on omeprazole. 9. Hypothyroidism. She is on Synthroid. 10. Dyslipidemia. She is on a statin. 11. FOBT + HH stable, scope by Dr Brambila January, ppi, f/u Dr Brambila as outpatient 11. Deep venous thrombosis (DVT) prophylaxis. She is on sequentials and thromboembolism deterrents (TEDs).on Eliquis DISPOSITION: Pending physical therapy (PT) clearance. VS,Brandonbone, I+O VS, Brandonbone, I+O Laboratory Tests 02/13/17 05:36 Red Blood Count 3.00 L, Mean Corpuscular Volume 97.7 H, Mean Corpuscular Hemoglobin 28.3, Mean Corpuscular Hemoglobin Concent 29.0 L, Red Cell Distribution Width 18.4 H, Calcium Level 9.0 Vital Signs Date Time Temp Pulse Resp B/P (MAP) Pulse Ox O2 Delivery O2 Flow Rate FiO2 02/13/17 14:00 97.7 59 17 138/80 (99) 100 Room Air 02/13/17 06:00 I&O- Last 24 Hours up to 6 AM 02/14/17 06:00 Intake Total 1080 ml Balance 1080 ml GAMA STEWART MD Feb 13, 2017 18:40
[2017-02-13 22:00] VITALS: BP 141/63
[2017-02-13] MEDS: SIMVASTATIN 40 MG TAB PO SCH (22:13)
[2017-02-13] MEDS: CALCITRIOL 0.25 MCG CAP (S0169) PO SCH (22:13)
[2017-02-14] MEDS: LEVOTHYROXINE 100MCG TABLET (0.1MG) PO SCH (05:36)
[2017-02-14 06:00] VITALS: BP 122/60
[2017-02-14 06:05] LABS: MEAN CORPUSCULAR HEMOGLOBIN 28.1 pg (27.0-33.0); MEAN CORPUSCULAR HGB CONC 29.3 g/dl (32.0-36.5); MEAN CORPUSCULAR VOLUME 96.1 fl (80.0-96.0); PLATELET COUNT, AUTOMATED 316 10^3/uL (150-450); RED CELL DISTRIBUTION WIDTH 17.9 % (11.5-14.5); WHITE BLOOD COUNT 14.7 10^3/uL (4.0-10.0)
[2017-02-14 06:27] LABS: CALCIUM LEVEL 8.9 MG/DL (8.8-10.2); CREATININE FOR GFR 3.78 MG/DL (0.55-1.02); GLOMERULAR FILTRATION RATE 12.4 (>39); MAGNESIUM LEVEL 2.1 MG/DL (1.8-2.4); POTASSIUM SERUM 4.2 MEQ/L (3.5-5.1)
[2017-02-14] MEDS: HumaLOG INSULIN (NovoLOG) PER UNIT SC SCH ×4 (07:30→20:48)
[2017-02-14] MEDS: APIXABAN 5 MG TAB (ELIQUIS) PO SCH ×2 (08:47→20:48)
[2017-02-14] MEDS: OMEPRAZOLE 20 MG CAP PO SCH ×2 (08:48→20:47)
[2017-02-14] MEDS: SENOKOT S TAB PO SCH ×2 (08:48→20:47)
[2017-02-14] MEDS: CYANOCOBALAMIN 500 MCG TAB PO SCH (08:48)
[2017-02-14] MEDS: MULTIVITAMINS/MINERALS THERAP 1 TAB PO SCH (08:48)
[2017-02-14] MEDS: AMIODARONE 200 MG TAB (PACERONE) PO SCH (08:48)
[2017-02-14] MEDS: HumuLIN N INSULIN (NovoLIN N) PER UNIT SC SCH ×2 (08:48→20:48)
[2017-02-14] MEDS: ASPIRIN 81 MG ENTERIC TAB PO SCH (08:48)
[2017-02-14] MEDS: FERROUS SULFATE 325MG TAB PO SCH (08:48)
[2017-02-14] MEDS: MIDODRINE 5 MG TAB PO SCH ×3 (08:48→16:41)
[2017-02-14] MEDS: VITAMIN D 1,000 INTERNATIONAL UNITS TABLET PO SCH (08:48)
[2017-02-14] MEDS: ACETAMINOPHEN 650MG ER TAB (TYLENOL ARTHRITIS) PO PRN (09:29)
--- NOTE | 2017-02-14 10:51 | IPNPDOC ---
Text Note Date of Service The patient was seen on 02/14/17. NOTE No acute events overnight. no new complaints. She denies fevers, chills, chest pain, shortness of breath, nausea, vomiting, or diarrhea. GENERAL: She is an elderly, obese female, laying in bed comfortably, in no distress. HEENT: Cranial nerves II-XII are grossly intact. She has moist mucous membranes. CARDIOVASCULAR EXAM: S1, S2, regular. RESPIRATORY EXAM: Is clear. Diminished at the bases. ABDOMINAL EXAM: Obese. Bowel sounds present. The abdomen is soft. EXTREMITIES: 1+ edema bilaterally. ASSESSMENT AND PLAN: 76 y/o female past medical history of aortic valve replacement in 2013, coronary artery disease status post bypass in 2012 and 2015 , hypertension, hyperlipidemia, systolic and diastolic heart failure with last echocardiogram noting ejection fraction of 40%, chronic kidney disease stage V progress to end-stage renal disease status post hemodialysis for the past 2 weeks, acute on chronic anemia secondary to chronic kidney disease, diabetes type 2 insulin-dependent, hypothyroidism, paroxysmal atrial fibrillation currently off of her Coumadin, tachybradycardia syndrome status post pacemaker placement, pulmonary hypertension with right heart failure who presents with b/ l leg swelling, weakness and fatigue 2/2 acute on chronic congestive heart failure. PROBLEMS: 1. Acute on chronic congestive heart failure. Her fluid status is being optimized with hemodialysis. Nephrology's help is greatly appreciated. She is currently on midodrine and tolerating dialysis well. She is also on calcitriol. 2. Anemia. iron deficiency ,Her hemoglobin remains stable. She is on Aranesp. We will continue to monitor daily. FOBT + recent egd colonoscopy January Iron 3. Urinary tract infection. She has completed a course of antibiotics. 4. Leukocytosis- patient asymptomatic. improved, f/u bcx. monitor. 5. Weakness related to her fluid overload status and acute medical illness. She continues to work with physical therapy. awaiting physical therapy clearance. potential, need a ramp at home 5. Type 2 diabetes. basal bolus insulin, hypoglycemia, insulin adjusted. f/u fs 6. Paroxysmal atrial fibrillation. Rate controlled with amiodarone. She is intolerant to beta-blockers. She is on a baby aspirin. and Eliquis 7. Vitamin D deficiency. She is on supplementation. 8. Gastroesophageal reflux disease. She is on omeprazole. 9. Hypothyroidism. She is on Synthroid. 10. Dyslipidemia. She is on a statin. 11. FOBT + HH stable, scope by Dr Brambila January, ppi, f/u Dr Brambila as outpatient 11. Deep venous thrombosis (DVT) prophylaxis. She is on sequentials and thromboembolism deterrents (TEDs).on Eliquis DISPOSITION: Pending physical therapy (PT) clearance. VS,Fishbone, I+O VS, Fishbone, I+O Laboratory Tests 02/14/17 05:39 Calcium Level 8.9 02/14/17 05:40 Red Blood Count 3.06 L, Mean Corpuscular Volume 96.1 H, Mean Corpuscular Hemoglobin 28.1, Mean Corpuscular Hemoglobin Concent 29.3 L, Red Cell Distribution Width 17.9 H Vital Signs Date Time Temp Pulse Resp B/P (MAP) Pulse Ox O2 Delivery O2 Flow Rate FiO2 02/14/17 09:00 Nasal Cannula 02/14/17 06:00 97.5 67 18 122/60 (80) 94 02/13/17 21:00 2.0 GAMA STEWART MD Feb 14, 2017 10:51
[2017-02-14 14:00] VITALS: BP 154/65
--- NOTE | 2017-02-14 17:02 | IPN ---
DATE: 02/13/2017 SUBJECTIVE: The patient was seen and examined at the bedside today morning. She was actually sitting in the sofa. She denies any active complaints at this time. The patient was dialyzed yesterday. She tolerating the hemodialysis procedure well. REVIEW OF SYSTEMS: The patient denies any fevers, chills, rigors, headaches, nausea, vomiting, chest pain, shortness of breath. She does report mild lower extremity edema. The patient reports that she is feeling better now, and she has been able to walk with a walker with physical therapy. Rest of review of systems is negative. OBJECTIVE: VITAL SIGNS: Temperature is 99.7 degrees Fahrenheit, blood pressure is 117/56, pulse is 60, respiratory rate of 18, saturating 97% on room air. INTAKE AND OUTPUT: Urine output is not recorded. Ultrafiltration with hemodialysis was 3.5 liters yesterday. Weight in the bed scale is 65.6 kg. PHYSICAL EXAMINATION: GENERAL: The patient is awake, alert, and oriented times three sitting in the sofa in no apparent distress. HEAD/NECK: Extraocular muscles intact. Pupils equal, round, and reactive to light. Mucous membranes moist. Neck is supple. There is no jugular venous distention (JVD). CARDIOVASCULAR: S1, S2. Regular rate. The patient has 1+ pitting edema of the bilateral lower extremities. RESPIRATORY: Chest is clear to auscultation bilaterally. Bilateral equal air entry. ABDOMEN: Soft, positive bowel sounds. Nontender. No ascites. No organomegaly. MUSCULOSKELETAL: No clubbing or cyanosis. Pulses are 2+. ARTERIOVENOUS (AV) ACCESS: The patient has a left forearm AV fistula covered with a dressing at this time. CENTRAL NERVOUS SYSTEM (TRAINING OFFICER): No focal neurological deficit. Power is 5/5 in bilateral upper extremities. PSYCHIATRIC: Normal mood and affect. LABORATORY DATA: CBC showed a WBC of 14.1, hemoglobin 8.5, platelets are 304. BMP showed sodium 135, potassium four, chloride 97, bicarbonate 31, BUN 35, creatinine 2.9, ferritin 962, transferrin saturation is 13.3%. Iron is 21. CURRENT INPATIENT MEDICATIONS: The patient's medications were all reviewed by me. There is no change in the medications today as compared with yesterday. I have started the patient on Venofer intravenous (IV) with hemodialysis. ASSESSMENT: A 76-year-old female with past medical history of end-stage renal disease on hemodialysis, admitted this time because of lower extremity edema, weakness, and debilitation. PLAN: 1. End-stage renal disease on hemodialysis: The patient is being dialyzed according to Wednesday, Wednesday, Wednesday schedule over here. The patient's outpatient schedule is Wednesday, , Wednesday. No urgent need of hemodialysis today. Next hemodialysis session will be done on Wednesday. 2. Anemia in end-stage renal disease: The patient is on Aranesp. Hemoglobin is subtherapeutic at this time. I have started the patient on Venofer 100 mg IV with hemodialysis because of low transferrin saturation and low iron levels. Continue current dose of Aranesp with hemodialysis. 3. Congestive heart failure: The patient's volume status is improving; 3.5 liters of fluid were removed with dialysis yesterday. Continue ultrafiltration and challenging dry weight during each dialysis session. Lower extremity edema is improving. 4. Paroxysmal atrial fibrillation: The patient's heart rate is controlled at this time. She continues to be on amiodarone. Beta marie was stopped because of hypotension. Continue Eliquis for anticoagulation. 5. Weakness: The patient is getting physical therapy. She is able to walk with the help of a walker. She has difficulty climbing stairs. She reports that she has been climbing from 2-3 stairs now. She has to be able to climb up to four stairs before she is discharged home.
[2017-02-14] MEDS: SIMVASTATIN 40 MG TAB PO SCH (20:47)
[2017-02-14 22:00] VITALS: BP 124/52
[2017-02-15 05:51] LABS: MEAN CORPUSCULAR HEMOGLOBIN 27.7 pg (27.0-33.0); MEAN CORPUSCULAR HGB CONC 29.1 g/dl (32.0-36.5); MEAN CORPUSCULAR VOLUME 95.1 fl (80.0-96.0); PLATELET COUNT, AUTOMATED 319 10^3/uL (150-450); RED CELL DISTRIBUTION WIDTH 17.8 % (11.5-14.5); WHITE BLOOD COUNT 13.4 10^3/uL (4.0-10.0)
[2017-02-15 06:00] VITALS: BP 129/59
[2017-02-15 06:12] LABS: CALCIUM LEVEL 9.2 MG/DL (8.8-10.2); CREATININE FOR GFR 4.42 MG/DL (0.55-1.02); GLOMERULAR FILTRATION RATE 10.4 (>39); MAGNESIUM LEVEL 2.1 MG/DL (1.8-2.4); POTASSIUM SERUM 4.4 MEQ/L (3.5-5.1)
[2017-02-15] MEDS: ASPIRIN 81 MG ENTERIC TAB PO SCH (06:27)
[2017-02-15] MEDS: LEVOTHYROXINE 100MCG TABLET (0.1MG) PO SCH (06:27)
[2017-02-15] MEDS: FERROUS SULFATE 325MG TAB PO SCH (06:27)
[2017-02-15] MEDS: VITAMIN D 1,000 INTERNATIONAL UNITS TABLET PO SCH (06:27)
[2017-02-15] MEDS: OMEPRAZOLE 20 MG CAP PO SCH ×2 (06:27→21:29)
[2017-02-15] MEDS: CYANOCOBALAMIN 500 MCG TAB PO SCH (06:27)
[2017-02-15] MEDS: MULTIVITAMINS/MINERALS THERAP 1 TAB PO SCH (06:28)
[2017-02-15] MEDS: AMIODARONE 200 MG TAB (PACERONE) PO SCH (06:28)
[2017-02-15] MEDS: MIDODRINE 5 MG TAB PO SCH ×3 (06:28→16:58)
[2017-02-15] MEDS: SENOKOT S TAB PO SCH ×2 (06:30→21:29)
[2017-02-15] MEDS ORDERED: IRON SUCROSE 100MG 5ML VIAL (J1756 PER 1MG) IV SCH (08:00)
[2017-02-15] MEDS: HumuLIN N INSULIN (NovoLIN N) PER UNIT SC SCH ×2 (09:00→21:00)
[2017-02-15] MEDS: HumaLOG INSULIN (NovoLOG) PER UNIT SC SCH ×4 (09:07→21:00)
--- NOTE | 2017-02-15 10:30 | IPN ---
DATE: 02/14/2017 SUBJECTIVE: The patient was seen and examined at the bedside today morning. She was sitting in the sofa. The patient does not have any active complaints. The patient reported that she did physical therapy yesterday, she was able to climb about 3-1/2 stairs. She denies any pain in the legs. She is hemodynamically stable. REVIEW OF SYSTEMS: The patient denies any fevers, chills, rigors. She denies any chest pain, shortness of breath, pain in the abdomen, constipation, or diarrhea. She does report mild weakness in the legs but it is improving daily with physical therapy. Rest of review of systems is negative. OBJECTIVE: VITAL SIGNS: Temperature is 97.5 degrees Fahrenheit, blood pressure is 122/60, pulse is 67, respiratory rate of 18, saturating 94% on room air. INTAKE AND OUTPUT: Urine output is recorded as 100 mL. Weight in the bed scale is 67.3 kg. PHYSICAL EXAMINATION: GENERAL: The patient is awake, alert, and oriented times three sitting in the sofa in no apparent distress. HEAD/NECK: Extraocular muscles intact. Pupils equal, round, and reactive to light. Mucous membranes moist. Neck is supple. There is no jugular venous distention (JVD). CARDIOVASCULAR: S1, S2. Regular rate. No murmur, rub or gallop. The patient has 1+ pitting edema of the bilateral lower extremities. RESPIRATORY: Chest is clear to auscultation bilaterally. Bilateral equal air entry. No rales or rhonchi. MUSCULOSKELETAL: No clubbing or cyanosis. Pulses are 2+. CENTRAL NERVOUS SYSTEM (TOY MECHANIC): No focal neurological deficit. Power is 5/5 in bilateral upper extremities. PSYCHIATRIC: Normal mood and affect. LABORATORY DATA: CBC showed a WBC of 14.7, hemoglobin 8.6, platelets are 316. BMP showed sodium 132, potassium 4.2, chloride 96, bicarbonate 27, BUN 50, creatinine 3.7, calcium 8.9, magnesium 2.1. CURRENT INPATIENT MEDICATIONS: The patient's medications were all reviewed by me. There is no change in the medications today as compared with yesterday. ASSESSMENT: A 76-year-old female with past medical history of end-stage renal disease on hemodialysis, history of congestive heart failure (CHF) and atrial fibrillation, admitted this time because of weakness and inability to walk. PLAN: 1. End-stage renal disease on hemodialysis. The patient is tolerating her dialysis well. She is getting Wednesday, Wednesday, Wednesday dialysis as an inpatient at this time. Next hemodialysis session will be tomorrow. 2. Chronic diastolic congestive heart failure. The patient was volume overloaded when she came. We are doing ultrafiltration with each hemodialysis session. Edema is nicely improving. The patient makes minimal urine. 3. Anemia in end-stage renal disease. The patient's hemoglobin is still suboptimal. Continue current dose of Aranesp with hemodialysis. The patient will get iron with hemodialysis tomorrow as well. 4. Weakness and debilitation. The patient is getting physical therapy (PT). She is able to walk with the help of a walker and she is also trying to climb stairs now.
[2017-02-15] MEDS ORDERED: LIDOCAINE 1% SDV 5 ML VIAL SQ ONE (12:15)
--- NOTE | 2017-02-15 13:38 | IPN ---
DATE OF SERVICE: 02/15/2017 SUBJECTIVE: Patient was seen and examined at the bedside today morning during hemodialysis procedure. Patient was tolerating the hemodialysis procedure well. She does not have any active complaints. REVIEW OF SYSTEMS: Patient denies any fevers, chills, rigors, headaches, chest pain, shortness of breath, pain in abdomen, constipation, or diarrhea. She does report lower extremity edema and weakness of the lower extremities. Rest of review of system is negative. OBJECTIVE: VITAL SIGNS: Temperature is 97.2 degrees Fahrenheit. Blood pressure is 129/49. Pulse is 66, respiratory rate of 19, saturating 95% on room air. INTAKE AND OUTPUT: Urine output recorded is only 50 mL. Weight in the bed scale is 68.5 kg. PHYSICAL EXAMINATION: GENERAL: Patient is awake, alert, oriented times, laying in bed, getting hemodialysis, had no active complaints. HEAD AND NECK EXAM: Extraocular muscles intact. Pupils equally round and reactive to light. Mucous membranes are moist. Neck is supple. There is no jugular venous distention (JVD). CARDIOVASCULAR: S1, S2. Regular rate. No murmur, rub or gallop. Patient has 1+ edema of the bilateral lower extremities. RESPIRATORY: Chest is clear to auscultation bilaterally. Bilateral equal air entry. No rales or rhonchi. MUSCULOSKELETAL: No clubbing or cyanosis. Pulses are 2+. 1+ edema of the extremities and venous stasis changes of the lower extremities. CENTRAL NERVOUS SYSTEM (DYE LAB TECHNICIAN): No focal neurological deficit. Power is 5/5 in bilateral upper extremities. PSYCHIATRIC: Normal mood and affect. LABORATORY REVIEW: CBC showed WBC 13.4, hemoglobin is 8.5, platelets of 319. BMP showed sodium 130, potassium 4.4, chloride 93, bicarbonate 25, BUN 64, creatinine is 4.4, calcium 9.2, magnesium 2.1. CURRENT INPATIENT MEDICATIONS: Patient's medications were all reviewed by me. There is no change in the medications today as compared with yesterday. ASSESSMENT: 76-year-old female with past medical history of end-stage renal disease on hemodialysis, history of congestive heart failure, atrial fibrillation, admitted this time because of weakness and inability to walk, along with lower extremity edema. PLAN: 1. End-stage renal disease on hemodialysis. Patient's regular dialysis days are Wednesday, Wednesday, Wednesday. Patient is dialyzed according to her regular schedule. I shall try to do an ultrafiltration of about 3.5 kg as tolerated by her blood pressure. 2. Chronic diastolic congestive heart failure. Patient's volume status is being optimized with hemodialysis. About 3.5 kg of fluid is being removed with each dialysis sessions. Weight is improving. Patient does not make much urine. No diuretics at this time. 3. Anemia in end-stage renal disease. Hemoglobin is not optimized at this time. It is 8.5. Patient is getting intravenous (IV) iron along with hemodialysis. Continue current dose of Aranesp 200 mcg IV with hemodialysis. Patient will also get 1 unit of packed red blood cells (PRBC) transfusion with hemodialysis today. 4. Weakness and debilitation. Patient continues to get physical therapy. She is getting her strength back. Patient needs to be able to climb stairs before she goes home.
--- NOTE | 2017-02-15 13:43 | IPNPDOC ---
Text Note Date of Service The patient was seen on 02/15/17. NOTE No acute events overnight. no new complaints. She denies fevers, chills, chest pain, shortness of breath, nausea, vomiting, or diarrhea. doing better with PT GENERAL: She is an elderly, obese female, laying in bed comfortably, in no distress. HEENT: Cranial nerves II-XII are grossly intact. She has moist mucous membranes. CARDIOVASCULAR EXAM: S1, S2, regular. RESPIRATORY EXAM: Is clear. Diminished at the bases. ABDOMINAL EXAM: Obese. Bowel sounds present. The abdomen is soft. EXTREMITIES: 1+ edema bilaterally. ASSESSMENT AND PLAN: 76 y/o female past medical history of aortic valve replacement in 2012, coronary artery disease status post bypass in 2012 and 2015 , hypertension, hyperlipidemia, systolic and diastolic heart failure with last echocardiogram noting ejection fraction of 40%, chronic kidney disease stage V progress to end-stage renal disease status post hemodialysis for the past 2 weeks, acute on chronic anemia secondary to chronic kidney disease, diabetes type 2 insulin-dependent, hypothyroidism, paroxysmal atrial fibrillation currently off of her Coumadin, tachybradycardia syndrome status post pacemaker placement, pulmonary hypertension with right heart failure who presents with b/ l leg swelling, weakness and fatigue 2/2 acute on chronic congestive heart failure. PROBLEMS: 1. Acute on chronic congestive heart failure. Her fluid status is being optimized with hemodialysis. [facility] Nephrology's help is greatly appreciated. She is currently on midodrine and tolerating dialysis well. She is also on calcitriol. 2. Anemia. iron deficiency ,Her hemoglobin remains stable. She is on Aranesp. We will continue to monitor daily. FOBT + recent egd colonoscopy January Iron supplements 1U PRBC ordered by nephrology 3. Urinary tract infection. She has completed a course of antibiotics. 4. Leukocytosis- patient asymptomatic. improved, f/u bcx. monitor. 5. Weakness related to her fluid overload status and acute medical illness. She continues to work with physical therapy. awaiting physical therapy clearance. potential, need a ramp at home 5. Type 2 diabetes. basal bolus insulin, hypoglycemia, insulin adjusted. f/u fs 6. Paroxysmal atrial fibrillation. Rate controlled with amiodarone. She is intolerant to beta-blockers. She is on a baby aspirin. and Eliquis 7. Vitamin D deficiency. She is on supplementation. 8. Gastroesophageal reflux disease. She is on omeprazole. 9. Hypothyroidism. She is on Synthroid. 10. Dyslipidemia. She is on a statin. 11. FOBT + HH stable, scope by Dr Brambila January, ppi, f/u Dr Brambila as outpatient 11. Deep venous thrombosis (DVT) prophylaxis. She is on sequentials and thromboembolism deterrents (TEDs).on Eliquis DISPOSITION: Pending physical therapy (PT) clearance. VS,Fishbone, I+O VS, Fishbone, I+O Laboratory Tests 02/15/17 05:31 Red Blood Count 3.07 L, Mean Corpuscular Volume 95.1, Mean Corpuscular Hemoglobin 27.7, Mean Corpuscular Hemoglobin Concent 29.1 L, Red Cell Distribution Width 17.8 H, Calcium Level 9.2 Vital Signs Date Time Temp Pulse Resp B/P (MAP) Pulse Ox O2 Delivery O2 Flow Rate FiO2 02/15/17 06:00 97.2 66 19 129/59 (82) 95 Room Air 02/14/17 21:00 2.0 I&O- Last 24 Hours up to 6 AM 02/16/17 06:00 Intake Total 600 ml Balance 600 ml GAMA STEWART MD Feb 15, 2017 13:43
[2017-02-15] MEDS: oxyCODONE 5MG TAB PO PRN (13:49)
[2017-02-15] MEDS: APIXABAN 5 MG TAB (ELIQUIS) PO SCH ×2 (13:49→21:29)
[2017-02-15 14:00] VITALS: BP 136/60
[2017-02-15] MEDS: SIMVASTATIN 40 MG TAB PO SCH (21:29)
[2017-02-15] MEDS: CALCITRIOL 0.25 MCG CAP (S0169) PO SCH (21:29)
[2017-02-15 22:00] VITALS: BP 147/67
[2017-02-16] MEDS: LEVOTHYROXINE 100MCG TABLET (0.1MG) PO SCH (05:33)
[2017-02-16 05:45] LABS: MEAN CORPUSCULAR HEMOGLOBIN 29.4 pg (27.0-33.0); MEAN CORPUSCULAR HGB CONC 30.7 g/dl (32.0-36.5); MEAN CORPUSCULAR VOLUME 95.7 fl (80.0-96.0); PLATELET COUNT, AUTOMATED 292 10^3/uL (150-450); RED CELL DISTRIBUTION WIDTH 17.8 % (11.5-14.5); WHITE BLOOD COUNT 19.1 10^3/uL (4.0-10.0)
[2017-02-16 06:00] VITALS: BP 116/58
[2017-02-16 06:09] LABS: CALCIUM LEVEL 8.7 MG/DL (8.8-10.2); CREATININE FOR GFR 3.22 MG/DL (0.55-1.02); GLOMERULAR FILTRATION RATE 14.9 (>39)
[2017-02-16] MEDS: HumaLOG INSULIN (NovoLOG) PER UNIT SC SCH ×4 (07:26→21:00)
[2017-02-16] MEDS: HumuLIN N INSULIN (NovoLIN N) PER UNIT SC SCH ×2 (09:00→21:45)
[2017-02-16] MEDS: VITAMIN D 1,000 INTERNATIONAL UNITS TABLET PO SCH (10:46)
[2017-02-16] MEDS: MIDODRINE 5 MG TAB PO SCH ×3 (10:46→15:40)
[2017-02-16] MEDS: FERROUS SULFATE 325MG TAB PO SCH (10:46)
[2017-02-16] MEDS: SENOKOT S TAB PO SCH ×2 (10:47→21:47)
[2017-02-16] MEDS: AMIODARONE 200 MG TAB (PACERONE) PO SCH (10:47)
[2017-02-16] MEDS: OMEPRAZOLE 20 MG CAP PO SCH ×2 (10:47→21:46)
[2017-02-16] MEDS: APIXABAN 5 MG TAB (ELIQUIS) PO SCH ×2 (10:47→21:46)
[2017-02-16] MEDS: CYANOCOBALAMIN 500 MCG TAB PO SCH (10:47)
[2017-02-16] MEDS: MULTIVITAMINS/MINERALS THERAP 1 TAB PO SCH (10:47)
[2017-02-16] MEDS: ASPIRIN 81 MG ENTERIC TAB PO SCH (10:47)
--- NOTE | 2017-02-16 11:38 | IPNPDOC ---
Text Note Date of Service The patient was seen on 02/16/17. NOTE Subjective: She is in a good mood this morning, she did decline PT earlier this morning as she had just been up walking about her and the brushing her teeth, therefore she will reattempt working with physical therapy later today. She does continue to receive dialysis every Wednesday physical therapy will have a few more days to get her strengthen up, our goal will be hopefully for this . Otherwise, she does not have any acute complaints at this time, she denies any fevers, chills, nausea, vomiting, or any other issues remainder of her review of systems negative. Objective: GENERAL: Alert, awake, oriented. She is in no acute distress at this time. HEENT: Cranial nerves II-XII are grossly intact. She has moist mucous membranes. Hearing is grossly intact to conversation CARDIOVASCULAR EXAM: Regular rate and rhythm RESPIRATORY EXAM: Clear to auscultation bilaterally ABDOMINAL EXAM: Obese. Bowel sounds present. The abdomen is soft. EXTREMITIES: Trace edema bilaterally. ASSESSMENT: 76 y/o female past medical history of aortic valve replacement in 2013, coronary artery disease status post bypass in 2012 and 2015, hypertension, hyperlipidemia, systolic and diastolic heart failure with last echocardiogram noting ejection fraction of 40%, chronic kidney disease stage V progress to end- stage renal disease status post hemodialysis for the past 2 weeks, acute on chronic anemia secondary to chronic kidney disease, diabetes type 2 insulin- dependent, hypothyroidism, paroxysmal atrial fibrillation currently off of her Coumadin, tachybradycardia syndrome status post pacemaker placement, pulmonary hypertension with right heart failure who presents with b/l leg swelling, weakness and fatigue 2/2 acute on chronic congestive heart failure. PROBLEMS: 1. Acute on chronic congestive heart failure. She continues with dialysis every Wednesday. Fluid status appears to be adequately controlled. Nephrology's input is greatly appreciated. She is also on calcitriol. 2. Anemia. iron deficiency ,Her hemoglobin remains stable. She is on Aranesp. We will continue to monitor daily. FOBT + recent egd colonoscopy January. Continue with Iron supplements 3. Urinary tract infection. She has completed a course of antibiotics. 4. Leukocytosis-stable 5. Weakness related to her fluid overload status and acute medical illness. She continues to work with physical therapy. awaiting physical therapy clearance. She will likely need transportation to her dialysis upon discharge, discharge planning is aware. 5. Type 2 diabetes. Stable 6. Paroxysmal atrial fibrillation. Rate controlled with amiodarone. She is intolerant to beta-blockers. She is on a baby aspirin. and Eliquis 7. Vitamin D deficiency. She is on supplementation. 8. Gastroesophageal reflux disease. She is on omeprazole. 9. Hypothyroidism. She is on Synthroid. 10. Dyslipidemia. She is on a statin. 11. Positive fecal occult blood. HH stable, scope by Dr Brambila January, ppi , f/u Dr Brambila as outpatient 11. Deep venous thrombosis (DVT) prophylaxis. She is on sequentials and thromboembolism deterrents (TEDs).on Eliquis DISPOSITION: Pending physical therapy (PT) clearance, and social media intern is working on ensuring that she might be able to have all the necessary transportation for dialysis that she needs. If she continues to have difficulty , she may be a candidate for a detention facility.. VS,Fishbone, I+O VS, Fishbone, I+O Laboratory Tests 02/16/17 05:36 Red Blood Count 3.27 L, Mean Corpuscular Volume 95.7, Mean Corpuscular Hemoglobin 29.4, Mean Corpuscular Hemoglobin Concent 30.7 L, Red Cell Distribution Width 17.8 H, Calcium Level 8.7 L Vital Signs Date Time Temp Pulse Resp B/P (MAP) Pulse Ox O2 Delivery O2 Flow Rate FiO2 02/16/17 06:00 96.8 64 20 116/58 (77) 94 02/15/17 21:00 Nasal Cannula 2.0 I&O- Last 24 Hours up to 6 AM 02/17/17 06:00 Intake Total 120 ml Balance 120 ml JADEN WARD DO Feb 16, 2017 11:37
--- NOTE | 2017-02-16 11:48 | IPNPDOC ---
Date Seen The patient was seen on 02/16/17. Progress Note SUBJECTIVE: Patient was seen and examined at the bedside this morning. She reports two episodes of nausea with vomiting likely associated with the food she had to eat yesterday. She did eat this morning and has not vomited. Continues to work with physical therapy. REVIEW OF SYSTEMS: Patient admits to nausea with vomiting; denies any fevers, chills, rigors, headaches, chest pain, shortness of breath, pain in abdomen, constipation, or diarrhea. Rest of review of system is negative. PHYSICAL EXAMINATION: GENERAL: Patient is awake, alert, oriented times, laying in bed, getting hemodialysis, had no active complaints. HEAD AND NECK EXAM: Extraocular muscles intact. Pupils equally round and reactive to light. Mucous membranes are moist. Neck is supple. There is no jugular venous distention (JVD). CARDIOVASCULAR: S1, S2. Regular rate. No murmur, rub or gallop. Patient has 1+ edema of the bilateral lower extremities. RESPIRATORY: Chest is clear to auscultation bilaterally. Bilateral equal air entry. No rales or rhonchi. MUSCULOSKELETAL: No clubbing or cyanosis. Pulses are 2+. 1+ edema of the extremities and venous stasis changes of the lower extremities. CENTRAL NERVOUS SYSTEM (BATCH RECORDS CLERK): No focal neurological deficit. Power is 5/5 in bilateral upper extremities. PSYCHIATRIC: Normal mood and affect. LABORATORY REVIEW: See below. CURRENT INPATIENT MEDICATIONS: Patient's medications were all reviewed by myself and my attending. There is no change in the medications today as compared with yesterday. ASSESSMENT: 76-year-old female with past medical history of end-stage renal disease on hemodialysis, history of congestive heart failure, atrial fibrillation, admitted this time because of weakness and inability to walk, along with lower extremity edema. PLAN: 1. End-stage renal disease on hemodialysis: Regular dialysis days are MWF. She was dialyzed yesterday. Tolerated well. I/O of 3550mL. Received Iron 100mg IV during hemodialysis. Also received Aranesp during HD. Transfused one unit of PRBC during dialysis as well. 2. Chronic diastolic congestive heart failure: Removed 3500mL during dialysis yesterday. Weight is 68.5kg. No diuretics at this time. 3. Anemia in end-stage renal disease: Hemoglobin is not optimized at this time , but did improve with transfusion of one unit of PRBC. Hgb improved to 9.6. Receives Aranesp during hemodialysis. 4. Weakness and debilitation: Patient continues to get physical therapy. Recommendation by PT was for 1-2 more sessions. Currently patient is safe for discharge home with services; however, she will need to show consistency over the next couple of physical therapy sessions. DISPOSITION: Continue to monitor fluid status and labs. VS, I&O, 24H, Fishbone Vital Signs/I&O Vital Signs Date Time Temp Pulse Resp B/P (MAP) Pulse Ox O2 Delivery O2 Flow Rate FiO2 02/16/17 06:00 96.8 64 20 116/58 (77) 94 02/15/17 21:00 Nasal Cannula 2.0 I&O- Last 24 Hours up to 6 AM 02/17/17 06:00 Intake Total 120 ml Balance 120 ml Laboratory Data 24H LABS Laboratory Tests 2 02/15/17 13:49: Bedside Glucose (Misc Panel) 90 02/15/17 17:14: Bedside Glucose (Misc Panel) 167H 02/15/17 20:25: Bedside Glucose (Misc Panel) 151H 02/16/17 05:36: Nucleated Red Blood Cells % (auto) 0.2H, Anion Gap 8, Glomerular Filtration Rate 14.9L, Blood Urea Nitrogen 38H, Creatinine 3.22H, Sodium Level 134L, Potassium Level 4.0, Chloride Level 98, Carbon Dioxide Level 28, Calcium Level 8.7L, Magnesium Level 2.0 CBC/BMP Laboratory Tests 02/16/17 05:36 Red Blood Count 3.27 L, Mean Corpuscular Volume 95.7, Mean Corpuscular Hemoglobin 29.4, Mean Corpuscular Hemoglobin Concent 30.7 L, Red Cell Distribution Width 17.8 H, Calcium Level 8.7 L Microbiology Microbiology 02/10/17 Blood Culture - Final, Complete NO GROWTH AFTER 5 DAYS 02/10/17 Blood Culture - Final, Complete NO GROWTH AFTER 5 DAYS 02/11/17 Gastrointestinal Tract Panel (PCR) - Final, Complete 02/11/17 Stool Occult Blood (MECHELLE) - Final, Complete JASON VILA DO Feb 16, 2017 11:48
[2017-02-16] MEDS ORDERED: HumuLIN N INSULIN (NovoLIN N) PER UNIT SC ONE (12:00)
[2017-02-16] MEDS ORDERED: METOCLOPRAMIDE INJ 10MG/2ML VIAL (J2765) IV PRN (12:15)
[2017-02-16] MEDS: oxyCODONE 5MG TAB PO PRN (13:36)
[2017-02-16 14:00] VITALS: BP 135/60
[2017-02-16] MEDS: SIMVASTATIN 40 MG TAB PO SCH (21:47)
[2017-02-16 22:00] VITALS: BP 131/59
[2017-02-17 06:00] VITALS: BP 113/55
[2017-02-17] MEDS: LEVOTHYROXINE 100MCG TABLET (0.1MG) PO SCH (06:02)
[2017-02-17] MEDS: FERROUS SULFATE 325MG TAB PO SCH (06:02)
[2017-02-17] MEDS: OMEPRAZOLE 20 MG CAP PO SCH ×2 (06:02→22:34)
[2017-02-17] MEDS: SENOKOT S TAB PO SCH ×2 (06:02→22:34)
[2017-02-17] MEDS: CYANOCOBALAMIN 500 MCG TAB PO SCH (06:03)
[2017-02-17] MEDS: AMIODARONE 200 MG TAB (PACERONE) PO SCH (06:03)
[2017-02-17] MEDS: MIDODRINE 5 MG TAB PO SCH ×3 (06:03→17:31)
[2017-02-17] MEDS: APIXABAN 5 MG TAB (ELIQUIS) PO SCH ×2 (06:03→22:33)
[2017-02-17] MEDS: ASPIRIN 81 MG ENTERIC TAB PO SCH (06:03)
[2017-02-17] MEDS: VITAMIN D 1,000 INTERNATIONAL UNITS TABLET PO SCH (06:03)
[2017-02-17] MEDS: MULTIVITAMINS/MINERALS THERAP 1 TAB PO SCH (06:03)
[2017-02-17 06:38] LABS: MEAN CORPUSCULAR HEMOGLOBIN 28.8 pg (27.0-33.0); MEAN CORPUSCULAR HGB CONC 30.1 g/dl (32.0-36.5); MEAN CORPUSCULAR VOLUME 95.6 fl (80.0-96.0); PLATELET COUNT, AUTOMATED 291 10^3/uL (150-450); RED CELL DISTRIBUTION WIDTH 17.4 % (11.5-14.5); WHITE BLOOD COUNT 16.2 10^3/uL (4.0-10.0)
[2017-02-17 07:04] LABS: CALCIUM LEVEL 9.1 MG/DL (8.8-10.2); CREATININE FOR GFR 4.29 MG/DL (0.55-1.02); GLOMERULAR FILTRATION RATE 10.7 (>39); MAGNESIUM LEVEL 2.2 MG/DL (1.8-2.4); POTASSIUM SERUM 4.5 MEQ/L (3.5-5.1)
[2017-02-17] MEDS: HumuLIN N INSULIN (NovoLIN N) PER UNIT SC SCH ×2 (07:54→22:43)
[2017-02-17] MEDS: HumaLOG INSULIN (NovoLOG) PER UNIT SC SCH ×4 (07:54→21:00)
[2017-02-17] MEDS ORDERED: LIDOCAINE 1% SDV 5 ML VIAL SQ ONE (10:45)
[2017-02-17] MEDS ORDERED: IRON SUCROSE 100MG 5ML VIAL (J1756 PER 1MG) IV SCH (11:15)
--- NOTE | 2017-02-17 13:48 | IPNPDOC ---
Text Note Date of Service The patient was seen on 02/17/17. NOTE Subjective: The patient was seen in dialysis this morning. She is once again in a pleasant mood. She was unable to work with physical therapy before she started dialysis, however they may stop by later today. Our conversation was mostly about the fact that she has been hospitalized multiple times, and consideration may be made for subacute rehabilitation versus going to a nursing facility. She is not particularly pleased with this idea, but she understands. Objective: GENERAL: Alert, awake, oriented. She is in no acute distress at this time. She is reclined in a hospital bed, dialysis is actively running through the fistula in her left forearm HEENT: Cranial nerves II-XII are grossly intact. She has moist mucous membranes. Hearing is grossly intact to conversation CARDIOVASCULAR EXAM: Regular rate and rhythm RESPIRATORY EXAM: Clear to auscultation bilaterally ABDOMINAL EXAM: Obese, soft, nontender. Bowel sounds present. EXTREMITIES: Trace edema bilaterally. ASSESSMENT: 76 y/o female past medical history of aortic valve replacement in 2012, coronary artery disease status post bypass in 2012 and 2015, hypertension, hyperlipidemia, systolic and diastolic heart failure with last echocardiogram noting ejection fraction of 40%, chronic kidney disease stage V progress to end- stage renal disease status post hemodialysis for the past 2 weeks, acute on chronic anemia secondary to chronic kidney disease, diabetes type 2 insulin- dependent, hypothyroidism, paroxysmal atrial fibrillation currently off of her Coumadin, tachybradycardia syndrome status post pacemaker placement, pulmonary hypertension with right heart failure who presents with b/l leg swelling, weakness and fatigue 2/2 acute on chronic congestive heart failure. PROBLEMS: 1. Acute on chronic congestive heart failure. She continues with dialysis every Wednesday. Fluid status appears to be adequately controlled. Nephrology's input is greatly appreciated. She is also on calcitriol. 2. Anemia. iron deficiency ,Her hemoglobin remains stable. She is on Aranesp. We will continue to monitor daily. FOBT + recent egd colonoscopy January. Continue with Iron supplements 3. Urinary tract infection. She has completed a course of antibiotics. 4. Leukocytosis-stable 5. Weakness related to her fluid overload status and acute medical illness. She continues to work with physical therapy. awaiting their clearance. Discharge planning is also involved in coordinating the care she will need when she goes home. 5. Type 2 diabetes. Stable 6. Paroxysmal atrial fibrillation. Rate controlled with amiodarone. She is intolerant to beta-blockers. She is on a baby aspirin. and Eliquis 7. Vitamin D deficiency. She is on supplementation. 8. Gastroesophageal reflux disease. She is on omeprazole. 9. Hypothyroidism. She is on Synthroid. 10. Dyslipidemia. She is on a statin. 11. Positive fecal occult blood. HH stable, scope by Dr Brambila January, ppi , f/u Dr Brambila as outpatient 11. Deep venous thrombosis (DVT) prophylaxis. She is on sequentials and thromboembolism deterrents (TEDs).on Eliquis DISPOSITION: She is receiving dialysis today. She will reattempt to work with physical therapy tomorrow, if she is not ready for discharge at that time, then she will be switched over to a long-term status and further discussions with discharge planning will be pursued regarding placement options VS,Fishbone, I+O VS, Fishbone, I+O Laboratory Tests 02/17/17 05:58 Red Blood Count 3.20 L, Mean Corpuscular Volume 95.6, Mean Corpuscular Hemoglobin 28.8, Mean Corpuscular Hemoglobin Concent 30.1 L, Red Cell Distribution Width 17.4 H, Calcium Level 9.1 Vital Signs Date Time Temp Pulse Resp B/P (MAP) Pulse Ox O2 Delivery O2 Flow Rate FiO2 02/17/17 11:12 Room Air 02/17/17 06:00 98.6 72 18 113/55 (74) 100 02/16/17 21:00 2.0 I&O- Last 24 Hours up to 6 AM 02/18/17 06:00 Intake Total 240 ml Output Total 0 ml Balance 240 ml JADEN WARD DO Feb 17, 2017 13:38
[2017-02-17 14:00] VITALS: BP 117/56
[2017-02-17 22:00] VITALS: BP 117/56
[2017-02-17] MEDS: CALCITRIOL 0.25 MCG CAP (S0169) PO SCH (22:34)
[2017-02-17] MEDS: SIMVASTATIN 40 MG TAB PO SCH (22:34)
--- NOTE | 2017-02-18 03:11 | IPN ---
DATE OF SERVICE: 02/17/2017 SUBJECTIVE: Patient was seen and examined at the bedside today morning during hemodialysis. Patient was tolerating the hemodialysis well. She denies any active complaints. REVIEW OF SYSTEMS: Patient denies any fevers, chills, rigors, headaches, nausea, vomiting, chest pain, shortness of breath. She does report mild lower extremity edema and she reports her leg weakness is improving. Rest of review of systems is negative. OBJECTIVE: VITAL SIGNS: Temperature is 96.8 degrees Fahrenheit. Blood pressure is 116/58. Pulse is 64, respiratory rate of 18, saturating 94% on room air. INTAKE AND OUTPUT: Urine output is not recorded. Weight in the bed scale is recorded as 69.5 kg. PHYSICAL EXAMINATION: GENERAL: Patient is awake, alert, oriented times three, lying in bed, getting hemodialysis done, no active complaints. HEAD AND NECK EXAM: Extraocular muscles intact. Pupils equally round and reactive to light. Mucous membranes are moist. Neck is supple. There is no jugular venous distention (JVD). CARDIOVASCULAR: S1, S2. Regular rate. No murmur, rub or gallop. Patient has 1+ edema of the bilateral lower extremities. RESPIRATORY: Chest is clear to auscultation bilaterally. Bilateral equal air entry. No rales or rhonchi. ABDOMEN: Soft, positive bowel sounds, nontender. No ascites. No organomegaly. MUSCULOSKELETAL: No clubbing or cyanosis. Pulses are 2+. 1+ edema of the extremities as mentioned above. CENTRAL NERVOUS SYSTEM (BASEBALL GLOVE STUFFER): No focal neurological deficit. Power is 5/5 in bilateral upper extremities. PSYCHIATRIC: Normal mood and affect. LABORATORY REVIEW: CBC showed WBC 16.2, hemoglobin 9.2, platelets are 291. BMP showed sodium 130, potassium 4.5, chloride 93, bicarbonate 26, BUN 55, creatinine is 4.2, calcium 9.1, magnesium 2.2. CURRENT INPATIENT MEDICATIONS: Patient's medications were all reviewed by me. There is no change in the medications today as compared with yesterday except that I have renewed her intravenous (IV) Venofer. She did not get the full three doses. She only got one dose and the order has . ASSESSMENT: 76-year-old female with past medical history of end-stage renal disease on hemodialysis, history of congestive heart failure, atrial fibrillation, admitted this time because of weakness, lower extremity edema, inability to walk. PLAN: 1. End-stage renal disease on hemodialysis. Patient's regular dialysis days are Wednesday, Wednesday, Wednesday. She is being dialyzed according to her regular schedule. We shall try to do an ultrafiltration of 3.5 liters as tolerated by her blood pressure. 2. Chronic diastolic congestive heart failure. Patient's volume status is being optimized with dialysis. Lower extremity edema is improving. She is tolerating the ultrafiltration with each dialysis session. 3. Anemia in end-stage renal disease. Hemoglobin is not optimized. Patient got 1 unit of packed red blood cells (PRBC) transfusion during previous dialysis session. Continue current dose of Aranesp 200 mcg IV with hemodialysis and I have also renewed IV Venofer 100 mg IV with hemodialysis. 4. Weakness and debilitation. Patient is getting physical therapy. She reported that she is able to climb up to four stairs now. She is getting better. Patient needs to be cleared by physical therapy before going home.
[2017-02-18] MEDS: LEVOTHYROXINE 100MCG TABLET (0.1MG) PO SCH (05:38)
[2017-02-18 06:00] VITALS: BP 123/60
[2017-02-18 06:46] LABS: MEAN CORPUSCULAR HEMOGLOBIN 28.4 pg (27.0-33.0); PLATELET COUNT, AUTOMATED 277 10^3/uL (150-450); RED CELL DISTRIBUTION WIDTH 18.2 % (11.5-14.5)
[2017-02-18 07:12] LABS: CALCIUM LEVEL 8.7 MG/DL (8.8-10.2); CREATININE FOR GFR 3.15 MG/DL (0.55-1.02); GLOMERULAR FILTRATION RATE 15.3 (>39); POTASSIUM SERUM 4.1 MEQ/L (3.5-5.1)
[2017-02-18] MEDS: HumaLOG INSULIN (NovoLOG) PER UNIT SC SCH ×2 (07:23→12:00)
[2017-02-18] MEDS ORDERED: LEVEMIR (INSULIN DETEMIR) 1 UNITS/0.01ML As Ordered ONE (08:33)
[2017-02-18] MEDS: ASPIRIN 81 MG ENTERIC TAB PO SCH (08:37)
[2017-02-18] MEDS: MIDODRINE 5 MG TAB PO SCH ×2 (08:37→12:00)
[2017-02-18] MEDS: HumuLIN N INSULIN (NovoLIN N) PER UNIT SC SCH (08:37)
[2017-02-18] MEDS: APIXABAN 5 MG TAB (ELIQUIS) PO SCH (08:37)
[2017-02-18] MEDS: OMEPRAZOLE 20 MG CAP PO SCH (08:37)
[2017-02-18] MEDS: AMIODARONE 200 MG TAB (PACERONE) PO SCH (08:37)
[2017-02-18] MEDS: VITAMIN D 1,000 INTERNATIONAL UNITS TABLET PO SCH (08:37)
[2017-02-18] MEDS: FERROUS SULFATE 325MG TAB PO SCH (08:38)
[2017-02-18] MEDS: CYANOCOBALAMIN 500 MCG TAB PO SCH (08:38)
[2017-02-18] MEDS: SENOKOT S TAB PO SCH (08:38)
[2017-02-18] MEDS: MULTIVITAMINS/MINERALS THERAP 1 TAB PO SCH (08:38)
[2017-02-18] MEDS ORDERED: FERR1TAB8 PO (09:51)
[2017-02-18] MEDS ORDERED: ELIQ2.5T PO (09:51)
[2017-02-18] MEDS ORDERED: MIDO5TA PO (09:51)
[2017-02-18] MEDS ORDERED: INSUNSD SC ×2 (09:51)
--- NOTE | 2017-02-18 11:06 | IPNPDOC ---
Date Seen The patient was seen on 02/18/17. Progress Note SUBJECTIVE: Patient was seen and examined at the bedside this morning. She is sitting up in a chair during my evaluation. She states that her symptoms of shortness of breath have improved. Ambulating with a walker. Says that her son is building a ramp with rails on either side at home in order for her to be able to get inside her home. Tolerating hemodialysis. Next HD tomorrow. Denies active bleeding. REVIEW OF SYSTEMS: Patient denies any fevers, chills, rigors, headaches, nausea , vomiting, chest pain, shortness of breath, epistaxis, hematemesis, hemoptysis , melena, hematochezia. Rest of review of systems is negative. PHYSICAL EXAMINATION: GENERAL: Patient is awake, alert, oriented times three, sitting in a chair, no active complaints. HEAD AND NECK EXAM: Extraocular muscles intact. Pupils equally round and reactive to light. Mucous membranes are moist. Neck is supple. There is no jugular venous distention (JVD). CARDIOVASCULAR: S1, S2. Regular rate. No murmur, rub or gallop. Patient has 1+ edema of the bilateral lower extremities. RESPIRATORY: Chest is clear to auscultation bilaterally. Bilateral equal air entry. No rales or rhonchi. ABDOMEN: Soft, positive bowel sounds, nontender. No ascites. No organomegaly. MUSCULOSKELETAL: No clubbing or cyanosis. Pulses are 2+. 1+ edema of the extremities as mentioned above. CENTRAL NERVOUS SYSTEM (DESKTOP SPECIALIST): No focal neurological deficit. Power is 5/5 in bilateral upper extremities. PSYCHIATRIC: Normal mood and affect. LABORATORY REVIEW: See below. CURRENT INPATIENT MEDICATIONS: Patient's medications were all reviewed by myself and my attending. Have discontinued patient's ASA and reduced the dose of patient's Eliquis secondary to FOBT+ and decreasing hemoglobin. Receives Iron infusion during HD. ASSESSMENT: 76-year-old female with past medical history of end-stage renal disease on hemodialysis, history of congestive heart failure, atrial fibrillation, admitted this time because of weakness, lower extremity edema, inability to walk. PLAN: 1. End-stage renal disease on hemodialysis: Patient's regular dialysis days are Wednesday, Wednesday, Wednesday. She is being dialyzed according to her regular schedule. Next HD tomorrow. 2. Chronic diastolic congestive heart failure: Patient's volume status is being optimized with dialysis. Lower extremity edema is improving. She is tolerating the ultrafiltration with each dialysis session. 3. Anemia in end-stage renal disease with FOBT+: Hemoglobin is 8.6. Remains on Aranesp and IV Iron during hemodialysis. Positive occult blood noted in stool. Patient denies active, visible bleeding. Have discontinued ASA and reduced the dose of Eliquis to 2.5mg orally twice a day. 4. Weakness and debilitation: Patient is getting physical therapy. She reported that she is able to climb up to four stairs now. She is getting better. A ramp needs to be built at patient's home in order for patient to be successfully discharge. According to PFS ramp is still in the process of being built. DISPOSITION: Continue with hemodialysis. Decreased Eliquis dose and discontinued ASA. Monitor for signs of bleeding. VS, I&O, 24H, Fishbone Vital Signs/I&O Vital Signs Date Time Temp Pulse Resp B/P (MAP) Pulse Ox O2 Delivery O2 Flow Rate FiO2 02/18/17 06:00 97.6 60 19 123/60 (81) 100 Nasal Cannula 2.0 I&O- Last 24 Hours up to 6 AM 02/19/17 06:00 Intake Total 0 ml Balance 0 ml Laboratory Data 24H LABS Laboratory Tests 2 02/17/17 13:46: Bedside Glucose (Misc Panel) 100 02/17/17 16:39: Bedside Glucose (Misc Panel) 265H 02/17/17 20:07: Bedside Glucose (Misc Panel) 148H 02/18/17 05:47: Nucleated Red Blood Cells % (auto) 0.1H, Anion Gap 7L, Glomerular Filtration Rate 15.3L, Blood Urea Nitrogen 38H, Creatinine 3.15H, Sodium Level 134L, Potassium Level 4.1, Chloride Level 97L, Carbon Dioxide Level 30, Calcium Level 8.7L, Magnesium Level 2.0 CBC/BMP Laboratory Tests 02/18/17 05:47 Red Blood Count 3.03 L, Mean Corpuscular Volume 98.0 H, Mean Corpuscular Hemoglobin 28.4, Mean Corpuscular Hemoglobin Concent 29.0 L, Red Cell Distribution Width 18.2 H, Calcium Level 8.7 L Microbiology Microbiology 02/10/17 Blood Culture - Final, Complete NO GROWTH AFTER 5 DAYS 02/10/17 Blood Culture - Final, Complete NO GROWTH AFTER 5 DAYS 02/11/17 Gastrointestinal Tract Panel (PCR) - Final, Complete 02/11/17 Stool Occult Blood (MECHELLE) - Final, Complete JASON VILA DO Feb 18, 2017 11:06 CLARISSA CASIANO MD Feb 20, 2017 14:48
[2017-02-18 14:00] VITALS: BP 116/56
[2017-02-18] MEDS ORDERED: COUM2TAB22 PO (15:07)
[2017-02-18 15:48] LABS: INR 2.35
[2017-02-18] MEDS ORDERED: WARFARIN SOD 2 MG TAB PO SCH (17:00)
[2017-02-18] MEDS ORDERED: APIXABAN 2.5 MG TAB (ELIQUIS) PO SCH (21:00)
--- NOTE | 2017-02-18 21:18 | DS.PDOC ---
Discharge Summary General Date of Admission Jan 25, 2017 at 14:49 Date of Discharge 02/18/2017 Discharge Summary PRIMARY CARE PHYSICIAN: Dr. Hilda Harper ATTENDING AT TIME OF DISCHARGE: Dr. Wheeler DISCHARGE DIAGNOS(E)S: 1. Acute on chronic congestive heart failure 2. End-stage renal disease on hemodialysis 3. Iron deficiency anemia 4. Urinary tract infection 5. Leukocytosis 6. Weakness secondary to fluid overload and acute medical illness 7. Paroxysmal atrial fibrillation 8. Type 2 diabetes mellitus 9. Vitamin D deficiency 10. Gastroesophageal reflux disease 11. Hypothyroidism 12. Dyslipidemia 13. Positive fecal occult blood 14. Protein calorie malnutrition HPI & HOSPITAL COURSE: Ms. Sullivan is a 76-year-old female who had been hospitalized from 01 12 to 01/24/2017 for shortness of breath and fatigue secondary to heart failure and end-stage renal disease. During the hospitalization she was started on dialysis. She was discharged home and then returned back to the hospital within one day due to feeling acutely weak and unable to ascend the steps in her home. During her hospitalization she was found to have a urinary tract infection secondary to Escherichia coli that was treated with 8 days of Rocephin. Previously she had been anticoagulated with warfarin, however this was discontinued due to a gastrointestinal bleed. During this hospitalization she did have multiple episodes of atrial fibrillation, and eventually she required stabilization with amiodarone. She did not have any episodes of bleeding during this hospitalization, therefore is felt that anticoagulation could be resumed, but because of the interaction between amiodarone and Coumadin, she was started on Eliquis for stroke prophylaxis in the setting of atrial fibrillation. Towards the end of her hospitalization she did develop a positive fecal occult blood, but the reduction in her H&H very slow, the dose was reduced to 2.5 mg twice a day, and she will need continued monitoring as an outpatient. Otherwise, much of her stay was dedicated to physical rehabilitation and reconditioning. She has now been able to ambulate with a walker sufficiently safe, and she has been able to ascend to 5 steps without assistance , which is more than she has at home, therefore she does appear to be ready for discharge at this time. It was recommended that she have a varsity baseball coach arranged for transportation to dialysis, and this is being arranged by patient and family services. PHYSICAL EXAMINATION ON DISCHARGE: GENERAL: Awake, alert, oriented. She is in no acute distress. She is quite pleasant CARDIOVASCULAR EXAMINATION: Irregularly irregular with variable S1 and S2, no rubs, gallops, or murmur. RESPIRATORY EXAMINATION: Clear to auscultation bilaterally with no wheezes, rales, or rhonchi. ABDOMINAL EXAMINATION: Soft, nontender, nondistended. Bowel sounds present. EXTREMITIES: No clubbing or edema noted. 2+ pulses in the radial bilaterally. Dialysis fistula left forearm DISPOSITION: Home DISCHARGE INSTRUCTIONS: Follow-up with primary care provider Dr. Hilda Harper within 7-10 days. She will also need to follow up with her chief technologist on a regular basis for dialysis. She should be on a consistent carbohydrate diet with attention being made to renal restrictions as well. She should be walking with a walker, otherwise activity as tolerated. If symptoms return, or if you experience worsening of your symptoms, please call your doctor or return to the emergency department. ITEMS THAT NEED OUTPATIENT FOLLOWUP: Recommend following H&H as an outpatient for the next few weeks and weighed the benefits versus risks of anticoagulation if she does continue to drop. My preceptor for this patient encounter was physically present in the building during the encounter and was fully available. As needed, all aspects of the patient interview, examination, medical decision making process, and medical care plan development were reviewed and approved by the preceptor. Preceptor is aware and concurs with the plan as stated in the body of this note and will attest to such by his/her cosignature. Greater than 30 minutes spent organizing discharge Vital Signs/I&Os Vital Signs Date Time Temp Pulse Resp B/P (MAP) Pulse Ox O2 Delivery O2 Flow Rate FiO2 02/18/17 14:00 97.2 68 20 116/56 (76) 100 02/18/17 09:00 Nasal Cannula 2.0 I&O- Last 24 Hours up to 6 AM 02/19/17 06:00 Intake Total 540 ml Output Total 0 ml Balance 540 ml Laboratory Data Labs 24H Laboratory Tests 2 02/18/17 05:47: Nucleated Red Blood Cells % (auto) 0.1H, Anion Gap 7L, Glomerular Filtration Rate 15.3L, Blood Urea Nitrogen 38H, Creatinine 3.15H, Sodium Level 134L, Potassium Level 4.1, Chloride Level 97L, Carbon Dioxide Level 30, Calcium Level 8.7L, Magnesium Level 2.0 02/18/17 11:45: Bedside Glucose (Misc Panel) 227H 02/18/17 15:23: Prothrombin Time 26.7H, Prothromb Time International Ratio 2.35 CBC/BMP Laboratory Tests 02/18/17 05:47 Red Blood Count 3.03 L, Mean Corpuscular Volume 98.0 H, Mean Corpuscular Hemoglobin 28.4, Mean Corpuscular Hemoglobin Concent 29.0 L, Red Cell Distribution Width 18.2 H, Calcium Level 8.7 L FSBS Laboratory Tests Test 02/18/17 11:45 Range/Units Bedside Glucose (Misc Panel) 227 83-110 MG/DL Microbiology Microbiology 02/10/17 Blood Culture - Final, Complete NO GROWTH AFTER 5 DAYS 02/10/17 Blood Culture - Final, Complete NO GROWTH AFTER 5 DAYS 02/11/17 Gastrointestinal Tract Panel (PCR) - Final, Complete 02/11/17 Stool Occult Blood (MECHELLE) - Final, Complete Discharge Medications Scheduled (Flaxseed Oil 1000 mg) 1 Cap Cap, 1 CAP PO DAILY, (Reported) Amiodarone HCl (Amiodarone HCl) 200 Mg Tab, 200 MG PO DAILY, (Reported) Aspirin (Aspirin EC) 81 Mg Tab, 81 MG PO DAILY, (Reported) Calcitriol (Calcitriol) 0.25 Mcg Cap, 0.25 MCG PO Q2D, (Reported) TAKES AT HS Carvedilol (Carvedilol) 6.25 Mg Tab, 6.25 MG PO BID, (Reported) Cholecalciferol (Vitamin D) 1,000 Unit Tab, 1,000 UNIT PO DAILY, (Reported) Cyanocobalamin (Vitamin B-12) 1,000 Mcg Tab, 1,000 MCG PO DAILY, (Reported) Ferrous Sulfate (Ferrous Sulfate) 325 Mg Tab, 325 MG PO DAILY Insulin Human NPH (Humulin N) 1 Units/0.01 Ml Susp, 20 UNITS SC QAM Insulin Human NPH (Humulin N) 1 Units/0.01 Ml Susp, 6 UNITS SC QHS Levothyroxine Sodium (Synthroid) 100 Mcg Tab, 100 MCG PO DAILY, (Reported) Lovastatin (Lovastatin) 40 Mg Tab, 40 MG PO QHS, (Reported) Midodrine HCl (Midodrine HCl) 5 Mg Tab, 5 MG PO 08,12,16 Multivitamins *[facility] STOCKED* (Thera M Plus *[facility] STOCKED*) 1 Tab Tab, 1 TAB PO DAILY, (Reported) Omeprazole (Omeprazole) 40 Mg Cap, 40 MG PO BID, (Reported) Sucralfate (Carafate) 1 Gm/10 Ml Kika, 10 ML PO ACHS, (Reported) 4 times per day on an empty stomach 1 hour before meals and at bedtime Warfarin Sod (Coumadin) 2 Mg Tab, 2 MG PO DAILY Scheduled PRN Acetaminophen (Acetaminophen ER) 650 Mg Tab, 650 MG PO for PAIN OR FEVER, ( Reported) Nitroglycerin (Nitrostat) 0.4 Mg Subl, 0.4 MG SL NITRO PRN for CHEST PAIN, ( Reported) Oxycodone HCl (Oxycodone HCl) 5 Mg Tab, 5 MG PO Q8H PRN for PAIN, (Reported) Allergies Coded Allergies: Contrast Media (Unverified Allergy, Severe, ANAPHALAXIS-THROAT CLOSES, 09/11) Benzocaine (Unverified Allergy, Intermediate, RASH, 09/11/16) JADEN WARD DO Feb 18, 2017 21:18 BRINA WHEELER MD Feb 20, 2017 12:11
== END 2017-02-18 16:15 | disposition home health service (06) | DRG 291 ==
LOC: M ED 11:39 → M ED INP 14:49 → M PCU 18:29 → M MSPAV 02-03 20:45
PROVIDERS: ADMIT Internal Medicine; ATTEND Internal Medicine
PROC: 5A1D70Z Performance of Urinary Filtration, Intermittent, Less than 6 Hours Per Day (ICD-10-PCS; principal; 2017-01-25)
PROC: 30253N1 (ICD-10-PCS; 2017-01-26)
PROC: 30253J1 (ICD-10-PCS; 2017-01-26)
DX: I13.2 Hypertensive heart and chronic kidney disease with heart failure and with stage 5 chronic kidney disease, or end stage renal disease (principal); N18.6 End stage renal disease; I50.33 Acute on chronic diastolic (congestive) heart failure; E46 Unspecified protein-calorie malnutrition; N39.0 Urinary tract infection, site not specified; E87.1 Hypo-osmolality and hyponatremia; I25.10 Atherosclerotic heart disease of native coronary artery without angina pectoris; E78.5 Hyperlipidemia, unspecified; D63.1 Anemia in chronic kidney disease; E11.22 Type 2 diabetes mellitus with diabetic chronic kidney disease; E03.9 Hypothyroidism, unspecified; I48.0 Paroxysmal atrial fibrillation; M25.561 Pain in right knee; I27.20 Pulmonary hypertension, unspecified; B96.20 Unspecified Escherichia coli [E. coli] as the cause of diseases classified elsewhere; E53.8 Deficiency of other specified B group vitamins; E87.6 Hypokalemia; I95.3 Hypotension of hemodialysis; E55.9 Vitamin D deficiency, unspecified; E66.9 Obesity, unspecified; Z68.29 Body mass index [BMI] 29.0-29.9, adult; Z95.2 Presence of prosthetic heart valve; Z95.0 Presence of cardiac pacemaker; Z99.2 Dependence on renal dialysis; Z79.4 Long term (current) use of insulin; Z95.1 Presence of aortocoronary bypass graft; Z79.82 Long term (current) use of aspirin; Z79.899 Other long term (current) drug therapy; Z88.8 Allergy status to other drugs, medicaments and biological substances; Z87.891 Personal history of nicotine dependence; Z91.041 Radiographic dye allergy status

== ENCOUNTER 2017-03-18 21:53 | Emergency (ER) | payer MEDICARE, OTHER ==
[2017-03-18 22:44] LABS: BASO % 0.3 % (0.0-1.0); HEMATOCRIT 26.8 % (36.0-47.0); IMMATURE GRANULOCYTE # 0.1 10^3/uL (0-0); IMMATURE GRANULOCYTE % 0.7 % (0-0); LYMPH # 2.2 10^3/uL (1.5-4.5); LYMPH % 16.5 % (24.0-44.0); MEAN CORPUSCULAR HEMOGLOBIN 28.2 pg (27.0-33.0); MEAN CORPUSCULAR HGB CONC 29.9 g/dl (32.0-36.5); MEAN CORPUSCULAR VOLUME 94.4 fl (80.0-96.0); MONO # 0.9 10^3/uL (0.0-0.8); MONO % 6.6 % (0.0-5.0); NEUTROPHILS # 10.3 10^3/uL (1.8-7.7); NEUTROPHILS % 75.9 % (36.0-66.0); PLATELET COUNT, AUTOMATED 288 10^3/uL (150-450); RED BLOOD COUNT 2.84 10^6/uL (4.00-5.40); WHITE BLOOD COUNT 13.6 10^3/uL (4.0-10.0)
[2017-03-18 23:07] LABS: ANION GAP 6 MEQ/L (8-16); BLOOD UREA NITROGEN 17 MG/DL (7-18); CALCIUM LEVEL 9.4 MG/DL (8.8-10.2); CARBON DIOXIDE LEVEL 29 MEQ/L (21-32); CHLORIDE LEVEL 100 MEQ/L (98-107); CREATININE FOR GFR 1.61 MG/DL (0.55-1.02); GLOMERULAR FILTRATION RATE 33.2 (>39); GLUCOSE, FASTING 109 MG/DL (83-110); SODIUM LEVEL 135 MEQ/L (136-145)
== END 2017-03-19 00:17 | disposition home or self-care (01) ==
LOC: M ED 03-19 00:17
DX: S09.90XA Unspecified injury of head, initial encounter (principal); S20.211A Contusion of right front wall of thorax, initial encounter; W01.0XXA Fall on same level from slipping, tripping and stumbling without subsequent striking against object, initial encounter; Y92.013 Bedroom of single-family (private) house as the place of occurrence of the external cause; Y93.89 Activity, other specified; Y99.8 Other external cause status; I11.0 Hypertensive heart disease with heart failure; E11.9 Type 2 diabetes mellitus without complications; I50.9 Heart failure, unspecified; I48.91 Unspecified atrial fibrillation; E03.9 Hypothyroidism, unspecified; Z95.0 Presence of cardiac pacemaker; Z95.5 Presence of coronary angioplasty implant and graft; Z87.891 Personal history of nicotine dependence
CPT/HCPCS: 70450